=== PATIENT | female | born 1975 | race Two or more races ===

== ENCOUNTER 2016-09-04 17:51 | Inpatient (IN) | payer MEDICAID ==
[~2016-09-04] VITALS: Ht 162.6 cm; Wt 74.4 kg
[~2016-09-04 17:51] MED LIST: AMLO10TA2 PO; FURO40TA5 PO; LEVE250T4 PO; SEVE800T PO
--- NOTE | 2016-09-04 17:51 | NUR ---
NO DIALYSIS x 2 WEEKS. CHEST PAIN, NAUSEA, VOMITING, COUGH. AWAITING MD ORDER. PLACED IN GOWNED. VSS.
--- NOTE | 2016-09-04 18:50 | NUR ---
RAC #20 IV ACCESS BLOOD SAMPLE COLLECTED SENT TO LAB
--- NOTE | 2016-09-04 19:00 | NUR ---
EKG IN PROGRESS
[2016-09-04 19:01] LABS: BASOPHILS # (AUTO) 0.2 /CMM (0.0-0.2); BASOPHILS % (AUTO) 1.3 % (0.0-2.0); EOSINOPHILS % (AUTO) 0.2 % (0.0-6.0); HEMATOCRIT 35 % (33-45); HEMOGLOBIN 11.4 g/dL (11.5-14.8); LYMPHOCYTES # (AUTO) 1.2 /CMM (0.8-4.8); LYMPHOCYTES % (AUTO) 10.6 % (20.0-44.0); MEAN CORPUSCULAR HEMOGLOBIN 31 PG (26.0-33.0); MEAN CORPUSCULAR HGB CONC 33 g/dl (31.0-36.0); MEAN CORPUSCULAR VOLUME 93 fL (82-100); MONOCYTES # (AUTO) 0.5 /CMM (0.1-1.30); MONOCYTES % (AUTO) 4.6 % (2.0-12.0); NEUTROPHILS # (AUTO) 9.8 /CMM (1.8-8.9); NEUTROPHILS % (AUTO) 83.3 % (43.0-81.0); PLATELET COUNT (AUTO) 321 /CMM (150-450); RDW COEFFICIENT OF VARIATION 13.9 (11.5-15.0); RED BLOOD CELL COUNT(AUTO) 3.75 MIL/uL (4.0-5.2); WHITE BLOOD COUNT (AUTO) 11.7 K/uL (4.3-11.0)
--- NOTE | 2016-09-04 19:07 | NUR ---
RADIATOR REPAIRER AT BEDSIDE
--- NOTE | 2016-09-04 19:11 | NUR ---
REPORT GIVEN TO DOREEN FOR LISSETH.
--- NOTE | 2016-09-04 19:11 | NUR ---
URINE SAMPLE COLLECTED SENT TO LAB
--- NOTE | 2016-09-04 19:12 | NUR ---
PT APPEARS TO BE RESTING COMFORTABLY.
[2016-09-04 19:18] LABS: ALBUMIN 3.6 g/dL (3.4-5.0); BILIRUBIN,DIRECT 0.1 mg/dL (0.0-0.2); BILIRUBIN,TOTAL 0.5 mg/dL (0.2-1.0); CALCIUM, SERUM 8.3 mg/dL (8.5-10.1); POTASSIUM 6.1 mmol/L (3.5-5.1)
[2016-09-04 19:20] LABS: CREATININE 26.1 mg/dL (0.6-1.3)
[2016-09-04 19:30] LABS: APPEARANCE,URINE Slightly Cloudy (CLEAR); BILIRUBIN,URINE Negative (NEGATIVE); BLOOD, URINE Large Ery/uL (NEGATIVE); COLOR,URINE Red (YELLOW); KETONES,URINE 15 (NEGATIVE); LEUKOCYTE ESTERASE ,URINE Small (NEGATIVE); NITRITE, URINE Negative (NEGATIVE); PROTEIN,URINE >=300 mg/dl (NEGATIVE); UGLUCOSE 100 MG/DL mg/dL (NEGATIVE); UROBILINOGEN,URINE 0.2 EU/dL (0.2)
[2016-09-04 19:38] LABS: BACTERIA,URINE Few /HPF (None Seen); RBC,URINE TOO NUMEROUS TO COUN /HPF (0-2); SQUAMOUS EPITHELIAL CELL,UR Rare /HPF (None Seen)
[2016-09-04] MEDS ORDERED: SODIUM POLYSTYRENE SULFONATE 15 G/60 ML BOTTLE PO ONE (20:00)
[2016-09-04] MEDS ORDERED: ASPIRIN 325 MG TABLET PO ONE (20:00)
--- NOTE | 2016-09-04 20:02 | NUR ---
DR.SORA CANDIDO QUILES
[2016-09-04] MEDS ORDERED: ASPIRIN 325 MG TABLET ONE (20:09)
[2016-09-04] MEDS ORDERED: SODIUM POLYSTYRENE SULFONATE 15 G/60 ML BOTTLE ONE (20:09)
[2016-09-04] MEDS ORDERED: ONDANSETRON HCL/PF 4 MG/2 ML VIAL ONE (20:12)
--- NOTE | 2016-09-04 20:19 | NUR ---
called report to Tele nurse. Nurse to call back in 5 mins.
--- NOTE | 2016-09-04 20:27 | NUR ---
CALLED TELE BACK TO GIVE REPORT TO TELE NURSE.
[2016-09-04] MEDS ORDERED: ONDANSETRON HCL/PF 4 MG/2 ML VIAL IV ONE (20:30)
[2016-09-04] MEDS ORDERED: hydrALAZINE HCL 25 MG TABLET PO PRN (21:30)
[2016-09-04 22:00] VITALS: BP 129/97
--- NOTE | 2016-09-04 22:30 | NUR ---
RN:TD: PT RECEIVED FROM ED FOR HYPERKALEMIA. PT ABLE TO AMBULATE TO THE BATHROOM BUT EASILY BECOMES SHORT OF BREATH. PATIENT HAD SEVERAL BOWEL MOVEMENTS FROM THE KAYEXALATE GIVEN IN ER. PT ST ON THE MONITOR WITH BBB, NO ECTOPY NOTED. PT HAS IV SITE RIGHT ARM SALINE LOCK AND LEFT ARM AV SHUNT. PT IRANIAN SPEAKING, PROPERTY MANAGEMENT ACCOUNTANT THERE FOR TRANSLATION. ALL NEEDS MADE KNOWN. CALL LIGHT IN REACH. PATIENT TO RECEIVE HD IN AM PER MD ORDER. ALL ORDERED ENTERED IN COMPUTER. VSS. WILL CONTINUE TO MONITOR CLOSELY. ALL BELONGINGS INVENTORIED.
[2016-09-05] VITALS (7 sets, daily range): BP systolic 99–150; BP diastolic 53–90
--- NOTE | 2016-09-05 04:34 | NUR ---
RN:TD; PT RESTING IN BED COMFORTABLY, NO ECTOPY NOTED ON TELE MONITOR. CALL LIGHT IN REACH.
[2016-09-05 08:30] LABS: BASOPHILS # (AUTO) 0.1 /CMM (0.0-0.2); BASOPHILS % (AUTO) 1.5 % (0.0-2.0); EOSINOPHILS # (AUTO) 0.1 /CMM (0.0-0.7); EOSINOPHILS % (AUTO) 0.7 % (0.0-6.0); HEMATOCRIT 27 % (33-45); HEMOGLOBIN 9.3 g/dL (11.5-14.8); LYMPHOCYTES # (AUTO) 1.4 /CMM (0.8-4.8); LYMPHOCYTES % (AUTO) 14.8 % (20.0-44.0); MEAN CORPUSCULAR HEMOGLOBIN 31 PG (26.0-33.0); MEAN CORPUSCULAR HGB CONC 34 g/dl (31.0-36.0); MEAN CORPUSCULAR VOLUME 91 fL (82-100); MONOCYTES # (AUTO) 0.5 /CMM (0.1-1.30); MONOCYTES % (AUTO) 5.9 % (2.0-12.0); NEUTROPHILS # (AUTO) 7.1 /CMM (1.8-8.9); NEUTROPHILS % (AUTO) 77.1 % (43.0-81.0); PLATELET COUNT (AUTO) 241 /CMM (150-450); RDW COEFFICIENT OF VARIATION 14.7 (11.5-15.0); RED BLOOD CELL COUNT(AUTO) 2.97 MIL/uL (4.0-5.2); WHITE BLOOD COUNT (AUTO) 9.2 K/uL (4.3-11.0)
[2016-09-05 09:05] LABS: TROPONIN I 0.236 ng/mL (0.00-0.056)
[2016-09-05 09:14] LABS: CALCIUM, SERUM 7.7 mg/dL (8.5-10.1); POTASSIUM 4.6 mmol/L (3.5-5.1)
[2016-09-05 09:31] LABS: CREATININE 22.3 mg/dL (0.6-1.3)
[2016-09-05] MEDS: FUROSEMIDE 40 MG TABLET PO SCH (12:21)
[2016-09-05] MEDS: SEVELAMER CARBONATE 800 MG TABLET PO SCH ×2 (12:21→17:26)
[2016-09-05] MEDS ORDERED: LEVETIRACETAM (250 MG) 250 MG TABLET PO SCH (17:00)
--- NOTE | 2016-09-05 19:15 | NUR ---
RN INITIAL NOTES RECEIVED PATIENT IN BED, AWAKE AND ALERT, ORIENTED. PATIENT WITH NO ACUTE DISTRESS AND DISCOMFORT. PATIENT ON ROOM AIR, NO SHORTNESS OF BREATH NOTED. SR ON TELE, HR OF 99. WITH LEFT FOREARM AV SHUNT, BRUIT AND THRILL APPRECIATED, DRESSING INTACT, NO DRAINAGE AND NO BLEEDING NOTED. R AC G20, FLUSHED AND PATENT, NO SIGNS OF INFILTRATION. PATIENT'S NEEDS ANTICIPATED AND MET. SAFETY AND COMFORT ENSURED. BED IN LOW AND LOCKED POSITION. CALL LIGHT IN REACH. WILL MONITOR.
--- NOTE | 2016-09-05 20:00 | NUR ---
RN NOTES PATIENT SEEN AND EXAMINED BY DR. MEHTA REFERRED BY DR. DUARTE. PATIENT TO BE STARTED ON ANTI DEPRESSANT ORDERED, PATIENT VERBALIZES UNDERSTANDING.
[2016-09-06] VITALS: BP 101/52
[2016-09-06] MEDS: ACETAMINOPHEN 650 MG/20.3 ML UDC PO PRN ×3 (01:55→21:07)
[2016-09-06] MEDS: ONDANSETRON HCL/PF 4 MG/2 ML VIAL IV PRN ×2 (01:55→08:17)
[2016-09-06 04:00] VITALS: BP 105/65
--- NOTE | 2016-09-06 06:48 | NUR ---
RN CLOSING NOTES PATIENT IN BED, SLEEPING COMFORTABLY. NO ACUTE DISTRESS OBSERVED OVERNIGHT. SAFETY AND COMFORT ENSURED. BED IN LOW AND LOCKED POSITION. CALL LIGHT IN REACH. WILL ENDORSE ACCORDINGLY FOR CONTINUITY OF CARE.
--- NOTE | 2016-09-06 07:35 | NUR ---
RN INITIAL NOTE RECEIVED PT FROM ENRIQUE STILES PM NURSE. PT A/O X4 ROMANSH SPEAKING. PT RECEIVED HD @ BEDSIDE. TELE SR. LFA AV SHUNT, RAC # 20G INTACT AND PATENT. PT NAUSEATED. ZOFRAN WILL BE GIVEN. WILL CONTINUE TO MONITOR CLOSELY.ALL SAFETY MEASURES IN PLACE.
[2016-09-06 08:00] VITALS: BP 129/94
[2016-09-06] MEDS: SEVELAMER CARBONATE 800 MG TABLET PO SCH ×3 (08:13→17:19)
[2016-09-06] MEDS: FUROSEMIDE 40 MG TABLET PO SCH (08:13)
[2016-09-06] MEDS: SERTRALINE HCL 25 MG TABLET PO SCH (08:13)
[2016-09-06] MEDS: AMLODIPINE BESYLATE 10 MG TABLET PO SCH (08:23)
[2016-09-06 12:00] VITALS: BP 107/78
[2016-09-06] MEDS ORDERED: EPOETIN ALFA (10,000 UNIT) 10,000 UNIT/ML VIAL IV ONE (15:00)
--- NOTE | 2016-09-06 15:35 | NUR ---
RN NOTE PT C/O HEADACHE WILL GIVEN TYLENOL PO.
[2016-09-06 16:00] VITALS: BP 117/80
--- NOTE | 2016-09-06 19:08 | NUR ---
RN CLOSING NOTE REPORT GIVEN TO [facility] NURSE FOR LISSETH. PT A/O X4 DANISH SPEAKING. TELE SR. LFA AV SHUNT, RAC # 20G INTACT AND PATENT. PT NO LONGER NAUSEATED . ALL MEDICATIONS GIVEN AND ALL ORDERS CARRIED OUT. ALL SAFETY MEASURES IN PLACE. PT ABLE TO TOLERATE DINNER MUCH BETTER THAN SHE DID HER LUNCH.
[2016-09-06 20:00] VITALS: BP 119/80
[2016-09-07] VITALS: BP 103/67
[2016-09-07 04:00] VITALS: BP 96/63
--- NOTE | 2016-09-07 07:15 | NUR ---
RN INITIAL NOTE PT RECEIVED IN BED, RESTING COMFORTABLY. AWAKE, ALERT AND ORIENTED. PRIMARILY MONGOLIAN SPEAKING. ABLE TO MAKE NEEDS KNOWN. SINUS RHYTHM ON TELE MONITOR. RIGHT ARM AC IV SITE, FLUSHED AND PATENT. SKIN WARM AND DRY TO TOUCH. SAFETY PRECAUTIONS IN PLACE. BED IN LOCKED, LOW POSITION. CALL LIGHT, AND BELONGINGS WITHIN EASY .
[2016-09-07 08:00] VITALS: BP 120/90
[2016-09-07] MEDS: SEVELAMER CARBONATE 800 MG TABLET PO SCH (08:10)
[2016-09-07] MEDS: FUROSEMIDE 40 MG TABLET PO SCH (08:10)
[2016-09-07] MEDS: SERTRALINE HCL 25 MG TABLET PO SCH (08:10)
[2016-09-07 08:11] VITALS: BP 120/90
[2016-09-07] MEDS: AMLODIPINE BESYLATE 10 MG TABLET PO SCH (08:11)
[2016-09-07] MEDS ORDERED: SERT25TA5 PO (09:32)
--- NOTE | 2016-09-07 12:45 | NUR ---
RN CLOSING NOTE PT DISCHARGED TO HOME. IV DISCONTINUED. PICKED UP BY FAMILY MEMBER. WILL F/U WITH PCP RE: DIALYSIS
== END 2016-09-07 13:00 | disposition home or self-care (01) | DRG 460 ==
LOC: ER 17:57 → TELE-TD 20:35 → TELE1 09-05 17:15
PROVIDERS: ADMIT Internal Medicine Nephrology; ATTEND Internal Medicine Nephrology
PROC: 5A1D60Z (ICD-10-PCS; principal; 2016-09-05)
DX: I12.0 Hypertensive chronic kidney disease with stage 5 chronic kidney disease or end stage renal disease (principal); E87.5 Hyperkalemia; N18.6 End stage renal disease; Z99.2 Dependence on renal dialysis; D64.9 Anemia, unspecified; F32.9 Major depressive disorder, single episode, unspecified
CPT/HCPCS: 36415; 71010-TC; 80048-TC; 80076-TC; 81000-TC; 84484-TC; 85025-TC; 87081-TC; 87086-TC; 90935-TC; A4606; J0885; J2405; Z7610

== ENCOUNTER 2017-05-07 17:29 | Inpatient (IN) | payer MEDICAID ==
[~2017-05-07] VITALS: Ht 160 cm; Wt 67.6 kg
[~2017-05-07 17:29] MED LIST changes: +SERT25TA5 PO; -SEVE800T PO; +SEVE800T7 PO
--- NOTE | 2017-05-07 17:40 | NUR ---
PT TO ER BED 10. PER REPORT, PT HAS NO DIALYSIS X 1 MONTH. PT IS C/O SOB, VOMITING AND WAS TOLD TO GO TO ED. GOWNED AND PLACED ON MONITOR. VSS. AUSTIN LEONARD.
--- NOTE | 2017-05-07 17:55 | NUR ---
DR WEST AT BEDSIDE FOR EVAL.
[2017-05-07] MEDS ORDERED: ONDANSETRON HCL/PF 4 MG/2 ML VIAL IVP ONE (18:00)
--- NOTE | 2017-05-07 18:05 | NUR ---
IV LINE STARTED BLOOD DRAWN AND SENT TO LAB.
[2017-05-07] MEDS ORDERED: ONDANSETRON HCL/PF 4 MG/2 ML VIAL ONE (18:06)
[2017-05-07 18:08] LABS: BASOPHILS % (AUTO) 0.3 % (0.0-2.0); EOSINOPHILS # (AUTO) 0.1 /CMM (0.0-0.7); EOSINOPHILS % (AUTO) 0.7 % (0.0-6.0); HEMATOCRIT 24 % (33-45); HEMOGLOBIN 8.4 g/dL (11.5-14.8); LYMPHOCYTES # (AUTO) 0.5 /CMM (0.8-4.8); LYMPHOCYTES % (AUTO) 6.3 % (20.0-44.0); MEAN CORPUSCULAR HEMOGLOBIN 31 PG (26.0-33.0); MEAN CORPUSCULAR HGB CONC 35 g/dl (31.0-36.0); MEAN CORPUSCULAR VOLUME 90 fL (82-100); MONOCYTES # (AUTO) 0.4 /CMM (0.1-1.30); MONOCYTES % (AUTO) 4.6 % (2.0-12.0); NEUTROPHILS # (AUTO) 7.5 /CMM (1.8-8.9); NEUTROPHILS % (AUTO) 88.1 % (43.0-81.0); PLATELET COUNT (AUTO) 294 /CMM (150-450); RED BLOOD CELL COUNT(AUTO) 2.71 MIL/uL (4.0-5.2); WHITE BLOOD COUNT (AUTO) 8.5 K/uL (4.3-11.0)
--- NOTE | 2017-05-07 18:18 | NUR ---
RADIOLOGY AT BEDSIDE FOR CHEST XRAY.
[2017-05-07 18:25] LABS: ALANINE AMINOTRANSFERASE 8 U/L (12-78); ALBUMIN 3.3 g/dL (3.4-5.0); ALKALINE PHOSPHATASE 86 U/L (46-116); ASPARTATE AMINOTRANSFERASE 17 U/L (15-37); BILIRUBIN,DIRECT 0.2 mg/dL (0.0-0.2); BILIRUBIN,TOTAL 0.6 mg/dL (0.2-1.0); CALCIUM, SERUM 8.3 mg/dL (8.5-10.1); CHLORIDE 100 mmol/L (98-107); GLUCOSE 152 mg/dL (74-106); POTASSIUM 5.4 mmol/L (3.5-5.1); SODIUM SERUM 134 mmol/L (136-145); TOTAL PROTEIN, SERUM 8.9 g/dL (6.4-8.2)
[2017-05-07 18:26] LABS: TROPONIN I < 0.017 ng/mL (0.00-0.056)
[2017-05-07 18:33] LABS: INR 2.09 (0.85-1.15)
[2017-05-07 18:44] LABS: CARBON DIOXIDE 7 mmol/L (21-32); UREA NITROGEN, BLOOD 200 mg/dL (7-18)
[2017-05-07] MEDS ORDERED: Sodium Bicarbonate 50 MEQ in IV 1/2NS 1000 ML 1,000 ML IV PRN (19:30)
[2017-05-07] MEDS ORDERED: SODIUM BICARBONATE SYR 50 MEQ/50 ML DISP.SYRIN IV ONE (19:30)
--- NOTE | 2017-05-07 19:32 | NUR ---
DR SENA CALLED ON THE PHONE WITH DR WEST.
--- NOTE | 2017-05-07 19:44 | NUR ---
CALLED DR LING, ON THE PHONE WITH DR WEST.
[2017-05-07] MEDS ORDERED: SODIUM BICARBONATE SYR 50 MEQ/50 ML DISP.SYRIN ONE ×2 (19:46→20:03)
--- NOTE | 2017-05-07 20:01 | NUR ---
REPORT GIVEN TO RAMILA. PT AWAITING TRANSFER TO FLOOR.
[2017-05-07 20:17] VITALS: BP 156/83
[2017-05-07] MEDS ORDERED: SODIUM POLYSTYRENE SULFONATE 15 G/60 ML BOTTLE PO ONE (20:30)
[2017-05-07] MEDS ORDERED: Z GUARD REMEDY 2 OZ OINT TP PRN (20:30)
[2017-05-07] MEDS ORDERED: ZOLPIDEM TARTRATE 5 MG TABLET PO PRN (20:30)
[2017-05-07] MEDS ORDERED: HYDROCODONE/APAP 5/325MG 1 EACH TABLET PO PRN (20:30)
[2017-05-07 21:00] VITALS: BP 146/86
[2017-05-07] MEDS ORDERED: PHYTONADIONE INJ 5 MG in IV D5W 50 ML IV ONE (21:00)
--- NOTE | 2017-05-07 21:19 | NUR ---
SUBSCRIPTION CREW LEADER DF KAYEXALATE 30GM ADMIN PT INSTRUCTED TO CALL FOR ASSISTANCE TO USE THE REST ROOM. PT ADMIN VITAMIN K IVF. POC PT NEEDS A CHELSIE CATH PRIOR TO HEMODIALYSIS. PT REPORTS THAT SHE HAD HEMODIALYSIS OVER A MONTH AGO AND DURING THAT TIME AV FISTULA EXPERIENCED SOME CLOTTING ISSUES. MD SENA ATTEMPTING TO ARRANGE MD TO INSERT CHELSIE CATHETER.PT VSS POTASSIUM OF 5.4 KAYEXALATE GIVEN ORDERED. PT MACEDONIAN SPEAKING INTERPRETATION PROVIDED BY RENA Beebe RN. Addendum: 05/07/17 at 2124 by PATRICIA FLORES RN PT RECEIVED FROM ER AT 2014 PT A/OX4 MACEDONIAN SPEAKING. PER PT SHE HAD DIALYSIS OVER 1 MONTH AGO AND WAS TOLD IN A MD OFFICE SHE REQUIRES HD TMT.PT BUN 200/CR 36 ADMITTING MD AWARE OF RESULTS. VSS. PT ON ROOM AIR SATURATION OF 99%, NSR ON MONITOR RATE OF 80. PT REFUSED SKIN ASSESSMENT AT TIME OF ADMISSION. PER PT SHE HAS NO WOUNDS OR SKIN ISSUES. WILL REASSESS PT SKIN WHEN PT IS MORE COMFORTABLE AND CONSENTING.
[2017-05-07 22:00] VITALS: BP 151/85
[2017-05-07 23:00] VITALS: BP 150/86
--- NOTE | 2017-05-07 23:02 | NUR ---
SHERIFF DETECTIVE DF I SPOKE WITH MD SENA UPDATED ON PATIENT STATUS.POC WILL BE FOR TELECOMMUNICATIONS CONSULTANT IN AM TO ATTEMPT TO CANNULATE AV FISTULA IN AM AND PERFORM HD. IF UNABLE TO ACCESS AV FISTULA A CHELSIE CATH WILL NEED TO BE PLACED. VSS. PT A/OX4 NO ACUTE DISTRESS NOTED. PT ASYMPTOMATIC.
[2017-05-08] VITALS (33 sets, daily range): BP systolic 112–178; BP diastolic 74–117
[2017-05-08 04:58] LABS: BASOPHILS % (AUTO) 0.2 % (0.0-2.0); EOSINOPHILS % (AUTO) 0.3 % (0.0-6.0); LYMPHOCYTES # (AUTO) 0.6 /CMM (0.8-4.8); LYMPHOCYTES % (AUTO) 10.3 % (20.0-44.0); MEAN CORPUSCULAR HEMOGLOBIN 32 PG (26.0-33.0); MEAN CORPUSCULAR HGB CONC 35 g/dl (31.0-36.0); MEAN CORPUSCULAR VOLUME 90 fL (82-100); MONOCYTES # (AUTO) 0.6 /CMM (0.1-1.30); NEUTROPHILS # (AUTO) 4.5 /CMM (1.8-8.9); NEUTROPHILS % (AUTO) 78.2 % (43.0-81.0); PLATELET COUNT (AUTO) 183 /CMM (150-450); RDW COEFFICIENT OF VARIATION 13.5 (11.5-15.0); RED BLOOD CELL COUNT(AUTO) 2.04 MIL/uL (4.0-5.2); WHITE BLOOD COUNT (AUTO) 5.8 K/uL (4.3-11.0)
[2017-05-08 05:20] LABS: CALCIUM, SERUM 7.1 mg/dL (8.5-10.1); MAGNESIUM 3.8 mg/dL (1.8-2.4); POTASSIUM 4.4 mmol/L (3.5-5.1); THYROID STIMULATING HORMONE 2.035 uIU/mL (0.358-3.74)
[2017-05-08 05:26] LABS: INR 1.29 (0.87-1.13)
--- NOTE | 2017-05-08 05:34 | NUR ---
BIOINFORMATICS SOFTWARE ENGINEER DF HGB OF 6.4 PT HGB ON ADMISSION 8.4 NO BLEEDING NOTED. PT DENIES BLOOD IN STOOL. POC REDRAW HGB FROM PERIPHERAL VEIN. HD RN BILL AT BEDSIDE FOR EMERGENT DIALYSIS HE WAS ABLE TO CANNULATE AV FISTULA WITH SUCCESS. VSS PT A/OX4.
[2017-05-08 05:45] LABS: CREATININE 33.6 mg/dL (0.6-1.3); PHOSPHORUS 10.4 mg/dL (2.5-4.9)
--- NOTE | 2017-05-08 05:47 | NUR ---
SUPPORT GROUP MANAGER DF RECEIVED CRITICAL VALUES OF HGB OF 6.4 PHOS OF 10.4,BUN 202,CR 33.6. MD SENA AWARE PT RECEIVING EMERGENT DIALYSIS STARTED ABOUT 20 MIN. POC CHECK LABS POST HD AND REDRAW HGB AND RECHECK VALUES.
[2017-05-08 06:18] LABS: HEMOGLOBIN 6.5 g/dL (11.5-14.8)
[2017-05-08 06:19] LABS: HEMATOCRIT 18 % (33-45); HEMOGLOBIN 6.4 g/dL (11.5-14.8)
--- NOTE | 2017-05-08 07:00 | NUR ---
RN SURGERY DF PT ORDERS RECEIVED FOR T&C SCREEN AND 1UPRBC.PT CONSENTS TO BLOOD TRANSFUSION,CONSENT FORM SIGNED, PT IN AGREEMENT TO TRANSFUSIONS, PT HAS HAD A BLOOD TRANSFUSIONS IN THE PAST.
[2017-05-08] MEDS: ONDANSETRON HCL/PF 4 MG/2 ML VIAL IVP PRN (07:25)
[2017-05-08 09:26] LABS: LYMPHOCYTES % (MANUAL) 5 % (16-48); MONOCYTES % (MANUAL) 7 % (0-11.0); NEUTROPHILS % (MANUAL) 88 (42-76)
[2017-05-08] MEDS: SEVELAMER CARBONATE 800 MG TABLET PO SCH ×3 (09:36→17:45)
[2017-05-08] MEDS: AMLODIPINE BESYLATE 10 MG TABLET PO SCH (09:36)
--- NOTE | 2017-05-08 11:15 | NUR ---
rn notes pt with downgrade level of care order; transferred pt to rm [id number] via wheelchair in stable condition. current ivf infusing well with PRBC also infusing; no transfusion reactions noted; pt denies pain, no sob. pt in stable condition. tel report given to vocational teacher Alexandra prior to transfer. all belongings endorsed
--- NOTE | 2017-05-08 11:30 | NUR ---
RN NOTE PATIENT IS RECEIVED PATIENT RECEIVED ON W/CHAIR. ASSISTED TO BED. PRBC INFUSING WELL. NO TRANSFUSION REACTIONS NOTED. DENIES SOB, DENIES PAIN. RESPIRATION REGULAR AND UNLABORED. PATIENT IS ALERT AND ORIENTED X4. PALESTINIAN SPEAKING. ALL NEEDS ATTENDED AND ANTICIPATED. BED LOW AND LOCKED. SIDE RAIL UP X2. CALL LIGHT WITHIN REACH. WILL CONTINUE TO MONITOR.
[2017-05-08 14:41] LABS: BASOPHILS % (AUTO) 0.2 % (0.0-2.0); EOSINOPHILS % (AUTO) 0.2 % (0.0-6.0); HEMATOCRIT 25 % (33-45); HEMOGLOBIN 8.8 g/dL (11.5-14.8); LYMPHOCYTES # (AUTO) 0.5 /CMM (0.8-4.8); LYMPHOCYTES % (AUTO) 9.4 % (20.0-44.0); MEAN CORPUSCULAR HEMOGLOBIN 31 PG (26.0-33.0); MEAN CORPUSCULAR HGB CONC 35 g/dl (31.0-36.0); MEAN CORPUSCULAR VOLUME 88 fL (82-100); MONOCYTES # (AUTO) 0.6 /CMM (0.1-1.30); MONOCYTES % (AUTO) 10.6 % (2.0-12.0); NEUTROPHILS # (AUTO) 4.1 /CMM (1.8-8.9); NEUTROPHILS % (AUTO) 79.6 % (43.0-81.0); PLATELET COUNT (AUTO) 185 /CMM (150-450); RDW COEFFICIENT OF VARIATION 13.4 (11.5-15.0); RED BLOOD CELL COUNT(AUTO) 2.83 MIL/uL (4.0-5.2); WHITE BLOOD COUNT (AUTO) 5.2 K/uL (4.3-11.0)
[2017-05-08] MEDS: PANTOPRAZOLE 40 MG TABLET.DR PO SCH (17:44)
--- NOTE | 2017-05-08 18:14 | NUR ---
Patient speaks Turkmen only. She lives at home with her and children. She is ambulatory and independent with adl's. She is on HD 3X/WEEK every MWF at [facility] [phone]. Family will provide ride home once d/c Addendum: 05/08/17 at 1815 by YESSICA ELLIS RN Amended: Links added.
--- NOTE | 2017-05-08 18:47 | NUR ---
MS/RN CLOSING NOTE PATIENT IN BED AWAKE. DENIES SOB, PAIN. BREATHING REGULAR AND UNLABORED. IN NO APPARENT DISTRESS. ALL DUE MEDICATIONS GIVEN AND NO ASE NOTED. GOOD AND GENTLE SKIN CARE RENDERED. KEPT CLEAN AND COMFORTABLE. KO MIDLINE AND RFA PERIPHERAL LINE PATENT. BED LOW AND LOCKED. SIDE RAIL UP X3. CALL LIGHT WITHIN REACH. WILL ENDORSE TO NIGH SHIFT.
--- NOTE | 2017-05-08 19:35 | NUR ---
PARTNER MANAGER OPENING NOTES RECEIVED PT IN BED AWAKE,ALERT,VERBALLY RESPONSIVE, ON ROOM AIR, RESPIRATIONS EVEN, UNLABORED, NO SOB NOTED. DENIES ANY PAIN OR DISCOMFORT AT THIS TIME. IV SITE KO MIDLINE INTACT, PATENT.CALL LIGHT WITHIN REACH. BED LOCKED IN LOWEST POSITION.KEPT CLEAN AND COMFORTABLE, ATTENDED ALL NEEDS. WILL CONTINUE TO MONITOR ACCORDINGLY
[2017-05-08] MEDS: LEVETIRACETAM (250 MG) 250 MG TABLET PO SCH (20:51)
[2017-05-09 00:04] VITALS: BP 158/82
[2017-05-09 04:35] VITALS: BP 156/79
--- NOTE | 2017-05-09 06:25 | NUR ---
MS RN CLOSING NOTES PT IN BED ASLEEP,ON ROOM AIR.RESPIRATIONS EVEN, UNLABORED, NO SOB NOTED. ADAN MIDLINE INTACT,PATENT. DENIES ANY PAIN OR DISCOMFORT AT THIS TIME. CALL LIGHT WITHIN REACH.KEPT CLEAN AND COMFORTABLE, ATTENDED ALL NEEDS.WILL CONTINUE TO MONITOR ACCORDINGLY.
[2017-05-09 07:19] LABS: BASOPHILS % (AUTO) 0.1 % (0.0-2.0); EOSINOPHILS % (AUTO) 0.8 % (0.0-6.0); HEMATOCRIT 25 % (33-45); HEMOGLOBIN 8.8 g/dL (11.5-14.8); LYMPHOCYTES # (AUTO) 0.6 /CMM (0.8-4.8); LYMPHOCYTES % (AUTO) 11.4 % (20.0-44.0); MEAN CORPUSCULAR HEMOGLOBIN 31 PG (26.0-33.0); MEAN CORPUSCULAR HGB CONC 35 g/dl (31.0-36.0); MEAN CORPUSCULAR VOLUME 88 fL (82-100); MONOCYTES # (AUTO) 0.6 /CMM (0.1-1.30); MONOCYTES % (AUTO) 10.7 % (2.0-12.0); NEUTROPHILS # (AUTO) 4.1 /CMM (1.8-8.9); PLATELET COUNT (AUTO) 165 /CMM (150-450); RDW COEFFICIENT OF VARIATION 13.8 (11.5-15.0); RED BLOOD CELL COUNT(AUTO) 2.81 MIL/uL (4.0-5.2); WHITE BLOOD COUNT (AUTO) 5.4 K/uL (4.3-11.0)
--- NOTE | 2017-05-09 07:20 | NUR ---
RN OPENING NOTES RECEIVED PT. IN BED A&OX3. PT. HAS A LEFT ARM FISTULA FOR DIALYSIS, SIGN ABOVE BED READS NO BLOOD PRESSURE AND NO BLOOD DRAW ON LEFT ARM. BREATHING UNLABORED, AND EVENLY ON ROOM AIR. NO S/S OF ACUTE DISTRESS. IV ACCESS ON RIGHT UPPER ARM MIDLINE. BED IS IN LOWEST, AND LOCKED POSITION. 2 SIDE RAILS UP, AND INSTRUCTED PT. TO USE CALL LIGHT FOR ASSISTANCE. ALL NEEDS MET. WILL CONTINUE TO ASSESS AND MONITOR.
[2017-05-09 07:45] LABS: CALCIUM, SERUM 6.8 mg/dL (8.5-10.1); MAGNESIUM 3.1 mg/dL (1.8-2.4); POTASSIUM 3.9 mmol/L (3.5-5.1)
[2017-05-09 07:46] LABS: CREATININE 27.2 mg/dL (0.6-1.3); PHOSPHORUS 10.7 mg/dL (2.5-4.9)
[2017-05-09 08:00] VITALS: BP 147/87
[2017-05-09] MEDS: SEVELAMER CARBONATE 800 MG TABLET PO SCH ×3 (08:00→18:00)
[2017-05-09] MEDS: PANTOPRAZOLE 40 MG TABLET.DR PO SCH (09:08)
[2017-05-09] MEDS: AMLODIPINE BESYLATE 10 MG TABLET PO SCH (09:09)
--- NOTE | 2017-05-09 09:09 | NUR ---
RN NOTES PT. HAD NAUSEA WITH VOMITING. HELD 0800 MEDICATION RENVELA. NOTIFIED MITESH CADENA NP ABOUT PT.'S CONDITION.
[2017-05-09] MEDS ORDERED: EPOETIN ALFA (10,000 UNIT) 10,000 UNIT/ML VIAL SQ ONE (10:30)
--- NOTE | 2017-05-09 14:13 | NUR ---
RN NOTES DID NOT ADMINISTER MEDICATION DUE TO PT. DID NOT EAT LUNCH FROM FEELING NAUSEAS.
[2017-05-09 16:00] VITALS: BP 113/76
[2017-05-09] MEDS: PANTOPRAZOLE 40 MG VIAL IV SCH (16:12)
[2017-05-09] MEDS: ONDANSETRON HCL/PF 4 MG/2 ML VIAL IVP PRN (18:18)
--- NOTE | 2017-05-09 18:23 | NUR ---
RN NOTES PT. HAD S/S OF NAUSEA AFTER EATING SOUP. RENVELA WAS HELD.
--- NOTE | 2017-05-09 18:58 | NUR ---
RN CLOSING NOTES PT. IS IN BED A&OX3. PT. HAS A LEFT ARM FISTULA FOR DIALYSIS, SIGN ABOVE BED READS NO BLOOD PRESSURE AND NO BLOOD DRAW ON LEFT ARM. BREATHING UNLABORED, AND EVENLY ON ROOM AIR. NO S/S OF ACUTE DISTRESS. MIDLINE IV ACCESS ON RIGHT UPPER ARM. PT. RECEIVED HEMODIALYSIS TODAY WITH 2100 TOTAL OUTPUT. BED IS IN LOWEST, AND LOCKED POSITION. 2 SIDE RAILS UP, AND INSTRUCTED PT. TO USE CALL LIGHT FOR ASSISTANCE. ALL NEEDS MET. WILL ENDORSE REPORT TO NURSE.
--- NOTE | 2017-05-09 19:30 | NUR ---
MS RN OPENING NOTES RECEIVED PT IN BED AWAKE,ALERT,VERBALLY RESPONSIVE,ON ROOM AIR,RESPIRATIONS EVEN, UNLABORED, NO APPARENT DISTRESS NOTED. DENIES ANY PAIN OR DISCOMFORT AT THIS TIME.NO EPISODE OF NAUSEA NOTED. IV SITE INTACT, PATENT, NO S/SX OF INFILTRATION NOTED.CALL LIGHT WITHIN REACH.ATTENDED ALL NEEDS. WILL CONTINUE TO MONITOR ACCORDINGLY.
[2017-05-09 20:00] VITALS: BP 143/80
[2017-05-10 06:34] LABS: BASOPHILS % (AUTO) 0.2 % (0.0-2.0); EOSINOPHILS % (AUTO) 0.5 % (0.0-6.0); HEMATOCRIT 28 % (33-45); HEMOGLOBIN 9.7 g/dL (11.5-14.8); LYMPHOCYTES # (AUTO) 0.6 /CMM (0.8-4.8); MEAN CORPUSCULAR HEMOGLOBIN 31 PG (26.0-33.0); MEAN CORPUSCULAR HGB CONC 35 g/dl (31.0-36.0); MEAN CORPUSCULAR VOLUME 88 fL (82-100); MONOCYTES # (AUTO) 0.8 /CMM (0.1-1.30); MONOCYTES % (AUTO) 12.5 % (2.0-12.0); NEUTROPHILS % (AUTO) 76.8 % (43.0-81.0); PLATELET COUNT (AUTO) 144 /CMM (150-450); RDW COEFFICIENT OF VARIATION 13.8 (11.5-15.0); RED BLOOD CELL COUNT(AUTO) 3.15 MIL/uL (4.0-5.2); WHITE BLOOD COUNT (AUTO) 6.4 K/uL (4.3-11.0)
--- NOTE | 2017-05-10 06:38 | NUR ---
MS RN CLOSING NOTES PT IN BED, RESTING COMFORTABLY, ON ROOM AIR, RESPIRATIONS EVEN, UNLABORED, NO SOB, NO APPARENT DISTRESS NOTED. IV SITE INTACT, PATENT, CALL LIGHT WITHIN REACH.BED LOCKRD IN LOWEST POSITION.KEPT CLEAN AND COMFORTABLE, ATTENDED ALL NEEDS.WILL CONTINUE TO MONITOR ACCORDINGLY.
[2017-05-10 07:20] LABS: CALCIUM, SERUM 6.5 mg/dL (8.5-10.1); CREATININE 22.1 mg/dL (0.6-1.3); MAGNESIUM 2.8 mg/dL (1.8-2.4); POTASSIUM 3.9 mmol/L (3.5-5.1)
--- NOTE | 2017-05-10 07:49 | NUR ---
MS/RN OPENING NOTE PATIENT IN BED IN STABLE CONDITION. A/O X 3. SAMI SPEAKING. NO SIGNS OF ACUTE DISTRESS. NO COMPLAIN OF PAIN OR DISCOMFORT. ALL NEEDS ATTENDED TO. CALL LIGHT WITHIN REACH. WILL CONTINUE TO MONITOR TO ENSURE SAFETY.
[2017-05-10 08:00] VITALS: BP 158/86
[2017-05-10] MEDS: SERTRALINE HCL 25 MG TABLET PO SCH (08:19)
[2017-05-10] MEDS: AMLODIPINE BESYLATE 10 MG TABLET PO SCH (08:20)
[2017-05-10] MEDS: SEVELAMER CARBONATE 800 MG TABLET PO SCH ×3 (09:19→17:36)
[2017-05-10] MEDS: ONDANSETRON HCL/PF 4 MG/2 ML VIAL IVP PRN (09:27)
--- NOTE | 2017-05-10 15:47 | NUR ---
STRAPPER NOTES RECEIVED PATIENT FROM GASTON CARRINGTON, IN BED RESTING. NO ACUTE DISTRESS, NO SOB NOTED. NO S/S OF PAIN OR DISCOMFORT. IV SITE INTACT AND PATENT. KEPT SAFE AND COMFORTABLE IN BED. BED IN LOW LOCKED POSITION. SIDERAILS UP, CALL LIGHT IN REACH. WILL CONTINUE TO MONITOR ACCORDINGLY.
[2017-05-10 16:03] VITALS: BP 145/84
[2017-05-10] MEDS: PANTOPRAZOLE 40 MG VIAL IV SCH (17:32)
--- NOTE | 2017-05-10 19:30 | NUR ---
RN CLOSING NOTES PATIENT IN BED RESTING. NO ACUTE DISTRESS, NO SOB NOTED. ALL NEEDS ATTENDED AND PROVIDED. KEPT PATIENT SAFE AND COMFORTABLE IN BED. BED IN LOW/LOCKED POSITION, SIDERAILS UPX2, CALL LIGHT IN REACH, ENDORSED TO NIGHT RN FOR LISSETH.
--- NOTE | 2017-05-10 19:45 | NUR ---
RN OPENING NOTES RECEIVED PT LAYING IN BED WITH HOB ELEVATED. AWAKE AND RESPONSIVE. RESPIRATIONS ARE EVEN AND UNLABORED, NOT IN ANY ACUTE DISTRESS NOTED. DENIES ANY PAIN AT THIS TIME. REMAINS AFEBRILE. KO MIDLINE PATENT AND INTACT, DRESSING KEPT CLEAN AND DRY. PT ABLE TO REPOSITION SELF IN BED USING SIDERAILS. INSTRUCTED PT TO USE CALL LIGHT WHEN ASSISTANCE IS NEEDED, CALL LIGHT IS LEFT WITHIN REACH. BED IS IN LOCKED AND LOWEST POSITION. WILL CONTINUE TO MONITOR THROUGHOUT SHIFT.
[2017-05-10 20:00] VITALS: BP 146/87
[2017-05-11 04:00] VITALS: BP 135/83
--- NOTE | 2017-05-11 06:28 | NUR ---
RN CLOSING NOTES ALL NEEDS MET AND ANTICIPATED. A/O X3, REMAINS AFEBRILE. RESPIRATIONS ARE EVEN AND UNLABORED, NOT IN ANY ACUTE DISTRESS NOTED. KO MIDLINE AND RAC INTACT AND IS PATENT BY NS FLUSHING. DRESSING KEPT CLEAN AND DRY. AV FISTULA TO LFA, POSITIVE BRUIT/THRILL. DENIES ANY PAIN, NO FACIAL GRIMACING OR MOANING NOTED. HD SCHEDULED FOR TODAY. INSTRUCTED PT TO USE CALL LIGHT WHEN ASSISTANCE IS NEEDED, CALL LIGHT IS LEFT WITHIN REACH. BED IS IN ITS LOCKED AND LOWEST POSITION. PT WEARING NONSKID SOCKS DURING AMBULATION. WILL ENDORSE TO NEXT SHIFT FOR CONTINUITY OF CARE.
[2017-05-11 07:03] LABS: BASOPHILS % (AUTO) 0.1 % (0.0-2.0); EOSINOPHILS # (AUTO) 0.1 /CMM (0.0-0.7); HEMATOCRIT 28 % (33-45); HEMOGLOBIN 9.9 g/dL (11.5-14.8); LYMPHOCYTES # (AUTO) 0.7 /CMM (0.8-4.8); LYMPHOCYTES % (AUTO) 8.5 % (20.0-44.0); MEAN CORPUSCULAR HEMOGLOBIN 31 PG (26.0-33.0); MEAN CORPUSCULAR HGB CONC 35 g/dl (31.0-36.0); MEAN CORPUSCULAR VOLUME 88 fL (82-100); MONOCYTES # (AUTO) 0.7 /CMM (0.1-1.30); MONOCYTES % (AUTO) 7.8 % (2.0-12.0); NEUTROPHILS % (AUTO) 82.6 % (43.0-81.0); PLATELET COUNT (AUTO) 175 /CMM (150-450); RDW COEFFICIENT OF VARIATION 13.5 (11.5-15.0); RED BLOOD CELL COUNT(AUTO) 3.23 MIL/uL (4.0-5.2); WHITE BLOOD COUNT (AUTO) 8.5 K/uL (4.3-11.0)
[2017-05-11 07:22] LABS: CALCIUM, SERUM 6.8 mg/dL (8.5-10.1); POTASSIUM 4.1 mmol/L (3.5-5.1)
[2017-05-11 07:23] LABS: CREATININE 23.7 mg/dL (0.6-1.3); PHOSPHORUS 10.9 mg/dL (2.5-4.9)
[2017-05-11 08:00] VITALS: BP 150/87
--- NOTE | 2017-05-11 08:00 | NUR ---
rn notes received patient in the room lying in the bed, very depress, quiet, encouraged to express feelings and concerns, v/s taken, scheduled medication administered, patient was c/o pain lower legs pain 3/10, but refused pain medication at this time, patient has no acute respiratory distress, needs attended and anticipated, safety precaution maintained with 1:1 sitter next to the bed. iv line on right upper arm intact, patient turn and reposition self in the bed, fistula on left forearm intact, continued monitoring.
[2017-05-11] MEDS: SEVELAMER CARBONATE 800 MG TABLET PO SCH ×3 (08:50→17:29)
[2017-05-11] MEDS: SERTRALINE HCL 25 MG TABLET PO SCH (08:50)
[2017-05-11] MEDS: AMLODIPINE BESYLATE 10 MG TABLET PO SCH (08:51)
--- NOTE | 2017-05-11 12:45 | NUR ---
RN NOTES PATIENT IN THE BED, NO ACUTE DISTRESS, PATIENT ON HEMODIALYSIS AT THIS TIME, NO ACUTE DISTRESS, V/S TAKEN BP -157.86, P-92, O-2-98 ROOM AIR. CALL LIGHT WITHIN TO REACH, SAFETY PRECAUTION MAINTAINED ALL THE TIME.
--- NOTE | 2017-05-11 13:00 | NUR ---
RN NOTES PATIENT REFUSED EAT LUNCH, AND REFUSED SCHEDULED MEDICATION, PATIENT STILL ON HEMODIALYSIS, NO ACUTE DISTRESS, CALL LIGHT WITHIN TO REACH, SAFETY PRECAUTION MAINTAINED ALL THE TIME.
--- NOTE | 2017-05-11 14:25 | NUR ---
RN NOTES PATIENT RH IS 104 AT THIS TIME. PATIENT WAS C/O SOB, APPLIED 02-2L NC, AND HEART RATE FLUCTUATING UP TO 114 AND GOING DOWN, NOTIFIED MARLEE CADENA AND GET ORDER STAT EKG AT THIS TIME, ORDER TAKEN AND CARRIED OUT.
--- NOTE | 2017-05-11 14:53 | NUR ---
Social service consult requested by Dr. Gomez for Depression and living conditions. Pt. is a 41 year old female who was admitted to [facility] for Renal failure. BRANDON met with pt. bedside along with BRANDON Rosenbaum for Nigerian translation. Pt. is Nigerian speaking. Pt. states she resides with her mother Amy in [place]. [place]. Pt. attends Dialysis at [facility] in [place] on Thursday, Thursday and Thursday. Pt. appears depressed and soft spoken. Pt. states she is depressed due to her medical condition. SW offered pt. to see a psychiatrist if she would like one. Pt. declined. Pt. states she and her mom argues frequently at home. However, pt. wants to return home once medically cleared for discharge. Pt. is supported financially by her mother. Pt. denies suicidal/homicidal ideations and visual/auditory hallucinations at this time. No other social service needs are requested at this time. SW is available if needed. seed corn manager production Ariela is looking into pt's medical insurance.
[2017-05-11 15:00] VITALS: BP 122/86
--- NOTE | 2017-05-11 15:00 | NUR ---
RN NOTES PATIENT'S HEMODIALYSIS FINISH AT THIS TIME, OUTPUT WAS 1000 ML , V/S TAKEN BP- 122/86, P-89, 02-100 ON 2L-NC. ENCOURAGED TO EAT, CALL LIGHT WITHIN TO REACH, SAFETY PRECAUTION MAINTAINED ALL THE TIME.
[2017-05-11] MEDS: CALCIUM ACETATE 667 MG TABLET PO SCH ×3 (15:17→17:42)
[2017-05-11] MEDS: PANTOPRAZOLE 40 MG VIAL IV SCH (15:55)
[2017-05-11 16:00] VITALS: BP 122/86
--- NOTE | 2017-05-11 17:43 | NUR ---
RN NOTES PATIENT HAS A NAUSEA AND VOMITING AT THIS TIME, REFUSED TAKE MEDICATION FOCIL AT THIS TIME, HOB ELEVATED, ASPIRATION PRECAUTION MONITORING, CALL LIGHT WITHIN TO REACH, CONTINUED MONITORING.
--- NOTE | 2017-05-11 18:30 | NUR ---
RN NOTES PATIENT RESTING IN THE BED, NO N/V AT THIS TIME, NO ACUTE RESPIRATORY DISTRESS, V/S TAKEN STABLE B-136/88, P-84, O2-98 ROOM AIR, PATIENT REFUSED PAIN AT THIS TIME, REFUSED EAT DINNER AFTER VOMITED X1. CALL LIGHT WITHIN TO REACH. ENDORSED ONCOMING NURSE FOR CONTINUATION OF CARE.
--- NOTE | 2017-05-11 19:40 | NUR ---
MSRN RECEIVED VOMITTING, CHECKED PRN MEDS, WILL ADMINISTER ZOFRAN. TO CONTINUE
[2017-05-11] MEDS: ONDANSETRON HCL/PF 4 MG/2 ML VIAL IVP PRN (19:48)
--- NOTE | 2017-05-11 19:54 | NUR ---
MSRN ZOFRAN ADMINISTERED ORDERED. BEDREST INSTRUCTED APPEARS TO UNDERSTAND.
[2017-05-11 20:00] VITALS: BP 137/84
--- NOTE | 2017-05-11 20:12 | NUR ---
MSRN FEELS BETTER THIS TIME, RESTING QUIETLY
[2017-05-11 20:14] VITALS: BP 137/84
[2017-05-11] MEDS: LEVETIRACETAM (250 MG) 250 MG TABLET PO SCH (21:16)
--- NOTE | 2017-05-11 21:51 | NUR ---
MSRN DUE MEDS ADMINISTERED, NO FURTHER VOMITTING. WENT BACK TO SLEEP
--- NOTE | 2017-05-12 01:10 | NUR ---
MSRArun GOT OOB, PULLED HIS HEPLOCK OUT. RESTARTED BY GASTON LFA 22 GAUGE WITH GOOD BLOOD RETURN. IVF CONTINIED. Addendum: 05/12/17 at 0316 by KYARA TUBBS RN DISREGARD ABOVE DOCUMENTATION. NOT INTENDED FOR THIS PATIENT.WRONG CHARTING
--- NOTE | 2017-05-12 03:14 | NUR ---
LUIS PEREZ ON A CHAIR, PLEASANTLY CONFUSED. HFR, CLOSELY WATCHED. Addendum: 05/12/17 at 0317 by KYARA TUBBS RN DISREGARD DOCUMENTATION ABOVE, NOT INTENDED FOR THIS PATIENT. WRONG CHARTING
--- NOTE | 2017-05-12 03:17 | NUR ---
MSRN SLEEPS ON/OFF. DENIES ANY DISCOMFORTS.
--- NOTE | 2017-05-12 07:01 | NUR ---
MSRN REMAINS UNCHANGED.
[2017-05-12 08:00] VITALS: BP 125/84
--- NOTE | 2017-05-12 08:05 | NUR ---
MS RN NOTES PATIENT IN BED, AWAKE. A/O X3, BRITISH VIR[place] ISLANDER SPEAKING, UNDERSTAND SOME SERBIAN. LFA FISTULA COVERED WITH GAUZE, NO BLEEDING NOTED. KO MIDLINE PATENT AND INTACT WITH ANOTHER IVC IN RIGHT AC G20. PATIENT DENIES ANY DISCOMFORT, NO SOB. CALL LIGHT WITHIN REACH. WILL CONT TO MONITOR.
[2017-05-12] MEDS: PANTOPRAZOLE 40 MG VIAL IV SCH (08:40)
[2017-05-12] MEDS: SEVELAMER CARBONATE 800 MG TABLET PO SCH ×3 (08:40→17:31)
[2017-05-12] MEDS: CALCIUM ACETATE 667 MG TABLET PO SCH ×3 (08:40→17:31)
[2017-05-12] MEDS: SERTRALINE HCL 25 MG TABLET PO SCH (08:40)
[2017-05-12] MEDS: AMLODIPINE BESYLATE 10 MG TABLET PO SCH (08:41)
[2017-05-12] MEDS ORDERED: BISACODYL SUPP (10 MG) 10 MG/SUPP.RECT SUPP.RECT RC PRN (12:30)
[2017-05-12] MEDS: POLYETHYLENE GLYCOL 3350 17 GM POWD.PACK PO SCH (12:32)
[2017-05-12 16:00] VITALS: BP 100/71
[2017-05-12] MEDS: SENNOSIDES/DOCUSATE SODIUM 1 TAB TABLET PO SCH (17:31)
--- NOTE | 2017-05-12 18:59 | NUR ---
MS RN CLOSING NOTES PATIENT IN BED, A/O X3 COOPERATIVE. AMBULATES TO THE BATHROOM, STEADY GAIT. HAD BOWEL MOVEMENT TODAY, MIRALAX GIVEN FOR CONSTIPATION, EFFECTIVE. DENIES ANY DISCOMFORT. FOR HD IN AM PER DR. REY. CALL LIGHT WITHIN REACH. WILL ENDORSE TO ONCOMING SHIFT RN.
--- NOTE | 2017-05-12 19:45 | NUR ---
MSRN RESTING QUIETLY. NO N/V. STABLE DENIES ANY DISCOMFORTS. REMINDED TO CALL STAFF FOR ANY ASSISTANCE OR DISCOMFORTS. TRANSLATED IN ARMENIAN. APPEARS TO UNDERSTAND
[2017-05-12 20:33] VITALS: BP 109/73
--- NOTE | 2017-05-13 01:05 | NUR ---
LUIS SLEEPING CLOSELY WATCHED. FOR HD TODAY
--- NOTE | 2017-05-13 07:10 | NUR ---
MS/RN OPENING NOTE RECEIVED PATIENT IN BED AWAKE. ALERT AND ORIENTED X3. DENIES SOB, PAIN AT THIS TIME. BREATHING REGULAR AND UNLABORED. IN NO APPARENT DISTRESS. LFA FISTULA WITH NO BLEEDING AND NO S/S INFECTION. BED LOW AND LOCKED. SIDE RAILS UP X2. CALL LIGHT WITHIN REACH. WILL CONTINUE TO MONITOR.
--- NOTE | 2017-05-13 07:10 | NUR ---
MS/RN OPENING NOTE RECEIVED PATIENT IN BED AWAKE. ALERT AND ORIENTED X3. RESPIRATION REGULAR AND UNLABORED. DENIES SOB, PAIN AT THIS TIME. LFA FISTULA WITH NO BLEEDING AND NO S/S INFECTION. KO MIDLINE AND RAC G 20 PATENT. BED LOW AND LOCKED. SIDE RAIL UP X2. CALL LIGHT WITHIN REACH. WILL CONTINUE TO MONITOR.
--- NOTE | 2017-05-13 07:24 | NUR ---
MSRN ENDORSED TO SENTHIL FELDMAN. PATIENT COONDITION REMAINS UNCHANGED
[2017-05-13 08:00] VITALS: BP 140/92
[2017-05-13] MEDS: CALCIUM ACETATE 667 MG TABLET PO SCH ×3 (08:15→17:53)
[2017-05-13] MEDS: SENNOSIDES/DOCUSATE SODIUM 1 TAB TABLET PO SCH ×2 (08:15→16:43)
[2017-05-13] MEDS: POLYETHYLENE GLYCOL 3350 17 GM POWD.PACK PO SCH (08:16)
[2017-05-13] MEDS: SEVELAMER CARBONATE 800 MG TABLET PO SCH ×3 (08:16→17:53)
[2017-05-13] MEDS: SERTRALINE HCL 25 MG TABLET PO SCH (08:16)
--- NOTE | 2017-05-13 08:30 | NUR ---
MS/RN CALL FROM LAB LAB REPORTED PHOSPHORUS LEVEL 11.7. DR SENA MADE AWARE WITH NO NEW ORDERS.
[2017-05-13 08:42] LABS: BASOPHILS # (AUTO) 0.1 /CMM (0.0-0.2); BASOPHILS % (AUTO) 0.4 % (0.0-2.0); EOSINOPHILS # (AUTO) 0.1 /CMM (0.0-0.7); EOSINOPHILS % (AUTO) 0.6 % (0.0-6.0); HEMATOCRIT 33 % (33-45); HEMOGLOBIN 11.2 g/dL (11.5-14.8); LYMPHOCYTES # (AUTO) 0.9 /CMM (0.8-4.8); LYMPHOCYTES % (AUTO) 6.5 % (20.0-44.0); MEAN CORPUSCULAR HEMOGLOBIN 30 PG (26.0-33.0); MEAN CORPUSCULAR HGB CONC 34 g/dl (31.0-36.0); MEAN CORPUSCULAR VOLUME 89 fL (82-100); MONOCYTES # (AUTO) 0.5 /CMM (0.1-1.30); MONOCYTES % (AUTO) 4.1 % (2.0-12.0); NEUTROPHILS # (AUTO) 11.6 /CMM (1.8-8.9); NEUTROPHILS % (AUTO) 88.4 % (43.0-81.0); PLATELET COUNT (AUTO) 224 /CMM (150-450); RDW COEFFICIENT OF VARIATION 13.7 (11.5-15.0); RED BLOOD CELL COUNT(AUTO) 3.69 MIL/uL (4.0-5.2); WHITE BLOOD COUNT (AUTO) 13.1 K/uL (4.3-11.0)
[2017-05-13] MEDS: AMLODIPINE BESYLATE 10 MG TABLET PO SCH (09:00)
[2017-05-13 09:18] LABS: CALCIUM, SERUM 8.1 mg/dL (8.5-10.1); CREATININE 23.8 mg/dL (0.6-1.3); MAGNESIUM 3.3 mg/dL (1.8-2.4)
[2017-05-13 09:25] LABS: PHOSPHORUS 11.7 mg/dL (2.5-4.9)
--- NOTE | 2017-05-13 09:54 | NUR ---
MS/RN MED NOVASC 10 MG HELD DUE TO PATIENT GETTING DIALYSIS. PATIENT IN STABLE CONDITION.
[2017-05-13] MEDS ORDERED: Calcium Acetate PO (11:20)
[2017-05-13] MEDS ORDERED: SERT25TA5 PO (11:20)
[2017-05-13] MEDS: PANTOPRAZOLE 40 MG VIAL IV SCH (16:43)
[2017-05-13] MEDS: ONDANSETRON HCL/PF 4 MG/2 ML VIAL IVP PRN (17:11)
[2017-05-13 17:20] VITALS: BP 133/88
--- NOTE | 2017-05-13 17:20 | NUR ---
RN MS NOTES RECEIVED PT FROM JANELL RN, PT IS AWAKE, ALERT AND ORIENTED, DENIES PAIN, NOT IN DISTRESS, ROOM SET UP ORIENTATION PROVIDED, VERBALIZED UNDERSTANDING, CALL LIGHT PLACED WITHIN REACH, KEPT COMFORTABLE IN BED.
[2017-05-13 18:42] VITALS: BP 133/88
--- NOTE | 2017-05-13 18:49 | NUR ---
RN MS NOTES PT IN BED, RESTING, NO COMPLAINT OF PAIN, NOT IN DISTRESS, CALL LIGHT PLACED WITHIN REACH, KEPT COMFORTABLE AND AIR BRUSH OPERATOR BED.
[2017-05-13 19:46] VITALS: BP 135/79
[2017-05-13 20:00] VITALS: BP 135/79
--- NOTE | 2017-05-13 20:00 | NUR ---
RN NOTES RECEIVED PT. AWAKE ON BED, A/OX4, ENGLISH SPEAKING, MOTHER AT BEDSIDE, DENIES PAIN, NO SOB, CALL LIGHT WITHIN REACH, SIDERAILSUPX2, CONTINUE TO MONITOR
[2017-05-13] MEDS: LEVETIRACETAM (250 MG) 250 MG TABLET PO SCH (20:54)
--- NOTE | 2017-05-14 06:33 | NUR ---
RN NOTE; PT. RESTING IN HER BED , REMAINS IN STABLE CONDITION , NO ACUTE DISTRESS NOTED, DENIES ANY PAIN OR DISCOMFORT AT THIS TIME . ALL NEEDS ATTENDED AND ANTICIPATED,PT. WILL CONT TO MONITOR AND WILL ENDORSE TO AM SHIFT FOR CONTINUTY OF CARE..
[2017-05-14 06:56] VITALS: BP 129/81
[2017-05-14 07:35] LABS: CALCIUM, SERUM 7.8 mg/dL (8.5-10.1); MAGNESIUM 3.2 mg/dL (1.8-2.4); POTASSIUM 4.7 mmol/L (3.5-5.1)
[2017-05-14 07:50] LABS: CREATININE 23.3 mg/dL (0.6-1.3)
[2017-05-14 07:51] LABS: PHOSPHORUS 10.5 mg/dL (2.5-4.9)
[2017-05-14] MEDS: SERTRALINE HCL 25 MG TABLET PO SCH (08:11)
[2017-05-14] MEDS: CALCIUM ACETATE 667 MG TABLET PO SCH ×3 (08:11→17:25)
[2017-05-14] MEDS: SENNOSIDES/DOCUSATE SODIUM 1 TAB TABLET PO SCH ×2 (08:11→16:09)
[2017-05-14] MEDS: SEVELAMER CARBONATE 800 MG TABLET PO SCH ×3 (08:11→17:25)
[2017-05-14] MEDS: POLYETHYLENE GLYCOL 3350 17 GM POWD.PACK PO SCH (08:12)
[2017-05-14] MEDS: AMLODIPINE BESYLATE 10 MG TABLET PO SCH (08:12)
[2017-05-14 16:00] VITALS: BP 125/76
[2017-05-14] MEDS: PANTOPRAZOLE 40 MG VIAL IV SCH (16:09)
--- NOTE | 2017-05-14 19:30 | NUR ---
MS RN NOTES RECEIVED ON BED A/O X 3,NO SOB,LEFT ARM FISTULA WITH GOOD BRUIT NOTED,SALINE LOCK RIGHT ARM INTACT AND PATENT.DENIES DISCOMFORTS AT THE MOMENT.CALL LIGHT IN REAC,NEEDS ANTICIPATED.
--- NOTE | 2017-05-14 19:38 | NUR ---
M/S RN - Notes Patient A/O x 3, denies pain, not in any form of distress, on room air, remain afebrile. HD treatment done 1.6 liters out, tolerated well. All needs attended and met. Awaiting for Dr. Bell for vascular consult. Endorsed to shift boss for continuity of care.
[2017-05-14 20:00] VITALS: BP 125/89
[2017-05-15 06:52] LABS: BASOPHILS % (AUTO) 0.1 % (0.0-2.0); EOSINOPHILS % (AUTO) 0.2 % (0.0-6.0); HEMATOCRIT 32 % (33-45); HEMOGLOBIN 10.9 g/dL (11.5-14.8); LYMPHOCYTES # (AUTO) 1.1 /CMM (0.8-4.8); MEAN CORPUSCULAR HEMOGLOBIN 31 PG (26.0-33.0); MEAN CORPUSCULAR HGB CONC 35 g/dl (31.0-36.0); MEAN CORPUSCULAR VOLUME 89 fL (82-100); MONOCYTES # (AUTO) 0.8 /CMM (0.1-1.30); MONOCYTES % (AUTO) 5.6 % (2.0-12.0); NEUTROPHILS # (AUTO) 11.9 /CMM (1.8-8.9); NEUTROPHILS % (AUTO) 86.1 % (43.0-81.0); PLATELET COUNT (AUTO) 217 /CMM (150-450); RED BLOOD CELL COUNT(AUTO) 3.55 MIL/uL (4.0-5.2); WHITE BLOOD COUNT (AUTO) 13.8 K/uL (4.3-11.0)
[2017-05-15 07:15] LABS: CALCIUM, SERUM 8.2 mg/dL (8.5-10.1); MAGNESIUM 3.1 mg/dL (1.8-2.4); POTASSIUM 5.3 mmol/L (3.5-5.1)
--- NOTE | 2017-05-15 07:24 | NUR ---
MS RN NOTES NO SIGNIFICANT CHANGE IN STATUS.SLEPT WELL,CALL LIGHT IN REACH,NEEDS ATTENDED.ENDORSED TO DAY NURSE FOR LISSETH.
[2017-05-15 08:04] LABS: CREATININE 22.1 mg/dL (0.6-1.3)
[2017-05-15] MEDS: SENNOSIDES/DOCUSATE SODIUM 1 TAB TABLET PO SCH ×2 (08:25→17:45)
[2017-05-15] MEDS: AMLODIPINE BESYLATE 10 MG TABLET PO SCH (08:25)
[2017-05-15] MEDS: SEVELAMER CARBONATE 800 MG TABLET PO SCH ×3 (08:25→17:45)
[2017-05-15] MEDS: POLYETHYLENE GLYCOL 3350 17 GM POWD.PACK PO SCH (08:25)
[2017-05-15] MEDS: CALCIUM ACETATE 667 MG TABLET PO SCH ×3 (08:25→17:45)
[2017-05-15] MEDS: SERTRALINE HCL 25 MG TABLET PO SCH (08:25)
[2017-05-15 08:26] VITALS: BP 136/82
[2017-05-15 16:00] VITALS: BP 136/86
[2017-05-15] MEDS: PANTOPRAZOLE 40 MG VIAL IV SCH (17:44)
--- NOTE | 2017-05-15 19:34 | NUR ---
M/S RN - Notes Patient A/O x 3, denies pain, not in any form of distress, on room air, remain afebrile. All needs anticipated and met. Awaiting for Dr. Bell for vascular consult. Endorsed to caramel coloring operator for continuity of care.
[2017-05-15 20:00] VITALS: BP 128/90
--- NOTE | 2017-05-15 20:00 | NUR ---
MS2/RN RECEIVE PATIENT AWAKE, ALERT, ORIENTED, COMFORTABLE, NO C/O PAIN, NO DISTRESS NOTED, CALL LIGHT IN REACH. WILL MONITOR.
[2017-05-15] MEDS: LEVETIRACETAM (250 MG) 250 MG TABLET PO SCH (22:07)
--- NOTE | 2017-05-16 00:25 | NUR ---
MS2/RN PATIENT IS SLEEPING AT THIS TIME, EASILY AROUSABLE, APPEAR COMFORTABLE NO SIGNS OF DISTRESS NOTED CALL LIGHT IN REACH. WILL CONTINUE TO MONITOR.
[2017-05-16] MEDS: ONDANSETRON HCL/PF 4 MG/2 ML VIAL IVP PRN (00:39)
--- NOTE | 2017-05-16 00:42 | NUR ---
MS2/RN PATIENT IS AWAKE, VERY NAUSEOUS, DRY HEAVING, NO VOMITING NOTED, ZOFRAN 4 MG IVP WAS GIVEN ORDERED. WILL MONITOR.
--- NOTE | 2017-05-16 01:30 | NUR ---
MS2/RN PATIENT IS SLEEPING AT THIS TIME, EASILY AROUSABLE, APPEAR COMFORTABLE, NO DISTRESS NOTED, CALL LIGHT IN REACH. WILL CONTINUE TO MONITOR.
--- NOTE | 2017-05-16 06:22 | NUR ---
MS2/RN PATIENT STILL SLEEPING AT THIS TIME, APPEAR COMFORTABLE, NO DISTRESS NOTED, ALL NEEDS ATTENDED AT THIS TIME. WILL CONTINUE TO MONITOR.
--- NOTE | 2017-05-16 07:49 | NUR ---
RN MS NOTES PT IN BED, AWAKE, ALERT AND ORIENTED, EATING BREAKFAST, RESPIRATIONS NORMAL AND NOT LABORED, CALL LIGHT WITHIN REACH, DENIES PAIN, NEEDS ATTENDED.
[2017-05-16 07:58] LABS: CALCIUM, SERUM 8.5 mg/dL (8.5-10.1); MAGNESIUM 3.3 mg/dL (1.8-2.4); POTASSIUM 5.8 mmol/L (3.5-5.1)
[2017-05-16 08:00] VITALS: BP 130/83
[2017-05-16 08:07] LABS: CREATININE 23.6 mg/dL (0.6-1.3)
[2017-05-16] MEDS: SEVELAMER CARBONATE 800 MG TABLET PO SCH ×3 (08:33→17:20)
[2017-05-16] MEDS: POLYETHYLENE GLYCOL 3350 17 GM POWD.PACK PO SCH (08:33)
[2017-05-16] MEDS: CALCIUM ACETATE 667 MG TABLET PO SCH ×3 (08:33→17:20)
[2017-05-16] MEDS: SENNOSIDES/DOCUSATE SODIUM 1 TAB TABLET PO SCH ×2 (08:33→17:20)
[2017-05-16] MEDS: SERTRALINE HCL 25 MG TABLET PO SCH (08:33)
[2017-05-16] MEDS: AMLODIPINE BESYLATE 10 MG TABLET PO SCH (09:00)
--- NOTE | 2017-05-16 09:00 | NUR ---
RN MS NOTES BP MED HELD, PT SCHEDULED TO HAVE DIALYSIS TODAY.
--- NOTE | 2017-05-16 11:42 | NUR ---
RN MS NOTES PT IN BED, RESTING, DENIES PAIN, NOT IN DISTRESS, PT SEEN BY DR. SANDHU, SCHEDULED FOR DIALYSIS TODAY.
[2017-05-16 16:00] VITALS: BP 145/76
[2017-05-16] MEDS: PANTOPRAZOLE 40 MG VIAL IV SCH (17:20)
--- NOTE | 2017-05-16 18:07 | NUR ---
RN MS NOTES PT IN BED, AWAKE, ALERT AND ORIENTED, NO COMPLAINT OF PAIN, NOT IN DISTRESS, PT HAD DIALYSIS TODAY, TOLERATED WELL, ASSISTED WITH NEEDS, PM MEDS GIVEN ORDERED, TOLERATING CURRENT DIET WELL, NEEDS ATTENDED.
--- NOTE | 2017-05-16 19:28 | NUR ---
MS RN NOTES RECEIVED ON BED A/O X3,NO SOB,WITH RIGHT UPPER ARM MIDLINE,SALINE LOCK,LFA AV SHUNT FOR HD ACCESS,GOOD THRILL AND BRUIT NOTED.DENIES DISCOMFORTS AT THE MOMENT,CALL LIGHT IN REACH NEEDS ANTICIPATED.
[2017-05-16 20:00] VITALS: BP 142/89
[2017-05-17 06:18] LABS: BASOPHILS # (AUTO) 0.1 /CMM (0.0-0.2); BASOPHILS % (AUTO) 0.4 % (0.0-2.0); EOSINOPHILS # (AUTO) 0.1 /CMM (0.0-0.7); EOSINOPHILS % (AUTO) 0.5 % (0.0-6.0); HEMATOCRIT 30 % (33-45); HEMOGLOBIN 10.2 g/dL (11.5-14.8); LYMPHOCYTES # (AUTO) 0.8 /CMM (0.8-4.8); LYMPHOCYTES % (AUTO) 6.5 % (20.0-44.0); MEAN CORPUSCULAR HEMOGLOBIN 30 PG (26.0-33.0); MEAN CORPUSCULAR HGB CONC 34 g/dl (31.0-36.0); MEAN CORPUSCULAR VOLUME 89 fL (82-100); MONOCYTES # (AUTO) 0.6 /CMM (0.1-1.30); MONOCYTES % (AUTO) 5.2 % (2.0-12.0); NEUTROPHILS # (AUTO) 10.7 /CMM (1.8-8.9); NEUTROPHILS % (AUTO) 87.4 % (43.0-81.0); PLATELET COUNT (AUTO) 181 /CMM (150-450); RDW COEFFICIENT OF VARIATION 14.4 (11.5-15.0); RED BLOOD CELL COUNT(AUTO) 3.36 MIL/uL (4.0-5.2); WHITE BLOOD COUNT (AUTO) 12.2 K/uL (4.3-11.0)
--- NOTE | 2017-05-17 06:20 | NUR ---
MS RN NOTES SLEPT WELL AT NIGHT,DENIES DISCOMFORTS,ANURIC.CALL LIGHT IN REACH,NEEDS ATTENDED.WILL ENDORSE TO DAY NURSE FOR [facility].
[2017-05-17 06:49] LABS: CALCIUM, SERUM 8.8 mg/dL (8.5-10.1); MAGNESIUM 3.1 mg/dL (1.8-2.4); POTASSIUM 5.9 mmol/L (3.5-5.1)
[2017-05-17 06:52] LABS: CREATININE 22.5 mg/dL (0.6-1.3)
[2017-05-17 06:54] LABS: PHOSPHORUS 9.3 mg/dL (2.5-4.9)
--- NOTE | 2017-05-17 07:16 | NUR ---
RN MS NOTES PT IN BED, AWAKE, ALERT AND ORIENTED, DENIES PAIN, NOT IN DISTRESS, CALL LIGHT WITHIN REACH, KEPT WARM AND COMFORTABLE IN BED.
[2017-05-17] MEDS: SENNOSIDES/DOCUSATE SODIUM 1 TAB TABLET PO SCH ×2 (08:14→17:35)
[2017-05-17] MEDS: SEVELAMER CARBONATE 800 MG TABLET PO SCH ×3 (08:14→17:35)
[2017-05-17] MEDS: CALCIUM ACETATE 667 MG TABLET PO SCH ×3 (08:15→17:35)
[2017-05-17] MEDS: SERTRALINE HCL 25 MG TABLET PO SCH (08:15)
[2017-05-17] MEDS: AMLODIPINE BESYLATE 10 MG TABLET PO SCH (08:15)
[2017-05-17] MEDS: POLYETHYLENE GLYCOL 3350 17 GM POWD.PACK PO SCH (08:15)
[2017-05-17 08:27] VITALS: BP 141/71
[2017-05-17] MEDS ORDERED: SODIUM POLYSTYRENE SULFONATE 15 G/60 ML BOTTLE PO ONE (09:00)
--- NOTE | 2017-05-17 13:00 | NUR ---
RN MS NOTES PT IN BED, AWAKE, ALERT AND ORIENTED, NO COMPLAINT OF PAIN, NOT IN DISTRESS, CALL LIGHT WITHIN REACH, ASSISTED WITH NEEDS, MEDS GIVEN ORDERED.
[2017-05-17 16:26] VITALS: BP 120/74
[2017-05-17] MEDS: PANTOPRAZOLE 40 MG VIAL IV SCH (17:35)
--- NOTE | 2017-05-17 18:30 | NUR ---
RN MS NOTES PT IN BED, AWAKE, ALERT AND ORIENTED, DENIES PAIN, NOT IN DISTRESS, PM MEDS GIVEN, ASSISTED WITH NEEDS, TOLERATING CURRENT DIET, ALL NEEDS ATTENDED.
--- NOTE | 2017-05-17 19:30 | NUR ---
MS RN NOTES ON BED A/O X3-4.NO SOB.DENIES PAIN DISCOMFORTS.LFA AV FISTULA WITH GOOD THRILL AND BRUIT NOTED.CALL LIGHT IN REACH,NEEDS ANTICIPATED.
--- NOTE | 2017-05-17 19:49 | NUR ---
MS RN NOTES DR GONZALEZ CALLED WITH ORDER TO HAVE PATIENT SIGN CONSENT FOR PERMA CATH PLACEMENT IN THE MORNING,NOTED AND CARRIED OUT
[2017-05-17 20:00] VITALS: BP 142/82
--- NOTE | 2017-05-17 20:45 | NUR ---
MS RN NOTES PATIENT SIGNED CONSENT FOR PERMA CATH PLACEMENT.INSTRUCTED NPO POST MIDNIGHT FOR THE PROCEDURE.PER NURSING TAX PROFESSIONAL EDWIN,PROCEDURE SCHEDULED AT 0730 TOMORROW MORNING.
[2017-05-17 21:24] VITALS: BP 142/82
--- NOTE | 2017-05-18 06:25 | NUR ---
MS RN NOTES KEPT NPO POST MN FOR PERMA CATH PLACEMENT TODAY AT 0730 BY GLENNY GONZALEZ.CONSENT ON CHART,DENIES DISCOMFORTS.WILL ENDORSE TO DAY NURSE FOR LISSETH.
[2017-05-18 06:54] LABS: BASOPHILS % (AUTO) 0.4 % (0.0-2.0); EOSINOPHILS % (AUTO) 0.1 % (0.0-6.0); HEMATOCRIT 29 % (33-45); LYMPHOCYTES # (AUTO) 0.8 /CMM (0.8-4.8); LYMPHOCYTES % (AUTO) 8.4 % (20.0-44.0); MEAN CORPUSCULAR HEMOGLOBIN 31 PG (26.0-33.0); MEAN CORPUSCULAR HGB CONC 34 g/dl (31.0-36.0); MEAN CORPUSCULAR VOLUME 89 fL (82-100); MONOCYTES # (AUTO) 0.5 /CMM (0.1-1.30); MONOCYTES % (AUTO) 5.3 % (2.0-12.0); NEUTROPHILS # (AUTO) 8.6 /CMM (1.8-8.9); NEUTROPHILS % (AUTO) 85.8 % (43.0-81.0); PLATELET COUNT (AUTO) 171 /CMM (150-450); RED BLOOD CELL COUNT(AUTO) 3.26 MIL/uL (4.0-5.2)
--- NOTE | 2017-05-18 07:20 | NUR ---
RN NOTES ENDORSED BY GRAPHIC DESIGN SPECIALIST NURSE, PATIENT'S PERMACATH PLACEMENT CANCELLED BY DR. GONZALEZ D/T AN EMERGENCY AND STATED PATIENT CAN EAT. PATIENT A/OX3 RWANDAN SPEAKING, MADE AWARE OF CANCELLATION, PT DENIES PAIN OR DISCOMFORT, NEEDS ATTENDED AND MET, CALL LIGHT WITHIN REACH, WILL CONTINUE TO MONITOR.
[2017-05-18 07:34] LABS: CALCIUM, SERUM 8.7 mg/dL (8.5-10.1); MAGNESIUM 3.3 mg/dL (1.8-2.4); POTASSIUM 5.7 mmol/L (3.5-5.1)
[2017-05-18 07:44] LABS: CREATININE 23.5 mg/dL (0.6-1.3)
[2017-05-18 08:00] VITALS: BP 119/85
[2017-05-18] MEDS: CALCIUM ACETATE 667 MG TABLET PO SCH ×3 (09:57→17:35)
[2017-05-18] MEDS: SERTRALINE HCL 25 MG TABLET PO SCH (09:57)
[2017-05-18] MEDS: POLYETHYLENE GLYCOL 3350 17 GM POWD.PACK PO SCH (09:58)
[2017-05-18] MEDS: SENNOSIDES/DOCUSATE SODIUM 1 TAB TABLET PO SCH ×2 (09:58→17:35)
[2017-05-18] MEDS: AMLODIPINE BESYLATE 10 MG TABLET PO SCH (09:58)
[2017-05-18] MEDS: SEVELAMER CARBONATE 800 MG TABLET PO SCH ×3 (11:31→17:35)
[2017-05-18 16:00] VITALS: BP 121/78
[2017-05-18] MEDS: PANTOPRAZOLE 40 MG VIAL IV SCH (16:14)
[2017-05-18] MEDS: ONDANSETRON HCL/PF 4 MG/2 ML VIAL IVP PRN (18:40)
--- NOTE | 2017-05-18 18:45 | NUR ---
RN NOTES PATIENT ALERT AND ORIENTED X4, STILL WAITING FOR HEMODIALYSIS TODAY. PATIENT HAD AN EPISODE OF VOMITING X1, ZOFRAN ADMINISTERED. NO S/SX OF DISTRESS NOTED, DENIES PAIN AT THIS TIME. HAVE NOT RECEIVED ANY RESCHEDULED TIME FOR PERMACATH PLACEMENT. DR. SNEA AND DR. REY AWARE OF CANCELLATION. NEEDS ATTENDED AND MET, CALL LIGHT WITHIN REACH, WILL CONTINUE TO MONITOR. Addendum: 05/18/17 at 1850 by TOMAS MEDEL RN ADDENDUM: WILL ENDORSE TO SALES PROJECT COORDINATOR FOR LISSETH.
--- NOTE | 2017-05-18 19:01 | NUR ---
RN NOTES SPOKE WITH FIOR UNABLE TO DIALYZE PATIENT TODAY D/T PATIENT HAS NO ACCESS AT THIS TIME. AV FISTULA NOT WORKING.
--- NOTE | 2017-05-18 19:50 | NUR ---
MS RN NOTE: PATIENT RESTING IN BED, NO ACUTE DISTRESS NOTED. BREATHING EVEN AND UNLABORED, NO SOB NOTED. MIDLINE TO KO IN PLACE. AV FISTULA TO LFA IN PLACE, NO BLEEDING NOTED. BED LOCKED AND IN LOWEST POSITION, CALL LIGHT IN REACH. WILL CONTINUE TO MONITOR.
[2017-05-18 20:00] VITALS: BP 145/86
[2017-05-18] MEDS: LEVETIRACETAM (250 MG) 250 MG TABLET PO SCH (21:45)
--- NOTE | 2017-05-18 22:30 | NUR ---
MS RN NOTE: PATIENT SHIVA HELD, PER MEDICATION INSTRUCTIONS, TO BE GIVEN AFTER HD ON M,W,F. NO HD DONE TODAY DUE TO LFA AV FISTULA NOT WORKING. PATIENT TO HAVE PERMACATH PLACEMENT TOMORROW AT 1500. INFORMED PATIENT TO BE NPO AFTER MIDNIGHT. CONSENT SIGNED AND IN CHART. WILL CONTINUE TO MONITOR.
--- NOTE | 2017-05-19 06:45 | NUR ---
MS RN NOTE: PATIENT RESTING IN BED, NO ACUTE DISTRESS NOTED. BREATHING EVEN AND UNLABORED, NO SOB NOTED. MIDLINE TO KO IN PLACE. PATIENT NPO SINCE MIDNIGHT FOR PERMACATH PLACEMENT. BED LOCKED AND IN LOWEST POSITION, CALL LIGHT IN REACH. WILL ENDORSE TO DAY NURSE TO CONTINUE WITH PLAN OF CARE.
--- NOTE | 2017-05-19 07:25 | NUR ---
MS RN OPENING NOTES PATIENT RECEIVED AWAKE AND RESTING @ MODERATE HIGH BACKREST IN BED. A/0 X 3, VERBALLY RESPONSIVE IN [place], DENIES PAIN OR DISCOMFORTS AT THIS TIME. ON ROOM AIR, BREATHING EVEN AND UNLABORED, NO SOB NOTED. MIDLINE TO KO IN PLACE AND IV ACCESS ON RAC # 20 INTACT AND PATENT. PATIENT IS ON NPO POST MIDNIGHT FOR PERMACATH PLACEMENT. BED LOCKED AND IN LOWEST POSITION, CALL LIGHT IN REACH. WILL CONTINUE TO MONITOR..
[2017-05-19 07:34] LABS: CALCIUM, SERUM 8.3 mg/dL (8.5-10.1); MAGNESIUM 3.3 mg/dL (1.8-2.4); POTASSIUM 5.7 mmol/L (3.5-5.1)
[2017-05-19 07:36] LABS: CREATININE 24.6 mg/dL (0.6-1.3); PHOSPHORUS 9.9 mg/dL (2.5-4.9)
[2017-05-19 08:00] VITALS: BP 153/92
[2017-05-19] MEDS: CALCIUM ACETATE 667 MG TABLET PO SCH ×3 (08:00→17:44)
[2017-05-19] MEDS: SEVELAMER CARBONATE 800 MG TABLET PO SCH ×3 (08:00→17:44)
[2017-05-19] MEDS: SENNOSIDES/DOCUSATE SODIUM 1 TAB TABLET PO SCH ×2 (09:00→16:25)
[2017-05-19] MEDS: SERTRALINE HCL 25 MG TABLET PO SCH (09:00)
[2017-05-19] MEDS: POLYETHYLENE GLYCOL 3350 17 GM POWD.PACK PO SCH (09:00)
[2017-05-19] MEDS: AMLODIPINE BESYLATE 10 MG TABLET PO SCH (09:00)
[2017-05-19] MEDS ORDERED: FENTANYL PF 100MCG/2ML AMPUL ONE (14:18)
[2017-05-19] MEDS ORDERED: LIDOCAINE 1% INJ 50 ML MDV IJ ONE (14:20)
[2017-05-19] MEDS ORDERED: HEPARIN SODIUM, PORCINE 1,000 UNIT/ML VIAL ONE (14:20)
[2017-05-19] MEDS ORDERED: IOHEXOL 0 ML IV ONE (14:20)
[2017-05-19 15:15] VITALS: BP 144/81
--- NOTE | 2017-05-19 15:15 | NUR ---
RN NOTES PATIENT RETURNED FROM SURGERY AWAKE, A/0 X3 AND IN NO ACUTE SIGNS OF DISTRESS. PT IS STATUS POST 2 LUMEN PERMA-CATHETER PLACEMENT ON RIGHT UPPER CHEST WAL BY DR GONZALEZ, DRESSING INTACT WITH NO ACTIVE BLEEDING NOTED. V/S TAKEN: BP 144/81MMG, P 81, R 16, T 98.2F AND SP02 96% ON ROOM AIR. DR. GONZALEZ ORDERED TO RESUME ALL PRE-OP ORDERS AND MEDS. WILL CONTINUE TO MONITOR.
[2017-05-19 16:00] VITALS: BP 127/91
[2017-05-19] MEDS: PANTOPRAZOLE 40 MG VIAL IV SCH (16:25)
[2017-05-19] MEDS: ONDANSETRON HCL/PF 4 MG/2 ML VIAL IVP PRN (16:53)
--- NOTE | 2017-05-19 18:17 | NUR ---
MS RN CLOSING NOTES PATIENT IN BED WATCHING TV. HOB ELEVATED. A/0 X 3, SAME VERBALLY RESPONSIVE IN [place]. ALL NEEDS AND CARE ATTENDED WELL. TOLERATING ROOM AIR, BREATHING EVEN WITH NO ACUTE RESPIRATORY NOTED. MIDLINE TO KO IN PLACE AND IV ACCESS ON RAC # 20 INTACT AND PATENT, BOTH EASILY TO FLUSH. PERMA CATHETER ON UPPER RIGHT CHEST WALL IN PLACE. KEPT BED LOCKED AND IN LOWEST POSITION, CALL LIGHT IN REACH. WILL ENDORSED TO LIVESTOCK SPECULATOR NURSE FOR LISSETH.
[2017-05-19 20:00] VITALS: BP 143/87
--- NOTE | 2017-05-19 20:00 | NUR ---
MS RN NOTE: PATIENT RESTING IN BED, NO ACUTE DISTRESS NOTED. BREATHING EVEN AND UNLABORED, NO SOB NOTED. MIDLINE TO KO IN PLACE. AV FISTULA TO LFA IN PLACE, NO BLEEDING NOTED. PERMACATH TO RIGHT CHEST WALL IN PLACE, NOTED BLEEDING ON CHEST, BUT NOTE FROM SITE. HD NURSE JEISON AT BEDSIDE. UNABLE TO FLUSH OR ASPIRATE FROM PERMACATH, AND UNABLE TO COMPLETE HD AT THIS TIME. DR. DUARTE CALLED AND INFORMED, NO ORDERS AT THIS TIME. BED LOCKED AND IN LOWEST POSITION, CALL LIGHT IN REACH. WILL CONTINUE TO MONITOR.
--- NOTE | 2017-05-20 03:50 | NUR ---
MS RN NOTE: PATIENT PERMACATH SITE BLEEDING, SITE CLEANED AND DRESSING RE-ENFORCED WITH NEW DRESSING. PRESSURE APPLIED WITH 1 LB SANDBAG. CALLED APPLIANCE TECHNICIAN MD AND RECEIVED NEW ORDERS FOR LABS IN MORNING AND TO CONTINUE WITH PRESSURE SANDBAGS . ORDER NOTED AND CARRIED OUT. WILL CONTINUE TO MONITOR.
--- NOTE | 2017-05-20 06:10 | NUR ---
MS RN NOTE: PATIENT RESTING IN BED, NO ACUTE DISTRESS NOTED. BREATHING EVEN AND UNLABORED, NO SOB NOTED. MIDLINE TO KO IN PLACE. AV FISTULA TO LFA IN PLACE, NO BLEEDING NOTED. PERMACATH TO RIGHT CHEST WALL IN PLACE, NO ACTIVE BLEEDING NOTED AT THIS TIME. PRESSURE SANDBAG STILL ON SITE. CALLED DR. GONZALEZ OFFICE AND LEFT VOICEMAIL REGARDING BLEEDING. WAITING CALL BACK. BED LOCKED AND IN LOWEST POSITION, CALL LIGHT IN REACH. WILL ENDORSE TO DAY NURSE TO CONTINUE WITH PLAN OF CARE.
[2017-05-20 07:08] LABS: BASOPHILS % (AUTO) 0.2 % (0.0-2.0); HEMATOCRIT 25 % (33-45); HEMOGLOBIN 8.6 g/dL (11.5-14.8); LYMPHOCYTES # (AUTO) 0.6 /CMM (0.8-4.8); LYMPHOCYTES % (AUTO) 6.1 % (20.0-44.0); MEAN CORPUSCULAR HEMOGLOBIN 30 PG (26.0-33.0); MEAN CORPUSCULAR HGB CONC 34 g/dl (31.0-36.0); MEAN CORPUSCULAR VOLUME 89 fL (82-100); MONOCYTES # (AUTO) 0.3 /CMM (0.1-1.30); MONOCYTES % (AUTO) 2.9 % (2.0-12.0); NEUTROPHILS # (AUTO) 8.5 /CMM (1.8-8.9); NEUTROPHILS % (AUTO) 90.8 % (43.0-81.0); PLATELET COUNT (AUTO) 164 /CMM (150-450); RED BLOOD CELL COUNT(AUTO) 2.85 MIL/uL (4.0-5.2); WHITE BLOOD COUNT (AUTO) 9.3 K/uL (4.3-11.0)
--- NOTE | 2017-05-20 07:33 | NUR ---
MS RN OPENING NOTES PATIENT RECEIVED AWAKE IN BED IN NO ACUTE SIGNS OF DISTRESS. A/0 X 3, VERBALLY RESPONSIVE IN [place], DENIES PAIN OR DISCOMFORTS AT THIS TIME. PT FOR REVISION OF PERMACATH AND POSSIBLE INSERTION OF TEMPORARY DIALYSIS CATHETER. CONSENT SIGNED. PATIENT IS ON NPO EXCEPT MEDS. ON ROOM AIR, BREATHING EVEN AND UNLABORED, NO SOB NOTED. PERMACATH ON RU CHEST WALL IN PLACE, DRESSING INTACT WITH NO ACTIVE BLEEDING AT THIS TIME. MIDLINE TO KO IN PLACE INTACT AND PATENT.AV FISTULA ON LFA IN PLACE BUT NOT WORKING, NO BLEEDING NOTED. BED LOCKED AND IN LOWEST POSITION, CALL LIGHT IN REACH. WILL CONTINUE TO MONITOR.
[2017-05-20 07:39] LABS: CALCIUM, SERUM 8.1 mg/dL (8.5-10.1)
[2017-05-20 07:40] LABS: CREATININE 26.1 mg/dL (0.6-1.3); POTASSIUM 6.2 mmol/L (3.5-5.1)
[2017-05-20 08:00] VITALS: BP 129/86
[2017-05-20] MEDS: AMLODIPINE BESYLATE 10 MG TABLET PO SCH (08:37)
[2017-05-20] MEDS: SENNOSIDES/DOCUSATE SODIUM 1 TAB TABLET PO SCH ×2 (08:37→17:03)
[2017-05-20] MEDS: CALCIUM ACETATE 667 MG TABLET PO SCH ×3 (08:37→17:03)
[2017-05-20] MEDS: SEVELAMER CARBONATE 800 MG TABLET PO SCH ×3 (08:37→17:03)
[2017-05-20] MEDS: SERTRALINE HCL 25 MG TABLET PO SCH (08:37)
[2017-05-20] MEDS: POLYETHYLENE GLYCOL 3350 17 GM POWD.PACK PO SCH (08:38)
[2017-05-20] MEDS: ONDANSETRON HCL/PF 4 MG/2 ML VIAL IVP PRN ×2 (09:14→16:23)
--- NOTE | 2017-05-20 09:19 | NUR ---
RN NOTES PT C/O NAUSEA AND SPITTING OUT MODERATE AMOUNT SALIVA, PRN ZOFRAN 4MG IVP GIVEN. WILL CONTINUE TO MONITOR
--- NOTE | 2017-05-20 10:00 | NUR ---
RN NOTES DR OLSON CAME TO UNIT AND ASSESSED PT, REPORTED PT'S ABNORMAL LAB RESULTS, NO NEW ORDER MADE AT THIS TIME. WILL CONTINUE TO MONITOR.
--- NOTE | 2017-05-20 10:39 | NUR ---
RN NOTES RECEIVED CALL FROM DR GONZALEZ WITH ORDER TO INFORM DR FELICIA White REGARDING PT'S HIGH LEVEL OF K 6.2 BEFORE HE WILL DO THE SURGERY ( REVISION OF PERMACATH PLACEMENT OR POSSIBLE INSERTION OF TEMPORARY HD CATHETER), DR DUARTE THAT THE LEVEL IS FINE AND TO PROCEED WITH THE PROCEDURE. CALLED DR GONZALEZ AND INFORMED WHAT DR DUARTE SAID. WILL CONTINUE TO MONITOR.
[2017-05-20] MEDS ORDERED: HYDROMORPHONE INJ 0.5 MG/0.5 ML SYRINGE IV PRN (13:30)
--- NOTE | 2017-05-20 13:32 | NUR ---
RN NOTES EDUIN WOLF JUST INSERTED TEMPORARY HD CATHETER FR #[id number] 15CM LONG ON PT LEFT FEMORAL ARTERY. DR GONZALEZ VERBALIZED THAT HE LEFT MESSAGE TO DR DUARTE THAT HE INSERTED HD TEMPORARY HD CATHETER AND SHOULD BE DIALYZED TODAY. DR GONZALEZ ORDERED ALSO FOR PT TO BE NPO ON 05/22/2017 POST MIDNIGHT BECAUSE HE WILL DO REVISION OF PERMA CATHETER ON THURSDAY MORNING AT 0700. WILL FOLLOW-UP. Addendum: 05/20/17 at 1351 by ALEXANDRO SALEH RN CORRECTION: TEMPORARY HD CATHETER INSERTED ON RIGHT FEMORAL ARTERY, NOT LEFT, NO ACTIVE BLEEDING NOTED. WILL CONTINUE TO MONITOR
--- NOTE | 2017-05-20 15:29 | NUR ---
RN NOTES PATIENT JUST STARTED ON H.DIALYSIS USING THE TEMPORARY HD CATHETER ON RIGHT FEMORAL ARTERY. PRE DIALYSIS V/S: 109/79MMHG, P 102, R18 AND T 97.5F. WILL CONTINUE TO MONITOR.
[2017-05-20 16:00] VITALS: BP 105/72
--- NOTE | 2017-05-20 16:26 | NUR ---
RN NOTES PT VOMITED SMALL AMOUNT (ABOUT 40-60ML) OF CLEAR LIQUID WHILE H.DIALYSIS ON PROGRESS. PRN ZOFRAN GIVEN ORDERED. WILL CONTINUE TO MONITOR.
[2017-05-20] MEDS: PANTOPRAZOLE 40 MG VIAL IV SCH (17:03)
--- NOTE | 2017-05-20 17:48 | NUR ---
RN NOTES PATIENT S/P H.DIALYSIS WITH ZERO OUTPUT. POST DIALYSIS V/S : BP 99/53, P 105, R 18 AND TEMP 97.8F, SP02 97%. WILL CONTINUE TO MONITOR.
--- NOTE | 2017-05-20 19:30 | NUR ---
RN NOTE; RECEIVED PT IN BED DOZING INTERMITTENTLY. BREATHING EVENLY. NO SOB. NAD. SKIN WARM AND DRY. RCW CHELSIE CATH AND R FEMORAL HD CATH INTACT. NO BLEEDING NOTED AT TIS TIME, NO C/O PAIN OR DISCOMFORT. NO N/V. NEEDS ATTENDED . BED LOW LOCKED. CALL LIGHT WITHIN REACH. WILL CONT TO MONITOR ,
[2017-05-20 20:00] VITALS: BP 139/87
[2017-05-20 20:22] VITALS: BP 139/87
[2017-05-20] MEDS: LEVETIRACETAM (250 MG) 250 MG TABLET PO SCH (21:39)
--- NOTE | 2017-05-21 06:12 | NUR ---
PT IN BED AWAKE AND RESPONSIVE. BREATHING EVENLY. NO SOB. NO ACUTE EVENT DURING THE NIGHT. DRESSING CHANGE ON KO MIDLINE PROVIDED. AREA WAS CLEANED AND DRIED. NOTED W/ A MINIMAL BLEEDING ON R FEMORAL HD CATH . GOOD SKIN CARE PROVIDED USING STERILE TECHNIQUE AND DRESSING WAS CHANGED. RCW CHELSIE CATH REMAINED INTACT W/ NO BLEEDING ON THE INSERTION SITE. NEEDS ATTENDED. ASSISTED W/ ADLS. BED LOW LOCKED. CALL LIGHT WITHIN REACH . WILL CONT TO MONITOR AND WILL ENDORSE TO AM SHIFT FOR LISSETH.
--- NOTE | 2017-05-21 07:30 | NUR ---
PT RECEIVED RESTING COMFORTABLY IN BED. NO S/S OR C/O PAIN OR DISTRESS NOTED. SIDE RAILS UP X2, CALL LIGHT LEFT WITHIN REACH. WILL CONTINUE PLAN OF CARE.
[2017-05-21 08:00] VITALS: BP 137/90
[2017-05-21 08:43] LABS: BASOPHILS % (AUTO) 0.1 % (0.0-2.0); EOSINOPHILS # (AUTO) 0.1 /CMM (0.0-0.7); EOSINOPHILS % (AUTO) 0.6 % (0.0-6.0); HEMATOCRIT 26 % (33-45); HEMOGLOBIN 8.7 g/dL (11.5-14.8); LYMPHOCYTES # (AUTO) 0.6 /CMM (0.8-4.8); LYMPHOCYTES % (AUTO) 6.2 % (20.0-44.0); MEAN CORPUSCULAR HEMOGLOBIN 30 PG (26.0-33.0); MEAN CORPUSCULAR HGB CONC 34 g/dl (31.0-36.0); MEAN CORPUSCULAR VOLUME 89 fL (82-100); MONOCYTES # (AUTO) 0.4 /CMM (0.1-1.30); MONOCYTES % (AUTO) 4.2 % (2.0-12.0); NEUTROPHILS # (AUTO) 8.2 /CMM (1.8-8.9); NEUTROPHILS % (AUTO) 88.9 % (43.0-81.0); PLATELET COUNT (AUTO) 140 /CMM (150-450); RDW COEFFICIENT OF VARIATION 13.2 (11.5-15.0); RED BLOOD CELL COUNT(AUTO) 2.89 MIL/uL (4.0-5.2); WHITE BLOOD COUNT (AUTO) 9.3 K/uL (4.3-11.0)
[2017-05-21] MEDS: VIT B CMPLX 3/FA/VIT C/BIOTIN 1 TAB TABLET PO SCH (09:07)
[2017-05-21] MEDS: SEVELAMER CARBONATE 800 MG TABLET PO SCH ×3 (09:07→17:15)
[2017-05-21] MEDS: SENNOSIDES/DOCUSATE SODIUM 1 TAB TABLET PO SCH ×2 (09:07→17:15)
[2017-05-21 09:08] LABS: CALCIUM, SERUM 9.5 mg/dL (8.5-10.1); MAGNESIUM 3.2 mg/dL (1.8-2.4); POTASSIUM 5.8 mmol/L (3.5-5.1)
[2017-05-21] MEDS: CALCIUM ACETATE 667 MG TABLET PO SCH ×3 (09:08→17:15)
[2017-05-21] MEDS: SERTRALINE HCL 25 MG TABLET PO SCH (09:08)
[2017-05-21] MEDS: AMLODIPINE BESYLATE 10 MG TABLET PO SCH (09:08)
[2017-05-21] MEDS: POLYETHYLENE GLYCOL 3350 17 GM POWD.PACK PO SCH (09:08)
[2017-05-21 09:34] LABS: CREATININE 21.7 mg/dL (0.6-1.3); PHOSPHORUS 10.4 mg/dL (2.5-4.9)
[2017-05-21] MEDS: CALCIUM CARBONATE 500 MG TAB.CHEW PO SCH ×3 (10:30→17:15)
[2017-05-21] MEDS: LANTHANUM CARBONATE 1,000 MG TAB.CHEW PO SCH ×2 (13:10→17:15)
[2017-05-21 16:00] VITALS: BP 133/82
[2017-05-21] MEDS: PANTOPRAZOLE 40 MG VIAL IV SCH (17:14)
--- NOTE | 2017-05-21 19:05 | NUR ---
CHANGE OF SHIFT REPORT PT RESTING COMFORTABLY IN BED. NO S/S OR C/O PAIN OR DISTRESS NOTED. SIDE RAILS UP X2, CALL LIGHT LEFT WITHIN REACH. PT KEPT CLEAN, DRY, AND COMFORTABLE. NO SIGNIFICANT CHANGES SINCE PREVIOUS SHIFT. WILL GIVE REPORT TO NYDIA FELDMAN.
--- NOTE | 2017-05-21 19:30 | NUR ---
RN NOTE; PT IN BED AWAKE AND ALERT. RECEIVING HD W/ NO COMPLICATIONS AT TIS TIME. HD NURSE AT THE BED SIDE. STATED SHE WILL REMOVE 500ML JIM HD. FEMORAL HD CATH INTACT AND FUNCTIONAL. [facility] CHELSIE CATH INTACT W/ NO BLEEDING . DENIED ANY PAIN OR DISCOMFORT. CALL LIGHT WITHIN REACH. WILL CONT TO MONITOR ,
[2017-05-21 20:23] VITALS: BP 147/67
--- NOTE | 2017-05-21 22:00 | NUR ---
PT COMPLETED HD W/ NO COMPLICATIONS. 500ML OUTPUT. FEMORAL HD CATH INTACT W/ NO BLEEDING. PER HD NURSE PT HAS LOST 300ML OF BLOOD DURING DIALYSIS AND DR. DUARTE HAD MADE AWARE, WILL CONT TO MONITOR ,
[2017-05-22] MEDS ORDERED: ANESTHESIA TRAY IN PYXIS 1 EA TRAY MC ONE (06:11)
[2017-05-22] MEDS ORDERED: HEPARIN SODIUM, PORCINE 1,000 UNIT/ML VIAL ONE (06:11)
[2017-05-22] MEDS ORDERED: LIDOCAINE 1% INJ 50 ML MDV IJ ONE (06:12)
--- NOTE | 2017-05-22 06:25 | NUR ---
PT WAS PICKED UP BY OR STAFF IN STABLE CONDITION. W/ NO C/O PAIN OR DISCOMFORT . NO COMPLICATIONS POST HD. WILL ENDORSE TO AM SHIFT FOR LISSETH.
[2017-05-22] MEDS ORDERED: IOHEXOL 50 ML IV ONE (06:51)
--- NOTE | 2017-05-22 07:15 | NUR ---
MS RN OPENING NOTES PT CURRENTLY IN OR FOR PERMACATH REVISION WITH DR. GONZALEZ. WILL ASSESS ONCE SHE ARRIVES FROM THE OR
[2017-05-22 08:00] VITALS: BP 125/70
--- NOTE | 2017-05-22 08:41 | NUR ---
MS RN NOTES PT BACK FROM THE OR IN STABLE CONDITION. RIGHT UPPER CHEST WALL PERMCATH NOTED ALONG WITH RIGHT FEMORAL HD CATH AND AN OLD LEFT ARM AV SHUNT. MIDLINE ALSO NOTED TO RIGHT UPPER ARM. MIDLINE PATENT AND INTACT. NO REDNESS OR SIGNS OF INFILTRATION NOTED. VITAL SIGNS STABLE AT THIS TIME. ORDERS NOTED BY . BED IN LOW LOCKED POSITION, SIDE RAILS UP X2, CALL LIGHT WITHIN REACH. WILL CONTINUE TO MONITOR
[2017-05-22] MEDS: ONDANSETRON HCL/PF 4 MG/2 ML VIAL IVP PRN (08:44)
[2017-05-22] MEDS: AMLODIPINE BESYLATE 10 MG TABLET PO SCH (09:00)
[2017-05-22] MEDS: POLYETHYLENE GLYCOL 3350 17 GM POWD.PACK PO SCH (09:17)
[2017-05-22] MEDS: SEVELAMER CARBONATE 800 MG TABLET PO SCH ×3 (09:17→17:31)
[2017-05-22] MEDS: CALCIUM CARBONATE 500 MG TAB.CHEW PO SCH ×3 (09:17→17:31)
[2017-05-22] MEDS: VIT B CMPLX 3/FA/VIT C/BIOTIN 1 TAB TABLET PO SCH (09:18)
[2017-05-22] MEDS: SENNOSIDES/DOCUSATE SODIUM 1 TAB TABLET PO SCH ×2 (09:18→17:31)
[2017-05-22] MEDS: LANTHANUM CARBONATE 1,000 MG TAB.CHEW PO SCH ×3 (09:18→17:31)
[2017-05-22] MEDS: CALCIUM ACETATE 667 MG TABLET PO SCH ×3 (09:18→17:30)
[2017-05-22] MEDS: SERTRALINE HCL 25 MG TABLET PO SCH (09:19)
[2017-05-22 10:17] LABS: BASOPHILS % (AUTO) 0.5 % (0.0-2.0); HEMATOCRIT 23 % (33-45); HEMOGLOBIN 7.6 g/dL (11.5-14.8); LYMPHOCYTES # (AUTO) 0.5 /CMM (0.8-4.8); LYMPHOCYTES % (AUTO) 7.2 % (20.0-44.0); MEAN CORPUSCULAR HEMOGLOBIN 30 PG (26.0-33.0); MEAN CORPUSCULAR HGB CONC 34 g/dl (31.0-36.0); MEAN CORPUSCULAR VOLUME 88 fL (82-100); MONOCYTES # (AUTO) 0.2 /CMM (0.1-1.30); MONOCYTES % (AUTO) 3.1 % (2.0-12.0); NEUTROPHILS # (AUTO) 6.3 /CMM (1.8-8.9); NEUTROPHILS % (AUTO) 89.2 % (43.0-81.0); PLATELET COUNT (AUTO) 124 /CMM (150-450); RDW COEFFICIENT OF VARIATION 13.7 (11.5-15.0); RED BLOOD CELL COUNT(AUTO) 2.55 MIL/uL (4.0-5.2)
[2017-05-22 10:33] LABS: CALCIUM, SERUM 7.9 mg/dL (8.5-10.1); MAGNESIUM 2.7 mg/dL (1.8-2.4); PHOSPHORUS 7.7 mg/dL (2.5-4.9); POTASSIUM 4.6 mmol/L (3.5-5.1)
[2017-05-22 10:37] LABS: CREATININE 20.2 mg/dL (0.6-1.3)
[2017-05-22 16:00] VITALS: BP 99/52
[2017-05-22] MEDS: PANTOPRAZOLE 40 MG VIAL IV SCH (17:30)
[2017-05-22] MEDS: ACETAMINOPHEN 325 MG TABLET PO PRN (17:32)
--- NOTE | 2017-05-22 18:31 | NUR ---
MS RN CLOSING NOTES PT REMAINS IN STABLE CONDITION. 1000 L WAS REMOVED FROM HD. VITAL SIGNS STABLE. ALL NEEDS WERE MET DURING SHIFT AND ORDERS CARRIED OUT ACCORDINGLY. ALL DUE MEDS GIVEN. WILL ENDORSE TO NIGHTSHIFT NURSE FOR LISSETH
--- NOTE | 2017-05-22 19:45 | NUR ---
RN INITIAL NOTES: RECEIVED REPORT FROM AFTNuria RN, PT IN BED AWAKE, A/O X3 ON ROOM AIR RESPIRATION EVEN AND UNLABORED, DENIES ANY PAIN AT THIS TIME, STATED SHE JUST RECEIVED TYLENOL FOR HEAD ACHE. PT S/P HD TODAY WITH 1L OUTPUT, RIGHT FEMORAL HD CATH IN PLACED WITH DRESSING, NOTED WITH DRY BLOOD., PT HAS OLD AV SHUNT ON LEFT ARM. S/P RIGHT CW PERMACATH REMOVAL TODAY 05/22/[address] GONZALEZ, DRESSING C/D/I, NO ACTIVE BLEEDING NOTED. PT NOTED WITH RIGHT UPPER ARM MIDLINE, FOUND TO BE LEAKING UPON FLUSHING WITH SALINE. SAFETY PRECAUTIONS FOR FALL INITIATED CALL LIGHT IN REACH WILL CONTINUE TO MONITOR
[2017-05-22 20:00] VITALS: BP 130/76
[2017-05-22] MEDS: LEVETIRACETAM (250 MG) 250 MG TABLET PO SCH (20:10)
--- NOTE | 2017-05-22 20:30 | NUR ---
RN NOTES: TRIED TO FLUSH AGAIN WITH SALINE, STILL LEAKING, DECIDED TO REMOVE THE DRESSING TO SEE WHERE THE LEAK IS COMING FROM, NOTICE THAT THE HOLE IS BIGGER THAN THE CANNULA USED THAT'S WHY ITS LEAKING, INFORMED COAL CRUSHER OPERATOR MD, PER MD TO HAVE PICC LINE RN TAKE A LOOK AT IT IN AM, TRIED TO START ANOTHER IV BUT PT IS HARD STICK, MD AWARE, PT NOT RECEIVING ANY IVF OR ATB, PER MD TO RELAY IN AM REGARDING FIXING OF IV ACCESS/MIDLINE
--- NOTE | 2017-05-23 06:57 | NUR ---
rn closing notes: pt in bed, awake, remains passive, no active bleeding on rcw, pressured dressing remains in placed, with dry old blood. Right femoral hd cath remains in placed, dressing c/d/i, with dry blood noted on distal portion of dressing. right upper arm midline still leaks when you flush with saline, will have picc rn take a look to fix it. vs remains stable, needs attended. weighed today, 146. 0 lbs standing scale. safety precautions for fall remains engaged, call light in reach. Will endorse to day rn for sushil.
--- NOTE | 2017-05-23 07:29 | NUR ---
MS FELDMAN OPENING NOTES PATIENT RECEIVED AWAKE IN BED IN NO ACUTE SIGNS OF DISTRESS. ALERT, ORIENTED X3 AND VERBALLY RESPONSIVE IN [place], DENIES PAIN OR DISCOMFORTS AT THIS TIME. ON ROOM AIR, BREATHING EVEN AND UNLABORED. PERMCATH ON RCW IN PLACE WITH DRESSING INTACT, NO ACTIVE BLEEDING NOTED. TEMPORARY HD CATH ON FEMORAL ARTERY INTACT, WITH NO ACTIVE BLEEDING NOTED. KO MIDLINE IN PLACE. BED IN LOW/LOCKED POSITION, SIDE RAILS UP X2 AND CALL LIGHT WITHIN REACH. WILL CONTINUE TO MONITOR. Addendum: 05/23/17 at 1535 by ALEXANDRO SALEH RN CORRECTIONS: PT HAS NO PERMACATH ON RCW, ONLY DRESSING ON RCW IN PLACE, DRY, CLEAN WITH NO ACTIVE BLEEDING NOTED. WILL CONTINUE TO MONITOR.
[2017-05-23 08:00] VITALS: BP 137/68
[2017-05-23] MEDS: SERTRALINE HCL 25 MG TABLET PO SCH (08:59)
[2017-05-23] MEDS: SEVELAMER CARBONATE 800 MG TABLET PO SCH ×3 (08:59→17:40)
[2017-05-23] MEDS: CALCIUM CARBONATE 500 MG TAB.CHEW PO SCH ×3 (08:59→16:24)
[2017-05-23] MEDS: CALCIUM ACETATE 667 MG TABLET PO SCH ×3 (08:59→17:40)
[2017-05-23] MEDS: SENNOSIDES/DOCUSATE SODIUM 1 TAB TABLET PO SCH ×2 (08:59→16:24)
[2017-05-23] MEDS: AMLODIPINE BESYLATE 10 MG TABLET PO SCH (09:00)
[2017-05-23] MEDS: VIT B CMPLX 3/FA/VIT C/BIOTIN 1 TAB TABLET PO SCH (09:00)
[2017-05-23] MEDS: POLYETHYLENE GLYCOL 3350 17 GM POWD.PACK PO SCH (09:00)
[2017-05-23] MEDS: LANTHANUM CARBONATE 1,000 MG TAB.CHEW PO SCH ×3 (09:01→17:40)
[2017-05-23] MEDS ORDERED: ALTEPLASE CATHFLO 2 MG/VIAL IV ONE (15:42)
[2017-05-23 16:00] VITALS: BP 127/68
[2017-05-23] MEDS: PANTOPRAZOLE 40 MG VIAL IV SCH (16:23)
--- NOTE | 2017-05-23 17:57 | NUR ---
RN NOTES DIALYSIS NURSE CAME AND STARTED H.DIALYZING PT BUT WITH POOR CATH FLOWS. PT DIDN'T HAVE A COMPLETE HD DUE TO POOR CATH FLOWS. OUTPUT 100ML.WILL CONTINUE TO MONITOR.
--- NOTE | 2017-05-23 18:27 | NUR ---
MS RN CLOSING NOTES PATIENT AWAKE IN BED WATCHING TV. A/O X 3, SAME VERBALLY RESPONSIVE IN CHINESE. ALL NEEDS AND CARE ATTENDED WELL. TOLERATING ROOM AIR, BREATHING EVEN WITH NO ACUTE RESPIRATORY NOTED. KO MIDLINE INTACT AND PATENT. RIGHT FEMORAL HD CATH IN PLACE, NO ACTIVE BLEEDING NOTED. HOB ELEVATED. MAINTAINED BED AT LOWEST POSSIBLE POSITION, LOCKED WITH CALL LIGHT WITHIN REACH. WILL ENDORSED TO BATCH DUMPER NURSE FOR LISSETH.
--- NOTE | 2017-05-23 19:30 | NUR ---
RN NOTES RECEIVED PATIENT IN BED AWAKE, OA X 3, ABLE TO MAKE NEEDS KNOWN. NO ACUTE DISTRESS NOTED. DENIES ANY PAIN AT THIS TIME. IV SITE PATENT, INTACT; FLUSHED. HD FEMORAL CATH INTACT. SAFETY REMINDERS GIVEN. ON LOW BED WITH BILATERAL UPPER SIDE RAILS UP. CALL NICOLE WITHIN EASY REACH. WILL CONTINUE TO MONITOR.
[2017-05-23 20:00] VITALS: BP 137/69
[2017-05-23 22:00] VITALS: BP 137/69
--- NOTE | 2017-05-24 06:30 | NUR ---
RN NOTES PATIENT ASLEEP, EASILY AROUSABLE. RESPIRATIONS EVEN. NO SIGNS OF PAIN AT THIS TIME. DUE MEDS GIVEN WITH NO ASE NOTED. NEEDS ATTENDED. SAFETY PRECAUTIONS AND COMFORT MEASURES IN PLACE. WILL GIVE REPORT TO DAY SHIFT FOR CONTINUITY OF CARE.
--- NOTE | 2017-05-24 07:24 | NUR ---
MS RN OPENING NOTES RECEIVED PATIENT AWAKE AND LYING COMFORTABLY IN BED. A/O X3, SAME ABLE TO COMMUNICATE IN [place]ET[place]ESE, DENIES PAIN OR DISCOMFORTS AT THIS TIME. ON ROOM AIR, BREATHING EVEN AND UNLABORED. TEMPORARY HD CATH ON FEMORAL ARTERY INTACT, WITH NO ACTIVE BLEEDING NOTED. KO MIDLINE IN PLACE AND PATENT. BED IN LOW/LOCKED POSITION, SIDE RAILS UP X2 AND CALL LIGHT AND BEDSIDE TABLE WITHIN EASY REACH OF PT. WILL CONTINUE TO MONITOR.
[2017-05-24 08:00] VITALS: BP 117/82
[2017-05-24] MEDS: LANTHANUM CARBONATE 1,000 MG TAB.CHEW PO SCH ×3 (08:19→17:35)
[2017-05-24] MEDS: CALCIUM CARBONATE 500 MG TAB.CHEW PO SCH ×3 (08:19→16:34)
[2017-05-24] MEDS: AMLODIPINE BESYLATE 10 MG TABLET PO SCH (08:19)
[2017-05-24] MEDS: POLYETHYLENE GLYCOL 3350 17 GM POWD.PACK PO SCH (08:19)
[2017-05-24] MEDS: SERTRALINE HCL 25 MG TABLET PO SCH (08:19)
[2017-05-24] MEDS: VIT B CMPLX 3/FA/VIT C/BIOTIN 1 TAB TABLET PO SCH (08:19)
[2017-05-24] MEDS: SENNOSIDES/DOCUSATE SODIUM 1 TAB TABLET PO SCH ×2 (08:19→16:34)
[2017-05-24] MEDS: CALCIUM ACETATE 667 MG TABLET PO SCH ×3 (08:20→17:35)
[2017-05-24] MEDS: SEVELAMER CARBONATE 800 MG TABLET PO SCH ×3 (08:59→17:35)
--- NOTE | 2017-05-24 09:53 | NUR ---
RN NOTES PATIENT JUST STARTED ON HEMODIALYSIS VIA RIGHT FEMORAL ARTERY. PRE HD V/S: 138/78MMHG, P 103, R 18, T 98.9F, SP02 96%. WILL CONTINUE TO MONITOR
--- NOTE | 2017-05-24 12:09 | NUR ---
RN NOTES PATIENT JUST FINISHED H. DIALYSIS WITH 1,500ML OUTPUT. REMAINS A/O X 4 WITH NO ACUTE SIGNS OF DISTRESS. POST HD V/S: BP 117/65, P 114, R 16, T 97.8F AND SP02 96%. DH FEMORAL CATH INPLACED WITH NO ACTIVE BLEEDING NOTED. WILL CONTINUE TO MONITOR
[2017-05-24] MEDS: PANTOPRAZOLE 40 MG VIAL IV SCH (15:20)
[2017-05-24 16:00] VITALS: BP 111/74
[2017-05-24] MEDS: ACETAMINOPHEN 325 MG TABLET PO PRN (16:34)
--- NOTE | 2017-05-24 16:39 | NUR ---
RN NOTES PATIENT NOTED WITH ELEVATED TEMP OF 100.8F, PRN 650MG TABS GIVEN ORALLY AND COOLING MEASURES RENDERED. WILL CONTINUE TO MONITOR.
--- NOTE | 2017-05-24 17:37 | NUR ---
RN NOTES RE-CHECKED PT'S TEMPERATURE AND WENT DOWN TO 98.3F. WILL CONTINUE TO MONITOR.
--- NOTE | 2017-05-24 18:35 | NUR ---
MS RN CLOSING NOTES PATIENT RESTING IN BED WATCHING TV. A/O X 4, SAME VERBALLY RESPONSIVE IN FR[place]IAN. S/P HD TODAY, NO DELAYED REACTIONS NOTED. PT AFEBRILE AT THIS TIME. OLD MIDLINE TO KO LEAKING, NEW MIDLINE INSERTED TO KO, PATENT WITH DRESSING INTACT. ON ROOM AIR, BREATHING EVEN WITH NO SOB NOTED. RIGHT FEMORAL HD CATH IN PLACE, NO ACTIVE BLEEDING NOTED. HOB ELEVATED. KEPT BED AT LOWEST POSSIBLE POSITION AND LOCKED WITH CALL LIGHT WITHIN REACH. ALL NEEDS AND CARE ATTENDED WELL. WILL ENDORSED TO HEALTH AIDE NURSE FOR LISSETH.
--- NOTE | 2017-05-24 19:30 | NUR ---
RN NOTES RECEIVED PATIENT IN BED AWAKE, AO X 3, ABLE TO MAKE NEEDS KNOWN. NO ACUTE DISTRESS NOTED. DENIES ANY PAIN AT THIS TIME. IV SITE PATENT, INTACT; FLUSHED. HD FEMORAL CATH INTACT. SAFETY REMINDERS GIVEN. ON LOW BED WITH BILATERAL UPPER SIDE RAILS UP. CALL NICOLE WITHIN EASY REACH. WILL CONTINUE TO MONITOR.
[2017-05-24 20:00] VITALS: BP 116/69
--- NOTE | 2017-05-25 06:30 | NUR ---
RN NOTES PATIENT AWAKE. RESPIRATIONS EVEN. DENIES ANY PAIN AT THIS TIME. NEEDS ATTENDED. SAFETY PRECAUTIONS AND COMFORT MEASURES IN PLACE. WILL GIVE REPORT TO DAY SHIFT FOR CONTINUITY OF CARE.
[2017-05-25 07:20] LABS: CALCIUM, SERUM 8.6 mg/dL (8.5-10.1); MAGNESIUM 2.4 mg/dL (1.8-2.4); PHOSPHORUS 5.3 mg/dL (2.5-4.9); POTASSIUM 4.7 mmol/L (3.5-5.1)
[2017-05-25 07:28] LABS: CREATININE 14.6 mg/dL (0.6-1.3)
--- NOTE | 2017-05-25 07:42 | NUR ---
MS RN CLOSING NOTE PATIENT IS ALERT AND ORIENTED X4. NO PAIN AT THIS TIME NOTED. NO SOB OR DISTRESS NOTED. CALL LIGHT WITHIN REACH. SAFETY MEASURES IMPLEMENTED. ABLE TO COMMUNICATE NEEDS. RIGHT UPPER ARM MIDLINE INTACT AND PATENT NO REDNESS OR SWELLING NOTED. HAS RIGHT FEMORAL HD CATH IN PLACE, PER CLIENT APPLICATION SUPPORT SPECIALIST RN PATIENT WILL NEED ANOTHER HD ACCESS PORT AT OUTPATIENT. WILL CONTINUE TO MONITOR THROUGHOUT SHIFT. Addendum: 05/25/17 at 1019 by LAMAR PERALTA RN OPENING NOTE
[2017-05-25 08:00] VITALS: BP 131/80
[2017-05-25 08:20] LABS: LYMPHOCYTES # (AUTO) 0.7 /CMM (0.8-4.8); MEAN CORPUSCULAR HGB CONC 34 g/dl (31.0-36.0); RED BLOOD CELL COUNT(AUTO) 2.26 MIL/uL (4.0-5.2); WHITE BLOOD COUNT (AUTO) 7.6 K/uL (4.3-11.0)
[2017-05-25] MEDS: CALCIUM CARBONATE 500 MG TAB.CHEW PO SCH ×2 (08:37→12:12)
[2017-05-25] MEDS: SEVELAMER CARBONATE 800 MG TABLET PO SCH ×2 (08:37→12:12)
[2017-05-25 08:38] LABS: BASOPHILS % (AUTO) 0.5 % (0.0-2.0); LYMPHOCYTES % (AUTO) 9.6 % (20.0-44.0); MEAN CORPUSCULAR HEMOGLOBIN 30 PG (26.0-33.0); MEAN CORPUSCULAR VOLUME 90 fL (82-100); MONOCYTES # (AUTO) 0.3 /CMM (0.1-1.30); MONOCYTES % (AUTO) 3.6 % (2.0-12.0); NEUTROPHILS # (AUTO) 6.6 /CMM (1.8-8.9); NEUTROPHILS % (AUTO) 86.3 % (43.0-81.0); PLATELET COUNT (AUTO) 189 /CMM (150-450); RDW COEFFICIENT OF VARIATION 13.9 (11.5-15.0)
[2017-05-25] MEDS: SERTRALINE HCL 25 MG TABLET PO SCH (08:38)
[2017-05-25] MEDS: SENNOSIDES/DOCUSATE SODIUM 1 TAB TABLET PO SCH (08:38)
[2017-05-25 08:39] VITALS: BP 131/80
[2017-05-25] MEDS: POLYETHYLENE GLYCOL 3350 17 GM POWD.PACK PO SCH (08:39)
[2017-05-25] MEDS: VIT B CMPLX 3/FA/VIT C/BIOTIN 1 TAB TABLET PO SCH (08:39)
[2017-05-25] MEDS: CALCIUM ACETATE 667 MG TABLET PO SCH ×2 (08:39→12:12)
[2017-05-25] MEDS: AMLODIPINE BESYLATE 10 MG TABLET PO SCH (08:39)
[2017-05-25] MEDS: LANTHANUM CARBONATE 1,000 MG TAB.CHEW PO SCH ×2 (08:42→12:11)
[2017-05-25 09:14] LABS: HEMATOCRIT 20 % (33-45); HEMOGLOBIN 6.8 g/dL (11.5-14.8)
--- NOTE | 2017-05-25 10:19 | NUR ---
MS RN NOTE PER MD, NO TRANSFUSION AT THIS TIME. AWAITING FOR CASE MANAGEMENT TO FOLLOW UP WITH DIALYSIS CENTER TO FIND OUT SCHEDULE. WILL CONTINUE TO MONITOR THROUGHOUT SHIFT
--- NOTE | 2017-05-25 16:07 | NUR ---
MS RN CLOSING NOTE PATIENT IS ALERT AND ORIENTED X4. NO PAIN AT THIS TIME. NO SOB OR DISTRESS NOTED. CALL LIGHT WITHIN REACH AT ALL TIMES. SAFETY MEASURES IMPLEMENTED. ABLE TO COMMUNICATE NEEDS. ALL NURSING CARE NEEDS ATTENDED TO. ALL DUE MEDICATIONS GIVEN ORDERED BY MD. MIDLINE REMOVED, SKIN INTACT. ALL BELONGINGS ACCOUNTED FOR UPON DISCHARGE AND WITH PATIENT. ALL DISCHARGE INSTRUCTIONS GIVEN TO PATIENT, PATIENT ABLE TO VERBALIZE UNDERSTANDING AND TEACH BACK RECEIVED FROM PATIENT AT BEDSIDE. LEFT VIA TAXI TO HOME.
== END 2017-05-25 16:19 | disposition home or self-care (01) | DRG 466 ==
LOC: ER 17:30 → ICU 19:48 → TELE 05-08 11:16 → MED 05-09 11:04 → MEDSG2 05-13 17:23
PROVIDERS: ADMIT Internal Medicine; ATTEND Internal Medicine
PROC: 05H533Z Insertion of Infusion Device into Right Subclavian Vein, Percutaneous Approach (ICD-10-PCS; 2017-05-07)
PROC: B546ZZA Ultrasonography of Right Subclavian Vein, Guidance (ICD-10-PCS; 2017-05-07)
PROC: 30233N1 Transfusion of Nonautologous Red Blood Cells into Peripheral Vein, Percutaneous Approach (ICD-10-PCS; 2017-05-08)
PROC: B51BYZA Fluoroscopy of Right Lower Extremity Veins using Other Contrast, Guidance (ICD-10-PCS; 2017-05-08)
PROC: B54BZZA Ultrasonography of Right Lower Extremity Veins, Guidance (ICD-10-PCS; principal; 2017-05-22 07:03)
PROC: 06HM33Z Insertion of Infusion Device into Right Femoral Vein, Percutaneous Approach (ICD-10-PCS; principal; 2017-05-22 07:03)
PROC: 05H533Z Insertion of Infusion Device into Right Subclavian Vein, Percutaneous Approach (ICD-10-PCS; 2017-05-24)
PROC: B546ZZA Ultrasonography of Right Subclavian Vein, Guidance (ICD-10-PCS; 2017-05-24)
DX: T82.510A Breakdown (mechanical) of surgically created arteriovenous fistula, initial encounter (principal); N18.6 End stage renal disease; E87.2 Acidosis; I12.0 Hypertensive chronic kidney disease with stage 5 chronic kidney disease or end stage renal disease; D68.9 Coagulation defect, unspecified; E87.5 Hyperkalemia; D63.8 Anemia in other chronic diseases classified elsewhere; Y83.9 Surgical procedure, unspecified as the cause of abnormal reaction of the patient, or of later complication, without mention of misadventure at the time of the procedure; Y92.89 Other specified places as the place of occurrence of the external cause; Y71.2 Prosthetic and other implants, materials and accessory cardiovascular devices associated with adverse incidents; Z98.890 Other specified postprocedural states; F33.1 Major depressive disorder, recurrent, moderate; E83.39 Other disorders of phosphorus metabolism; K21.9 Gastro-esophageal reflux disease without esophagitis; Z91.15 Patient's noncompliance with renal dialysis; Z99.2 Dependence on renal dialysis; Z91.19 Patient's noncompliance with other medical treatment and regimen; E78.5 Hyperlipidemia, unspecified; Z79.899 Other long term (current) drug therapy; F29 Unspecified psychosis not due to a substance or known physiological condition; F43.23 Adjustment disorder with mixed anxiety and depressed mood; M85.9 Disorder of bone density and structure, unspecified; D72.829 Elevated white blood cell count, unspecified; I87.1 Compression of vein; F31.9 Bipolar disorder, unspecified
CPT/HCPCS: 36415; 36569; 71045-TC; 80048-TC; 80076-TC; 82746; 82962-TC; 83540-TC; 83735-TC; 84100-TC; 84443-TC; 84484-TC; 84703-TC; 85025-TC; 85027-TC; 85610-TC; 85730-TC; 86706; 86803; 86850-TC; 86921-TC; 87040-TC; 87081-TC; 87340; 90935-TC; 94799-TC; A4606; A6402; A6403; C1750; C9113; J0690; J0885; J1644; J2405; J2704; J2997; J3010; J3430; J3490; J7050; J7060; P9016-BL; Q9967; Z7610

== ENCOUNTER 2017-06-15 14:13 | Inpatient (IN) | payer MEDICAID ==
[~2017-06-15] VITALS: Ht 165.1 cm; Wt 69.6 kg
[~2017-06-15 14:13] MED LIST changes: +Calcium Acetate PO
--- NOTE | 2017-06-15 14:20 | NUR ---
41 yo female c/o abd pain, nausea/ vomit. patient ambulated to er bed with steady gait, skin warm and dry, resp even and unlabored. awaiting orders from provider
--- NOTE | 2017-06-15 14:29 | NUR ---
md jay at bed side for eval
--- NOTE | 2017-06-15 14:46 | NUR ---
urine sample obtained and sent to lab
[2017-06-15 14:57] LABS: BASOPHILS # (AUTO) 0.4 /CMM (0.0-0.2); BASOPHILS % (AUTO) 2.6 % (0.0-2.0); EOSINOPHILS % (AUTO) 0.3 % (0.0-6.0); HEMATOCRIT 34 % (33-45); HEMOGLOBIN 10.9 g/dL (11.5-14.8); LYMPHOCYTES # (AUTO) 1.6 /CMM (0.8-4.8); MEAN CORPUSCULAR HEMOGLOBIN 29 PG (26.0-33.0); MEAN CORPUSCULAR HGB CONC 33 g/dl (31.0-36.0); MEAN CORPUSCULAR VOLUME 88 fL (82-100); MONOCYTES # (AUTO) 0.9 /CMM (0.1-1.30); MONOCYTES % (AUTO) 6.1 % (2.0-12.0); NEUTROPHILS # (AUTO) 11.3 /CMM (1.8-8.9); PLATELET COUNT (AUTO) 599 /CMM (150-450); RDW COEFFICIENT OF VARIATION 15.2 (11.5-15.0); RED BLOOD CELL COUNT(AUTO) 3.83 MIL/uL (4.0-5.2); WHITE BLOOD COUNT (AUTO) 14.2 K/uL (4.3-11.0)
[2017-06-15 15:11] LABS: INR 1.1 (0.85-1.15)
[2017-06-15 15:15] LABS: TROPONIN I < 0.017 ng/mL (0.00-0.056)
[2017-06-15 15:19] LABS: ALANINE AMINOTRANSFERASE 6 U/L (12-78); ALBUMIN 2.8 g/dL (3.4-5.0); ALKALINE PHOSPHATASE 108 U/L (46-116); ASPARTATE AMINOTRANSFERASE 11 U/L (15-37); BILIRUBIN,DIRECT 0.2 mg/dL (0.0-0.2); BILIRUBIN,TOTAL 0.5 mg/dL (0.2-1.0); CALCIUM, SERUM 9.8 mg/dL (8.5-10.1); CARBON DIOXIDE 18 mmol/L (21-32); CHLORIDE 94 mmol/L (98-107); GLUCOSE 121 mg/dL (74-106); LIPASE 398 U/L (73-393); SODIUM SERUM 134 mmol/L (136-145); TOTAL PROTEIN, SERUM 9.6 g/dL (6.4-8.2)
[2017-06-15 15:22] LABS: CREATININE 22.5 mg/dL (0.6-1.3); POTASSIUM 6.3 mmol/L (3.5-5.1); UREA NITROGEN, BLOOD 113 mg/dL (7-18)
--- NOTE | 2017-06-15 15:22 | NUR ---
CRITICAL LAB: POTASSIUM-6.3, BUN-113, CREATININE-22.5 DR WEST NOTIFIED
--- NOTE | 2017-06-15 15:25 | NUR ---
PAGED QUITLINE COUNSELOR HOSPITALIST DR SIM
--- NOTE | 2017-06-15 15:34 | NUR ---
PAGED DR SILVA
--- NOTE | 2017-06-15 15:35 | NUR ---
DR WEST ON THE PHONE WITH DR SIM
--- NOTE | 2017-06-15 15:43 | NUR ---
PATIET RESTING IN ER BED, NOP DIASTRESS NOTED, SKIN WARM AND DRY. VITAL SIGNS UPDATED.
[2017-06-15] MEDS ORDERED: SODIUM POLYSTYRENE SULFONATE 15 G/60 ML BOTTLE ONE (15:45)
[2017-06-15] MEDS ORDERED: MORPHINE SULFATE INJ 4 MG/ML DISP.SYRIN ONE (15:46)
[2017-06-15] MEDS ORDERED: SODIUM POLYSTYRENE SULFONATE 15 G/60 ML BOTTLE PO ONE ×2 (16:00→18:00)
[2017-06-15] MEDS ORDERED: MORPHINE SULFATE INJ 2 MG/ML DISP.SYRIN IV ONE (16:00)
--- NOTE | 2017-06-15 16:19 | NUR ---
PATIENT ASSIGNED TELE 114-1 DX HYPERKALEMIA
--- NOTE | 2017-06-15 16:22 | NUR ---
MEDICATED PT ORDERED
--- NOTE | 2017-06-15 16:27 | NUR ---
EVELINE FELDMAN TOOK REPORT FOR LISSETH
[2017-06-15 16:30] VITALS: BP_SYST 116; BP_DIAS 78; BP_DIAS 99
[2017-06-15] MEDS ORDERED: ALTEPLASE CATHFLO 2 MG/VIAL IV ONE ×2 (16:30)
--- NOTE | 2017-06-15 16:33 | NUR ---
FILM SPLICER NOTES RECEIVED PATIENT VIA GURNEY FROM ER, PATIENT ABLE TO AMBULATE TO BED, AOX3, ROOM AIR, NO DISTRESS NOTED, [place]IAN SPEAKING, PATIENT HAS MALFUNCTION R INGUINAL HD CATHETER, CAME TO ER FROM HD CENTER, DR DUARTE AWARE, PATIENT HAS TWO OTHER OLD HD SITE IN THE LEFT AV FISTULA AND RIGHT CHEST WALL, ON TELE MONITOR SR-ST 90-102, IV RAC 20G, PATIENT WAS GIVEN KAYEXALATE IN THE ER, AWAITING BOWL MOVEMENT. SAYS SHE HAS PAIN IN STOMACH FROM IT MEDICATION GIVEN IN ER. BED IN LOW AND LOCKED POSITION, WILL CONTINUE TO MONITOR.
[2017-06-15] MEDS ORDERED: ACETAMINOPHEN 325 MG TABLET PO PRN (17:30)
[2017-06-15] MEDS ORDERED: Z GUARD REMEDY 2 OZ OINT TP PRN (17:30)
[2017-06-15] MEDS ORDERED: MAGNESIUM HYDROXIDE 30 ML UDC PO PRN (17:30)
[2017-06-15] MEDS ORDERED: MAG HYDROX/AL HYDROX/SIMETH 30 ML UDC PO PRN (17:30)
[2017-06-15] MEDS ORDERED: ZOLPIDEM TARTRATE 5 MG TABLET PO PRN (17:30)
[2017-06-15] MEDS ORDERED: ONDANSETRON HCL/PF 4 MG/2 ML VIAL IVP PRN (17:30)
--- NOTE | 2017-06-15 19:00 | NUR ---
DEMURRAGE AGENT END NOTES PATIENT RESTING IN BED, NO SIGNS OF DISTRESS, ALL NEEDS MET, WILL ENDORSE TO MANAGING CONSULTANT FOR CONTINUITY OF CARE.
[2017-06-15 20:00] VITALS: BP 124/81
--- NOTE | 2017-06-15 20:30 | NUR ---
FREIGHT COORDINATOR NOTES SCANNED 2 VIALS OFCATHFLO ACTIVASE TO BE GIVEN BY TIME STUDY TECHNICIAN. FOR HD ACCESS.
[2017-06-16] VITALS: BP 126/81
[2017-06-16] MEDS: HYDROCODONE/APAP 5/325MG 1 EACH TABLET PO PRN (03:44)
[2017-06-16 04:00] VITALS: BP_SYST 108; BP_SYST 126; BP_DIAS 42; BP_DIAS 81
[2017-06-16 08:00] VITALS: BP 132/84
--- NOTE | 2017-06-16 08:03 | NUR ---
VARITYPE OPERATOR NOTE PATIENT IN BED , ALL NEEDS ATTENDED ALERT, ORIENTED X3 , ONTELE MONITOR SR 95 , RT AC HL YEISON 20 INTACT , NO S\S INFECTION NOTED , RT INGUINAL HD CATH IN PLACE, BUT NOT WORKING PER REPORT, LT AU FISTULA NOT WORKING , AWARE , BED IN LOWEST AND LOCKED POSITION , CALL LIGH WITHIN REACH , PLAN OF CARE DISUSED WITH PATIENT , WILL CONT TO MONITOR CLOSELY
[2017-06-16 08:05] LABS: BASOPHILS % (AUTO) 0.5 % (0.0-2.0); EOSINOPHILS # (AUTO) 0.1 /CMM (0.0-0.7); EOSINOPHILS % (AUTO) 1.2 % (0.0-6.0); HEMATOCRIT 30 % (33-45); HEMOGLOBIN 9.9 g/dL (11.5-14.8); LYMPHOCYTES % (AUTO) 10.2 % (20.0-44.0); MEAN CORPUSCULAR HEMOGLOBIN 29 PG (26.0-33.0); MEAN CORPUSCULAR HGB CONC 33 g/dl (31.0-36.0); MEAN CORPUSCULAR VOLUME 89 fL (82-100); MONOCYTES # (AUTO) 0.9 /CMM (0.1-1.30); NEUTROPHILS # (AUTO) 7.8 /CMM (1.8-8.9); NEUTROPHILS % (AUTO) 79.1 % (43.0-81.0); PLATELET COUNT (AUTO) 494 /CMM (150-450); RED BLOOD CELL COUNT(AUTO) 3.39 MIL/uL (4.0-5.2); WHITE BLOOD COUNT (AUTO) 9.8 K/uL (4.3-11.0)
[2017-06-16 08:09] LABS: ALBUMIN 2.4 g/dL (3.4-5.0); BILIRUBIN,TOTAL 0.6 mg/dL (0.2-1.0); CALCIUM, SERUM 8.5 mg/dL (8.5-10.1); MAGNESIUM 3.3 mg/dL (1.8-2.4); POTASSIUM 4.9 mmol/L (3.5-5.1); TOTAL PROTEIN, SERUM 8.3 g/dL (6.4-8.2)
[2017-06-16 08:11] LABS: CREATININE 24.8 mg/dL (0.6-1.3)
[2017-06-16 10:09] LABS: ABG BASE EXCESS -7.3 mmol/L; ABG OXYGEN SATURATION 89.5 % (92.0-98.5); ABG PCO2 33.3 mmHg (35.0-45.0); ABG PH 7.341 (7.350-7.450); ABG PO2 68.4 mmHg (75.0-100.0); AaDO2 41.5 mmHg; COHb 0.1 % (0.5-1.5); MetHb 0.2 % (0.0-1.5); O2Hb 89.2 % (94.0-97.0); SITE, ABG Right Brachial; VENT MODE, BG ROOM AIR
--- NOTE | 2017-06-16 10:27 | NUR ---
WELLNESS CONSULTANT NOTE DR NORIEGA CALLED WITH ORDER TO GET CONSENT FOE HD CATH AND BMP IN AM AND NPO AFTER MIDNIGHT
[2017-06-16 12:00] VITALS: BP_SYST 130; BP_SYST 132; BP_DIAS 84; BP_DIAS 85
--- NOTE | 2017-06-16 12:22 | NUR ---
TAILMAN NOTE ABG DONE NO NEW ORDER GIVEN, DR VICK AWARE THAT BUN 130 CREATINE 24.8 PHOS 12. HD CATH WILL BE DONE TOMORROW Addendum: 06/16/17 at 1224 by NATHALIE DELA CRUZ RN CONSENT FOR HD CATH PLACEMENT SIGNED ORDERED
--- NOTE | 2017-06-16 14:06 | NUR ---
tele rnnnote all needs attendee dr nicole seen patient
[2017-06-16 16:00] VITALS: BP 126/84
--- NOTE | 2017-06-16 18:15 | NUR ---
ms rn note having dinner , able to eat self, not in acute distress
[2017-06-16 22:19] VITALS: BP 128/73
[2017-06-17] VITALS (8 sets, daily range): BP systolic 125–149; BP diastolic 72–89
[2017-06-17] MEDS: HYDROCODONE/APAP 5/325MG 1 EACH TABLET PO PRN ×3 (00:18→21:57)
--- NOTE | 2017-06-17 07:10 | NUR ---
REPORT RECEIVED AT THE BEDSIDE. PATIENT IS RESTING COMFORTABLY IN BED. NO SOB OR DISTRESS NOTED AT THIS TIME. PATIENT DENIES PAIN. PT NPO FOR SURGERY TODAY. BED IN A LOW POSITION, CALL LIGHT WITHIN PATIENT REACH. WILL CONTINUE TO MONITOR.
[2017-06-17 08:00] LABS: CALCIUM, SERUM 8.9 mg/dL (8.5-10.1); CREATININE 24.8 mg/dL (0.6-1.3); POTASSIUM 4.3 mmol/L (3.5-5.1)
[2017-06-17] MEDS: CALCIUM ACETATE 667 MG TABLET PO SCH ×2 (13:00→17:53)
[2017-06-17] MEDS: LANTHANUM CARBONATE 1,000 MG TAB.CHEW PO SCH ×2 (13:00→17:54)
[2017-06-17] MEDS: SEVELAMER CARBONATE 0.8 GM POWD.PACK PO SCH ×2 (13:00→17:53)
[2017-06-17] MEDS ORDERED: LIDOCAINE 1% INJ 50 ML MDV IJ ONE (14:16)
--- NOTE | 2017-06-17 14:33 | NUR ---
DR SIM ON THE FLOOR. ASKED MD ABOUT LABS IN THE MORNING. MD STATES TO CHECK CBC AND CMP. ORDERS PLACED.
[2017-06-17] MEDS ORDERED: HEPARIN SODIUM,PORCINE 1000 UNIT/1ML MDV VIAL IV ONE (15:44)
[2017-06-17] MEDS ORDERED: HEPARIN SODIUM, PORCINE 1,000 UNIT/ML VIAL IV ONE (16:25)
--- NOTE | 2017-06-17 17:45 | NUR ---
PT RETURNED FROM HD CATH PLACEMENT. NO SOB OR DISTRESS NOTED. VITALS CHECKED AND RECORDED. PT HAD PROCEDURE UNDER TWILIGHT ANAESTHESIA. PT REPORTS 8/10 PAIN IN GROIN AND CHEST CATH SITE. WILL FOLLOW UP WITH PAIN MEDICATIONS. MD ORDERS NOTED, WILL CARRY OUT. BED IN A LOW POSITION, CALL LIGHT WITHIN PATIENT REACH. WILL MONITOR.
--- NOTE | 2017-06-17 18:45 | NUR ---
NO SIGNIFICANT CHANGES IN PATIENT CONDITION THROUGHOUT THE SHIFT. NO SOB OR DISTRESS NOTED. PATIENT DENIES SIGNIFICANT PAIN AT THIS TIME. BED IN A LOW POSITION, CALL LIGHT WITHIN PATIENT REACH. WILL ENDORSE FOR LISSETH.
--- NOTE | 2017-06-17 20:00 | NUR ---
rn notes in bed resting comfortably with no respiratory distress or shortness of breath. breathing even and unlabored. no complaint of pain or discomfort. alert and oriented. able to communicate needs verbally. vital signs wnl. kept clean and dry.
--- NOTE | 2017-06-17 23:24 | NUR ---
rn notes patient having dialysis complaint of pressure in the head and chest pain. elevate head of bed. vital signs taken. heart rate at 112bpm with bp of 138/77. alert and oriented. called md and obtained order for ekg. patient refused to continue with dialysis with output 1.2liters. patient said she cannot tolerate it anymore. ekg performed at 2249, result normal sinus rythm with left axis deviation and prolonged qt. will call md.
[2017-06-18] VITALS: BP 126/69
[2017-06-18 04:00] VITALS: BP 154/98
[2017-06-18 05:29] VITALS: BP 148/84
[2017-06-18 07:35] LABS: BASOPHILS # (AUTO) 0.1 /CMM (0.0-0.2); BASOPHILS % (AUTO) 0.9 % (0.0-2.0); EOSINOPHILS % (AUTO) 0.1 % (0.0-6.0); HEMATOCRIT 30 % (33-45); HEMOGLOBIN 9.7 g/dL (11.5-14.8); LYMPHOCYTES # (AUTO) 0.6 /CMM (0.8-4.8); LYMPHOCYTES % (AUTO) 5.6 % (20.0-44.0); MEAN CORPUSCULAR HEMOGLOBIN 29 PG (26.0-33.0); MEAN CORPUSCULAR HGB CONC 33 g/dl (31.0-36.0); MEAN CORPUSCULAR VOLUME 88 fL (82-100); MONOCYTES # (AUTO) 0.3 /CMM (0.1-1.30); MONOCYTES % (AUTO) 3.4 % (2.0-12.0); NEUTROPHILS # (AUTO) 8.9 /CMM (1.8-8.9); PLATELET COUNT (AUTO) 513 /CMM (150-450); RDW COEFFICIENT OF VARIATION 16.3 (11.5-15.0); WHITE BLOOD COUNT (AUTO) 9.9 K/uL (4.3-11.0)
[2017-06-18 07:47] LABS: ALBUMIN 2.5 g/dL (3.4-5.0); BILIRUBIN,TOTAL 0.5 mg/dL (0.2-1.0); CALCIUM, SERUM 9.3 mg/dL (8.5-10.1); POTASSIUM 4.5 mmol/L (3.5-5.1); TOTAL PROTEIN, SERUM 8.9 g/dL (6.4-8.2)
[2017-06-18 07:56] LABS: CREATININE 13.1 mg/dL (0.6-1.3)
[2017-06-18 08:00] VITALS: BP 122/75
--- NOTE | 2017-06-18 08:00 | NUR ---
MS RN RECEIVED ON BED, AWAKE,ALERT,ORIENTED X2-3,NOT IN ANY FORM OF DISTRESS, RESPIRATIONS EVEN AND UNLABORED,NO SOB NOTED, LUNGS ARE DIMINISHED ABDOMEN SOFT,POSITIVE BOWEL SOUNDS, DENIES PAIN AT THIS TIME, WILL MONITOR PATIENT, RECEIVED W/ HD GOING ON AT THIS TIME, TOLERATED WELL.
--- NOTE | 2017-06-18 09:00 | NUR ---
MS RN HD DONE W/ 1000ML OUT PER HD RN.V/S STABLE.
[2017-06-18] MEDS: SEVELAMER CARBONATE 0.8 GM POWD.PACK PO SCH ×3 (09:15→17:11)
[2017-06-18] MEDS: CALCIUM ACETATE 667 MG TABLET PO SCH ×3 (09:15→17:11)
[2017-06-18] MEDS: LANTHANUM CARBONATE 1,000 MG TAB.CHEW PO SCH ×3 (09:15→17:11)
--- NOTE | 2017-06-18 09:20 | NUR ---
MS RN DUE MEDS GIVEN,TOLERATED WELL.
--- NOTE | 2017-06-18 15:00 | NUR ---
MS RN PATIENT TO BE DISCHARGE TODAY PER CHARGE NURSE.
[2017-06-18 16:00] VITALS: BP 133/75
[2017-06-18] MEDS: HYDROCODONE/APAP 5/325MG 1 EACH TABLET PO PRN (17:01)
--- NOTE | 2017-06-18 18:25 | NUR ---
ms rn mom came to pick her up, discharge instruction given and understood.
== END 2017-06-18 18:20 | disposition home or self-care (01) | DRG 956 ==
LOC: ER 14:16 → TELE1 16:45 → MEDSG1 06-16 13:47
PROVIDERS: ADMIT Internal Medicine; ATTEND Internal Medicine
PROC: B504YZZ Plain Radiography of Left Jugular Veins using Other Contrast (ICD-10-PCS; principal; 2017-06-17 14:00)
PROC: 05HN33Z Insertion of Infusion Device into Left Internal Jugular Vein, Percutaneous Approach (ICD-10-PCS; principal; 2017-06-17 14:00)
PROC: 0JHF3XZ Insertion of Tunneled Vascular Access Device into Left Upper Arm Subcutaneous Tissue and Fascia, Percutaneous Approach (ICD-10-PCS; principal; 2017-06-17 14:00)
PROC: B544ZZA Ultrasonography of Left Jugular Veins, Guidance (ICD-10-PCS; principal; 2017-06-17 14:00)
DX: Y92.69 Other specified industrial and construction area as the place of occurrence of the external cause (principal); T82.41XA Breakdown (mechanical) of vascular dialysis catheter, initial encounter; N18.6 End stage renal disease; I12.0 Hypertensive chronic kidney disease with stage 5 chronic kidney disease or end stage renal disease; D68.9 Coagulation defect, unspecified; E83.39 Other disorders of phosphorus metabolism; E87.5 Hyperkalemia; Z99.2 Dependence on renal dialysis; Z91.19 Patient's noncompliance with other medical treatment and regimen; D63.8 Anemia in other chronic diseases classified elsewhere; I25.10 Atherosclerotic heart disease of native coronary artery without angina pectoris; Z98.890 Other specified postprocedural states; Z86.73 Personal history of transient ischemic attack (TIA), and cerebral infarction without residual deficits; Z79.899 Other long term (current) drug therapy; E78.5 Hyperlipidemia, unspecified; K21.9 Gastro-esophageal reflux disease without esophagitis; F32.9 Major depressive disorder, single episode, unspecified; Z90.49 Acquired absence of other specified parts of digestive tract; Y84.1 Kidney dialysis as the cause of abnormal reaction of the patient, or of later complication, without mention of misadventure at the time of the procedure
CPT/HCPCS: 36415; 36600; 71045-TC; 80048-TC; 80053-TC; 80061-TC; 80076-TC; 82803-TC; 83605-TC; 83690-TC; 83735-TC; 84100-TC; 84484-TC; 85025-TC; 85730-TC; 86850-TC; 87040-TC; 87081-TC; 90935-TC; A4606; J1644; J2270; J2405; J2997; J3490; J7040; Z7610

== ENCOUNTER 2018-01-11 11:39 | Inpatient (IN) | payer MEDICAID ==
[~2018-01-11] VITALS: Ht 152.4 cm; Wt 60.8 kg
[~2018-01-11 11:39] MED LIST changes: -AMLO10TA2 PO; +AMLO10TA6 PO; -Calcium Acetate PO; -SERT25TA5 PO
[2018-01-11 12:16] LABS: BASOPHILS # (AUTO) 0.1 /CMM (0.0-0.2); BASOPHILS % (AUTO) 1.4 % (0.0-2.0); EOSINOPHILS % (AUTO) 0.9 % (0.0-6.0); HEMATOCRIT 48 % (33-45); LYMPHOCYTES # (AUTO) 1.6 /CMM (0.8-4.8); LYMPHOCYTES % (AUTO) 18.6 % (20.0-44.0); MEAN CORPUSCULAR HGB CONC 33 g/dl (31.0-36.0); MEAN CORPUSCULAR VOLUME 96 fL (82-100); MONOCYTES # (AUTO) 0.3 /CMM (0.1-1.30); NEUTROPHILS # (AUTO) 6.6 /CMM (1.8-8.9); NEUTROPHILS % (AUTO) 75.1 % (43.0-81.0); PLATELET COUNT (AUTO) 191 /CMM (150-450); RED BLOOD CELL COUNT(AUTO) 5.06 MIL/uL (4.0-5.2); WHITE BLOOD COUNT (AUTO) 8.7 K/uL (4.3-11.0)
[2018-01-11 12:25] LABS: CALCIUM, SERUM 9.1 mg/dL (8.5-10.1); CARBON DIOXIDE 30 mmol/L (21-32); CHLORIDE 98 mmol/L (98-107); GLUCOSE 132 mg/dL (74-106); POTASSIUM 4.1 mmol/L (3.5-5.1); SODIUM SERUM 139 mmol/L (136-145); UREA NITROGEN, BLOOD 43 mg/dL (7-18)
[2018-01-11 12:29] LABS: INR 0.89 (0.85-1.15)
[2018-01-11 12:37] LABS: ALANINE AMINOTRANSFERASE 15 U/L (12-78); ALBUMIN 4.2 g/dL (3.4-5.0); ASPARTATE AMINOTRANSFERASE 11 U/L (15-37); BILIRUBIN,DIRECT 0.1 mg/dL (0.0-0.2); BILIRUBIN,TOTAL 0.4 mg/dL (0.2-1.0); CREATININE 8.1 mg/dL (0.6-1.3); TOTAL PROTEIN, SERUM 9.3 g/dL (6.4-8.2)
[2018-01-11 12:38] LABS: ALKALINE PHOSPHATASE < 10 U/L (46-116)
[2018-01-11 16:00] VITALS: BP 107/82
[2018-01-11] MEDS: SEVELAMER CARBONATE 800 MG TABLET PO SCH (17:46)
[2018-01-11] MEDS: LEVETIRACETAM (250 MG) 250 MG TABLET PO SCH (17:47)
[2018-01-11] MEDS ORDERED: SERTRALINE HCL 25 MG TABLET PO SCH (22:00)
[2018-01-11] MEDS ORDERED: SERTRALINE HCL 25 MG TABLET PO ONE (22:00)
[2018-01-12 04:00] VITALS: BP 114/70
[2018-01-12 05:48] LABS: BASOPHILS % (AUTO) 0.4 % (0.0-2.0); EOSINOPHILS % (AUTO) 1.3 % (0.0-6.0); HEMATOCRIT 43 % (33-45); HEMOGLOBIN 14.1 g/dL (11.5-14.8); LYMPHOCYTES # (AUTO) 2.1 /CMM (0.8-4.8); LYMPHOCYTES % (AUTO) 26.6 % (20.0-44.0); MEAN CORPUSCULAR HGB CONC 33 g/dl (31.0-36.0); MEAN CORPUSCULAR VOLUME 98 fL (82-100); MONOCYTES # (AUTO) 0.5 /CMM (0.1-1.30); MONOCYTES % (AUTO) 6.4 % (2.0-12.0); NEUTROPHILS # (AUTO) 5.2 /CMM (1.8-8.9); NEUTROPHILS % (AUTO) 65.3 % (43.0-81.0); PLATELET COUNT (AUTO) 164 /CMM (150-450); RDW COEFFICIENT OF VARIATION 15.5 (11.5-15.0); RED BLOOD CELL COUNT(AUTO) 4.38 MIL/uL (4.0-5.2)
[2018-01-12 05:59] LABS: CALCIUM, SERUM 9.4 mg/dL (8.5-10.1); POTASSIUM 5.1 mmol/L (3.5-5.1)
[2018-01-12 06:01] LABS: CREATININE 9.8 mg/dL (0.6-1.3)
[2018-01-12] MEDS ORDERED: LIDOCAINE 1% INJ 50 ML MDV IJ ONE (07:07)
[2018-01-12] MEDS ORDERED: ANESTHESIA TRAY IN PYXIS 1 EA TRAY MC ONE (07:07)
[2018-01-12] MEDS ORDERED: HEPARIN SODIUM, PORCINE 1,000 UNIT/ML VIAL ONE ×2 (07:07→07:08)
[2018-01-12] MEDS ORDERED: FENTANYL PF 100MCG/2ML AMPUL ONE ×2 (07:25→08:33)
[2018-01-12] MEDS ORDERED: METOCLOPRAMIDE HCL 10 MG/2 ML VIAL ONE (07:26)
[2018-01-12] MEDS ORDERED: SUCCINYLCHOLINE CHLORIDE 20 MG/ML VIAL ONE (07:33)
[2018-01-12] MEDS: SEVELAMER CARBONATE 800 MG TABLET PO SCH ×3 (08:00→18:11)
[2018-01-12] MEDS ORDERED: ONDANSETRON HCL/PF 4 MG/2 ML VIAL ONE (08:31)
[2018-01-12] MEDS: FUROSEMIDE 40 MG TABLET PO SCH (09:00)
[2018-01-12] MEDS: AMLODIPINE BESYLATE 10 MG TABLET PO SCH (09:00)
[2018-01-12 09:20] VITALS: BP 120/71
[2018-01-12 12:00] VITALS: BP 121/72
[2018-01-12] MEDS: ACETAMINOPHEN 325 MG TABLET PO PRN ×2 (13:35→20:44)
[2018-01-12 16:00] VITALS: BP 104/35
[2018-01-12] MEDS: SERTRALINE HCL 25 MG TABLET PO SCH (16:20)
[2018-01-12 20:00] VITALS: BP 125/76
[2018-01-13] MEDS: ACETAMINOPHEN 325 MG TABLET PO PRN ×3 (02:56→21:31)
[2018-01-13 04:00] VITALS: BP 117/76
[2018-01-13 08:00] VITALS: BP 109/50
[2018-01-13] MEDS: SEVELAMER CARBONATE 800 MG TABLET PO SCH ×3 (08:45→18:00)
[2018-01-13] MEDS: FUROSEMIDE 40 MG TABLET PO SCH (08:45)
[2018-01-13] MEDS: AMLODIPINE BESYLATE 10 MG TABLET PO SCH (08:46)
[2018-01-13 16:00] VITALS: BP 133/57
[2018-01-13] MEDS: LEVETIRACETAM (250 MG) 250 MG TABLET PO SCH (16:09)
[2018-01-13] MEDS: SERTRALINE HCL 25 MG TABLET PO SCH (17:00)
[2018-01-13 20:00] VITALS: BP 123/64
[2018-01-14] VITALS (22 sets, daily range): BP systolic 89–153; BP diastolic 61–104
[2018-01-14] MEDS: SEVELAMER CARBONATE 800 MG TABLET PO SCH ×3 (08:00→18:00)
[2018-01-14] MEDS: FUROSEMIDE 40 MG TABLET PO SCH (09:09)
[2018-01-14] MEDS: AMLODIPINE BESYLATE 10 MG TABLET PO SCH (09:10)
[2018-01-14 10:42] LABS: ALBUMIN 3.6 g/dL (3.4-5.0); BILIRUBIN,TOTAL 0.4 mg/dL (0.2-1.0); MAGNESIUM 3.1 mg/dL (1.8-2.4); TOTAL PROTEIN, SERUM 7.8 g/dL (6.4-8.2)
[2018-01-14 10:47] LABS: BASOPHILS % (AUTO) 0.1 % (0.0-2.0); EOSINOPHILS % (AUTO) 0.5 % (0.0-6.0); HEMATOCRIT 31 % (33-45); HEMOGLOBIN 10.3 g/dL (11.5-14.8); LYMPHOCYTES # (AUTO) 1.1 /CMM (0.8-4.8); MEAN CORPUSCULAR HGB CONC 33 g/dl (31.0-36.0); MEAN CORPUSCULAR VOLUME 98 fL (82-100); MONOCYTES # (AUTO) 0.9 /CMM (0.1-1.30); MONOCYTES % (AUTO) 6.8 % (2.0-12.0); NEUTROPHILS # (AUTO) 11.6 /CMM (1.8-8.9); NEUTROPHILS % (AUTO) 84.6 % (43.0-81.0); PLATELET COUNT (AUTO) 216 /CMM (150-450); RDW COEFFICIENT OF VARIATION 15.7 (11.5-15.0); WHITE BLOOD COUNT (AUTO) 13.7 K/uL (4.3-11.0)
[2018-01-14 10:57] LABS: CREATININE 15.5 mg/dL (0.6-1.3); PHOSPHORUS 12.8 mg/dL (2.5-4.9)
[2018-01-14] MEDS ORDERED: FUROSEMIDE 100 MG/10 ML VIAL IV ONE (12:30)
[2018-01-14] MEDS ORDERED: SODIUM POLYSTYRENE SULFONATE 15 G/60 ML BOTTLE PO ONE (12:30)
[2018-01-14] MEDS ORDERED: SODIUM BICARBONATE SYR 50 MEQ/50 ML DISP.SYRIN IV ONE (12:30)
[2018-01-14 16:34] LABS: CALCIUM, SERUM 9.2 mg/dL (8.5-10.1); POTASSIUM 5.4 mmol/L (3.5-5.1)
[2018-01-14 16:38] LABS: CREATININE 16.7 mg/dL (0.6-1.3)
[2018-01-14] MEDS: SERTRALINE HCL 25 MG TABLET PO SCH (17:00)
[2018-01-14] MEDS ORDERED: HEPARIN SODIUM, PORCINE 1,000 UNIT/ML VIAL ONE (17:17)
[2018-01-14] MEDS ORDERED: IOHEXOL 240MG/ML 50 ML IV ONE (17:43)
[2018-01-14] MEDS ORDERED: SEVOFLURANE 250 ML BOTTLE IH ONE (18:10)
[2018-01-14] MEDS ORDERED: FENTANYL PF 100MCG/2ML AMPUL IJ ONE (18:52)
[2018-01-14] MEDS ORDERED: MORPHINE SULFATE INJ 2 MG/ML DISP.SYRIN IM PRN (19:00)
[2018-01-14 19:13] LABS: HEMOGLOBIN 9.6 g/dL (11.5-14.8)
[2018-01-14] MEDS: MORPHINE SULFATE INJ 4 MG/ML DISP.SYRIN IV PRN ×2 (20:00→21:30)
[2018-01-15] VITALS (49 sets, daily range): BP systolic 83–158; BP diastolic 55–111
[2018-01-15 00:59] LABS: HEMOGLOBIN 9.6 g/dL (11.5-14.8)
[2018-01-15] MEDS: MORPHINE SULFATE INJ 4 MG/ML DISP.SYRIN IV PRN ×6 (01:35→16:01)
[2018-01-15] MEDS: ANCEF 1 GM/50 ML D5W IV SCH ×4 (06:05→17:00)
[2018-01-15 07:14] LABS: HEMOGLOBIN 9.5 g/dL (11.5-14.8)
[2018-01-15] MEDS: FUROSEMIDE 40 MG TABLET PO SCH (08:21)
[2018-01-15] MEDS: SEVELAMER CARBONATE 800 MG TABLET PO SCH ×3 (08:21→17:01)
[2018-01-15] MEDS: AMLODIPINE BESYLATE 10 MG TABLET PO SCH (08:22)
[2018-01-15 12:37] LABS: HEMOGLOBIN 8.9 g/dL (11.5-14.8)
[2018-01-15] MEDS ORDERED: ALBUMIN 25% 25 GM in PREMIX 1 EA IV PRN (15:30)
[2018-01-15] MEDS: SERTRALINE HCL 25 MG TABLET PO SCH (16:02)
[2018-01-15] MEDS: LEVETIRACETAM (250 MG) 250 MG TABLET PO SCH (16:02)
[2018-01-16] VITALS (30 sets, daily range): BP systolic 84–138; BP diastolic 40–74
[2018-01-16] MEDS: MORPHINE SULFATE INJ 4 MG/ML DISP.SYRIN IV PRN ×3 (04:23→11:35)
[2018-01-16 05:19] LABS: BASOPHILS % (AUTO) 0.4 % (0.0-2.0); EOSINOPHILS % (AUTO) 0.9 % (0.0-6.0); HEMATOCRIT 27 % (33-45); HEMOGLOBIN 8.9 g/dL (11.5-14.8); LYMPHOCYTES # (AUTO) 0.9 /CMM (0.8-4.8); LYMPHOCYTES % (AUTO) 7.8 % (20.0-44.0); MEAN CORPUSCULAR HGB CONC 33 g/dl (31.0-36.0); MEAN CORPUSCULAR VOLUME 99 fL (82-100); MONOCYTES # (AUTO) 0.9 /CMM (0.1-1.30); NEUTROPHILS # (AUTO) 9.1 /CMM (1.8-8.9); NEUTROPHILS % (AUTO) 82.9 % (43.0-81.0); PLATELET COUNT (AUTO) 123 /CMM (150-450); RED BLOOD CELL COUNT(AUTO) 2.73 MIL/uL (4.0-5.2)
[2018-01-16 05:38] LABS: CALCIUM, SERUM 9.2 mg/dL (8.5-10.1); CREATININE 7.3 mg/dL (0.6-1.3); MAGNESIUM 2.3 mg/dL (1.8-2.4)
[2018-01-16 05:45] LABS: PHOSPHORUS 9.3 mg/dL (2.5-4.9)
[2018-01-16] MEDS: AMLODIPINE BESYLATE 10 MG TABLET PO SCH (08:18)
[2018-01-16] MEDS: SEVELAMER CARBONATE 800 MG TABLET PO SCH ×3 (08:18→17:05)
[2018-01-16] MEDS: FUROSEMIDE 40 MG TABLET PO SCH (08:18)
[2018-01-16 09:41] LABS: ABG BASE EXCESS 0.3 mmol/L; ABG OXYGEN SATURATION 91.7 % (92.0-98.5); ABG PCO2 46.9 mmHg (35.0-45.0); ABG PH 7.362 (7.350-7.450); ABG PO2 72.8 mmHg (75.0-100.0); AaDO2 100.5 mmHg; COHb 0.3 % (0.5-1.5); MetHb 0.4 % (0.0-1.5); O2Hb 91.1 % (94.0-97.0); SITE, ABG Right Radial
[2018-01-16] MEDS: ACETYLCYSTEINE 10% SOLN 400 MG/4 ML VIAL NEB SCH ×3 (12:10→23:57)
[2018-01-16] MEDS: SERTRALINE HCL 25 MG TABLET PO SCH (16:55)
[2018-01-16] MEDS: ACETAMINOPHEN 325 MG TABLET PO PRN (16:56)
[2018-01-16 20:36] LABS: ABG BASE EXCESS 4.1 mmol/L; ABG OXYGEN SATURATION 88.3 % (92.0-98.5); ABG PCO2 46.2 mmHg (35.0-45.0); ABG PH 7.417 (7.350-7.450); ABG PO2 58.7 mmHg (75.0-100.0); AaDO2 173.4 mmHg; COHb 0.3 % (0.5-1.5); MetHb 0.6 % (0.0-1.5); O2Hb 87.5 % (94.0-97.0); SITE, ABG Right Radial; VENT MODE, BG 5L N/C
[2018-01-17] VITALS (33 sets, daily range): BP systolic 89–141; BP diastolic 49–82
[2018-01-17] MEDS: ACETAMINOPHEN 325 MG TABLET PO PRN (00:02)
[2018-01-17 04:35] LABS: BASOPHILS % (AUTO) 0.2 % (0.0-2.0); EOSINOPHILS % (AUTO) 1.4 % (0.0-6.0); HEMATOCRIT 24 % (33-45); HEMOGLOBIN 7.7 g/dL (11.5-14.8); LYMPHOCYTES # (AUTO) 0.9 /CMM (0.8-4.8); LYMPHOCYTES % (AUTO) 8.9 % (20.0-44.0); MEAN CORPUSCULAR HGB CONC 32 g/dl (31.0-36.0); MEAN CORPUSCULAR VOLUME 98 fL (82-100); MONOCYTES # (AUTO) 0.7 /CMM (0.1-1.30); MONOCYTES % (AUTO) 6.5 % (2.0-12.0); NEUTROPHILS # (AUTO) 8.7 /CMM (1.8-8.9); PLATELET COUNT (AUTO) 156 /CMM (150-450); RDW COEFFICIENT OF VARIATION 16.2 (11.5-15.0); RED BLOOD CELL COUNT(AUTO) 2.49 MIL/uL (4.0-5.2); WHITE BLOOD COUNT (AUTO) 10.5 K/uL (4.3-11.0)
[2018-01-17 04:50] LABS: CALCIUM, SERUM 8.3 mg/dL (8.5-10.1); MAGNESIUM 2.5 mg/dL (1.8-2.4); POTASSIUM 3.6 mmol/L (3.5-5.1)
[2018-01-17 05:10] LABS: PHOSPHORUS 9.3 mg/dL (2.5-4.9)
[2018-01-17] MEDS ORDERED: EPOETIN ALFA (10,000 UNIT) 10,000 UNIT/ML VIAL SQ ONE (08:00)
[2018-01-17] MEDS: SEVELAMER CARBONATE 800 MG TABLET PO SCH ×3 (08:30→18:52)
[2018-01-17] MEDS: ACETYLCYSTEINE 10% SOLN 400 MG/4 ML VIAL NEB SCH ×3 (08:49→23:20)
[2018-01-17] MEDS: FUROSEMIDE 40 MG TABLET PO SCH (09:00)
[2018-01-17] MEDS: AMLODIPINE BESYLATE 10 MG TABLET PO SCH (09:00)
[2018-01-17 12:17] LABS: ABG BASE EXCESS 2.5 mmol/L; ABG OXYGEN SATURATION 90.1 % (92.0-98.5); ABG PCO2 43.1 mmHg (35.0-45.0); ABG PH 7.419 (7.350-7.450); ABG PO2 64.3 mmHg (75.0-100.0); AaDO2 185.8 mmHg; COHb 1.4 % (0.5-1.5); MetHb 4.5 % (0.0-1.5); O2Hb 84.8 % (94.0-97.0); SITE, ABG Right Radial
[2018-01-17] MEDS: SERTRALINE HCL 25 MG TABLET PO SCH (16:34)
[2018-01-17] MEDS: MORPHINE SULFATE INJ 4 MG/ML DISP.SYRIN IV PRN (18:31)
[2018-01-18] VITALS (7 sets, daily range): BP systolic 101–112; BP diastolic 59–77
[2018-01-18 06:19] LABS: BASOPHILS % (AUTO) 0.4 % (0.0-2.0); EOSINOPHILS % (AUTO) 2.2 % (0.0-6.0); HEMATOCRIT 23 % (33-45); HEMOGLOBIN 7.4 g/dL (11.5-14.8); LYMPHOCYTES % (AUTO) 11.7 % (20.0-44.0); MEAN CORPUSCULAR HGB CONC 32 g/dl (31.0-36.0); MEAN CORPUSCULAR VOLUME 99 fL (82-100); MONOCYTES # (AUTO) 0.6 /CMM (0.1-1.30); MONOCYTES % (AUTO) 6.8 % (2.0-12.0); NEUTROPHILS # (AUTO) 6.9 /CMM (1.8-8.9); NEUTROPHILS % (AUTO) 78.9 % (43.0-81.0); PLATELET COUNT (AUTO) 158 /CMM (150-450); RDW COEFFICIENT OF VARIATION 16.5 (11.5-15.0); RED BLOOD CELL COUNT(AUTO) 2.34 MIL/uL (4.0-5.2); WHITE BLOOD COUNT (AUTO) 8.7 K/uL (4.3-11.0)
[2018-01-18 06:54] LABS: CALCIUM, SERUM 8.9 mg/dL (8.5-10.1); CREATININE 8.8 mg/dL (0.6-1.3); MAGNESIUM 2.5 mg/dL (1.8-2.4); PHOSPHORUS 7.2 mg/dL (2.5-4.9); POTASSIUM 3.9 mmol/L (3.5-5.1)
[2018-01-18] MEDS: ACETYLCYSTEINE 10% SOLN 400 MG/4 ML VIAL NEB SCH ×3 (07:55→23:27)
[2018-01-18] MEDS: FUROSEMIDE 40 MG TABLET PO SCH (08:56)
[2018-01-18] MEDS: SEVELAMER CARBONATE 800 MG TABLET PO SCH ×3 (08:56→17:04)
[2018-01-18] MEDS: AMLODIPINE BESYLATE 10 MG TABLET PO SCH (10:42)
[2018-01-18] MEDS ORDERED: NEPRO VAN 237 ML CAN PO PRN (13:30)
[2018-01-18] MEDS: VIT B CMPLX 3/FA/VIT C/BIOTIN 1 TAB TABLET PO SCH (14:30)
[2018-01-18] MEDS: SERTRALINE HCL 25 MG TABLET PO SCH (17:04)
[2018-01-18] MEDS: LEVETIRACETAM (250 MG) 250 MG TABLET PO SCH (17:04)
[2018-01-18 20:07] LABS: ABG OXYGEN SATURATION 93.3 % (92.0-98.5); ABG PCO2 32.7 mmHg (35.0-45.0); ABG PH 7.469 (7.350-7.450); AaDO2 606.3 mmHg; COHb 1.2 % (0.5-1.5); MetHb 0.6 % (0.0-1.5); O2Hb 91.6 % (94.0-97.0); SITE, ABG Left Brachial; VENT MODE, BG NON REBREATHER
[2018-01-18] MEDS: ACETAMINOPHEN 325 MG TABLET PO PRN (20:44)
[2018-01-19] VITALS: BP 114/77
[2018-01-19] MEDS ORDERED: ENOXAPARIN SODIUM 60 MG/0.6 ML DISP.SYRIN SQ ONE (01:30)
[2018-01-19] MEDS: ACETAMINOPHEN 325 MG TABLET PO PRN ×3 (02:40→22:39)
[2018-01-19 04:00] VITALS: BP 127/77
[2018-01-19 06:57] LABS: BASOPHILS % (AUTO) 0.4 % (0.0-2.0); EOSINOPHILS % (AUTO) 2.8 % (0.0-6.0); HEMATOCRIT 22 % (33-45); LYMPHOCYTES # (AUTO) 0.9 /CMM (0.8-4.8); LYMPHOCYTES % (AUTO) 12.4 % (20.0-44.0); MEAN CORPUSCULAR HGB CONC 33 g/dl (31.0-36.0); MEAN CORPUSCULAR VOLUME 98 fL (82-100); MONOCYTES # (AUTO) 0.7 /CMM (0.1-1.30); NEUTROPHILS # (AUTO) 5.5 /CMM (1.8-8.9); NEUTROPHILS % (AUTO) 75.4 % (43.0-81.0); PLATELET COUNT (AUTO) 195 /CMM (150-450); RDW COEFFICIENT OF VARIATION 15.9 (11.5-15.0); RED BLOOD CELL COUNT(AUTO) 2.21 MIL/uL (4.0-5.2); WHITE BLOOD COUNT (AUTO) 7.3 K/uL (4.3-11.0)
[2018-01-19 07:28] LABS: CREATININE 5.3 mg/dL (0.6-1.3); MAGNESIUM 2.2 mg/dL (1.8-2.4); PHOSPHORUS 4.9 mg/dL (2.5-4.9); POTASSIUM 3.5 mmol/L (3.5-5.1)
[2018-01-19 08:00] VITALS: BP 136/79
[2018-01-19] MEDS: ACETYLCYSTEINE 10% SOLN 400 MG/4 ML VIAL NEB SCH ×2 (08:11→15:39)
[2018-01-19] MEDS: AMLODIPINE BESYLATE 10 MG TABLET PO SCH (08:30)
[2018-01-19] MEDS: VIT B CMPLX 3/FA/VIT C/BIOTIN 1 TAB TABLET PO SCH (08:31)
[2018-01-19] MEDS: FUROSEMIDE 40 MG TABLET PO SCH (08:31)
[2018-01-19] MEDS: SEVELAMER CARBONATE 800 MG TABLET PO SCH ×3 (08:35→17:38)
[2018-01-19 09:28] LABS: ABG BASE EXCESS 5.3 mmol/L; ABG OXYGEN SATURATION 88.1 % (92.0-98.5); ABG PCO2 36.4 mmHg (35.0-45.0); ABG PH 7.513 (7.350-7.450); ABG PO2 56.1 mmHg (75.0-100.0); COHb 1.5 % (0.5-1.5); MetHb 0.5 % (0.0-1.5); O2Hb 86.3 % (94.0-97.0); SITE, ABG Right Brachial; VENT MODE, BG NASAL CANNULA
[2018-01-19 11:23] LABS: BASOPHILS % (AUTO) 0.2 % (0.0-2.0); HEMATOCRIT 23 % (33-45); HEMOGLOBIN 7.3 g/dL (11.5-14.8); LYMPHOCYTES % (AUTO) 12.9 % (20.0-44.0); MEAN CORPUSCULAR HGB CONC 31 g/dl (31.0-36.0); MEAN CORPUSCULAR VOLUME 98 fL (82-100); MONOCYTES # (AUTO) 0.9 /CMM (0.1-1.30); MONOCYTES % (AUTO) 12.2 % (2.0-12.0); NEUTROPHILS # (AUTO) 5.4 /CMM (1.8-8.9); NEUTROPHILS % (AUTO) 71.7 % (43.0-81.0); PLATELET COUNT (AUTO) 207 /CMM (150-450); RDW COEFFICIENT OF VARIATION 16.2 (11.5-15.0); RED BLOOD CELL COUNT(AUTO) 2.38 MIL/uL (4.0-5.2); WHITE BLOOD COUNT (AUTO) 7.6 K/uL (4.3-11.0)
[2018-01-19 12:00] VITALS: BP 106/74
[2018-01-19] MEDS ORDERED: IOHEXOL-300 100 ML VIAL IV ONE (15:19)
[2018-01-19 16:00] VITALS: BP 105/67
[2018-01-19] MEDS: SERTRALINE HCL 25 MG TABLET PO SCH (16:38)
[2018-01-19 20:00] VITALS: BP 115/68
[2018-01-20] VITALS (7 sets, daily range): BP systolic 99–136; BP diastolic 66–79
[2018-01-20] MEDS: ACETYLCYSTEINE 10% SOLN 400 MG/4 ML VIAL NEB SCH ×4 (00:19→23:48)
[2018-01-20 06:58] LABS: BASOPHILS % (AUTO) 0.3 % (0.0-2.0); EOSINOPHILS % (AUTO) 2.4 % (0.0-6.0); HEMATOCRIT 23 % (33-45); HEMOGLOBIN 7.4 g/dL (11.5-14.8); LYMPHOCYTES # (AUTO) 1.2 /CMM (0.8-4.8); LYMPHOCYTES % (AUTO) 15.8 % (20.0-44.0); MEAN CORPUSCULAR HGB CONC 32 g/dl (31.0-36.0); MEAN CORPUSCULAR VOLUME 98 fL (82-100); MONOCYTES # (AUTO) 0.7 /CMM (0.1-1.30); MONOCYTES % (AUTO) 9.1 % (2.0-12.0); NEUTROPHILS # (AUTO) 5.4 /CMM (1.8-8.9); NEUTROPHILS % (AUTO) 72.4 % (43.0-81.0); PLATELET COUNT (AUTO) 229 /CMM (150-450); RDW COEFFICIENT OF VARIATION 15.9 (11.5-15.0); RED BLOOD CELL COUNT(AUTO) 2.33 MIL/uL (4.0-5.2); WHITE BLOOD COUNT (AUTO) 7.4 K/uL (4.3-11.0)
[2018-01-20 07:10] LABS: ALBUMIN 2.9 g/dL (3.4-5.0); ALKALINE PHOSPHATASE 71 U/L (46-116); ASPARTATE AMINOTRANSFERASE 21 U/L (15-37); BILIRUBIN,TOTAL 0.7 mg/dL (0.2-1.0); CALCIUM, SERUM 9.1 mg/dL (8.5-10.1); CARBON DIOXIDE 28 mmol/L (21-32); CHLORIDE 98 mmol/L (98-107); CREATININE 5.8 mg/dL (0.6-1.3); GLUCOSE 80 mg/dL (74-106); MAGNESIUM 2.3 mg/dL (1.8-2.4); POTASSIUM 3.6 mmol/L (3.5-5.1); SODIUM SERUM 135 mmol/L (136-145); TOTAL PROTEIN, SERUM 7.3 g/dL (6.4-8.2); UREA NITROGEN, BLOOD 27 mg/dL (7-18)
[2018-01-20 07:12] LABS: ALANINE AMINOTRANSFERASE < 6 U/L (12-78)
[2018-01-20] MEDS: AMLODIPINE BESYLATE 10 MG TABLET PO SCH (08:34)
[2018-01-20] MEDS: VIT B CMPLX 3/FA/VIT C/BIOTIN 1 TAB TABLET PO SCH (08:34)
[2018-01-20] MEDS: SEVELAMER CARBONATE 800 MG TABLET PO SCH ×3 (08:34→17:39)
[2018-01-20] MEDS: FUROSEMIDE 40 MG TABLET PO SCH (08:35)
[2018-01-20] MEDS: LEVETIRACETAM (250 MG) 250 MG TABLET PO SCH (16:11)
[2018-01-20] MEDS: SERTRALINE HCL 25 MG TABLET PO SCH (16:11)
[2018-01-20] MEDS: ACETAMINOPHEN 325 MG TABLET PO PRN (19:53)
[2018-01-21] VITALS: BP 105/77
[2018-01-21 04:00] VITALS: BP 98/68
[2018-01-21 08:00] VITALS: BP 106/69
[2018-01-21] MEDS: ACETYLCYSTEINE 10% SOLN 400 MG/4 ML VIAL NEB SCH ×2 (08:21→15:46)
[2018-01-21] MEDS: SEVELAMER CARBONATE 800 MG TABLET PO SCH ×3 (08:24→17:04)
[2018-01-21] MEDS: FUROSEMIDE 40 MG TABLET PO SCH (08:24)
[2018-01-21] MEDS: VIT B CMPLX 3/FA/VIT C/BIOTIN 1 TAB TABLET PO SCH (08:24)
[2018-01-21] MEDS: AMLODIPINE BESYLATE 10 MG TABLET PO SCH (08:24)
[2018-01-21] MEDS ORDERED: SERT25TA5 PO (10:29)
[2018-01-21 12:00] VITALS: BP 96/58
[2018-01-21 12:02] VITALS: BP 96/58
[2018-01-21] MEDS ORDERED: ACETYLCYSTEINE 10% SOLN 400 MG/4 ML VIAL ONE (15:45)
[2018-01-21 16:09] VITALS: BP 108/70
[2018-01-21] MEDS: SERTRALINE HCL 25 MG TABLET PO SCH (17:04)
== END 2018-01-21 19:03 | disposition home or self-care (01) | DRG 466 ==
LOC: ER 11:40 → MEDSG1 13:30 → ICU 01-14 18:59 → TELE-TD 01-17 18:39 → TELE1 01-18 13:23
PROVIDERS: ADMIT Internal Medicine Nephrology; ATTEND Internal Medicine Nephrology
PROC: 05HM33Z Insertion of Infusion Device into Right Internal Jugular Vein, Percutaneous Approach (ICD-10-PCS; principal; 2018-01-12 07:30)
PROC: 0JHD3XZ Insertion of Tunneled Vascular Access Device into Right Upper Arm Subcutaneous Tissue and Fascia, Percutaneous Approach (ICD-10-PCS; principal; 2018-01-12 07:30)
PROC: 5A1D70Z Performance of Urinary Filtration, Intermittent, Less than 6 Hours Per Day (ICD-10-PCS; principal; 2018-01-12 07:30)
PROC: B513YZA Fluoroscopy of Right Jugular Veins using Other Contrast, Guidance (ICD-10-PCS; principal; 2018-01-12 07:30)
PROC: 5A1D70Z Performance of Urinary Filtration, Intermittent, Less than 6 Hours Per Day (ICD-10-PCS; 2018-01-14 17:30)
PROC: 0W9930Z Drainage of Right Pleural Cavity with Drainage Device, Percutaneous Approach (ICD-10-PCS; 2018-01-14 17:30)
PROC: 05PY33Z Removal of Infusion Device from Upper Vein, Percutaneous Approach (ICD-10-PCS; 2018-01-14 17:30)
PROC: 0JPV3XZ Removal of Tunneled Vascular Access Device from Upper Extremity Subcutaneous Tissue and Fascia, Percutaneous Approach (ICD-10-PCS; 2018-01-14 17:30)
PROC: 05H533Z Insertion of Infusion Device into Right Subclavian Vein, Percutaneous Approach (ICD-10-PCS; 2018-01-14 17:30)
PROC: 0JHD3XZ Insertion of Tunneled Vascular Access Device into Right Upper Arm Subcutaneous Tissue and Fascia, Percutaneous Approach (ICD-10-PCS; 2018-01-14 17:30)
PROC: B516YZA Fluoroscopy of Right Subclavian Vein using Other Contrast, Guidance (ICD-10-PCS; 2018-01-14 17:30)
PROC: 5A1D70Z Performance of Urinary Filtration, Intermittent, Less than 6 Hours Per Day (ICD-10-PCS; 2018-01-15)
PROC: 5A1D70Z Performance of Urinary Filtration, Intermittent, Less than 6 Hours Per Day (ICD-10-PCS; 2018-01-17)
PROC: 5A1D70Z Performance of Urinary Filtration, Intermittent, Less than 6 Hours Per Day (ICD-10-PCS; 2018-01-18)
PROC: 5A1D70Z Performance of Urinary Filtration, Intermittent, Less than 6 Hours Per Day (ICD-10-PCS; 2018-01-19)
DX: T82.41XA Breakdown (mechanical) of vascular dialysis catheter, initial encounter (principal); I12.0 Hypertensive chronic kidney disease with stage 5 chronic kidney disease or end stage renal disease; J96.01 Acute respiratory failure with hypoxia; J90 Pleural effusion, not elsewhere classified; J96.02 Acute respiratory failure with hypercapnia; N18.6 End stage renal disease; D68.9 Coagulation defect, unspecified; F33.2 Major depressive disorder, recurrent severe without psychotic features; Y84.8 Other medical procedures as the cause of abnormal reaction of the patient, or of later complication, without mention of misadventure at the time of the procedure; Y92.89 Other specified places as the place of occurrence of the external cause; Z99.2 Dependence on renal dialysis; Z86.73 Personal history of transient ischemic attack (TIA), and cerebral infarction without residual deficits; K21.9 Gastro-esophageal reflux disease without esophagitis; E78.5 Hyperlipidemia, unspecified; J94.2 Hemothorax; F41.9 Anxiety disorder, unspecified; J95.831 Postprocedural hemorrhage of a respiratory system organ or structure following other procedure; Y82.8 Other medical devices associated with adverse incidents; Y92.230 Patient room in hospital as the place of occurrence of the external cause; Z91.19 Patient's noncompliance with other medical treatment and regimen; Z91.14 Patient's other noncompliance with medication regimen; Z98.890 Other specified postprocedural states; Z79.899 Other long term (current) drug therapy; F29 Unspecified psychosis not due to a substance or known physiological condition; M85.9 Disorder of bone density and structure, unspecified; J98.11 Atelectasis; D63.8 Anemia in other chronic diseases classified elsewhere
CPT/HCPCS: 36415; 36600; 71045-TC; 71260-TC; 80048-TC; 80053-TC; 80076-TC; 82803-TC; 83735-TC; 84100-TC; 84702-TC; 85025-TC; 85027-TC; 85730-TC; 87081-TC; 90935-TC; 94668-TC; 94760-TC; 94799-TC; A4216; A4217; A4606; A6253; A6402; A6403; C1750; C1769; G0378; J0290; J0330; J0690; J0885; J1644; J1650; J1940; J2270; J2370; J2405; J2704; J2765; J3010; J3490; J7030; J7060; P9047; Q9966; Q9967; Z7610

== ENCOUNTER 2018-06-07 15:15 | Inpatient (IN) | payer MEDICAID ==
[~2018-06-07] VITALS: Ht 157.5 cm; Wt 72.1 kg
[~2018-06-07 15:15] MED LIST changes: -AMLO10TA6 PO; +AMLO10TA7 PO; +SERT25TA5 PO
[2018-06-07] MEDS ORDERED: GELATIN SPONGE,ABSORBABLE 1 EA SPONGE TP ONE (15:19)
--- NOTE | 2018-06-07 15:41 | NUR ---
PT BIBRA FROM DIALYSIS FOR CATH MALFUNCTION; PT AAOX4, PT ON MONITOR, VSS, NAD MD TIMO AT BEDSIDE FOR EVAL
[2018-06-07 16:11] LABS: BASOPHILS % (AUTO) 0.7 % (0.0-2.0); EOSINOPHILS % (AUTO) 1.2 % (0.0-6.0); HEMATOCRIT 40 % (33-45); HEMOGLOBIN 12.7 g/dL (11.5-14.8); LYMPHOCYTES # (AUTO) 0.8 /CMM (0.8-4.8); LYMPHOCYTES % (AUTO) 12.3 % (20.0-44.0); MEAN CORPUSCULAR HGB CONC 32 g/dl (31.0-36.0); MEAN CORPUSCULAR VOLUME 94 fL (82-100); MONOCYTES # (AUTO) 0.5 /CMM (0.1-1.30); MONOCYTES % (AUTO) 7.2 % (2.0-12.0); NEUTROPHILS % (AUTO) 78.6 % (43.0-81.0); PLATELET COUNT (AUTO) 143 /CMM (150-450); RED BLOOD CELL COUNT(AUTO) 4.23 MIL/uL (4.0-5.2); WHITE BLOOD COUNT (AUTO) 6.3 K/uL (4.3-11.0)
[2018-06-07 16:26] LABS: ALBUMIN 3.3 g/dL (3.4-5.0); BILIRUBIN,DIRECT 0.1 mg/dL (0.0-0.2); BILIRUBIN,TOTAL 0.3 mg/dL (0.2-1.0); POTASSIUM 5.3 mmol/L (3.5-5.1); TOTAL PROTEIN, SERUM 7.4 g/dL (6.4-8.2)
[2018-06-07 16:27] LABS: CREATININE 12.9 mg/dL (0.6-1.3)
--- NOTE | 2018-06-07 17:44 | NUR ---
CALLED DR. GONZALEZ [phone] LEFT MSG.
--- NOTE | 2018-06-07 18:50 | NUR ---
CALLED FOR MS BED
[2018-06-07 20:00] VITALS: BP 125/96
[2018-06-07] MEDS ORDERED: MAG HYDROX/AL HYDROX/SIMETH 30 ML UDC PO PRN (21:00)
[2018-06-07] MEDS ORDERED: hydrALAZINE HCL IV 20 MG VIAL IV PRN (21:00)
[2018-06-07] MEDS ORDERED: TEMAZEPAM 15 MG CAPSULE PO PRN (21:00)
[2018-06-07] MEDS ORDERED: MAGNESIUM HYDROXIDE 30 ML UDC PO PRN (21:00)
[2018-06-07] MEDS ORDERED: HYDROCODONE/APAP 5/325MG 1 EACH TABLET PO PRN (21:00)
[2018-06-07] MEDS ORDERED: ACETAMINOPHEN 325 MG TABLET PO PRN (21:00)
[2018-06-07] MEDS ORDERED: ONDANSETRON HCL/PF 4 MG/2 ML VIAL IVP PRN (21:00)
--- NOTE | 2018-06-07 21:21 | NUR ---
REPORT GIVEN TO GASTON HERNÁNDEZ FOR LISSETH
[2018-06-07] MEDS ORDERED: TEMAZEPAM 7.5 MG CAPSULE PO PRN (21:41)
--- NOTE | 2018-06-07 21:41 | NUR ---
TRANSFERRED PT TO MS3/[facility] VIA W/C
[2018-06-07 21:53] VITALS: BP 125/96
[2018-06-07] MEDS: FUROSEMIDE 40 MG TABLET PO SCH (22:10)
--- NOTE | 2018-06-07 22:56 | NUR ---
RN NOTES ADMITTED PATIENT FROM ER DUE TO HD CATH MALFUNCTION. PATIENT IS ALERT AND ORIENTED X4, STABLE ON ROOM AIR, DENIES PAIN AT THIS TIME, ESRD ON HD, MWF, USES RIGHT CHEST WALL HD CATH, LEFT UPPER ARM AV SHUNT NOT BEING USED, PER PATIENT, STOPPED USING AV SHUNT DUE TO PAIN. NOTED BRUIT AND THRILL. LAST HD 06/04/18, SUPPOSED HD TODAY, HD MALFUNCTION DURING DIALYSIS, PATIENT WAS SENT TO ED. PER PATIENT, STILL VOIDING ABOUT TWICE DAILY. POTASSIUM LEVEL 5.3, GIVEN LASIX 40 MG ON ARRIVAL TO MS. SKIN INTACT, NOTED SCATTERED SKIN DISCOLORATIONS NOT RELATED TO SKIN TRAUMA, AMBULATORY, INDEPENDENT WITH ADLS. FOR PERMA CATH PLACEMENT IN AM, WILL NEED CONSENT AND CHECKLIST
[2018-06-08] VITALS (10 sets, daily range): BP systolic 105–140; BP diastolic 68–92
[2018-06-08 06:13] LABS: BASOPHILS % (AUTO) 0.6 % (0.0-2.0); EOSINOPHILS % (AUTO) 2.8 % (0.0-6.0); HEMATOCRIT 35 % (33-45); HEMOGLOBIN 11.2 g/dL (11.5-14.8); LYMPHOCYTES # (AUTO) 1.8 /CMM (0.8-4.8); LYMPHOCYTES % (AUTO) 30.1 % (20.0-44.0); MEAN CORPUSCULAR HGB CONC 33 g/dl (31.0-36.0); MEAN CORPUSCULAR VOLUME 93 fL (82-100); MONOCYTES # (AUTO) 0.5 /CMM (0.1-1.30); MONOCYTES % (AUTO) 7.6 % (2.0-12.0); NEUTROPHILS # (AUTO) 3.5 /CMM (1.8-8.9); NEUTROPHILS % (AUTO) 58.9 % (43.0-81.0); PLATELET COUNT (AUTO) 136 /CMM (150-450); RED BLOOD CELL COUNT(AUTO) 3.71 MIL/uL (4.0-5.2)
--- NOTE | 2018-06-08 06:18 | NUR ---
RN NOTES PM SHIFT PATIENT IS ALERT AND ORIENTED X4, CALM, NO SOB, NO PAIN, NPO SINCE MIDNIGHT FOR PERMA CATH PLACEMENT, CONSENTS AND CHECKLIST DONE AND IN CHART,
[2018-06-08 07:05] LABS: CALCIUM, SERUM 8.2 mg/dL (8.5-10.1); MAGNESIUM 2.7 mg/dL (1.8-2.4); POTASSIUM 6.1 mmol/L (3.5-5.1)
[2018-06-08] MEDS ORDERED: PANTOPRAZOLE 40 MG TABLET.DR PO SCH (07:30)
--- NOTE | 2018-06-08 07:53 | NUR ---
MS RN NOTES PATIENT RECEIVED RESTING INSDIE ROOM, AWAKE, ALERT AND ORIENTED, VERBALLY RESPONSIVE AND RESPONDS TO VERBAL AND TACTILE STIMULI. BREATHING EVEN AND UNLABORED. DENIES ANY PAIN OR DISCOMFORT AT THIS TIME. NO CHANGES IN LOC NOTED. PATIENT CALM AND RELAXED. NPO STATUS AT THIS TIME. FOR POSSIBLE CATH REPLACEMENT TODAY. PATIENT AWARE AND VERBALIZED UNDERSTANDING. AWAITING NEPHROLOGY CONSULT. WILL CONTINUE TO MONITOR. BED LOCKED AND IN LOW POSITION. BILATERAL UPPER SIDE RAILS UP AND LOCKED. CALL LIGHT WITHIN EASY REACH
[2018-06-08] MEDS ORDERED: SEVELAMER CARBONATE 800 MG TABLET PO SCH (08:00)
--- NOTE | 2018-06-08 08:20 | NUR ---
MS RN NOTES RECEIVED CALL FROM SURGERY REPORTING THAT DR. GONZALEZ WILL BE DOING THE CATH PLACEMENT AROUND 10-[address] DUARTE PRESENT IN UNIT AND MADE AWARE. PATIENT MADE AWARE AND VERBALIZED UNDERSTANDING. CONTINUE NPO STATUS, OK TO HAVE ORAL MEDICATIONS WITH SIPS OF WATER PER SURGERY. WILL CONTINUE TO MONITOR
[2018-06-08] MEDS: FUROSEMIDE 40 MG TABLET PO SCH (08:41)
[2018-06-08 08:44] LABS: PHOSPHORUS 14.4 mg/dL (2.5-4.9)
[2018-06-08] MEDS ORDERED: SERTRALINE HCL 25 MG TABLET PO SCH (09:00)
[2018-06-08] MEDS ORDERED: AMLODIPINE BESYLATE 5 MG TABLET PO SCH (09:00)
[2018-06-08] MEDS ORDERED: HEPARIN SODIUM, PORCINE 1,000 UNIT/ML VIAL ONE (11:03)
[2018-06-08] MEDS ORDERED: LIDOCAINE HCL/PF 1% 30 ML SDV ONE (11:03)
[2018-06-08] MEDS: SEVELAMER CARBONATE 800 MG TABLET PO SCH ×2 (12:46→17:20)
--- NOTE | 2018-06-08 13:10 | NUR ---
MS RN NOTES STARTED HD. PATIENT TOLERATING WELL. WILL CONTINUE TO MONITOR
--- NOTE | 2018-06-08 16:45 | NUR ---
MS RN NOTES PATIENT S/P HD. 800CC OUT. PATIENT TOLERATED PROCEDURE WELL. NO BLEEDING OR DRAINAGE NOTED ON DIALYSIS SITE. WILL CONTINUE TO MONITOR
--- NOTE | 2018-06-08 18:50 | NUR ---
MS RN NOTES PATIENT FOR DISCHARGE HOME TODAY. DISCHARGE INSTRUCTIONS AND EDUCATION PROVIDED AND VERBALIZED UNDERSTANDING. ALL BELONGINGS COMPLETE ON DISCHARGE, NO REPORT OF MISSING INVENTORY. IV REMOVED WITH MINIMAL BLEEDING NOTED, PRESSURE DRESSING PLACED ON SITE. PATIENT LEFT UNIT AT 1850 VIA WHEELCHAIR IN STABLE CONDITION. BREATHING EVEN AND UNLABORED. NO ACUTE DISTRESS. DENIES ANY PAIN OR DISCOMFORT. NO NEW SKIN BREAKDOWN NOTED. PATIENT ACCOMPANIED BY NURSING STAFF TO PARKING LOT. LEFT HOSPITAL VIA PRIVATE CAR. MADE AWARE OF DISCHARGE.
== END 2018-06-08 18:49 | disposition home or self-care (01) | DRG 466 ==
LOC: ER 15:18 → MED 21:04
PROVIDERS: ADMIT Nurse Practitioner Acute Care
PROC: 5A1D70Z Performance of Urinary Filtration, Intermittent, Less than 6 Hours Per Day (ICD-10-PCS; principal; 2018-06-08)
PROC: 0J2SXYZ Change Other Device in Head and Neck Subcutaneous Tissue and Fascia, External Approach (ICD-10-PCS; principal; 2018-06-08)
DX: T82.41XA Breakdown (mechanical) of vascular dialysis catheter, initial encounter (principal); I12.0 Hypertensive chronic kidney disease with stage 5 chronic kidney disease or end stage renal disease; E87.5 Hyperkalemia; Y92.009 Unspecified place in unspecified non-institutional (private) residence as the place of occurrence of the external cause; Y71.2 Prosthetic and other implants, materials and accessory cardiovascular devices associated with adverse incidents; N18.6 End stage renal disease; Z99.2 Dependence on renal dialysis; Z91.14 Patient's other noncompliance with medication regimen; Z86.73 Personal history of transient ischemic attack (TIA), and cerebral infarction without residual deficits; K21.9 Gastro-esophageal reflux disease without esophagitis; F32.9 Major depressive disorder, single episode, unspecified; E78.5 Hyperlipidemia, unspecified; Z98.890 Other specified postprocedural states; Z79.899 Other long term (current) drug therapy; F29 Unspecified psychosis not due to a substance or known physiological condition; D64.9 Anemia, unspecified
CPT/HCPCS: 36415; 71045-TC; 80048-TC; 80061-TC; 80076-TC; 83735-TC; 84100-TC; 84702-TC; 85025-TC; 85730-TC; 87081-TC; 90935-TC; A6402; C1750; G0378; J0690; J1100; J1644; J3490

== ENCOUNTER 2018-06-23 11:35 | Inpatient (IN) | payer MEDICAID ==
[~2018-06-23] VITALS: Ht 154.9 cm; Wt 67.1 kg
--- NOTE | 2018-06-23 11:35 | NUR ---
PT BIBS FROM HOME FOR DIALYSIS CATH MALFUNCTION, AND NO DIALYSIS FOR 3 WEEKS; PT AAOX4, PT ON MONITOR, VSS, NAD NOTED, PENDING ER PROVIDER AISHA
[2018-06-23 12:14] LABS: BASOPHILS # (AUTO) 0.1 /CMM (0.0-0.2); BASOPHILS % (AUTO) 0.8 % (0.0-2.0); EOSINOPHILS % (AUTO) 1.7 % (0.0-6.0); HEMATOCRIT 33 % (33-45); LYMPHOCYTES # (AUTO) 0.9 /CMM (0.8-4.8); LYMPHOCYTES % (AUTO) 13.3 % (20.0-44.0); MEAN CORPUSCULAR HGB CONC 31 g/dl (31.0-36.0); MEAN CORPUSCULAR VOLUME 96 fL (82-100); MONOCYTES # (AUTO) 0.5 /CMM (0.1-1.30); MONOCYTES % (AUTO) 6.8 % (2.0-12.0); NEUTROPHILS # (AUTO) 5.3 /CMM (1.8-8.9); NEUTROPHILS % (AUTO) 77.4 % (43.0-81.0); PLATELET COUNT (AUTO) 137 /CMM (150-450); RED BLOOD CELL COUNT(AUTO) 3.39 MIL/uL (4.0-5.2); WHITE BLOOD COUNT (AUTO) 6.9 K/uL (4.3-11.0)
[2018-06-23 12:39] LABS: MAGNESIUM 3.2 mg/dL (1.8-2.4)
[2018-06-23 12:43] LABS: ALANINE AMINOTRANSFERASE < 6 U/L (12-78); ALBUMIN 3.4 g/dL (3.4-5.0); ALKALINE PHOSPHATASE 70 U/L (46-116); ASPARTATE AMINOTRANSFERASE 9 U/L (15-37); BILIRUBIN,DIRECT 0.1 mg/dL (0.0-0.2); BILIRUBIN,TOTAL 0.4 mg/dL (0.2-1.0); CALCIUM, SERUM 7.4 mg/dL (8.5-10.1); CARBON DIOXIDE 11 mmol/L (21-32); CHLORIDE 105 mmol/L (98-107); GLUCOSE 103 mg/dL (74-106); POTASSIUM 5.6 mmol/L (3.5-5.1); SODIUM SERUM 140 mmol/L (136-145); TOTAL PROTEIN, SERUM 7.5 g/dL (6.4-8.2)
[2018-06-23 12:55] LABS: PHOSPHORUS 17.1 mg/dL (2.5-4.9)
[2018-06-23 12:56] LABS: CREATININE 24.1 mg/dL (0.6-1.3); UREA NITROGEN, BLOOD 153 mg/dL (7-18)
[2018-06-23] MEDS ORDERED: Calcium Gluconate 0.465 MEQ/ML VIAL IV ONE ×2 (13:30→13:47)
--- NOTE | 2018-06-23 13:40 | NUR ---
TELE 113-1
--- NOTE | 2018-06-23 13:44 | NUR ---
CALLED GROUP, BILL RECAPITULATION CLERK, TRANSFERRED CALL TO [facility]
[2018-06-23 14:03] LABS: APPEARANCE,URINE Cloudy (CLEAR); BILIRUBIN,URINE Negative (NEGATIVE); BLOOD, URINE Large Ery/uL (NEGATIVE); COLOR,URINE Yellow (YELLOW); KETONES,URINE Negative (NEGATIVE); LEUKOCYTE ESTERASE ,URINE Small (NEGATIVE); NITRITE, URINE Negative (NEGATIVE); PH,URINE 6.5 (5.0-8.0); PROTEIN,URINE 100 mg/dl (NEGATIVE); UGLUCOSE 100 MG/DL mg/dL (NEGATIVE); UROBILINOGEN,URINE 0.2 EU/dL (0.2)
[2018-06-23 14:12] LABS: BACTERIA,URINE Few /HPF (None Seen); RBC,URINE 51-80 /HPF (0-2); WBC,URINE 21-50 /HPF (0-3)
[2018-06-23 14:13] LABS: SQUAMOUS EPITHELIAL CELL,UR Few /HPF (None Seen)
[2018-06-23] MEDS ORDERED: ACETAMINOPHEN 325 MG TABLET PO PRN (14:30)
[2018-06-23] MEDS ORDERED: HYDROCODONE/APAP 5/325MG 1 EACH TABLET PO PRN (14:30)
[2018-06-23] MEDS ORDERED: Z GUARD REMEDY 2 OZ OINT TP PRN (14:30)
[2018-06-23] MEDS ORDERED: MAGNESIUM HYDROXIDE 30 ML UDC PO PRN (14:30)
[2018-06-23] MEDS ORDERED: ZOLPIDEM TARTRATE 5 MG TABLET PO PRN (14:30)
[2018-06-23] MEDS ORDERED: MAG HYDROX/AL HYDROX/SIMETH 30 ML UDC PO PRN (14:30)
--- NOTE | 2018-06-23 14:43 | NUR ---
REPORT GIVEN TO GASTON CHU FOR LISSETH; PT JENNIE LBE TRANSPORTED TO 1ST FLOOR/[facility] VIA ACLS PROTOCOL
--- NOTE | 2018-06-23 15:00 | NUR ---
FARM MACHINERY MECHANIC NOTES RECEIVED PT FROM E.R. STAFF, PT IS AWAKE, ALERT AND ORIENTED, NO COMPLAINT OF PAIN, RESPIRATIONS NORMAL, ASSISTED TO BED, MADE COMFORTABLE, ROOM SET UP ORIENTATION PROVIDED TO PT, VERBALIZED UNDERSTANDING, CALL LIGHT PLACED WITHIN EASY REACH, VITAL SIGNS TAKEN AND RECORDED, NEEDS ATTENDED.
[2018-06-23 16:00] VITALS: BP 149/92
[2018-06-23] MEDS: SERTRALINE HCL 25 MG TABLET PO SCH (16:45)
[2018-06-23] MEDS: CALCIUM ACETATE 667 MG TABLET PO SCH ×3 (16:45→18:00)
[2018-06-23] MEDS: LEVETIRACETAM (250 MG) 250 MG TABLET PO SCH (16:45)
[2018-06-23] MEDS: ONDANSETRON HCL/PF 4 MG/2 ML VIAL IVP PRN (16:55)
[2018-06-23] MEDS ORDERED: ALTEPLASE CATHFLO 2 MG/VIAL IV ONE (17:30)
[2018-06-23] MEDS ORDERED: LANT1000 PO (17:38)
[2018-06-23] MEDS ORDERED: SEVELAMER CARBONATE 0.8 GM POWD.PACK GT SCH (18:00)
[2018-06-23] MEDS ORDERED: SEVELAMER CARBONATE 800 MG TABLET PO SCH (18:00)
--- NOTE | 2018-06-23 18:00 | NUR ---
MACHINIST OUTSIDE NOTES RENVELA NOT GIVEN, DOSE TO BE CLARIFIED WITH MD.
[2018-06-23] MEDS: SEVELAMER CARBONATE 800 MG TABLET PO SCH (18:35)
--- NOTE | 2018-06-23 18:54 | NUR ---
STENOTYPE MACHINE OPERATOR NOTES PT IN BED, AWAKE, ALERT AND ORIENTED, WATCHING TV, NO COMPLAINT OF PAIN, NOT IN DISTRESS, DIALYSIS CATH ASSESSSED DIALYSIS NURSE, TOLERATES CURRENT DIET, SEEN AND EXAMINED BY DR. SENA, PLAN OF CARE DISCUSSED BY MD, PT VERBALIZED UNDERSTANDING, CALL LIGHT WITHIN REACH, ALL NEEDS ATTENDED.
--- NOTE | 2018-06-23 19:00 | NUR ---
RN INITIAL NOTES RECEIVED THE PATIENT AWAKE ON BED, A/OX 4, YAKUT SPEAKING, ON ROOM AIR, NO S/S OF RESP DISTRESS, SATURATING WELL. CURRENTLY SR ON THE MONITOR. PT IS CONTINENT. RIGHT CHEST WALL HD CATH INTACT, FOR HD TONIGHT. RIGHT AC 20G FLUSHED AND PATENT, NO S/S OF INFILTRATION/INFECTION, DRESSING CDI. BED LOW AND LOCKED, SIDERAILS UP, CALL LIGHT WITHIN REACH, WILL MONITOR.
[2018-06-23 20:00] VITALS: BP 136/95
[2018-06-24] VITALS: BP 123/84
[2018-06-24 04:00] VITALS: BP 138/96
--- NOTE | 2018-06-24 06:20 | NUR ---
RN CLOSING NOTES PT REMAINS STABLE OF THE MOMENT. ALL DUE MEDS GIVEN, AM CARE PROVIDED. WILL ENDORSE LISSETH TO AM RN
[2018-06-24 07:25] LABS: BASOPHILS % (AUTO) 0.9 % (0.0-2.0); EOSINOPHILS % (AUTO) 2.5 % (0.0-6.0); HEMATOCRIT 28 % (33-45); HEMOGLOBIN 9.5 g/dL (11.5-14.8); LYMPHOCYTES # (AUTO) 1.2 /CMM (0.8-4.8); LYMPHOCYTES % (AUTO) 21.5 % (20.0-44.0); MEAN CORPUSCULAR HGB CONC 33 g/dl (31.0-36.0); MEAN CORPUSCULAR VOLUME 91 fL (82-100); MONOCYTES # (AUTO) 0.4 /CMM (0.1-1.30); MONOCYTES % (AUTO) 8.3 % (2.0-12.0); NEUTROPHILS # (AUTO) 3.6 /CMM (1.8-8.9); NEUTROPHILS % (AUTO) 66.8 % (43.0-81.0); PLATELET COUNT (AUTO) 90 /CMM (150-450); RED BLOOD CELL COUNT(AUTO) 3.11 MIL/uL (4.0-5.2); WHITE BLOOD COUNT (AUTO) 5.4 K/uL (4.3-11.0)
[2018-06-24 07:36] LABS: CALCIUM, SERUM 7.9 mg/dL (8.5-10.1); MAGNESIUM 2.5 mg/dL (1.8-2.4)
[2018-06-24 07:47] LABS: CREATININE 19.7 mg/dL (0.6-1.3); PHOSPHORUS 11.2 mg/dL (2.5-4.9)
[2018-06-24 08:00] VITALS: BP 136/97
[2018-06-24] MEDS: CALCIUM ACETATE 667 MG TABLET PO SCH ×3 (08:10→17:20)
[2018-06-24] MEDS: FUROSEMIDE 40 MG TABLET PO SCH (08:10)
[2018-06-24] MEDS: AMLODIPINE BESYLATE 10 MG TABLET PO SCH (08:10)
[2018-06-24] MEDS: SEVELAMER CARBONATE 800 MG TABLET PO SCH ×3 (08:10→17:20)
[2018-06-24 08:53] LABS: EOSINOPHILS % (MANUAL) 1 % (0-4); LYMPHOCYTES % (MANUAL) 19 % (16-48); MONOCYTES % (MANUAL) 5 % (0-11.0); NEUTROPHILS % (MANUAL) 75 (42-76)
[2018-06-24] MEDS ORDERED: ALTEPLASE CATHFLO 2 MG/VIAL IV STA (10:18)
[2018-06-24 12:00] VITALS: BP 136/87
[2018-06-24 16:00] VITALS: BP 112/89
--- NOTE | 2018-06-24 16:18 | NUR ---
BRANDON met with Dr. Gomez who requested for BRANDON to inquire about pt's insurances. Currently pt. is shown to have presumptive Medi-abdoul, however pt. is receiving Dialysis MWF. BRANDON contacted dionte Stephenson Insurance liaison and left her a message to investigate as to what insurance pt. is currently having.
[2018-06-24] MEDS: SERTRALINE HCL 25 MG TABLET PO SCH (17:20)
--- NOTE | 2018-06-24 19:13 | NUR ---
RN OPENING NOTES REPORT GIVEN BEDSIDE. RECEIVED THE PATIENT AWAKE IN BED, A/OX 4, SLEEPING, BUT EASILY AWOKEN. MAURITANIAN SPEAKING WITH IRISH UNDERSTANDING, ON ROOM AIR, NO S/S OF RESP DISTRESS. NO COMPLAINTS AT THIS TIME NO SOB/ PT IS CONTINENT. RIGHT CHEST WALL HD CATH INTACT. RIGHT AC 20G FLUSHED AND PATENT, NO S/S OF INFILTRATION/INFECTION. BED LOW AND LOCKED, SIDERAILS UP, X 2 CALL LIGHT WITHIN REACH, RN WILL CONTINUE TO MONITOR.
[2018-06-24 20:00] VITALS: BP 127/88
[2018-06-24] MEDS: ONDANSETRON HCL/PF 4 MG/2 ML VIAL IVP PRN (22:05)
[2018-06-25 04:00] VITALS: BP 129/88
[2018-06-25 06:03] LABS: BASOPHILS % (AUTO) 0.9 % (0.0-2.0); EOSINOPHILS % (AUTO) 2.2 % (0.0-6.0); HEMATOCRIT 29 % (33-45); HEMOGLOBIN 9.7 g/dL (11.5-14.8); LYMPHOCYTES # (AUTO) 1.2 /CMM (0.8-4.8); LYMPHOCYTES % (AUTO) 27.1 % (20.0-44.0); MEAN CORPUSCULAR HGB CONC 33 g/dl (31.0-36.0); MEAN CORPUSCULAR VOLUME 92 fL (82-100); MONOCYTES # (AUTO) 0.4 /CMM (0.1-1.30); MONOCYTES % (AUTO) 8.3 % (2.0-12.0); NEUTROPHILS # (AUTO) 2.8 /CMM (1.8-8.9); NEUTROPHILS % (AUTO) 61.5 % (43.0-81.0); PLATELET COUNT (AUTO) 98 /CMM (150-450); RED BLOOD CELL COUNT(AUTO) 3.16 MIL/uL (4.0-5.2); WHITE BLOOD COUNT (AUTO) 4.5 K/uL (4.3-11.0)
[2018-06-25 06:12] LABS: CALCIUM, SERUM 8.3 mg/dL (8.5-10.1); POTASSIUM 3.3 mmol/L (3.5-5.1)
[2018-06-25 06:28] LABS: CREATININE 9.1 mg/dL (0.6-1.3)
--- NOTE | 2018-06-25 07:20 | NUR ---
MS RN OPENING NOTES RECEIVED BEDSIDE REPORT FROM PM NURSE. RECEIVED THE PATIENT AWAKE IN BED, A/OX 4, SLEEPING, BUT EASILY AROUSABLE. WELSH SPEAKING WITH SPANISH UNDERSTANDING, ON ROOM AIR, NO S/S OF RESP DISTRESS. NO COMPLAINTS AT THIS TIME NO SOB/ PT IS CONTINENT. RIGHT CHEST WALL HD CATH INTACT.ON GOING DIALYSIS. RIGHT AC 20G FLUSHED AND PATENT, NO S/S OF INFILTRATION/INFECTION. BED LOW AND LOCKED, SIDE RAILS UP, X 2 CALL LIGHT WITHIN REACH, WILL CONTINUE TO MONITOR.
--- NOTE | 2018-06-25 07:38 | NUR ---
MS RN NOTE NO ACUTE CHANGES THROUGHOUT SHIFT, ENDORSED POC TO AM FOR LISSETH.
[2018-06-25 08:00] VITALS: BP 134/95
[2018-06-25] MEDS: SEVELAMER CARBONATE 800 MG TABLET PO SCH ×2 (09:10→12:16)
[2018-06-25] MEDS: CALCIUM ACETATE 667 MG TABLET PO SCH ×2 (09:10→12:16)
[2018-06-25 09:11] VITALS: BP 134/95
[2018-06-25] MEDS: FUROSEMIDE 40 MG TABLET PO SCH (09:11)
[2018-06-25] MEDS: AMLODIPINE BESYLATE 10 MG TABLET PO SCH (09:11)
--- NOTE | 2018-06-25 12:00 | NUR ---
MS RN NOTE SEEN BY UPDATED ABOUT PATIENT CONDITION AND LABS.OK TO D/C HOME.PATIENT MADE AWARE.SHE SAID SHE GOING BY BUS.REFUSED TAXI SERVICE OFFERED FROM HOSPITAL. MADE AWARE.PATIENT IS STABLE.WILL CONTINUE TO MONITOR.
[2018-06-25] MEDS: LEVETIRACETAM (250 MG) 250 MG TABLET PO SCH (13:41)
--- NOTE | 2018-06-25 13:45 | NUR ---
MS FISH FARM MANAGER NOTE PATIENT D/C HOME IN STABLE CONDITION.NO SOB NO DISTRESS NOTED.NO PAIN.IV REMOVED .MINIMAL BLEEDING NOTED.PRESSURE DRESSING APPLIED.EXIT CARE GIVEN IN GERMAN WITH HELP OF SAW OFFBEARER.PATIENT VERBALIZED UNDERSTANDING.PATIENT SAID SHE DONT HAVE MEDICATIONS AT HOME.HER INSURANCE IS NOT ACTIVE.CALL MADE TO CASE MANAGEMENT PER CHARGE NURSE,SPOKE TO SYEDA TOLD THAT PATIENT HAS EMERGENCY MEDICAL ,NUMBER IN FACE SHEET.COPY OF FACE SHEET GIVEN WITH EXPLANATION ABOUT NUMBER.ADDRESS GIVEN TO GET MEDICATIONS FROM [facility] PER ORAL HYGIENIST.TOOK ALL BELONGINGS.TOP DISTRIBUTION EXECUTIVE ACCOMPANIED PATIENT OUTSIDE LOBBY.
== END 2018-06-25 13:45 | disposition home or self-care (01) | DRG 470 ==
LOC: ER 11:37 → TELE1 13:55 → MEDSG1 06-24 12:06
PROVIDERS: ADMIT Family Medicine; ATTEND Family Medicine
DX: I12.0 Hypertensive chronic kidney disease with stage 5 chronic kidney disease or end stage renal disease (principal); N18.6 End stage renal disease; E83.39 Other disorders of phosphorus metabolism; E83.51 Hypocalcemia; E87.5 Hyperkalemia; N39.0 Urinary tract infection, site not specified; Z99.2 Dependence on renal dialysis; Z86.73 Personal history of transient ischemic attack (TIA), and cerebral infarction without residual deficits; E78.5 Hyperlipidemia, unspecified; K21.9 Gastro-esophageal reflux disease without esophagitis; D63.8 Anemia in other chronic diseases classified elsewhere; Z98.890 Other specified postprocedural states; Z79.899 Other long term (current) drug therapy; Z82.49 Family history of ischemic heart disease and other diseases of the circulatory system; Z83.3 Family history of diabetes mellitus; F32.9 Major depressive disorder, single episode, unspecified; Z91.15 Patient's noncompliance with renal dialysis
CPT/HCPCS: 36415; 71045-TC; 80048-TC; 80061-TC; 80076-TC; 81000-TC; 83735-TC; 84100-TC; 85025-TC; 87081-TC; 87086-TC; 90935-TC; G0378; J0610; J2405; J2997

== ENCOUNTER 2018-08-30 11:03 | Inpatient (IN) | payer MEDICAID ==
[~2018-08-30] VITALS: Ht 152.4 cm; Wt 66.2 kg
[~2018-08-30 11:03] MED LIST changes: +LANT1000 PO
--- NOTE | 2018-08-30 11:15 | NUR ---
SENT BY HD CENTER DUE TO HD CATH MALFUNCTION, LAST DIALYSIS WAS THURSDAY. TO ER BED 10,AOX 4, NOT IN DISTRESS, RESPIRATIONS EVEN AND UNLABORED, HOOKED TO MONITOR, CHANGED TO GOWN, PROVIDED WITH WARM BLANKET, AWAITING MD LEONARD.
--- NOTE | 2018-08-30 11:16 | NUR ---
DR HALL AT BEDSIDE
[2018-08-30 11:30] LABS: BASOPHILS % (AUTO) 0.7 % (0.0-2.0); EOSINOPHILS % (AUTO) 1.1 % (0.0-6.0); HEMATOCRIT 37 % (33-45); HEMOGLOBIN 12.2 g/dL (11.5-14.8); LYMPHOCYTES % (AUTO) 13.4 % (20.0-44.0); MEAN CORPUSCULAR HGB CONC 33 g/dl (31.0-36.0); MEAN CORPUSCULAR VOLUME 99 fL (82-100); MONOCYTES # (AUTO) 0.2 /CMM (0.1-1.30); NEUTROPHILS # (AUTO) 5.9 /CMM (1.8-8.9); NEUTROPHILS % (AUTO) 81.8 % (43.0-81.0); PLATELET COUNT (AUTO) 150 /CMM (150-450); RED BLOOD CELL COUNT(AUTO) 3.77 MIL/uL (4.0-5.2); WHITE BLOOD COUNT (AUTO) 7.3 K/uL (4.3-11.0)
--- NOTE | 2018-08-30 11:37 | NUR ---
NURSING SUP PAGED FOR MS BED
[2018-08-30 11:40] LABS: CALCIUM, SERUM 7.9 mg/dL (8.5-10.1); CARBON DIOXIDE 22 mmol/L (21-32); CHLORIDE 107 mmol/L (98-107); GLUCOSE 86 mg/dL (74-106); POTASSIUM 5.8 mmol/L (3.5-5.1); SODIUM SERUM 144 mmol/L (136-145)
[2018-08-30 11:41] LABS: CREATININE 16.1 mg/dL (0.6-1.3); UREA NITROGEN, BLOOD 105 mg/dL (7-18)
--- NOTE | 2018-08-30 11:47 | NUR ---
PAGED DR SIM
--- NOTE | 2018-08-30 12:49 | NUR ---
RECEIVED REPORT FROM GLORIA TAMAYO RN
--- NOTE | 2018-08-30 12:49 | NUR ---
REPORT GIVEN TO LM OF MED-SURG UNIT
[2018-08-30 13:00] VITALS: BP 174/62
--- NOTE | 2018-08-30 13:03 | NUR ---
RN MS NOTES RECEIVED PATIENT FROM ED VIA GURNEY ABLE TO AMBULATE TO BED. A/O X4 NO SIGNS OR SYMPTOMS OF RESPIRATORY DISTRESS OR ACUTE PAIN. ORIENTED TO ROOM AND CALL SYSTEM. BED IN LOW POSITION SIDE RAILS X2.
--- NOTE | 2018-08-30 13:59 | NUR ---
LEFT MESSAGE WITH [facility] NEPH[facility]OLOG[facility] TO INFORM DR DUARTE THAT PATIENT IS ADMITTED TO FLOOR AND AWAITING ORDERS
--- NOTE | 2018-08-30 15:21 | NUR ---
RN MS NOTES ASSESSMENT COMPLETE. PATIENT A/O X4 SERBIAN SPEAKING NO SIGNS OR SYMPTOMS OF RESPIRATORY DISTRESS OR ACUTE PAIN. VS ON ADMISSION T 98.0 HR 75 RR 18 B/P 174/62. SKIN INTACT PHOTOS TAKEN OF L SUBCLAVIAN CATH LAV SHUNT NO THRILL NO BRUIT PRESENT. PATIENT ADMITTED FOR MALFUNCTION OF HD CATH. AWAITING ORDERS FROM DR DUARTE RENAL DIET . WILL CONT TO MONITOR ACCORDINGLY
[2018-08-30 16:00] VITALS: BP_SYST 175; BP_DIAS 109; BP_DIAS 69
[2018-08-30] MEDS ORDERED: SODIUM POLYSTYRENE SULFONATE 15 G/60 ML BOTTLE PO ONE (16:30)
--- NOTE | 2018-08-30 16:30 | NUR ---
RN MS NOTES INFORMED DR DUARTE THAT PATIENT HAD NO INSURANCE FOR MEDS. PER DR DUARTE RESUME PREVIOUS MEDS ORDERED. KEPPRA TO BE GIVEN DAILY ONLY
[2018-08-30] MEDS: LANTHANUM CARBONATE 1,000 MG TAB.CHEW PO SCH (17:07)
[2018-08-30] MEDS: SEVELAMER CARBONATE 800 MG TABLET PO SCH (17:07)
--- NOTE | 2018-08-30 18:37 | NUR ---
RN MS NOTES NO SIGNIFICANT CHANGES NOTED. A/O X4 PLEASANT MALAY SPEAKING FEMALE. NO SIGNS OR SYMPTOM OF RESPIRATORY DISTRESS OR ACUTE PAIN. SKIN INTACT. ADMITTED FOR MALFUNCTIONING HD CATH. ORDERS OBTAINED FROM DR FELICIA SHAFFER GIVEN ORDERED. APPETITE GOOD. AWAITING FOR REPLACEMENT FOR HD CATH.LAST HD 08/27 AMBULATORY IN ROOM AND BRP. SAFETY PRECAUTIONS IN PLACE BED IN LOW POSITION CALL LIGHT WITHIN REACH.
--- NOTE | 2018-08-30 19:10 | NUR ---
MS/RN INITIAL NOTES RECEIVED PT IN BED, A/O X4, PALAUAN SPEAKING. ON ROOM AIR, NO SOB NOTED. DENIES PAIN AT THIS TIME. WITH INTACT LCW HD CATH, C/D/I. LFA AV SHUNT INTACT, (-) BRUIT AND THRILL. RAC G20 HEPLOCK INTACT AND PATENT. SAFETY MEASURES IN PLACED. CALL LIGHT WITHIN EASY REACH. WILL CONT TO MONITOR
--- NOTE | 2018-08-30 19:12 | NUR ---
REPORT ENDORSED TO NOC
[2018-08-30 20:00] VITALS: BP 123/100
[2018-08-31 04:00] VITALS: BP 120/88
--- NOTE | 2018-08-31 06:51 | NUR ---
RN NOTES PT IN STABLE CONDITION. NO ACUTE CHANGES NOTED THROUGHOUT SHIFT. SAFETY MEASURES IN PLACED. ALL NEEDS ANTICIPATED. SAFETY MEASURES OBSERVED AT ALL TIMES. ENDORSED TO AM RN FOR LISSETH
[2018-08-31 06:58] LABS: BASOPHILS % (AUTO) 0.7 % (0.0-2.0); EOSINOPHILS % (AUTO) 2.8 % (0.0-6.0); HEMATOCRIT 32 % (33-45); HEMOGLOBIN 10.6 g/dL (11.5-14.8); LYMPHOCYTES # (AUTO) 1.6 /CMM (0.8-4.8); LYMPHOCYTES % (AUTO) 28.3 % (20.0-44.0); MEAN CORPUSCULAR HGB CONC 33 g/dl (31.0-36.0); MEAN CORPUSCULAR VOLUME 98 fL (82-100); MONOCYTES # (AUTO) 0.4 /CMM (0.1-1.30); MONOCYTES % (AUTO) 7.2 % (2.0-12.0); NEUTROPHILS # (AUTO) 3.6 /CMM (1.8-8.9); PLATELET COUNT (AUTO) 126 /CMM (150-450); RED BLOOD CELL COUNT(AUTO) 3.29 MIL/uL (4.0-5.2); WHITE BLOOD COUNT (AUTO) 5.8 K/uL (4.3-11.0)
[2018-08-31 07:14] LABS: CALCIUM, SERUM 7.4 mg/dL (8.5-10.1); MAGNESIUM 2.5 mg/dL (1.8-2.4); POTASSIUM 4.2 mmol/L (3.5-5.1)
[2018-08-31 07:15] LABS: PHOSPHORUS 12.7 mg/dL (2.5-4.9)
--- NOTE | 2018-08-31 07:30 | NUR ---
RN OPENING NOTES PATIENT IN BED SLEEPING COMFORTABLY. EASILY AROUSABLE. PATIENT IS ALERT AND ORIENTED X4. UZBEK SPEAKING. NO PAIN OR ACUTE DISTRESS AT THIS TIME. RESPIRATION EVEN AND UNLABORED. SKIN IS DRY WARM TO TOUCH. PATIENT IS NOTED WITH RIGHT AC G20. PATENT AND FLUSHING WELL. ALL NEEDS ANTICIPATED. BED IS LOCKED AND IN LOWEST POSITION. SAFETY MEASURES IN PLACED. CALL LIGHT WITHIN EASY REACH. PLAN OF CARE DISCUSSED WITH PATIENT. WILL CONTINUE TO MONITOR.
[2018-08-31 08:00] VITALS: BP 128/88
[2018-08-31] MEDS: SEVELAMER CARBONATE 800 MG TABLET PO SCH ×3 (08:26→18:00)
[2018-08-31] MEDS: AMLODIPINE BESYLATE 10 MG TABLET PO SCH (08:26)
[2018-08-31] MEDS: FUROSEMIDE 40 MG TABLET PO SCH (08:26)
[2018-08-31] MEDS: LANTHANUM CARBONATE 1,000 MG TAB.CHEW PO SCH ×3 (10:21→18:00)
--- NOTE | 2018-08-31 13:20 | NUR ---
RN NOTES MEDICATION FOSRENOL AND RENVELA WAS NOT GIVEN AT THIS TIME DUE TO PATIENT GOING TO SURGERY AND BEING NPO. PATIENT REMAINS IN STABLE CONDITION. WILL CONTINUE TO MONITOR.
[2018-08-31] MEDS ORDERED: HEPARIN SODIUM, PORCINE 1,000 UNIT/ML VIAL ONE (14:10)
[2018-08-31] MEDS ORDERED: LIDOCAINE HCL/PF 1% 30 ML SDV ONE (14:10)
--- NOTE | 2018-08-31 14:25 | NUR ---
RN NOTES PATIENT WAS TAKEN TO SURGERY FOR HER HEMODIALYSIS ACCESS PLACEMENT. CHECKLIST WAS DONE AND ALL REQUIRED CONSENTS WAS DONE WELL. PATIENT WAS IN STABLE CONDITION UPON LEAVING THE UNIT.
[2018-08-31] MEDS ORDERED: ANESTHESIA TRAY IN PYXIS 1 EA TRAY MC ONE (15:05)
[2018-08-31 16:00] VITALS: BP 129/77
[2018-08-31] MEDS ORDERED: BACITRACIN ZINC OINT (15 GM) 15 GM TUBE TP ONE (16:13)
--- NOTE | 2018-08-31 17:00 | NUR ---
RN NOTES PATIENT CAME BACK FROM SURGERY. PATIENT REMAINS IN STABLE CONDITION. NO ACUTE DISTRESS AT THIS TIME. RESPIRATION EVEN AND UNLABORED. PATIENT TO CONTINUE ALL PRE-OP ORDERS AND DIET. LINE ON THE L UPPER CHEST IS OK TO USE FOR DIALYSIS. ALL NEEDS ANTICIPATED. KEPT CLEAN AND DRY. CALL LIGHT WITHIN REACHED. WILL CONTINUE TO MONITOR.
[2018-08-31] MEDS: SERTRALINE HCL 25 MG TABLET PO SCH (18:00)
--- NOTE | 2018-08-31 19:44 | NUR ---
RN CLOSING NOTES PATIENT IN BED SLEEPING COMFORTABLY. EASILY AROUSABLE. PATIENT ALERT AND ORIENTED X4. KOREAN SPEAKING. NO PAIN OR ACUTE DISTRESS AT THIS TIME. RESPIRATION EVEN AND UNLABORED. SKIN IS DRY WARM TO TOUCH. IV ACCESS ON RIGHT AC INTACT AND PATENT. FLUSHING WELL. PATIENT ABLE TO TOLERATE MEALS AND MEDS WELL. ALL NEEDS ANTICIPATED. KEPT CLEAN AND DRY. CALL LIGHT WITHIN REACHED. BED LOCKED AND IN LOWEST POSITION. SAFETY MEASURES OBSERVED. WILL CONTINUE TO MONITOR. ENDORSED TO PM NURSE FOR LISSETH.
[2018-08-31 20:00] VITALS: BP 129/89
--- NOTE | 2018-08-31 20:05 | NUR ---
RN OPENING NOTES RECEIVED REPORT FROM SHAQUILLE FELDMAN. PATIENT A/A/O X4. BREATHING EVEN & UNLABORED, TOLERATING ROOM AIR. DENIES ANY SOB OR DIFFICULTY BREATHING. BILATERAL RADIAL PULSES PRESENT. RIGHT AC IV #20 INTACT & PATENT W/ DRESSING CDI, SALINE LOCKED. LEFT AV SHUNT PRESENT & NEW LEFT SUBCLAVIAN HD CATH W/ DRESSING CDI & NO SIGNS OF BLEEDING OR SWELLING NOTED. ABLE TO AMBULATE INDEPENDENTLY BUT INSTRUCTED TO USE CALL LIGHT FOR ASSISTANCE. RESTING COMFORTABLY IN BED. WILL CONTINUE TO MONITOR.
[2018-09-01 04:00] VITALS: BP 125/78
[2018-09-01] MEDS ORDERED: ACETAMINOPHEN 325 MG TABLET PO PRN (06:00)
[2018-09-01 07:13] LABS: BASOPHILS % (AUTO) 0.3 % (0.0-2.0); HEMATOCRIT 34 % (33-45); HEMOGLOBIN 11.1 g/dL (11.5-14.8); LYMPHOCYTES # (AUTO) 0.4 /CMM (0.8-4.8); LYMPHOCYTES % (AUTO) 8.2 % (20.0-44.0); MEAN CORPUSCULAR HGB CONC 33 g/dl (31.0-36.0); MEAN CORPUSCULAR VOLUME 97 fL (82-100); MONOCYTES # (AUTO) 0.3 /CMM (0.1-1.30); MONOCYTES % (AUTO) 5.2 % (2.0-12.0); NEUTROPHILS # (AUTO) 4.5 /CMM (1.8-8.9); NEUTROPHILS % (AUTO) 86.3 % (43.0-81.0); PLATELET COUNT (AUTO) 132 /CMM (150-450); RED BLOOD CELL COUNT(AUTO) 3.49 MIL/uL (4.0-5.2); WHITE BLOOD COUNT (AUTO) 5.2 K/uL (4.3-11.0)
[2018-09-01 07:46] LABS: CALCIUM, SERUM 7.7 mg/dL (8.5-10.1); MAGNESIUM 2.2 mg/dL (1.8-2.4); POTASSIUM 4.2 mmol/L (3.5-5.1)
--- NOTE | 2018-09-01 07:52 | NUR ---
MS RN OPENING NOTES RECEIVED PATIENT A/O X4. NO SOB OR ACUTE DISTRESS NOTED. ON ROOM AIR. RIGHT AC IV #20 INTACT & PATENT W/ DRESSING CDI, SALINE LOCKED. L AV SHUNT PRESENT & NEW LEFT SUBCLAVIAN HD CATH W/ DRESSING CDI & NO SIGNS OF BLEEDING OR SWELLING NOTED. AMBULATES INDEPENDENTLY BUT INSTRUCTED TO USE CALL LIGHT FOR ASSISTANCE. RESTING COMFORTABLY IN BED. WILL CONTINUE TO MONITOR.
[2018-09-01 08:00] VITALS: BP 117/89
[2018-09-01] MEDS: SEVELAMER CARBONATE 800 MG TABLET PO SCH ×3 (08:23→18:00)
[2018-09-01] MEDS: FUROSEMIDE 40 MG TABLET PO SCH (08:24)
[2018-09-01] MEDS: AMLODIPINE BESYLATE 10 MG TABLET PO SCH (08:24)
[2018-09-01] MEDS: SERTRALINE HCL 25 MG TABLET PO SCH (08:24)
[2018-09-01] MEDS: LANTHANUM CARBONATE 1,000 MG TAB.CHEW PO SCH ×3 (08:25→18:00)
[2018-09-01 08:51] LABS: CREATININE 14.1 mg/dL (0.6-1.3); PHOSPHORUS 11.2 mg/dL (2.5-4.9)
[2018-09-01 16:00] VITALS: BP 140/89
[2018-09-01] MEDS ORDERED: ANCEF 1 GM/50 ML D5W IV SCH ×2 (16:00)
--- NOTE | 2018-09-01 19:28 | NUR ---
MS HEARING AID DISPENSER NOTE PATIENT DISCHARGED HOME. PATIENT AMBULATORY AND ESCORTED OUT OF HOSPITAL BY RN. PATIENT A/O X4, V/S WNL. NO SOB OR ACUTE DISTRESS NOTED. IV REMOVED, BELONGINGS LIST COMPLETED. L AV SHUNT PRESENT & NEW LEFT SUBCLAVIAN HD CATH W/ DRESSING CDI & NO SIGNS OF BLEEDING OR SWELLING NOTED. PATIENT STATED SHE HAD TRANSPORTATION AND WAS GOING HOME. HD COMPLETED W/ 1500CC REMOVED. PATIENT RECEIVED 1600 ANTIBIOTIC ORDERED. REFUSED BINDERS. NO MONITORS ON PATIENT. PATIENT D/C W/O INCIDENT.
== END 2018-09-01 20:04 | disposition home or self-care (01) | DRG 466 ==
LOC: ER 11:03 → MEDSG1 12:24
PROVIDERS: ADMIT Internal Medicine Nephrology; ATTEND Internal Medicine Nephrology
PROC: 5A1D70Z Performance of Urinary Filtration, Intermittent, Less than 6 Hours Per Day (ICD-10-PCS; 2018-08-30)
PROC: B518YZA Fluoroscopy of Superior Vena Cava using Other Contrast, Guidance (ICD-10-PCS; principal; 2018-08-31)
PROC: 02HV33Z Insertion of Infusion Device into Superior Vena Cava, Percutaneous Approach (ICD-10-PCS; principal; 2018-08-31)
PROC: 5A1D70Z Performance of Urinary Filtration, Intermittent, Less than 6 Hours Per Day (ICD-10-PCS; principal; 2018-08-31)
PROC: 0JH63XZ Insertion of Tunneled Vascular Access Device into Chest Subcutaneous Tissue and Fascia, Percutaneous Approach (ICD-10-PCS; principal; 2018-08-31)
PROC: 5A1D70Z Performance of Urinary Filtration, Intermittent, Less than 6 Hours Per Day (ICD-10-PCS; 2018-09-01)
DX: T82.41XA Breakdown (mechanical) of vascular dialysis catheter, initial encounter (principal); I12.0 Hypertensive chronic kidney disease with stage 5 chronic kidney disease or end stage renal disease; E87.5 Hyperkalemia; Y71.2 Prosthetic and other implants, materials and accessory cardiovascular devices associated with adverse incidents; N18.6 End stage renal disease; Z99.2 Dependence on renal dialysis; E78.5 Hyperlipidemia, unspecified; Z98.890 Other specified postprocedural states; Z79.899 Other long term (current) drug therapy; Z90.49 Acquired absence of other specified parts of digestive tract; Z86.73 Personal history of transient ischemic attack (TIA), and cerebral infarction without residual deficits; Z83.3 Family history of diabetes mellitus; Z82.49 Family history of ischemic heart disease and other diseases of the circulatory system; K21.9 Gastro-esophageal reflux disease without esophagitis; F32.9 Major depressive disorder, single episode, unspecified
CPT/HCPCS: 36415; 71045-TC; 80048-TC; 83735-TC; 84100-TC; 84484-TC; 84702-TC; 85025-TC; 85730-TC; 86706; 87081-TC; 87340; 90935-TC; A6402; C1750; C1769; G0378; J0690; J1100; J1644; J3490; J7060

== ENCOUNTER 2018-10-18 09:31 | Inpatient (IN) | payer MEDICAID ==
[~2018-10-18] VITALS: Ht 134.6 cm; Wt 71.8 kg
--- NOTE | 2018-10-18 09:50 | NUR ---
PATIENT CAME IN FROM DIALYSIS CENTER, FOR MALFUNCTIONING CATHETER. PATIENT A/OX4, BREATHING EVEN AND UNLABORED, NO SOB NOTED. DENIES PAIN OR DISCOMFORT AT THIS TIME. DR. HALL AT BEDSIDE FOR EVAL. ATTACHED TO THE MONITOR, CHANGED INTO GOWN.
--- NOTE | 2018-10-18 09:56 | NUR ---
PAGED ON-CALL MD FOR [facility] NEPHR[facility]Y.
--- NOTE | 2018-10-18 10:19 | NUR ---
ESTABLISHED RIGHT AC G20 IV.
[2018-10-18 10:21] LABS: BASOPHILS # (AUTO) 0.1 /CMM (0.0-0.2); BASOPHILS % (AUTO) 0.7 % (0.0-2.0); HEMATOCRIT 40 % (33-45); LYMPHOCYTES # (AUTO) 1.1 /CMM (0.8-4.8); LYMPHOCYTES % (AUTO) 14.1 % (20.0-44.0); MEAN CORPUSCULAR HGB CONC 33 g/dl (31.0-36.0); MEAN CORPUSCULAR VOLUME 98 fL (82-100); MONOCYTES # (AUTO) 0.3 /CMM (0.1-1.30); MONOCYTES % (AUTO) 4.1 % (2.0-12.0); NEUTROPHILS % (AUTO) 75.1 % (43.0-81.0); PLATELET COUNT (AUTO) 160 /CMM (150-450); RED BLOOD CELL COUNT(AUTO) 4.06 MIL/uL (4.0-5.2)
[2018-10-18 10:26] LABS: CALCIUM, SERUM 7.9 mg/dL (8.5-10.1); POTASSIUM 4.5 mmol/L (3.5-5.1)
[2018-10-18 10:28] LABS: CREATININE 11.6 mg/dL (0.6-1.3)
--- NOTE | 2018-10-18 11:51 | NUR ---
REPORT GIVEN TO JANELL FELDMAN.
--- NOTE | 2018-10-18 12:08 | NUR ---
PATIENT TRANSFERRED TO ROOM 311-1. PATIENT IN STABLE CONDITION. NO DISTRESS NOTED.
--- NOTE | 2018-10-18 12:23 | NUR ---
MS/RN NOTE THE PATIENT IS RECEIVED FROM ER ON A GURNEY. PATIENT IS ASSISTED TO BED. PATIENT IS ALERT AND ORIENTED X4. IN ROOM AIR AND DENIES SOB. RESPIRATION REGULAR AND UNLABORED. DENIES PAIN. LEFT HD CATH PRESENT AND COVERED WITH DRESSING. RAC G 20 PATENT AND SALINE LOCKED. BED LOW AND LOCKED. SIDE RAILS UP X3. CALL LIGHT WITHIN REACH. WILL CONTINUE TO MONITOR.
[2018-10-18 13:00] VITALS: BP 130/80
[2018-10-18] MEDS ORDERED: ACETAMINOPHEN 325 MG TABLET PO PRN (13:30)
[2018-10-18] MEDS ORDERED: ONDANSETRON HCL/PF 4 MG/2 ML VIAL IVP PRN (13:30)
[2018-10-18] MEDS ORDERED: Z GUARD REMEDY 2 OZ OINT TP PRN (13:30)
[2018-10-18] MEDS ORDERED: ZOLPIDEM TARTRATE 5 MG TABLET PO PRN (13:30)
[2018-10-18 16:07] VITALS: BP 122/85
--- NOTE | 2018-10-18 16:49 | NUR ---
MS/RN NOTE RECEIVED ORDER OF RENAL STANDARD DIET FROM DR WEBSTER. READ BACK, VERIFIED. NOTED AND CARRIED OUT.
[2018-10-18] MEDS: SEVELAMER CARBONATE 800 MG TABLET PO SCH (17:55)
--- NOTE | 2018-10-18 18:14 | NUR ---
MS/RN NOTE THE PATIENT IS ALERT AND ORIENTED X4. ABLE TO MAKE NEEDS KNOWN VERBALLY. IN ROOM AIR AND SATURATION IS AT 98%. DENIES SOB. RESPIRATION REGULAR AND UNLABORED. DENIES PAIN. THE PATIENT IN NO APPARENT DISTRESS. RAC G 20 PATENT AND SALINE LOCKED. LEFT CHEST WALL HD CATH PRESENT AND COVERED WITH DRESSING. BED LOW AND LOCKED. SIDE RAILS UP X2. CALL LIGHT WITHIN REACH. WILL ENDORSE TO SERVICE REPRESENTATIVE.
--- NOTE | 2018-10-18 19:15 | NUR ---
MS/RN NOTES RECEIVED PT. SITTING UP IN BED. PT. IS AWAKE, ALERT AND ORIENTED X4. BREATHING EVEN AND UNLABORED ON ROOM AIR. NO SOB, RESPIRATORY DISTRESS OR COMPLAINTS OF PAIN NOTED AT THIS TIME. PT. WITH RIGHT AC 20 GAUGE IV SALINE LOCK PRESENT, PATENT AND INTACT. PT. WITH LEFT CHEST WALL HD CATH PRESENT AND INTACT. BED LOCKED AND IN LOWEST POSITION, SIDE RAILS UP X2, CALL LIGHT WITHIN REACH, WILL CONTINUE TO MONITOR.
[2018-10-18 20:14] VITALS: BP 114/98
--- NOTE | 2018-10-19 06:41 | NUR ---
MS/RN NOTES PT. IS LYING IN BED RESTING. BREATHING EVEN AND UNLABORED ON ROOM AIR. NO SOB, RESPIRATORY DISTRESS OR COMPLAINTS OF PAIN NOTED AT THIS TIME. PT. WITH RIGHT AC 20 GAUGE IV SALINE LOCK PRESENT, PATENT AND INTACT. PT. WITH LEFT CHEST WALL HD CATH PRESENT AND INTACT. ALL PT. NEEDS MET. BED LOCKED AND IN LOWEST POSITION, SIDE RAILS UP X2, CALL LIGHT WITHIN REACH, WILL ENDORSE TO DAYSHIFT NURSE FOR CONTINUITY OF CARE.
[2018-10-19 07:10] LABS: BASOPHILS % (AUTO) 0.6 % (0.0-2.0); EOSINOPHILS % (AUTO) 7.7 % (0.0-6.0); HEMATOCRIT 40 % (33-45); HEMOGLOBIN 13.1 g/dL (11.5-14.8); LYMPHOCYTES # (AUTO) 1.5 /CMM (0.8-4.8); LYMPHOCYTES % (AUTO) 18.9 % (20.0-44.0); MEAN CORPUSCULAR HGB CONC 33 g/dl (31.0-36.0); MEAN CORPUSCULAR VOLUME 97 fL (82-100); MONOCYTES # (AUTO) 0.4 /CMM (0.1-1.30); MONOCYTES % (AUTO) 5.5 % (2.0-12.0); NEUTROPHILS # (AUTO) 5.3 /CMM (1.8-8.9); NEUTROPHILS % (AUTO) 67.3 % (43.0-81.0); PLATELET COUNT (AUTO) 162 /CMM (150-450); RED BLOOD CELL COUNT(AUTO) 4.17 MIL/uL (4.0-5.2); WHITE BLOOD COUNT (AUTO) 7.9 K/uL (4.3-11.0)
[2018-10-19 07:38] LABS: CALCIUM, SERUM 8.3 mg/dL (8.5-10.1); POTASSIUM 5.3 mmol/L (3.5-5.1)
[2018-10-19 07:40] LABS: CREATININE 13.8 mg/dL (0.6-1.3)
[2018-10-19 08:00] VITALS: BP 127/91
--- NOTE | 2018-10-19 08:00 | NUR ---
m/s reverse engineer: vascular surgeon dr. mccrary was here earlier this morning and explained to pt re: RIGHT ARM ARTERIOVENOUS ACCESS on 10/21/18. noted written orders in chart and carried out and noted. pt verbalized understanding of procedure after md explained at bedside as stated and aware of needing consents. pt having breakfast at this time and will sign all consents after breakfast. instructed to call for assistance.
[2018-10-19] MEDS: AMLODIPINE BESYLATE 5 MG TABLET PO SCH (09:05)
[2018-10-19] MEDS: SEVELAMER CARBONATE 800 MG TABLET PO SCH ×3 (09:06→18:12)
--- NOTE | 2018-10-19 09:15 | NUR ---
m/s skidway worker: notes consent obtained for RIGHT ARM ARTERIOVENOUS ACCESS on 10/21/18 with hong konger staff translating including anesthesia and blood consent, pt verbalized understanding.
--- NOTE | 2018-10-19 10:00 | NUR ---
m/s receiving worker: notes resting comfortable in bed. no c/o pain or any discomfort. will continue to monitor.
--- NOTE | 2018-10-19 12:30 | NUR ---
m/s flue cleaner: md visit seen and examined by dr. sandoval at this time. pt resting comfortable. no distress noted. will continue to monitor.
--- NOTE | 2018-10-19 14:00 | NUR ---
m/s biomedical instrument technician: notes in bed resting comfortable in bed. no distress noted. will continue to monitor.
[2018-10-19 16:00] VITALS: BP 133/92
--- NOTE | 2018-10-19 16:00 | NUR ---
m/s home health nurse: notes urine test collected via clean catch. lab called to pepper picker specimen in ref.
--- NOTE | 2018-10-19 18:39 | NUR ---
m/s spool carrier: notes pt resting comfortable in bed with no distress noted. needs attended. instructed to call for assistance. will continue to monitor.
--- NOTE | 2018-10-19 19:10 | NUR ---
m/s automotive internet sales consultant: notes bedside report given to cynthia (rn) for continuity of care.
--- NOTE | 2018-10-19 19:10 | NUR ---
MS RN OPENING NOTES Received patient sitting up in bed, alert, oriented x 3, Romansh speaking. Breathing even and unlabored. Not in any distress, on room air. No complaints at this time. Safety measures in place; call light within reach, bed in low, locked position. Encouraged to call for assistance. Will continue to monitor accordingly
[2018-10-19 20:00] VITALS: BP 153/97
[2018-10-20] VITALS: BP 145/92
--- NOTE | 2018-10-20 00:10 | NUR ---
RN NOTES Patient sleeping in bed, comfortable. No distress noted. Will continue to monitor.
--- NOTE | 2018-10-20 07:22 | NUR ---
MS RN CLOSING NOTES Patient resting in bed. Breathing even and unlabored. Not in any distress, on room air. No complaints at this time. No acute changes overnight. Safety measures in place; call light within reach, bed in low, locked position. Encouraged to call for assistance. Endorsed LISSETH to AM RN
--- NOTE | 2018-10-20 07:37 | NUR ---
RN OPENING NOTE PT WAS RECEIVED IN BED AT LOWEST AND LOCKED POSITION WITH SIDE RAILS UPX2, A/O X4 BREATHING EVEN AND UNLABORED ON RA, NO S/S OF ANY DISTRESS OR PAIN NOTED AT THIS TIME. IV IS PATENT AND INTACT, NOTED TO W HD CATH. PLAN FOR AV SHUNT PLACEMENT TOMORROW WITH WITH CONSENTS SIGNED. SAFETY PRECAUTIONS IN PLACE, CALL LIGHT WITHIN REACH, WILL MONITOR PT ACCORDINGLY.
[2018-10-20 08:00] VITALS: BP 160/104
[2018-10-20] MEDS: AMLODIPINE BESYLATE 5 MG TABLET PO SCH (08:07)
[2018-10-20] MEDS: SEVELAMER CARBONATE 800 MG TABLET PO SCH ×3 (08:07→17:41)
[2018-10-20 16:00] VITALS: BP 147/100
--- NOTE | 2018-10-20 17:30 | NUR ---
RN NOTE HEMODIALYSIS FINISHED AT THIS TIME
[2018-10-20] MEDS: HYDROCODONE/APAP 5/325MG 1 EACH TABLET PO PRN (17:42)
--- NOTE | 2018-10-20 18:03 | NUR ---
RN CLOSING NOTE PT RESTING IN BED COMFORTABLY AT LOWEST AND LOCKED POSITION WITH SIDE RAILS UPX2, BREATHING EVEN AND UNLABORED WITH NO COMPLAINTS OF ANY DISTRESS OR PAIN AT THIS TIME. IV IS PATENT AND INTACT, PLAN FOR AV SHUNT PLACEMENT TOMORROW WITH WITH CONSENTS SIGNED. PLAN TO BE NPO PAST MIDGNIGHT, SAFETY PRECAUTIONS IN PLACE, CALL LIGHT WITHIN REACH, ALL NEEDS ATTENDED TO, WILL ENDORSE TO WASTE WATER OPERATOR RN FOR LISSETH.
--- NOTE | 2018-10-20 19:15 | NUR ---
MS RN NOTES RECEIVED A/O X4,SITTING ON BED,DENIES PAIN DISCOMFORTS,LEFT CHEST WALL HD CATH IN PLACE,DRESSING INTACT AND DRY,SALINE LOCK RIGHT AC INTACT AND PATENT.INSTRUCTED NPO POST MIDNIGHT FOR SURGERY IN THE MORNING.CALL LIGHT IN REACH,NEEDS ANTICIPATED.
[2018-10-20 20:00] VITALS: BP_SYST 138; BP_SYST 152; BP_DIAS 89; BP_DIAS 97
--- NOTE | 2018-10-21 | NUR ---
MS RN NOTES NPO THIS TIME FOR NOONTIME PROCEDURE.
--- NOTE | 2018-10-21 05:48 | NUR ---
MS RN NOTES KEPT NPO POST MIDNIGHT FOR RIGHT ARM AV ACCESS PLACEMENT AT NOONTIME BY DR NUÑEZ.NO ACTIVE BLEEDING ON LEFT UPPER CHEST HD SITE.DRESSING INTACT AND DRY.SALINE LOCK REMAINS PATENT ON RIGHT AC.CALL LIGHT IN REACH,NEEDS ATTENDED.WILL ENDORSE TO JOE FELDMAN FOR LISSETH.
[2018-10-21 06:31] LABS: BASOPHILS # (AUTO) 0.1 /CMM (0.0-0.2); BASOPHILS % (AUTO) 0.8 % (0.0-2.0); HEMATOCRIT 40 % (33-45); LYMPHOCYTES # (AUTO) 1.5 /CMM (0.8-4.8); LYMPHOCYTES % (AUTO) 18.1 % (20.0-44.0); MEAN CORPUSCULAR HGB CONC 32 g/dl (31.0-36.0); MEAN CORPUSCULAR VOLUME 97 fL (82-100); MONOCYTES # (AUTO) 0.5 /CMM (0.1-1.30); MONOCYTES % (AUTO) 6.2 % (2.0-12.0); NEUTROPHILS # (AUTO) 5.6 /CMM (1.8-8.9); NEUTROPHILS % (AUTO) 68.9 % (43.0-81.0); PLATELET COUNT (AUTO) 144 /CMM (150-450); RED BLOOD CELL COUNT(AUTO) 4.18 MIL/uL (4.0-5.2); WHITE BLOOD COUNT (AUTO) 8.2 K/uL (4.3-11.0)
[2018-10-21 06:59] LABS: POTASSIUM 5.2 mmol/L (3.5-5.1)
[2018-10-21 07:02] LABS: CREATININE 15.9 mg/dL (0.6-1.3)
--- NOTE | 2018-10-21 07:09 | NUR ---
RN OPENING NOTE PT WAS RECEIVED IN BED AT LOWEST AND LOCKED POSITION WITH SIDE RAILS UPX2, A/O X4 BREATHING EVEN AND UNLABORED ON RA, NO S/S OF ANY DISTRESS OR PAIN NOTED AT THIS TIME. IV IS PATENT AND INTACT, NOTED TO W HD CATH. PLAN FOR SURGERY TODAY WITH FOR AV SHUNT PLACEMENT WITH , CONSENTS SIGNED. SAFETY PRECAUTIONS IN PLACE, CALL LIGHT WITHIN REACH, WILL MONITOR PT ACCORDINGLY.
[2018-10-21] MEDS: SEVELAMER CARBONATE 800 MG TABLET PO SCH ×3 (08:00→17:20)
[2018-10-21] MEDS: AMLODIPINE BESYLATE 5 MG TABLET PO SCH (08:38)
--- NOTE | 2018-10-21 08:43 | NUR ---
RN NOTE AM MEDS HELD DUE TO NPO DIAGNOSIS FOR SURGERY
[2018-10-21] MEDS ORDERED: HYDROMORPHONE INJ 2 MG/ML DISP.SYRIN ONE (12:24)
[2018-10-21] MEDS ORDERED: LIDOCAINE HCL/PF 1% 30 ML SDV ONE (12:27)
[2018-10-21] MEDS ORDERED: IOHEXOL 240MG/ML 0 ML IV ONE (12:27)
[2018-10-21] MEDS ORDERED: HEPARIN SODIUM, PORCINE 1,000 UNIT/ML VIAL ONE (12:27)
[2018-10-21] MEDS ORDERED: BACITRACIN 50000 UNITS/VIAL ONE (12:33)
[2018-10-21] MEDS ORDERED: FAMOTIDINE/PF INJ 20 MG/2 ML VIAL IV ONE (12:59)
[2018-10-21] MEDS ORDERED: SEVOFLURANE 250 ML BOTTLE IH ONE (14:01)
--- NOTE | 2018-10-21 15:10 | NUR ---
RN NOTE PT BROUGHT BACK FROM OR AT THIS TIME, SURGERY UNABLE TO BE DONE DUE TO BP DROPPING DURING SURGERY FROM 160S TO 80S WITH PT BEING TACHYCARDIC, PT BROUGHT UP AT THIS TIME WITH VS OF BP 122/79 P 103 02 97% ON 2L VIA NC, RR NOTED TO BE 17, TEMP 98.9. STAT EKG AND ECHO ORDERED, PATIENT PLACE ON TELE MONITOR. WILL INFORM MD.
--- NOTE | 2018-10-21 15:26 | NUR ---
RN NOTE DR. LAM INFORMED OF ABNORMAL EKG
[2018-10-21 16:00] VITALS: BP 111/43
--- NOTE | 2018-10-21 18:39 | NUR ---
RN CLOSING NOTE PTIN BED AT LOWEST AND LOCKED POSITION WITH SIDE RAILS UPX2, A/O X4 BREATHING EVEN AND UNLABORED ON 2L VIA NC, NO S/S OF ANY DISTRESS OR PAIN NOTED AT THIS TIME. IV IS PATENT AND INTACT, PT CURRENTLY RECEIVING HEMODIALYSIS. SURGERY WAS ABORTED TODAY DUE TO SUDDEN DROP IN BP WHEN IN OR, ON TELE MONITOR NOTED TO BE SINUS TACH 108, SAFETY PRECAUTIONS IN PLACE, CALL LIGHT WITHIN REACH, ALL NEEDS ATTENDED TO, WILL ENDORSE TO FIRST MATE RN FOR LISSETH.
--- NOTE | 2018-10-21 19:15 | NUR ---
MS RN NOTES RECEIVED LAYING COMFORTABLY ON BED.HEMODIALYSIS TREATMENT IN PROGRESS,HD NURSE AT BEDSIDE.O2 IN USED AT 2L/NC TO KEEP O2 SAT ABOVE 90%.SALINE LOCK RIGHT AC INTACT AND PATENT.WILL CONTINUE TO MONITOR STATUS.
[2018-10-21 20:00] VITALS: BP 127/77
[2018-10-21 20:03] VITALS: BP 127/77
--- NOTE | 2018-10-21 22:00 | NUR ---
SPA THERAPIST NOTES AWAKE,C/O THROAT DISCOMFORTS FROM INTUBATION,SUPPOSED TO HAVE RIGHT ARM AV ACCESS PLACEMENT BUT WAS ABORTED DUE TO LOW BLOOD PRESSURE.OFFERED JELLO AND SHE ATE IT WELL.NEGATIVE FOR ASPIRATION
[2018-10-22] VITALS (7 sets, daily range): BP systolic 133–153; BP diastolic 74–91
[2018-10-22 05:05] LABS: ALBUMIN 3.2 g/dL (3.4-5.0); BILIRUBIN,TOTAL 0.4 mg/dL (0.2-1.0); CALCIUM, SERUM 8.8 mg/dL (8.5-10.1); MAGNESIUM 2.7 mg/dL (1.8-2.4); TOTAL PROTEIN, SERUM 7.5 g/dL (6.4-8.2)
[2018-10-22 05:16] LABS: CREATININE 16.1 mg/dL (0.6-1.3); PHOSPHORUS 10.6 mg/dL (2.5-4.9); POTASSIUM 6.9 mmol/L (3.5-5.1)
[2018-10-22 05:22] LABS: BASOPHILS % (AUTO) 0.2 % (0.0-2.0); HEMATOCRIT 44 % (33-45); HEMOGLOBIN 14.3 g/dL (11.5-14.8); LYMPHOCYTES # (AUTO) 0.5 /CMM (0.8-4.8); LYMPHOCYTES % (AUTO) 4.3 % (20.0-44.0); MEAN CORPUSCULAR HGB CONC 32 g/dl (31.0-36.0); MEAN CORPUSCULAR VOLUME 96 fL (82-100); MONOCYTES # (AUTO) 0.4 /CMM (0.1-1.30); MONOCYTES % (AUTO) 3.3 % (2.0-12.0); NEUTROPHILS # (AUTO) 11.5 /CMM (1.8-8.9); NEUTROPHILS % (AUTO) 92.2 % (43.0-81.0); PLATELET COUNT (AUTO) 135 /CMM (150-450); RED BLOOD CELL COUNT(AUTO) 4.57 MIL/uL (4.0-5.2); WHITE BLOOD COUNT (AUTO) 12.4 K/uL (4.3-11.0)
--- NOTE | 2018-10-22 05:30 | NUR ---
SHIATSU THERAPIST NOTES REPORTED BY MICHELLE SLEEVE FIXER,CHEMISTRY CRITICAL RESULTS,CHARGE NURSE MADE AWARE.
--- NOTE | 2018-10-22 05:34 | NUR ---
MACHINIST SUPERVISOR OUTSIDE NOTES MD MARINE EQUIPMENT SALES ENGINEER FOR DR HARDIN PAGE THIS TIME,AWAITING TO CALL BACK.
--- NOTE | 2018-10-22 06:47 | NUR ---
BIOMEDICAL ENGINEERING AIDE NOTES DR KATHIE REY,KNEE BOLTER FOR DR HARDIN DIDNT CALL BACK YET.HD NURSE MARGUERITE AT BEDSIDE FOR HD TREATMENT,UNFORTUNATELY,HD CATH ON LEFT UPPER CHEST WALL TWO PORT IS NOT WORKING.HD NURSE MARGUERITE CALLED DR HARDIN WITH ORDER FOR CATH FLOW TO DE CLOGGED HD CATH,ORDERS FAXED TO PHARMACY BY MARGUERITE.WILL HD TREATMENT AROUND 9AM TODAY WHEN MEDICINE ALREADY AVAILABLE ON THE FLOOR.
[2018-10-22] MEDS ORDERED: ALTEPLASE CATHFLO 2 MG/VIAL XX ONE (07:00)
--- NOTE | 2018-10-22 07:35 | NUR ---
MECHANICAL ENGINEERING DIRECTOR OPENING NOTES RECEIVED PT SITTING UPRIGHT IN BED. PT IS A/O X4, AFEBRILE. RESPIRATIONS ARE EVEN AND UNLABORED, NOT IN ANY ACUTE DISTRESS NOTED. DENIES ANY PAIN AT THIS TIME, NO C/O SOB,N/V. IV SITE TO RAC INTACT, NO INFILTRATION NOTED. DRESSING KEPT CLEAN AND DRY. HD CATH NOTED TO LCW WITH DRESSING INTACT, KEPT CLEAN AND DRY. ALTEPLASE WAS GIVEN DIALYSIS NURSE FIOR. SAFETY MEASURES ARE IN PLACE. INSTRUCTED PT TO USE CALL LIGHT WHEN ASSISTANCE IS NEEDED, CALL LIGHT IS LEFT WITHIN REACH. WILL MONITOR THROUGHOUT SHIFT FOR CONTINUITY OF CARE.
[2018-10-22] MEDS ORDERED: SCOPOLAMINE HBR 1 EA PATCH.TD72 TD ONE (07:43)
[2018-10-22] MEDS ORDERED: FENTANYL PF 100MCG/2ML AMPUL ONE (07:43)
[2018-10-22] MEDS ORDERED: KETOROLAC TROMETHAMINE INJ 60 MG/2 ML VIAL IM ONE (07:43)
[2018-10-22] MEDS: AMLODIPINE BESYLATE 5 MG TABLET PO SCH (08:31)
[2018-10-22] MEDS: SEVELAMER CARBONATE 800 MG TABLET PO SCH ×3 (08:31→17:12)
--- NOTE | 2018-10-22 13:32 | NUR ---
LITERACY TUTOR NOTES-- PT ABLE TO MAKE NEEDS KNOWN. NEEDS MET AND RENDERED. PT DOES NOT APPEAR TO BE IN ANY DISTRESS. WILL CONTINUE TO MONITOR.
[2018-10-22] MEDS ORDERED: SODIUM POLYSTYRENE SULFONATE 15 G/60 ML BOTTLE PO ONE (16:30)
[2018-10-22 17:20] LABS: CALCIUM, SERUM 8.3 mg/dL (8.5-10.1)
[2018-10-22 17:23] LABS: CREATININE 16.7 mg/dL (0.6-1.3); POTASSIUM 6.3 mmol/L (3.5-5.1)
--- NOTE | 2018-10-22 18:05 | NUR ---
GROUNDS WORKER NOTES-- CALLED DR. WEBSTER TO RELAY HD SITE NOT WORKING PER DIALYSIS NURSE EDMUND MCHUGH WAS GIVEN, MOST CURRENT LEVEL K 6.3. WAITING A CALL BACK.
--- NOTE | 2018-10-22 18:36 | NUR ---
VETERINARY ASSISTANT NOTES-- CALLED DR. WEBSTRE RE: K LEVEL 7.3 W/ ORDERS FOR 1 AMP BICARB AND STAT EKG.
--- NOTE | 2018-10-22 18:44 | NUR ---
BRICK OFF BEARER NOTES-- NOTIFIED DR. WEBSTER THAT DR. NUÑEZ CAME TO EXAMINE THE PT AND WILL INSERT TEMP HD CATH NOW. PER DR. NUÑEZ, NO NEED FOR 1 AMP OF BICARB.
--- NOTE | 2018-10-22 18:45 | NUR ---
CIVIL ENGINEERING PROFESSIONAL NOTES-- DR. NUÑEZ AT BEDSIDE TO PERFORM TEMP CHELSIE HD CATH TO RIGHT GROIN. CONSENTS SIGNED.
[2018-10-22] MEDS ORDERED: HEPARIN SODIUM, PORCINE 1000 UNIT/1 ML VIAL IV SCH (19:00)
--- NOTE | 2018-10-22 19:30 | NUR ---
BAG FILLER NOTES RECEIVED LAYING COMFORTABLY ON BED,A/O X4,SPEAK CZECH,OLD HD ACCES IN PLACE,NON WORKING,DRESSING INTACT AND DRY.S/P PLACEMENT OF TEMPORARY CHELSIE CATH ON RIGHT GROIN FOR HD ACCESS.POTASSIUM LEVEL 7.2,AWAITING HD TREATMENT TONIGHT.SALINE LEFT WRIST#20 INTACT AND PATENT.CALL LIGHT IN REACH,NEEDS ANTICIPATED.
--- NOTE | 2018-10-22 19:40 | NUR ---
GOLF CART MECHANIC NOTES-- DR. NUÑEZ FINISHED BEDSIDE PROCEDURE OF TEMP HD CATH DOUBLE LUMEN TO RIGHT FEMORAL. PT TOLERATED WELL.
--- NOTE | 2018-10-22 19:40 | NUR ---
CARTON INSPECTOR NOTES-- CALLED DR. WEBSTER RE: DR. NUÑEZ'S INSERTION OF HD CATH AND FOR DIALYSIS NURSE TO DIALYZE PT.
[2018-10-22] MEDS: HYDROCODONE/APAP 5/325MG 1 EACH TABLET PO PRN (19:45)
--- NOTE | 2018-10-22 19:45 | NUR ---
AUTO PARTS SALESPERSON NOTES C/O PAIN ON THE RIGHT GROIN 5/10 ON PAIN SCALE.MEDICATED WITH NORCO 5/325MG BY NURSE SEN,1 TAB PO GIVEN FOR MODERATE PAIN.
--- NOTE | 2018-10-22 20:00 | NUR ---
PSYCHOTHERAPIST CLOSING NOTES ALL DUE MEDS GIVEN. NEEDS MET AND RENDERED. PT IS A/O X4, AFEBRILE. RESPIRATIONS ARE EVEN AND UNLABORED, NOT IN ANY ACUTE DISTRESS NOTED. PT C/O PAIN TO RIGHT FEMORAL, ENDORSED TO STRAP BUCKLER MACHINE NURSE TO ADMINISTER PAIN MEDICATION. DENIES ANY SOB, N/V. DRESSING TO RIGHT FEMORAL KEPT CLEAN AND DRY. IV SITE TO L WRIST INTACT, NO INFILTRATION NOTED. SAFETY MEASURES ARE IN PLACE. REMINDED PT TO USE CALL LIGHT WHEN ASSISTANCE IS NEEDED, CALL LIGHT IS LEFT WITHIN REACH. ENDORSED TO NEXT SHIFT FOR CONTINUITY OF CARE.
--- NOTE | 2018-10-22 20:18 | NUR ---
RT NOTE STAT EKG COMPLETED LATE DUE TO BEDSIDE PROCEDURE. CHARGE NURSE AMANDA AND JANICE RN NOTIFIED AND AWARE. GASTON CAMACHO PRESENT BEDSIDE DURING EKG PROCEDURE.
[2018-10-23] VITALS: BP 159/88
--- NOTE | 2018-10-23 | NUR ---
PASTE MAKER NOTES BP 159/88,DENIES PAIN DISCOMFORTS.OFFERED SLEEPING PILL BUT REFUSED
[2018-10-23] MEDS: HYDROCODONE/APAP 5/325MG 1 EACH TABLET PO PRN ×2 (02:59→21:54)
--- NOTE | 2018-10-23 02:59 | NUR ---
MS RN NOTES C/O THROAT PAIN 5/10 ON PAIN SCALE,NORCO 5/325MG,1 TAB PO GIVEN.WILL MONITOR FOR RELIEF.
--- NOTE | 2018-10-23 06:24 | NUR ---
MS RN NOTES ON BED A/O X4,FAIRLY RESTED,NO BLEEDING RIGHT GROIN CHELSIE SITE.PAIN MANAGEMENT EFFECTIVE.IN NO ACUTE DISTRESS.CALL LIGHT IN REACH,NEEDS ATTENDED.WILL ENDORSE TO CRISTIN FELDMAN FOR LISSETH.
[2018-10-23 07:51] LABS: BASOPHILS % (AUTO) 0.7 % (0.0-2.0); EOSINOPHILS % (AUTO) 6.4 % (0.0-6.0); HEMATOCRIT 36 % (33-45); HEMOGLOBIN 11.7 g/dL (11.5-14.8); LYMPHOCYTES # (AUTO) 1.6 /CMM (0.8-4.8); LYMPHOCYTES % (AUTO) 22.3 % (20.0-44.0); MEAN CORPUSCULAR HGB CONC 32 g/dl (31.0-36.0); MEAN CORPUSCULAR VOLUME 96 fL (82-100); MONOCYTES # (AUTO) 0.6 /CMM (0.1-1.30); MONOCYTES % (AUTO) 7.7 % (2.0-12.0); NEUTROPHILS # (AUTO) 4.5 /CMM (1.8-8.9); NEUTROPHILS % (AUTO) 62.9 % (43.0-81.0); PLATELET COUNT (AUTO) 104 /CMM (150-450); RED BLOOD CELL COUNT(AUTO) 3.76 MIL/uL (4.0-5.2); WHITE BLOOD COUNT (AUTO) 7.1 K/uL (4.3-11.0)
[2018-10-23] MEDS: SEVELAMER CARBONATE 800 MG TABLET PO SCH ×3 (07:51→17:15)
[2018-10-23 08:00] VITALS: BP 146/95
[2018-10-23 08:51] LABS: CALCIUM, SERUM 8.1 mg/dL (8.5-10.1); POTASSIUM 4.1 mmol/L (3.5-5.1)
[2018-10-23] MEDS: AMLODIPINE BESYLATE 5 MG TABLET PO SCH (09:00)
--- NOTE | 2018-10-23 09:08 | NUR ---
RN NOTES KAREENVASC HELD. PATIENT WILL HAVE DIALYSIS TODAY. PT HAS HISTORY OF BECOMING HYPOTENSIVE.
[2018-10-23 16:00] VITALS: BP 148/110
--- NOTE | 2018-10-23 16:59 | NUR ---
RN NOTES PT DIALYZED TODAY. 1000ML OUT. CBC BMP TOMORROW.
--- NOTE | 2018-10-23 18:25 | NUR ---
RN CLOSING NOTES PT AWAKE AND RESTING IN BED. NO COMPLAINTS OF PAIN, SOB OR DISTRESS AT THIS TIME. PT HAD HEMODIALYSIS TODAY 100ML OUT. PT HAS LEFT WRIST IV #20 INTACT AND PATENT. PT ALSO HAS HD CATH SITE LEFT UPPER CHEST WALL. TEMPORARY CHELSIE CATH RIGHT GROIN INSERTED 10/22. SAFETY PRECAUTIONS IN PLACE, BED IN LOWEST LOCKED POSITION, X2 SIDE RAILS UP AND CALL LIGHT WITHIN REACH. WILL ENDORSE TO NURSE AUDITOR NURSE FOR CONTINUITY OF CARE.
[2018-10-23 20:00] VITALS: BP 139/86
[2018-10-24 06:45] LABS: BASOPHILS # (AUTO) 0.1 /CMM (0.0-0.2); BASOPHILS % (AUTO) 1.6 % (0.0-2.0); CALCIUM, SERUM 8.7 mg/dL (8.5-10.1); EOSINOPHILS % (AUTO) 8.6 % (0.0-6.0); HEMATOCRIT 38 % (33-45); HEMOGLOBIN 12.5 g/dL (11.5-14.8); LYMPHOCYTES # (AUTO) 1.5 /CMM (0.8-4.8); LYMPHOCYTES % (AUTO) 24.4 % (20.0-44.0); MEAN CORPUSCULAR HGB CONC 33 g/dl (31.0-36.0); MEAN CORPUSCULAR VOLUME 95 fL (82-100); MONOCYTES # (AUTO) 0.5 /CMM (0.1-1.30); MONOCYTES % (AUTO) 7.4 % (2.0-12.0); NEUTROPHILS # (AUTO) 3.5 /CMM (1.8-8.9); PLATELET COUNT (AUTO) 97 /CMM (150-450); POTASSIUM 3.8 mmol/L (3.5-5.1); RED BLOOD CELL COUNT(AUTO) 3.98 MIL/uL (4.0-5.2); WHITE BLOOD COUNT (AUTO) 6.1 K/uL (4.3-11.0)
[2018-10-24 06:48] LABS: CREATININE 10.5 mg/dL (0.6-1.3)
--- NOTE | 2018-10-24 06:51 | NUR ---
RN PM CLOSING NOTES PATIENT SEEN DENIES PAIN IN BED RESTING. BREATHING EVEN AND UNLABORED. BED DOWN LOCKED SRX2 CALL LIGHT IN REACH. DENIES USING RESTROOM LAT NIGHT.
--- NOTE | 2018-10-24 07:25 | NUR ---
MS/RN OPENING NOTE THE PATIENT IS RECEIVED IN BED. PATIENT IS AWAKE, ALERT AND ORIENTED X4. IN ROOM AIR AND DENIES SOB. RESPIRATION REGULAR AND UNLABORED. DENIES PAIN. LEFT WRIST G 20 PATENT AND SALINE LOCKED. CHELSIE CATH ON RIGHT GROIN PRESENT WITH NO S/S INFECTION. BED LOW AND LOCKED. SIDE RAILS UP X2. CALL LIGHT WITHIN REACH. WILL CONTINUE TO MONITOR.
[2018-10-24 07:27] LABS: BAND % (MANUAL) 11 % (0.0-5.0); EOSINOPHILS % (MANUAL) 6 % (0-4); LYMPHOCYTES % (MANUAL) 24 % (16-48); MONOCYTES % (MANUAL) 10 % (0-11.0); NEUTROPHILS % (MANUAL) 49 (42-76)
[2018-10-24 08:00] VITALS: BP 149/99
[2018-10-24] MEDS: AMLODIPINE BESYLATE 5 MG TABLET PO SCH (08:24)
[2018-10-24] MEDS: SEVELAMER CARBONATE 800 MG TABLET PO SCH ×3 (08:25→17:47)
--- NOTE | 2018-10-24 11:54 | NUR ---
MS/RN NOTE CHARGE NURSE GABRIELA MADE AWARE DR RAGSDALE THAT PER DR DUARTE THE PATIENT NEEDS PERMANENT HD CATH PRIOR DISCHARGE. DR RAGSDALE SAID THAT HE WILL WORK TO SCHEDULE IT AND WILL INFORM US.
[2018-10-24 16:00] VITALS: BP 138/95
--- NOTE | 2018-10-24 18:47 | NUR ---
MS/RN NOTE THE PATIENT ALERT AND ORIENTED X4. DENIES PAIN. RESPIRATION REGULAR AND UNLABORED. PATIENT IS IN ROOM AIR AND SATURATION IS AT 98%. DENIES SOB. THE PATIENT IN NO APPARENT DISTRESS. LEFT WRIST G 20 PATENT AND SALINE LOCKED. CHELSIE CATH RIGHT GROIN PRESENT AND NO S/S INFECTION NOTED. BED LOW AND LOCKED. SIDE RAILS UP X2. CALL LIGHT WITHIN REACH. WILL ENDORSE TO MULTIMEDIA DEVELOPER.
--- NOTE | 2018-10-24 19:23 | NUR ---
RN MS OPENING NOTES RECEIVED PT IN BED, AWAKE ALERT ORIENTED X4, BREATHING EVEN AND UNLABORED ON ROOM AIR, NO SOB NOTED. NO COMPLAINT OF PAIN OR DISCOMFORT AT THIS TIME. IV ACCESS ON THE L WRIST 20G, CHELSIE CATH R GROIN. BED IN LOCKED POSITION, CALL LIGHT WITHIN REACH AT ALL TIMES WILL CONTINUE TO MONITOR FREQUENTLY
[2018-10-24 20:00] VITALS: BP 156/103
--- NOTE | 2018-10-25 06:09 | NUR ---
RN MS CLOSING NOTES PT REMAINS IN BED, AWAKE ALERT ORIENTED X4, BREATHING EVEN AND UNLABORED ON ROOM AIR, NO SOB NOTED. NO COMPLAINT OF PAIN OR DISCOMFORT AT THIS TIME. IV ACCESS ON THE L WRIST 20G, CHELSIE CATH R GROIN AND R SUBCLAVIAN CATH. BED IN LOCKED POSITION, CALL LIGHT WITHIN REACH AT ALL TIMES WILL ENDORSE TO DAY NURSE FOR LISSETH
--- NOTE | 2018-10-25 07:30 | NUR ---
MS/RN NOTE THE PATIENT IS ALERT AND ORIENTED X4. IN ROOM AIR AND DENIES SOB. RESPIRATION REGULAR AND UNLABORED. DENIES PAIN. THE PATIENT IN NO APPARENT DISTRESS. LEFT WRIST G 20 PATENT AND SALINE LOCKED. CHELSIE CATH IS ON RIGHT GROIN. BED LOW AND LOCKED. SIDE RAILS UP X2. CALL LIGHT WITHIN REACH. WILL CONTINUE TO MONITOR.
[2018-10-25 08:00] VITALS: BP 144/76
[2018-10-25] MEDS: AMLODIPINE BESYLATE 5 MG TABLET PO SCH (08:55)
[2018-10-25] MEDS: SEVELAMER CARBONATE 800 MG TABLET PO SCH ×3 (08:55→18:00)
[2018-10-25 16:00] VITALS: BP 166/100
--- NOTE | 2018-10-25 17:52 | NUR ---
MS/RN NOTE THE PATIENT ALERT AND ORIENTED X4. DENIES PAIN. RESPIRATION REGULAR AND UNLABORED. IN ROOM AIR AND SATURATION IS AT 99%. DENIES SOB. LEFT WRIST G 20 PATENT AND SALINE LOCKED. RIGHT GROIN CHELSIE CATH PRESENT. THE PATIENT HAD DIALYSIS TODAY AND 1.5 LITER WAS REMOVED. THE PATIENT TOLERATED DIALYSIS WELL. BED LOW AND LOCKED. SIDE RAILS UP X2. CALL LIGHT WITHIN REACH. WILL ENDORSE TO WAREHOUSE SHIPPER.
--- NOTE | 2018-10-25 19:05 | NUR ---
RN MS NOTES RECEIVED PATIENT IN BED SLEEPING BUT EASILY AROUSABLE, AWAKE ALERT AND ORIENTED X4, COOK ISLANDER SPEAKING, RESPIRATIONS EVEN AND UNLABORED WITH EQUAL RISE AND FALL OF CHEST, RIGHT GROIN CHELSIE CATHETER INTACT, DRESSING IS C/D/I. RIGHT MID FA PER PATIENT INCISION TO PREP FOR DIALYSIS CATHETER INSERTION, DRESSING C/D/I. NO REDNESS PRESENT TO SITE. LEFT CHEST WALL SUBCLAVIAN PER PATIENT "OLD DIALYSIS SITE" SECURED WITH TAPE. , IV SITE TO LEFT WRIST #20 G INTACT AND PATENT, NO REDNESS, NO INFILTRATION PRESENT SL.ORIENTED TO STAFF AND CALL LIGHT AND KEPT WITHIN REACH, LOW BED AND LOCKED, ALL NEEDS ATTENDED WILL CONTINUE TO MONITOR AND ADDRESS NEEDS. REMAINS COMFORTABLE AT THIS TIME.
[2018-10-25 20:00] VITALS: BP 139/92
[2018-10-25] MEDS: HYDROCODONE/APAP 5/325MG 1 EACH TABLET PO PRN (21:43)
--- NOTE | 2018-10-25 21:43 | NUR ---
RN MS NOTES PATIENT C/O PAIN TO LEFT AND RIGHT ARM ACHING 6/10 REQUESTING FOR PAIN MEDICATION VS WNL NORCO PRN OFFERED PATIENT AGREED. NORCO PRN GIVEN WILL CONTINUE TO MONITOR FOR EFFECTIVENESS.
--- NOTE | 2018-10-25 22:23 | NUR ---
RN MS NOTES RECEIVED CALL FROM WITH NEW ORDERS NOTED AND READ BACK OBTAIN CONSENT FOR TUNNELED DIALYSIS CATHETER INSERTION. NPO EXCEPT MEDS AT MIDNIGHT. PER MD PATIENT IS SCHEDULED AT 0700 10/26/18. PATIENT MADE AWARE.
--- NOTE | 2018-10-25 23:00 | NUR ---
GASTON MS NOTES CONSENTS OBTAINED FOR PROCEDURE.
[2018-10-26] MEDS ORDERED: HEPARIN SODIUM, PORCINE 1,000 UNIT/ML VIAL ONE (06:16)
[2018-10-26] MEDS ORDERED: LIDOCAINE HCL/PF 1% 30 ML SDV ONE (06:16)
[2018-10-26] MEDS ORDERED: ANESTHESIA TRAY IN PYXIS 1 EA TRAY MC ONE (06:17)
--- NOTE | 2018-10-26 06:25 | NUR ---
RN MS CLOSING NOTES PATIENT AWAKE ALERT AND ORIENTED X 4 SOUTH [place]UD[place]ESE SPEAKER, RESPIRATIONS EVEN AND UNLABORED WITH EQUAL RISE AND FALL OF CHEST,DENIES ANY PAIN OR DISCOMFORT AT THIS TIME, PATIENT NPO SINCE 10/26/18 0000 FOR SCHEDULED PROCEDURE. CONSENTS IN CHART CHECKLIST COMPLETE, VS WITHIN STABLE CONDITION 158/95,98.0,78,18,99% RA,0/10 NO DISTRESS PRESENT. PICKED UP BY OR STAFF OUT OF UNIT LEFT AT THIS TIME LEFT IN STABLE CONDITION, WILL ENDORSE TO NEXT SHIFT. ALL NEED WERE ATTENDED THROUGHOUT SHIFT.
[2018-10-26] MEDS ORDERED: MIDAZOLAM HCL 2 MG/2ML VIAL ONE (06:48)
[2018-10-26 07:02] LABS: BASOPHILS % (AUTO) 0.6 % (0.0-2.0); EOSINOPHILS % (AUTO) 8.4 % (0.0-6.0); HEMATOCRIT 34 % (33-45); HEMOGLOBIN 11.2 g/dL (11.5-14.8); LYMPHOCYTES # (AUTO) 1.4 /CMM (0.8-4.8); LYMPHOCYTES % (AUTO) 20.6 % (20.0-44.0); MEAN CORPUSCULAR HGB CONC 33 g/dl (31.0-36.0); MEAN CORPUSCULAR VOLUME 95 fL (82-100); MONOCYTES # (AUTO) 0.5 /CMM (0.1-1.30); MONOCYTES % (AUTO) 7.4 % (2.0-12.0); NEUTROPHILS # (AUTO) 4.2 /CMM (1.8-8.9); PLATELET COUNT (AUTO) 119 /CMM (150-450); WHITE BLOOD COUNT (AUTO) 6.7 K/uL (4.3-11.0)
[2018-10-26 07:03] LABS: CALCIUM, SERUM 8.6 mg/dL (8.5-10.1); MAGNESIUM 2.6 mg/dL (1.8-2.4); PHOSPHORUS 7.5 mg/dL (2.5-4.9); POTASSIUM 3.9 mmol/L (3.5-5.1)
[2018-10-26 07:04] LABS: CREATININE 11.9 mg/dL (0.6-1.3)
[2018-10-26] MEDS ORDERED: IOHEXOL 50 ML IV ONE (07:04)
[2018-10-26] MEDS ORDERED: FENTANYL PF 100MCG/2ML AMPUL ONE (07:35)
[2018-10-26 08:00] VITALS: BP 127/99
--- NOTE | 2018-10-26 08:00 | NUR ---
m/s policy checker: notes received pt from recovery room with dx: s/p Right internal jugular vein tunneled dialysis catheter placement and Left internal jugular vein tunneled dialysis catheter removal with Sterile dressings were applied by surgeon and the tip was sent for culture. pt dozing on and off. on o2 at 2l/min via n/c. pt has no peripheral line, per recovery nurse, it was removed due to infiltration. fall precaution initiated due to moderate sedation. reality orientation provided prn. vss. instructed to call for assistance. will continue to monitor. b/p med held, pt for possible hd tx. will continue to monitor.
[2018-10-26] MEDS: AMLODIPINE BESYLATE 5 MG TABLET PO SCH (09:00)
[2018-10-26] MEDS: SEVELAMER CARBONATE 800 MG TABLET PO SCH ×3 (09:18→17:38)
--- NOTE | 2018-10-26 10:00 | NUR ---
m/s biometric technician: notes resting comfortable in bed with no distress noted. called kris and ask if pt is going to be dialyzed today and informed me that there is no order at this time and will ask dr. vasquez's group as stated.
--- NOTE | 2018-10-26 14:00 | NUR ---
m/s clothespin drier operator: notes pt resting comfortable. no distress noted. will monitor.
[2018-10-26 16:00] VITALS: BP 166/100
--- NOTE | 2018-10-26 16:45 | NUR ---
m/s facility coordinator: md visit seen and examined by dr. vasquez with order to d'c home. dr. vasquez removed right femoral permacath with pressure dressing applied for 20 minutes. order acknowledged.
--- NOTE | 2018-10-26 17:30 | NUR ---
m/s infantry unit leader: notes re check right femoral site, no active bleeding noted. dressing remains intact. pt called her mother to pick her up.
--- NOTE | 2018-10-26 18:00 | NUR ---
m/s economic research analyst: notes discharged instructions given to pt and mother with latvian staff translating. d'c copies provided to pt and verbalized understanding. pt will go tomorrow to her hd tx as stated.
--- NOTE | 2018-10-26 18:14 | NUR ---
m/s mobile development manager: discharged discharged home in stable condition accompanied by mother via private car with all valuables.
== END 2018-10-26 18:13 | disposition home or self-care (01) | DRG 466 ==
LOC: ER 09:31 → MED 11:42 → TELE 10-21 14:59 → MED 10-23 09:50
PROVIDERS: ADMIT Internal Medicine; ATTEND Internal Medicine Nephrology
PROC: 5A1D70Z Performance of Urinary Filtration, Intermittent, Less than 6 Hours Per Day (ICD-10-PCS; 2018-10-20)
PROC: 06HM33Z Insertion of Infusion Device into Right Femoral Vein, Percutaneous Approach (ICD-10-PCS; principal; 2018-10-22)
PROC: B54BZZA Ultrasonography of Right Lower Extremity Veins, Guidance (ICD-10-PCS; principal; 2018-10-22)
PROC: 05PY33Z Removal of Infusion Device from Upper Vein, Percutaneous Approach (ICD-10-PCS; 2018-10-26)
PROC: B543ZZA Ultrasonography of Right Jugular Veins, Guidance (ICD-10-PCS; 2018-10-26)
PROC: 0JPV3XZ Removal of Tunneled Vascular Access Device from Upper Extremity Subcutaneous Tissue and Fascia, Percutaneous Approach (ICD-10-PCS; 2018-10-26)
PROC: 0JHD3XZ Insertion of Tunneled Vascular Access Device into Right Upper Arm Subcutaneous Tissue and Fascia, Percutaneous Approach (ICD-10-PCS; 2018-10-26)
PROC: 05HM33Z Insertion of Infusion Device into Right Internal Jugular Vein, Percutaneous Approach (ICD-10-PCS; 2018-10-26)
DX: T82.41XA Breakdown (mechanical) of vascular dialysis catheter, initial encounter (principal); I12.0 Hypertensive chronic kidney disease with stage 5 chronic kidney disease or end stage renal disease; E11.22 Type 2 diabetes mellitus with diabetic chronic kidney disease; Y92.009 Unspecified place in unspecified non-institutional (private) residence as the place of occurrence of the external cause; Y71.2 Prosthetic and other implants, materials and accessory cardiovascular devices associated with adverse incidents; N18.6 End stage renal disease; Z99.2 Dependence on renal dialysis; N25.0 Renal osteodystrophy; Z98.890 Other specified postprocedural states; F32.9 Major depressive disorder, single episode, unspecified; E78.5 Hyperlipidemia, unspecified; E87.5 Hyperkalemia; Z86.73 Personal history of transient ischemic attack (TIA), and cerebral infarction without residual deficits; K21.9 Gastro-esophageal reflux disease without esophagitis; D64.9 Anemia, unspecified; I95.2 Hypotension due to drugs; T41.45XA Adverse effect of unspecified anesthetic, initial encounter; Y92.89 Other specified places as the place of occurrence of the external cause
CPT/HCPCS: 36415; 71045-TC; 80048-TC; 80053-TC; 80061-TC; 83735-TC; 84100-TC; 84132-TC; 84484-TC; 84703-TC; 85025-TC; 85730-TC; 86706; 87070-TC; 87081-TC; 87340; 90935-TC; 93307-TC; A6402; C1750; C1769; G0378; J0690; J1100; J1170; J1644; J1885; J2250; J2370; J2405; J2704; J2997; J3010; J3490; Q9966; Q9967

== ENCOUNTER 2020-12-20 14:09 | Inpatient (IN) | payer MEDICAID ==
[~2020-12-20] VITALS: Ht 152.4 cm; Wt 62.2 kg
--- NOTE | 2020-12-20 14:38 | NUR ---
The patient presented to ER with c/o SOB. Oxygen saturation in room air is at 98%. Respiration regular and unlabored. Denies pain. Attached to the monitor. Will continue to monitor the patient.
[2020-12-20 15:05] LABS: BASOPHILS # (AUTO) 0.1 K/uL (0.0-0.2); BASOPHILS % (AUTO) 0.9 % (0.0-2.0); EOSINOPHILS % (AUTO) 3.8 % (0.0-6.0); HEMATOCRIT 34 % (33-45); LYMPHOCYTES # (AUTO) 1.2 K/uL (0.8-4.8); LYMPHOCYTES % (AUTO) 14.5 % (20.0-44.0); MEAN CORPUSCULAR HGB CONC 33 g/dl (31.0-36.0); MEAN CORPUSCULAR VOLUME 95 fL (82-100); MONOCYTES # (AUTO) 0.6 K/uL (0.1-1.30); MONOCYTES % (AUTO) 6.7 % (2.0-12.0); NEUTROPHILS # (AUTO) 6.1 K/uL (1.8-8.9); NEUTROPHILS % (AUTO) 74.1 % (43.0-81.0); PLATELET COUNT (AUTO) 144 K/uL (150-450); RED BLOOD CELL COUNT(AUTO) 3.53 MIL/uL (4.0-5.2); WHITE BLOOD COUNT (AUTO) 8.2 K/uL (4.3-11.0)
[2020-12-20 15:20] LABS: CALCIUM, SERUM 9.1 mg/dL (8.5-10.1); CARBON DIOXIDE 22 mmol/L (21-32); CHLORIDE 108 mmol/L (98-107); GLUCOSE 88 mg/dL (74-106); POTASSIUM 6.1 mmol/L (3.5-5.1); SODIUM SERUM 146 mmol/L (136-145); UREA NITROGEN, BLOOD 47 mg/dL (7-18)
[2020-12-20 15:26] LABS: CREATININE 13.5 mg/dL (0.6-1.3)
[2020-12-20 15:33] LABS: ALANINE AMINOTRANSFERASE 11 U/L (12-78); ALBUMIN 3.6 g/dL (3.4-5.0); ALKALINE PHOSPHATASE 102 U/L (46-116); ASPARTATE AMINOTRANSFERASE 13 U/L (15-37); BILIRUBIN,DIRECT 0.1 mg/dL (0.0-0.2); BILIRUBIN,TOTAL 0.5 mg/dL (0.2-1.0); TOTAL PROTEIN, SERUM 7.4 g/dL (6.4-8.2)
[2020-12-20] MEDS ORDERED: INSULIN REGULAR, HUMAN 100 UNIT/ML 10 ML VIAL IV ONE (16:00)
[2020-12-20] MEDS ORDERED: DEXTROSE 50%-WATER 50 ML DISP.SYRIN IV ONE (16:00)
[2020-12-20] MEDS ORDERED: ALBUTEROL FS 2.5 MG/3 ML VIAL.NEB NEB ONE (16:00)
--- NOTE | 2020-12-20 16:04 | NUR ---
covid swab done and sent to the lab
--- NOTE | 2020-12-20 16:10 | NUR ---
CALLED NURSING SUP FOR BED
[2020-12-20] MEDS ORDERED: INSULIN REGULAR, HUMAN 100 UNIT/ML 10 ML VIAL ONE (16:33)
[2020-12-20] MEDS ORDERED: DEXTROSE 50%-WATER 50 ML DISP.SYRIN ONE (16:33)
[2020-12-20] MEDS ORDERED: ALBUTEROL FS 2.5 MG/3 ML VIAL.NEB ONE (16:35)
--- NOTE | 2020-12-20 17:00 | NUR ---
TELE ADMISSION NOTE RECEIVED PATIENT ADMISSION. PATIENT WAS BROUGHT BY JANELL, ED RN. PATIENT IS ALERT AND ORIENTED X4, ANDORRAN SPEAKING. NO S/S OF DISTRESS, WITH INCREASED RESPIRATIONS. C/O PAIN 7/10 AND HEADACHE. IV ACCESS RAC#18 PATENT AND INTACT. PT ALSO NOTED TO HAVE RWC DIALYSIS CATH. ORIENTED PATIENT TO UNIT AND STAFF. CALL LIGHT IS WITHIN REACH. SAFETY MEASURES IN PLACE WITH BED LOCKED AT LOW POSITION AND SIDE RAILS UP X2. AWAITING NEW ORDERS FROM DR. VU SMITH. WILL CONTINUE TO MONITOR THROUGHOUT SHIFT.
[2020-12-20 17:23] LABS: D-DIMER 0.68 mg/L(FEU (0.17-0.50)
[2020-12-20] MEDS ORDERED: Z GUARD REMEDY 2 OZ OINT TP PRN (18:30)
[2020-12-20] MEDS ORDERED: ONDANSETRON HCL/PF 4 MG/2 ML VIAL IVP PRN (18:30)
[2020-12-20] MEDS: ACETAMINOPHEN 325 MG TABLET PO PRN (18:44)
--- NOTE | 2020-12-20 19:20 | NUR ---
J2EE SOFTWARE ENGINEER OPENING NOTE RECEIVED PT AWAKE IN BED, A/OX4, DENIES ANY PAIN OR DISCOMFORT AT THIS TIME. RESPIRATIONS EVEN AND UNLABORED. IV ACCESS ON R-AC INTACT, PATENT, FLUSHES WELL. HD ACCESS ON R-CHEST WAL INTACT, WITH DRESSING C/D/I. PT STARTING ON HEMODIALYSIS AT THIS TIME WITH HD NURSE. PT IN NO ACUTE DISTRESS. SAFETY MEASURES IN PLACE, BED IN LOWEST LOCKED POSITION, S/R UP X2, CALL LIGHT WITHIN EASY REACH. WILL CONTINUE TO MONITOR.
[2020-12-20 19:59] VITALS: BP 151/106
[2020-12-20 20:00] VITALS: BP 151/106
[2020-12-20 21:56] VITALS: BP 161/120
--- NOTE | 2020-12-20 21:56 | NUR ---
RN NOTE HD NURSE REPORTS PT WITH HIGH BP'S, 161/120, RE-CHECKED 155/118. CALLED TO DR. VILLANUEVA WITH ORDER TO GIVE LISINOPRIL 40MG PO X1 NOW, THEN LISINOPRIL 40MG PO DAILY. ORDER NOTED AND CARRIED OUT.
[2020-12-20] MEDS ORDERED: LISINOPRIL (20MG) 20 MG TABLET PO SCH (22:00)
[2020-12-20 22:25] VITALS: BP 161/107
--- NOTE | 2020-12-20 22:25 | NUR ---
RN NOTE HD DONE. HD NURSE REPORTS OUTPUT 3L. PT'S CURRENT BP 161/107. PT DENIES ANY PAIN/DISCOMFORT. NO SOB.
--- NOTE | 2020-12-20 23:30 | NUR ---
RN NOTE BP NOW 156/101. PT RESTING IN BED, LYING ON HER R-SIDE. NO ACUTE DISTRESS NOTED.
[2020-12-20 23:36] VITALS: BP 151/101
[2020-12-21] VITALS: BP 156/101
[2020-12-21 03:45] VITALS: BP 139/84
[2020-12-21 04:00] VITALS: BP 139/84
--- NOTE | 2020-12-21 06:56 | NUR ---
ANALYTICAL LAB ANALYST CLOSING NOTE PT RESTING IN BED, EASILY AROUSABLE TO STIMULI. A/OX4, DENIES ANY PAIN OR DISCOMFORT. NO SOB. BP THIS MORNING IS DOWN TO 139/84. ON TELE MONITOR CURRENTLY READING SR, HR 86. PT IN NO ACUTE DISTRESS. ALL NEEDS ATTENDED TO. SAFETY MEASURES MAINTAINED, BED IN LOWEST LOCKED POSITION, S/R UP X2, CALL LIGHT WITHIN EASY REACH.
[2020-12-21 06:57] LABS: BASOPHILS % (AUTO) 0.9 % (0.0-2.0); EOSINOPHILS % (AUTO) 5.7 % (0.0-6.0); HEMATOCRIT 33 % (33-45); HEMOGLOBIN 10.8 g/dL (11.5-14.8); LYMPHOCYTES % (AUTO) 19.6 % (20.0-44.0); MEAN CORPUSCULAR HGB CONC 33 g/dl (31.0-36.0); MEAN CORPUSCULAR VOLUME 96 fL (82-100); MONOCYTES # (AUTO) 0.4 K/uL (0.1-1.30); MONOCYTES % (AUTO) 7.5 % (2.0-12.0); NEUTROPHILS # (AUTO) 3.5 K/uL (1.8-8.9); NEUTROPHILS % (AUTO) 66.3 % (43.0-81.0); PLATELET COUNT (AUTO) 99 K/uL (150-450); RED BLOOD CELL COUNT(AUTO) 3.44 MIL/uL (4.0-5.2); WHITE BLOOD COUNT (AUTO) 5.3 K/uL (4.3-11.0)
--- NOTE | 2020-12-21 07:30 | NUR ---
SALES ORDER COORDINATOR OPENING NOTES RECEIVED PATIENT RESTING IN BED, A/O X4. ON ROOM AIR, BREATHING EVENLY AND UNLABORED. NOT IN DISTRESS. ON TELE MONITOR CURRENTLY READING SR WITH SR-91BPM. WITH IV ACCESS AT RIGHT AC G18, SALINE LOCKED, PATENT AND INTACT. SAFETY MEASURES MAINTAINED, BED IN LOWEST AND LOCKED POSITION, S/R UP X2, CALL LIGHT WITHIN EASY REACH. WILL CONTINUE TO MONITOR.
[2020-12-21 07:53] LABS: ALBUMIN 3.3 g/dL (3.4-5.0); BILIRUBIN,TOTAL 0.6 mg/dL (0.2-1.0); CALCIUM, SERUM 8.8 mg/dL (8.5-10.1); MAGNESIUM 2.8 mg/dL (1.8-2.4); PHOSPHORUS 7.3 mg/dL (2.5-4.9); POTASSIUM 5.2 mmol/L (3.5-5.1); TOTAL PROTEIN, SERUM 6.9 g/dL (6.4-8.2)
[2020-12-21 07:58] LABS: CREATININE 10.4 mg/dL (0.6-1.3)
[2020-12-21 08:34] VITALS: BP 164/102
[2020-12-21] MEDS: LISINOPRIL (20MG) 20 MG TABLET PO SCH (08:52)
--- NOTE | 2020-12-21 12:30 | NUR ---
MS RN NOTES HEMODIALYSIS OF PATIENT DONE BY HEMODIALYSIS PERSONNEL NAMED REECE WITH AN OUTPUT OF 500ML. VITAL SIGNS POST HD; BP-152/114, WI-84, TEMP-98.2 AND 02 SAT-98%
[2020-12-21 16:08] VITALS: BP 164/116
--- NOTE | 2020-12-21 19:00 | NUR ---
MS RN CLOSING NOTES PATIENT RESTING IN BED, A/O X4. ON ROOM AIR, BREATHING EVENLY AND UNLABORED. NOT IN DISTRESS. WITH IV ACCESS AT RIGHT AC G18, SALINE LOCKED, PATENT AND INTACT. SAFETY MEASURES MAINTAINED, BED IN LOWEST AND LOCKED POSITION, S/R UP X2, CALL LIGHT WITHIN EASY REACH. WILL ENDORSE TO NEXT SHIFT FOR LISSETH.
--- NOTE | 2020-12-21 19:30 | NUR ---
MS/TELE/RN RECEIVE PATIENT LYING IN BED AWAKE, ALERT, ORIENTED, COMFORTABLE, NO C/O PAIN, NO DISTRESS NOTED, CALL LIGHT IN REACH. WILL MONITOR.
[2020-12-21 20:00] VITALS: BP 145/99
--- NOTE | 2020-12-22 06:06 | NUR ---
MS/TELE/RN PATIENT IS IN BED AWAKE, COMFORTABLE, NO SIGNS OF DISTRESS NOTED, CALL LIGHT IN REACH, ALL NEEDS ATTENDED AT THIS TIME, WILL CONTINUE TO MONITOR.
[2020-12-22 07:34] LABS: BASOPHILS # (AUTO) 0.1 K/uL (0.0-0.2); BASOPHILS % (AUTO) 0.8 % (0.0-2.0); EOSINOPHILS % (AUTO) 6.4 % (0.0-6.0); HEMATOCRIT 34 % (33-45); HEMOGLOBIN 11.2 g/dL (11.5-14.8); LYMPHOCYTES # (AUTO) 1.4 K/uL (0.8-4.8); LYMPHOCYTES % (AUTO) 21.5 % (20.0-44.0); MEAN CORPUSCULAR HGB CONC 33 g/dl (31.0-36.0); MEAN CORPUSCULAR VOLUME 97 fL (82-100); MONOCYTES # (AUTO) 0.6 K/uL (0.1-1.30); MONOCYTES % (AUTO) 10.2 % (2.0-12.0); NEUTROPHILS # (AUTO) 3.8 K/uL (1.8-8.9); NEUTROPHILS % (AUTO) 61.1 % (43.0-81.0); PLATELET COUNT (AUTO) 98 K/uL (150-450); RED BLOOD CELL COUNT(AUTO) 3.55 MIL/uL (4.0-5.2); WHITE BLOOD COUNT (AUTO) 6.3 K/uL (4.3-11.0)
--- NOTE | 2020-12-22 07:35 | NUR ---
MS/RN OPENING NOTES RECEIVED PATIENT SETTING ON BED AWAKE ALERT AND ORIENTED X4. PATIENT IS ON ROOM AIR. PATIENT IN NO APPARENT RESPIRATORY DISTRESS NOTED. NO COMPLAINED OF PAIN NOTED AT THIS TIME. WILL CONTINUE TO MONITOR.
[2020-12-22 07:54] LABS: POTASSIUM 5.2 mmol/L (3.5-5.1)
[2020-12-22 07:57] LABS: CREATININE 11.9 mg/dL (0.6-1.3)
[2020-12-22 08:00] VITALS: BP 152/100
[2020-12-22] MEDS: ASPIRIN 81 MG TAB.CHEW PO SCH (08:43)
[2020-12-22] MEDS: METOPROLOL TARTRATE 50 MG TABLET PO SCH ×2 (08:43→21:30)
[2020-12-22] MEDS: LISINOPRIL (20MG) 20 MG TABLET PO SCH (08:43)
[2020-12-22] MEDS ORDERED: METO50TA16 PO (12:47)
[2020-12-22] MEDS ORDERED: LISI20TA30 PO (12:47)
[2020-12-22 16:00] VITALS: BP 168/115
[2020-12-22] MEDS ORDERED: ALTEPLASE CATHFLO 2 MG/VIAL XX ONE ×2 (16:00→16:30)
--- NOTE | 2020-12-22 16:03 | NUR ---
MS/RN NOTES DR. MIC DUARTE ORDER TPA ONCE NOTED AND CARRIED OUT.
--- NOTE | 2020-12-22 16:52 | NUR ---
MS/RN NOTES DR. MIC DUARTE ORDER DIALYZE THE PATIENT TODAY AFTER TPA. NOTED AND CARRIED OUT. Addendum: 12/22/20 at 1653 by LUZ BARAHONA RN ERROR
--- NOTE | 2020-12-22 16:53 | NUR ---
MS/RN NOTES DR. MIC DUARTE ORDER HEMODIALYSIS THE PATIENT TODAY AFTER TPA. NOTED AND CARRIED OUT.
--- NOTE | 2020-12-22 18:27 | NUR ---
MS/RN NOTES BP 182/114 PULSE 73, VU LUIS DNP ORDER HYDRALAZINE 10MG IV ONCE AND HYDRALAZINE 25MG P.O. ONCE NOTED AND CARRIED OUT.
[2020-12-22] MEDS ORDERED: hydrALAZINE HCL 25 MG TABLET PO ONE (18:30)
[2020-12-22] MEDS ORDERED: hydrALAZINE HCL IV 20 MG VIAL IV ONE (18:30)
--- NOTE | 2020-12-22 18:40 | NUR ---
MS/RN NOTES TPA WAS DONE BY JAREN AUTOMATIC PACKER OPERATOR, AFTER 1 HOUR JAREN AUTOMATIC PACKER OPERATOR REPRTED TO DR. MIC DUARTE THAT THE PORT IS SLUGGISH, DR. MIC DUARTE ORDER TO DIALYZE THE PATIENT. DIALYSIS WAS STARTED BY JAREN AUTOMATIC PACKER OPERATOR, WHILE ON GOING DIALYSIS PATIENT BLOOD PRESSURE IS 182/114 AND JAREN AUTOMATIC PACKER OPERATOR REPORTED TO DR. MIC DUARTE AND ORDER TO DISCONTINUE THE DIALYSIS. WILL CONTINUE TO MONITOR.
--- NOTE | 2020-12-22 19:25 | NUR ---
MS/RN CLOSING NOTES PATIENT IS ALERT AND ORIENTED X4. PATIENT IS ON ROOM AIR. PATIENT IN NO APPARENT RESPIRATORY DISTRESS NOTED. NO COMPLAINED OF PAIN NOTED AT THIS TIME. SEEN AND EXAMINED BY MD WITH ORDERS MADE AND CARRIED OUT. ALL DUE MEDICATIONS WAS GIVEN. SAFETY PRECAUTIONS WAS IN PLACED. BED IN LOWEST POSITION AND LOCKED. SIDERAILS UP X2. CALL LIGHT WITHIN REACH. WILL ENDORSED TO CROTCH PIECE BASTER FOR LISSETH.
--- NOTE | 2020-12-22 20:06 | NUR ---
MS/TELE/RN DURING INITIAL SHIFT ASSESSMENT, PATIENT WAS IN BED AWAKE, ALERT, ORIENTED, COMFORTABLE, NO C/O PAIN, NO DISTRESS NOTED, CALL LIGHT IN REACH. WILL MONITOR.
[2020-12-22 20:29] VITALS: BP 141/106
--- NOTE | 2020-12-23 06:39 | NUR ---
MS/TELE/RN PATIENT STILL SLEEPING AT THIS TIME, APPEAR COMFORTABLE, NO SIGNS OF DISTRESS NOTED, GOOD SLEEP NOTED DURING THE SHIFT, ALL NEEDS ATTENDED AT THIS TIME, WILL CONTINUE TO MONITOR.
[2020-12-23 08:00] VITALS: BP 159/103
[2020-12-23] MEDS: ASPIRIN 81 MG TAB.CHEW PO SCH (09:03)
[2020-12-23] MEDS: LISINOPRIL (20MG) 20 MG TABLET PO SCH (09:05)
[2020-12-23] MEDS: METOPROLOL TARTRATE 50 MG TABLET PO SCH ×2 (09:05→20:12)
[2020-12-23 16:00] VITALS: BP 152/97
--- NOTE | 2020-12-23 18:54 | NUR ---
MS/RN CLOSING NOTES PATIENT IS ALERT AND ORIENTED X4. PATIENT IS ON ROOM AIR. PATIENT IN NO APPARENT RESPIRATORY DISTRESS NOTED. NO COMPLAINED OF PAIN NOTED AT THIS TIME. SEEN AND EXAMINED BY MD WITH ORDERS MADE AND CARRIED OUT. ALL DUE MEDICATIONS WAS GIVEN. SAFETY PRECAUTIONS WAS IN PLACED. BED IN LOWEST POSITION AND LOCKED. SIDERAILS UP X2. CALL LIGHT WITHIN REACH. WILL ENDORSED TO METAL FRAMER FOR LISSETH.
--- NOTE | 2020-12-23 19:56 | NUR ---
MS RN OPENING NOTE RECEIVED PT AWAKE IN BED. A/O X4. PT IS VIETNAMESE-SPEAKING. PT IS STABLE ON ROOM AIR. NO SOB OR S/S OF RESPIRATORY DISTRESS NOTED. PT HAS NO C/O PAIN OR DISCOMFORT AT THIS TIME. IV ACCESS IN RAC #18, INTACT AND PATENT. PT NOTED WITH RCW HD CATH INTACT. SAFETY PRECAUTIONS MAINTAINED. BED IN LOWEST LOCKED POSITION, HOB ELEVATED, SIDE RAILS UP X2. CALL LIGHT AND TABLE WITHIN REACH. WILL CONTINUE WITH PLAN OF CARE.
[2020-12-23 20:00] VITALS: BP 154/117
--- NOTE | 2020-12-24 06:25 | NUR ---
MS RN CLOSING NOTE PT IS AWAKE IN BED. A/O X4. PT IS GREENLANDIC-SPEAKING. PT IS STABLE ON ROOM AIR. NO SOB OR S/S OF RESPIRATORY DISTRESS NOTED. PT HAS NO C/O PAIN OR DISCOMFORT AT THIS TIME. IV ACCESS IS INTACT, PATENT, AND FLUSHING WELL. PT NOTED WITH RCW HD CATH INTACT. ALL NEEDS HAVE BEEN MET. SAFETY PRECAUTIONS MAINTAINED AT ALL TIMES. BED IN LOWEST LOCKED POSITION, HOB ELEVATED, SIDE RAILS UP X2. CALL LIGHT AND TABLE WITHIN REACH. WILL ENDORSE TO ONCOMING NURSE FOR LISSETH.
[2020-12-24 07:15] LABS: BASOPHILS % (AUTO) 0.7 % (0.0-2.0); EOSINOPHILS % (AUTO) 5.9 % (0.0-6.0); HEMATOCRIT 33 % (33-45); HEMOGLOBIN 10.9 g/dL (11.5-14.8); LYMPHOCYTES # (AUTO) 1.5 K/uL (0.8-4.8); LYMPHOCYTES % (AUTO) 20.3 % (20.0-44.0); MEAN CORPUSCULAR HGB CONC 33 g/dl (31.0-36.0); MEAN CORPUSCULAR VOLUME 95 fL (82-100); MONOCYTES # (AUTO) 0.5 K/uL (0.1-1.30); MONOCYTES % (AUTO) 7.3 % (2.0-12.0); NEUTROPHILS # (AUTO) 4.7 K/uL (1.8-8.9); NEUTROPHILS % (AUTO) 65.8 % (43.0-81.0); PLATELET COUNT (AUTO) 105 K/uL (150-450); RED BLOOD CELL COUNT(AUTO) 3.45 MIL/uL (4.0-5.2); WHITE BLOOD COUNT (AUTO) 7.2 K/uL (4.3-11.0)
[2020-12-24 07:47] LABS: MAGNESIUM 2.8 mg/dL (1.8-2.4); POTASSIUM 5.7 mmol/L (3.5-5.1)
--- NOTE | 2020-12-24 07:58 | NUR ---
MS/RN OPENING NOTE RECEIVED PT IN BED. A/O X4. PT IS RWANDAN-SPEAKING. PT IS STABLE ON ROOM AIR. NO SOB OR S/S OF RESPIRATORY DISTRESS NOTED. PT HAS NO C/O PAIN OR DISCOMFORT AT THIS TIME. IV ACCESS ON RIGHT AC #18G IS INTACT ON SALINE LOCK. PT NOTED WITH RCW HD CATH INTACT. SAFETY PRECAUTIONS OBSERVED. BED IN LOWEST LOCKED POSITION, HOB ELEVATED, SIDE RAILS UP X2. CALL LIGHT AND TABLE WITHIN REACH. WILL CONTINUE TO MONITOR PATIENT.
[2020-12-24 08:00] VITALS: BP 167/110
[2020-12-24 08:59] LABS: PHOSPHORUS 12.6 mg/dL (2.5-4.9)
[2020-12-24] MEDS: METOPROLOL TARTRATE 50 MG TABLET PO SCH ×2 (09:36→22:06)
[2020-12-24] MEDS: ASPIRIN 81 MG TAB.CHEW PO SCH (09:37)
[2020-12-24] MEDS: LISINOPRIL (20MG) 20 MG TABLET PO SCH (09:37)
[2020-12-24 16:00] VITALS: BP 172/106
--- NOTE | 2020-12-24 16:39 | NUR ---
MS/RN NOTES- HIGH BLOOD PRESSURE PATIENT'S BP IS 170/110, RECHECKED STILL THE SAME RESULT. PATIENT IS ASYMPTOMATIC AND COMFORTABLE AT THIS TIME. NOTIFIED DR. SMITH AND AWAITING RESPONSE. WILL CONTINUE TO MONITOR PATIENT. HEMODIALYSIS CANNOT BE DONE TODAY DUE TO PERMCATH NOT WORKING. DR. DUARTE IS AWARE.
[2020-12-24] MEDS ORDERED: hydrALAZINE HCL IV 20 MG VIAL IV ONE (17:00)
[2020-12-24] MEDS ORDERED: hydrALAZINE HCL 50 MG TABLET PO PRN (17:00)
--- NOTE | 2020-12-24 17:30 | NUR ---
MS/RN NOTES DR SMITH ORDERED HYDRALAZINE 10MG IV PUSH ONCE, THEN HYDRALAZINE 50MG PO Q4HRS PRN IF SBP >165. VERIFIED AND CARRIED OUT ORDERS.
[2020-12-24] MEDS: ACETAMINOPHEN 325 MG TABLET PO PRN (17:47)
--- NOTE | 2020-12-24 18:30 | NUR ---
MS/RN NOTES- BP RE-CHECKED BP IT WENT DOWN TO 144/96 AN HOUR AFTER HYDRALAZINE 10MG IV PUSH. PATIENT IS COMFORTABLE AT THIS TIME. WILL CONTINUE TO MONITOR.
--- NOTE | 2020-12-24 19:00 | NUR ---
MS/RN CLOSING NOTE PT IN BED. A/O X4. PT IS COMORAN-SPEAKING. CURRENTLY ON 2 LPM OF O2 VIA NASAL CANNULA FOR COMFORT. NO SOB OR S/S OF RESPIRATORY DISTRESS NOTED. PT HAS NO C/O PAIN OR DISCOMFORT AT THIS TIME. IV ACCESS ON RIGHT AC #18G IS INTACT ON SALINE LOCK. PT NOTED WITH RCW HD CATH INTACT. SAFETY PRECAUTIONS OBSERVED. BED IN LOWEST LOCKED POSITION, HOB ELEVATED, SIDE RAILS UP X2. CALL LIGHT AND TABLE WITHIN REACH. WILL ENDORSE TO THE NEXT SHIFT FOR LISSETH.
--- NOTE | 2020-12-24 19:55 | NUR ---
MSRN FULLY AWAKE, ELEVATED BP MONITORED. REMINDED TO CALL STAFF FOR FURTHER DISCOMFORTS. NO NEEDS OF THIS TIME. VERY PLEASANT.
[2020-12-24 20:00] VITALS: BP 159/104
[2020-12-25 02:00] VITALS: BP 150/102
--- NOTE | 2020-12-25 05:29 | NUR ---
MSRN ASLEEP FOR NOW. EASILY AWAKENED WHEN CALLED. NEED TO FOLLOW UP PERM CATH REPLACEMENT BY DR. NUÑEZ. ELEVATED BP MONITORED. ALL NEEDS MADE
[2020-12-25 07:35] LABS: BASOPHILS % (AUTO) 0.7 % (0.0-2.0); HEMATOCRIT 36 % (33-45); HEMOGLOBIN 11.8 g/dL (11.5-14.8); LYMPHOCYTES # (AUTO) 1.2 K/uL (0.8-4.8); LYMPHOCYTES % (AUTO) 18.5 % (20.0-44.0); MEAN CORPUSCULAR HGB CONC 33 g/dl (31.0-36.0); MEAN CORPUSCULAR VOLUME 96 fL (82-100); MONOCYTES # (AUTO) 0.5 K/uL (0.1-1.30); MONOCYTES % (AUTO) 6.9 % (2.0-12.0); NEUTROPHILS # (AUTO) 4.5 K/uL (1.8-8.9); NEUTROPHILS % (AUTO) 67.9 % (43.0-81.0); PLATELET COUNT (AUTO) 113 K/uL (150-450); RED BLOOD CELL COUNT(AUTO) 3.74 MIL/uL (4.0-5.2); WHITE BLOOD COUNT (AUTO) 6.7 K/uL (4.3-11.0)
[2020-12-25 08:00] VITALS: BP 156/97
--- NOTE | 2020-12-25 08:01 | NUR ---
MS/RN OPENING NOTE RECEIVED PT IN BED. A/O X4. PT IS GUY[place]-SPEAKING. PT ON O2 AT 2 LPM VIA NASAL CANNULA FOR COMFORT. NO SOB OR S/S OF RESPIRATORY DISTRESS NOTED. PT HAS NO C/O PAIN OR DISCOMFORT AT THIS TIME. IV ACCESS ON RIGHT AC #18G IS INTACT ON SALINE LOCK. PT NOTED WITH RCW HD CATH INTACT. SAFETY PRECAUTIONS OBSERVED. BED IN LOWEST LOCKED POSITION, HOB ELEVATED, SIDE RAILS UP X2. CALL LIGHT AND TABLE WITHIN REACH. WILL CONTINUE TO MONITOR PATIENT.
[2020-12-25 08:13] LABS: CALCIUM, SERUM 9.1 mg/dL (8.5-10.1); MAGNESIUM 3.2 mg/dL (1.8-2.4); POTASSIUM 6.1 mmol/L (3.5-5.1)
[2020-12-25 08:50] LABS: CREATININE 16.3 mg/dL (0.6-1.3)
--- NOTE | 2020-12-25 09:30 | NUR ---
MS/RN NOTES- HEMODIALYSIS DR. MIC DUARTE ORDERED STAT HEMODIALYSIS TODAY. HEMODIALYSIS STARTED RIGHT NOW.
[2020-12-25] MEDS: ASPIRIN 81 MG TAB.CHEW PO SCH (09:38)
[2020-12-25] MEDS: METOPROLOL TARTRATE 50 MG TABLET PO SCH ×2 (09:38→21:07)
[2020-12-25] MEDS: LISINOPRIL (20MG) 20 MG TABLET PO SCH (09:38)
[2020-12-25] MEDS: CALCIUM ACETATE 667 MG CAP/TAB PO SCH ×3 (09:40→18:32)
[2020-12-25] MEDS: SEVELAMER CARBONATE 800 MG TABLET PO SCH ×3 (09:40→18:32)
[2020-12-25 16:00] VITALS: BP 143/98
--- NOTE | 2020-12-25 19:10 | NUR ---
MS/RN CLOSING NOTE PT IN BED. A/O X4. PT IS [place]-SPEAKING. PT ON O2 AT 2 LPM VIA NASAL CANNULA FOR COMFORT. NO SOB OR S/S OF RESPIRATORY DISTRESS NOTED. PT HAS NO C/O PAIN OR DISCOMFORT AT THIS TIME. IV ACCESS ON RIGHT AC #18G IS INTACT ON SALINE LOCK. PT NOTED WITH RCW HD CATH INTACT. HEMODIALYSIS COMPLETED TODAY AND WAS ABLE TO TAKE OUT 2 LITERS OF FLUID. SAFETY PRECAUTIONS OBSERVED. ALL NEEDS MET. BED IN LOWEST LOCKED POSITION, HOB ELEVATED, SIDE RAILS UP X2. CALL LIGHT AND TABLE WITHIN REACH. WILL ENDORSE TO THE NEXT SHIFT FOR LISSETH.
[2020-12-25] MEDS ORDERED: SODIUM POLYSTYRENE SULF. PWD 15 GM UDC PO ONE (19:30)
--- NOTE | 2020-12-25 19:30 | NUR ---
OPENING NOTES PT IN BED. A/O X4. PT IS MALAG[place]-SPEAKING. PT ON O2 AT 2 LPM VIA NASAL CANNULA FOR COMFORT. NO SOB OR S/S OF RESPIRATORY DISTRESS NOTED. PT HAS NO C/O PAIN OR DISCOMFORT AT THIS TIME. IV ACCESS ON RIGHT AC #18G IS INTACT ON SALINE LOCK. PT NOTED WITH RCW HD CATH INTACT. HEMODIALYSIS COMPLETED TODAY AND WAS ABLE TO TAKE OUT 2 LITERS OF FLUID. SAFETY PRECAUTIONS OBSERVED. ALL NEEDS MET. BED IN LOWEST LOCKED POSITION, HOB ELEVATED, SIDE RAILS UP X2. CALL LIGHT AND TABLE WITHIN REACH. WILL CONTINUE TO MONITOR.
[2020-12-25 20:00] VITALS: BP 142/73
[2020-12-26] VITALS (40 sets, daily range): BP systolic 63–196; BP diastolic 37–131
--- NOTE | 2020-12-26 06:44 | NUR ---
RN CLOSING NOTES PT IN BED. A/O X4. PT IS DANISH-SPEAKING. PT ON O2 AT 2 LPM VIA NASAL CANNULA FOR COMFORT. NO SOB OR S/S OF RESPIRATORY DISTRESS NOTED. PT HAS NO C/O PAIN OR DISCOMFORT AT THIS TIME. IV ACCESS ON RIGHT AC #18G ON SALINE LOCK. PT NOTED WITH RCW HD CATH INTACT. HEMODIALYSIS COMPLETED YESTERDY AND WAS ABLE TO TAKE OUT 2 LITERS OF FLUID. SAFETY PRECAUTIONS OBSERVED. ALL NEEDS MET. BED IN LOWEST LOCKED POSITION, HOB ELEVATED, SIDE RAILS UP X2. CALL LIGHT AND TABLE WITHIN REACH. PT FOR PERMA CATH PLACEMENT TODAY @ 11 AM PT MAINTAINED NPO SINCE MIDNIGHT.WILL ENDORSE CARE TO DAY SHIFT NURSE.
--- NOTE | 2020-12-26 07:49 | NUR ---
MS RN OPENING NOTE RECEIVED PATIENT ON BED AWAKE ALERT AND ORIENTED X4. PATIENT IS ON 2L OXYGEN VIA NASAL CANNULA TOLERATING WELL. PATIENT IN NO APPARENT RESPIRATORY DISTRESS NOTED. NO COMPLAINED PAIN OR DISCOMFORT AT THIS TIME. WILL CONTINUE TO MONITOR.
[2020-12-26] MEDS: SEVELAMER CARBONATE 800 MG TABLET PO SCH ×3 (08:00→18:00)
[2020-12-26] MEDS: CALCIUM ACETATE 667 MG CAP/TAB PO SCH ×3 (08:00→18:00)
[2020-12-26] MEDS: METOPROLOL TARTRATE 50 MG TABLET PO SCH ×3 (09:00→20:13)
[2020-12-26] MEDS: ASPIRIN 81 MG TAB.CHEW PO SCH (09:00)
[2020-12-26] MEDS: LISINOPRIL (20MG) 20 MG TABLET PO SCH (09:00)
[2020-12-26 09:15] LABS: CALCIUM, SERUM 9.1 mg/dL (8.5-10.1); MAGNESIUM 2.6 mg/dL (1.8-2.4); POTASSIUM 4.9 mmol/L (3.5-5.1)
[2020-12-26 09:36] LABS: CREATININE 11.8 mg/dL (0.6-1.3)
[2020-12-26 09:39] LABS: PHOSPHORUS 11.6 mg/dL (2.5-4.9)
[2020-12-26] MEDS ORDERED: HEPARIN SODIUM, PORCINE 1,000 UNIT/ML VIAL ONE (09:58)
[2020-12-26] MEDS ORDERED: LIDOCAINE 1% INJ 50 ML MDV IJ ONE (09:58)
[2020-12-26] MEDS ORDERED: IOHEXOL 240MG/ML 0 ML IV ONE (09:59)
[2020-12-26] MEDS ORDERED: FENTANYL PF 100MCG/2ML AMPUL ONE (10:55)
--- NOTE | 2020-12-26 11:00 | NUR ---
MS/RN NOTES PATIENT IS ALERT AND ORIENTED X4. PATIENT IS ON 2L OXYGEN VIA NASAL CANNULA. PATIENT IN NO APPARENT RESPIRATORY DISTRESS NOTED. NO COMPLAINED OF PAIN. PATIENT PORT CAPTAIN BY OR NURSE FOR PERMCATH PROCEDURE.
[2020-12-26 11:26] LABS: BILIRUBIN,URINE NEGATIVE (NEGATIVE); LEUKOCYTE ESTERASE ,URINE SMALL (NEGATIVE); NITRITE, URINE NEGATIVE (NEGATIVE); PH,URINE 8.5 (5.0-8.0); PROTEIN,URINE 100 mg/dl (NEGATIVE); UGLUCOSE 100 MG/DL mg/dL (NEGATIVE); UROBILINOGEN,URINE 0.2 EU/dL (0.2)
[2020-12-26 11:28] LABS: COLOR,URINE STRAW (YELLOW)
[2020-12-26] MEDS ORDERED: MIDAZOLAM HCL 2 MG/2ML VIAL ONE (12:19)
[2020-12-26] MEDS ORDERED: ALBUTEROL 17GM INHALER ONE (12:27)
[2020-12-26] MEDS ORDERED: ROCURONIUM BROMIDE 50 MG/5 ML ONE (12:40)
[2020-12-26 13:03] LABS: CREATININE, URINE 17.8 MG/DL (30.0-125.0); URINE TOTAL PROTEIN 139.6 mg/dL (0-11.9)
[2020-12-26 13:16] LABS: RBC,URINE 0-2 /HPF (0-2)
[2020-12-26 13:17] LABS: BACTERIA,URINE Moderate /HPF (None Seen); SQUAMOUS EPITHELIAL CELL,UR Moderate /HPF (None Seen)
[2020-12-26 13:21] LABS: EOSINOPHIL,URINE None Seen
--- NOTE | 2020-12-26 13:30 | NUR ---
ICU NOTES RECEIVED PT FROM OR. ORALLY INTUBATED. ET 8.0 @23CM LIP LINE. SETTINGS FOLLOWS AC: 12, TV: 500, FIO2: 100% AND PEEP OF 5. TOLERATING SETTINGS WELL. NO SOB OR ANY DISTRESS NOTED. IV ACCESS ON RAC #18, R FEMORAL TRIPLE LUMEN. LEVOPHED @1MCGS/KG/MIN. SEDATED. R SUBCLAVIAN PERMACATH NOTED. SKIN IS INTACT. CONNECTED TO THE MONITOR. SAFETY MEASURES IN PLACE. BED LOCKED AND IN LOWEST POSITION. WILL CONTINUE TO MONITOR.
--- NOTE | 2020-12-26 13:45 | NUR ---
PT ADMITTED FROM "OR" ORALLY INTUBATED. 8.0 ET TUBE SECURED @ 23 CM LIPLINE. BREATHSUONDS CLEAR BILATERAL. VENT PARAMETERS BELOW SET PER DR. LAVERN JARVIS: AC 12 VT 500ML FIO2 100% PEEP +5 VENT PLUGGED INTO RED OUTLET WITH BVM AT BEDSIDE. Addendum: 12/26/20 at 1350 by BALWINDER RODRIGUEZ RT Amended: Links added.
[2020-12-26] MEDS: NOREPINEPHRINE 8 MG in IV NS 0.9% 242 ML IV PRN ×2 (13:54→18:16)
--- NOTE | 2020-12-26 15:13 | NUR ---
fio2 decreased from 100% to 70% due to 100% saturation and 129 pao2. Addendum: 12/26/20 at 1513 by BALWINDER RODRIGUEZ RT Amended: Links added.
--- NOTE | 2020-12-26 15:21 | NUR ---
et tube adjusted from 23 cm lipline to 20 cm lipline (pulled out 3 cm). Addendum: 12/26/20 at 1522 by BALWINDER RODRIGUEZ RT Amended: Links added.
--- NOTE | 2020-12-26 15:26 | NUR ---
RN NOTES PATIENT BELONGING WAS SENT TO THE PATIENT WITH ICU NURSE ON THE SIDE PER QAMAR JONES.
[2020-12-26] MEDS: PROPOFOL 100 ML IV PRN ×3 (15:57→23:01)
[2020-12-26] MEDS ORDERED: diphenhydrAMINE HCL 50 MG/ML VIAL IV PRN (16:00)
[2020-12-26] MEDS: FAMOTIDINE/PF INJ 20 MG/2 ML VIAL IV SCH ×2 (16:07→20:08)
[2020-12-26] MEDS: methylPREDNISolone SOD SUCC 125 MG/2ML VIAL IV SCH ×2 (16:07→20:08)
[2020-12-26] MEDS: IPRATROPIUM NEB FS 0.5 MG/2.5 ML AMPUL.NEB NEB SCH ×4 (17:00→23:30)
[2020-12-26] MEDS: ALBUTEROL HALF STRENGTH 1.25 MG/3 ML VIAL.NEB NEB SCH ×4 (17:00→23:30)
[2020-12-26] MEDS: HEPARIN SODIUM, PORCINE 5000 UNITS/1 ML VIAL SQ SCH (17:03)
[2020-12-26 17:07] LABS: BASOPHILS % (AUTO) 0.2 % (0.0-2.0); EOSINOPHILS % (AUTO) 0.1 % (0.0-6.0); HEMATOCRIT 37 % (33-45); LYMPHOCYTES # (AUTO) 0.5 K/uL (0.8-4.8); LYMPHOCYTES % (AUTO) 3.4 % (20.0-44.0); MEAN CORPUSCULAR HGB CONC 33 g/dl (31.0-36.0); MEAN CORPUSCULAR VOLUME 95 fL (82-100); MONOCYTES # (AUTO) 0.3 K/uL (0.1-1.30); MONOCYTES % (AUTO) 2.2 % (2.0-12.0); NEUTROPHILS # (AUTO) 12.9 K/uL (1.8-8.9); NEUTROPHILS % (AUTO) 94.1 % (43.0-81.0); PLATELET COUNT (AUTO) 127 K/uL (150-450); RED BLOOD CELL COUNT(AUTO) 3.86 MIL/uL (4.0-5.2); WHITE BLOOD COUNT (AUTO) 13.7 K/uL (4.3-11.0)
--- NOTE | 2020-12-26 17:07 | NUR ---
fio2 titrate down from 70% to 60% due to 100% saturation. Addendum: 12/26/20 at 1708 by BALWINDER RODRIGUEZ RT Amended: Links added.
--- NOTE | 2020-12-26 18:53 | NUR ---
ICU CLOSING NOTES NO SIGNIFICANT CHANGES THROUGHOUT THE SHIFT. SEDATED ON DIPRIVAN @45MCGS/KG/MIN. LEVO @0.06MCG/KG/MIN. TOLERATING VENT SETTINGS WELL. ALL DUE MEDS GIVEN. KEPT CLEAN AND COMFORTABLE. SAFETY MEASURES IN PLACE. WILL ENDORSE TO NIGHT RN FOR LISSETH.
--- NOTE | 2020-12-26 19:15 | NUR ---
RECEIVED PT ON BED SEDATED ON ETT/VENT SETTING PER MD FIO2 60% SPO2 95% BEDSIDE MONITOR READS SINUS RHYTHM 60-70, HAVE RFEM 3L CATH WITH ONGOING PROPOFOL @ 45 MCG/KG/MIN AND LEVOPHED @ 0.06 MCG/KG/MIN INFUSING WELL, HAVE RSUBCLAVIAN HD CATH, DRESSING DRY AND INTACT, HAVE BILATERAL WRIST SOFT RESTRAINTS FOR SELF EXTUBATION PRECAUTION, BED ON LOWEST POSITION AND LOCKED SIDE RAILS UP X 2 CALL LIGHT WITHIN REACH WILL CONT TO MONITOR
--- NOTE | 2020-12-26 19:33 | NUR ---
RCVD PT ORALLY INTUBATED WITH ET TUBE 8.0 SECURED @ 20 CM LIP LINE ON VENT WITH THE SETTINGS OF AC 12, VT 500, FIO2 60%, PEEP 5. PT IS SEDATED. BREATHING TX GIVEN PER MD'S ORDER. NO ADVERSE REACTION NOTED. SUCTIONED MODERATE AMOUNT OF WHITE/CLEAR THIN SECRETIONS. CUFF CHECKED HUMAN RESOURCES OPERATIONS SPECIALIST. VENT PLUGGED INTO RED OUTLET , VENT ALARMS SET AND AUDIBLE. AMBU BAG AT BEDSIDE. WILL CONTINUE TO MONITOR PT T/O SHIFT.
[2020-12-26] MEDS ORDERED: ANCEF 1 GM/50 ML D5W IV SCH (20:00)
--- NOTE | 2020-12-26 20:08 | NUR ---
metoprolol non given pt is on Pressor
[2020-12-27] VITALS (100 sets, daily range): BP systolic 74–198; BP diastolic 48–145
[2020-12-27] MEDS: PROPOFOL 100 ML IV PRN ×7 (03:15→23:50)
[2020-12-27] MEDS: IPRATROPIUM NEB FS 0.5 MG/2.5 ML AMPUL.NEB NEB SCH ×6 (03:21→23:25)
[2020-12-27] MEDS: ALBUTEROL HALF STRENGTH 1.25 MG/3 ML VIAL.NEB NEB SCH ×6 (03:21→23:22)
[2020-12-27] MEDS: methylPREDNISolone SOD SUCC 125 MG/2ML VIAL IV SCH ×3 (04:05→20:22)
[2020-12-27 04:30] LABS: BASOPHILS % (AUTO) 0.1 % (0.0-2.0); HEMATOCRIT 33 % (33-45); HEMOGLOBIN 10.9 g/dL (11.5-14.8); LYMPHOCYTES # (AUTO) 0.4 K/uL (0.8-4.8); LYMPHOCYTES % (AUTO) 4.2 % (20.0-44.0); MEAN CORPUSCULAR HGB CONC 33 g/dl (31.0-36.0); MEAN CORPUSCULAR VOLUME 95 fL (82-100); MONOCYTES # (AUTO) 0.1 K/uL (0.1-1.30); MONOCYTES % (AUTO) 0.9 % (2.0-12.0); NEUTROPHILS # (AUTO) 8.8 K/uL (1.8-8.9); NEUTROPHILS % (AUTO) 94.8 % (43.0-81.0); PLATELET COUNT (AUTO) 148 K/uL (150-450); RED BLOOD CELL COUNT(AUTO) 3.43 MIL/uL (4.0-5.2); WHITE BLOOD COUNT (AUTO) 9.3 K/uL (4.3-11.0)
[2020-12-27 04:50] LABS: CALCIUM, SERUM 8.7 mg/dL (8.5-10.1); MAGNESIUM 2.5 mg/dL (1.8-2.4); POTASSIUM 4.7 mmol/L (3.5-5.1)
[2020-12-27 05:11] LABS: PHOSPHORUS 12.3 mg/dL (2.5-4.9)
--- NOTE | 2020-12-27 06:57 | NUR ---
PT ON BED STILL ON ETT/VENT SETTING PER MD FIO2 50% SPO2 97% NO SIGNIFICANT CHANGES THROUGHOUT THE SHIFT. SEDATED ON DIPRIVAN @45MCGS/KG/MIN. LEVO @0.06MCG/KG/MIN. TOLERATING VENT SETTINGS WELL. ALL DUE MEDS GIVEN. KEPT CLEAN AND COMFORTABLE. SAFETY MEASURES IN PLACE. WILL ENDORSE TO AM RN FOR LISSETH.
--- NOTE | 2020-12-27 07:15 | NUR ---
ICU OPENING NOTES RECEIVED PT IN BED SEDATED. ON ETT/VENT SETTINGS TOLERATING WELL. ON PROPOFOL @50MCG/KG/MIN, LEVOPHED@ 0.06MCG/KG/MIN INFUSING WELL. TELE MONITOR READS SR. BILATERAL SOFT WRIST RESTRAINTS NOTED. CIRCULATION CHECKED. NPO. SAFETY MEASURES IN PLACE. CALL LIGHT WITHIN REACH. BED LOCKED AND IN LOWEST POSITION WITH SIDE RAILS UP X2. WILL CONTINUE TO MONITOR.
[2020-12-27] MEDS: FAMOTIDINE/PF INJ 20 MG/2 ML VIAL IV SCH ×2 (08:48→20:22)
[2020-12-27] MEDS: HEPARIN SODIUM, PORCINE 5000 UNITS/1 ML VIAL SQ SCH ×2 (08:50→17:27)
[2020-12-27] MEDS: LISINOPRIL (20MG) 20 MG TABLET PO SCH (09:00)
[2020-12-27] MEDS: METOPROLOL TARTRATE 50 MG TABLET PO SCH (09:00)
[2020-12-27] MEDS: CALCIUM ACETATE 667 MG CAP/TAB PO SCH ×2 (09:10→12:44)
[2020-12-27] MEDS: ASPIRIN 81 MG TAB.CHEW PO SCH (09:10)
--- NOTE | 2020-12-27 09:15 | NUR ---
RN NOTES PT STARTED HD. VS STABLE. BP 115/76.
[2020-12-27] MEDS: NOREPINEPHRINE 8 MG in IV NS 0.9% 242 ML IV PRN ×2 (10:09→16:31)
--- NOTE | 2020-12-27 12:15 | NUR ---
RN NOTES HD DONE. VS FOLLOWS T: 98.5, HR: 92, R: 15, BP: 139/91, O2 SAT: 99%. OUTPUT 2000ML.
[2020-12-27] MEDS ORDERED: SEVELAMER CARBONATE 800 MG TABLET PO SCH (13:00)
[2020-12-27] MEDS ORDERED: hydrALAZINE HCL 50 MG TABLET GT PRN (13:11)
[2020-12-27] MEDS: SEVELAMER CARBONATE 800 MG POWD.PACK GT SCH ×2 (13:25→17:24)
[2020-12-27 13:30] LABS: ABG BASE EXCESS -8.4 mmol/L; ABG OXYGEN SATURATION 98.2 % (92.0-98.5); ABG PCO2 26.8 mmHg (35.0-45.0); ABG PH 7.373 (7.350-7.450); ABG PO2 129.5 mmHg (75.0-100.0); AaDO2 556.7 mmHg; COHb 0.1 % (0.5-1.5); MetHb 0.1 % (0.0-1.5); PEEP,BG 5 cm H2O; SITE, ABG Right Radial; VT, ABG 500 mL
[2020-12-27] MEDS ORDERED: PHARMACY TO CHANGE PO MEDS TO GT/NG XX PRN (13:30)
[2020-12-27 13:58] LABS: ABG BASE EXCESS -7.3 mmol/L; ABG PCO2 24.6 mmHg (35.0-45.0); ABG PH 7.417 (7.350-7.450); AaDO2 246.8 mmHg; COHb 0.3 % (0.5-1.5); MetHb 0.3 % (0.0-1.5); O2Hb 94.4 % (94.0-97.0); PEEP,BG 5 cm H2O; SITE, ABG Right Radial; VT, ABG 500 mL
[2020-12-27] MEDS ORDERED: PROPOFOL 100 ML IV PRN (14:00)
[2020-12-27] MEDS: CALCIUM ACETATE 667 MG CAP/TAB GT SCH (17:24)
[2020-12-27] MEDS ORDERED: SEVELAMER CARBONATE 800 MG POWD.PACK GT SCH (18:00)
--- NOTE | 2020-12-27 18:46 | NUR ---
ICU CLOSING NOTES NO SIGNIFICANT CHANGES THROUGHOUT THE SHIFT. SEDATED ON DIPRIVAN @60MCGS/KG/MIN. LEVO @0.1MCG/KG/MIN. TOLERATING VENT SETTINGS WELL. ALL DUE MEDS GIVEN. KEPT CLEAN AND COMFORTABLE. SAFETY MEASURES IN PLACE. WILL ENDORSE TO NIGHT RN FOR LISSETH.
--- NOTE | 2020-12-27 19:13 | NUR ---
RN/ICU-RECEIVED PT. ON BED POST SEDATED W/ DIPRIVAN DRIP AT 50MCG/KG/MIN. NO ABRAMS,W/ BILATERAL SOFT WRIST RESTRAINTS ON, WILL MONITOR CLOSELY PER PROTOCOL THE NEED.ON THE VENT PER ETT, ON AC MODE, SATS.-96%. EKG SR W/ HR-83/MIN. BP-110/73.ON LEVOPHED DRIP AT 0.09 MCG/KG/MIN. WILL TITRATE TO KEEP SBP>90.PT. IS A FULL CODE. NO S/S OF PAIN OR DISTRESS.
[2020-12-27] MEDS: METOPROLOL TARTRATE 50 MG TABLET GT SCH (21:00)
--- NOTE | 2020-12-27 21:15 | NUR ---
RN OPENING NOTES: RECEIVED VENT PT BED RESTING COMFORTABLY. PATIENT IN NO S/SX OF ACUTE DISTRESS AT THIS TIME. NO SOB NOTED. PATIENT'S BREATHING IS EVEN AND UNLABORED. PATIENT ON MECHANICAL VENT; SETTINGS PRESCRIBED; PT TOLERATED WELL. AMBU BAG AT BED SIDE ALARMS SET PER PROTOCOL AND AUDIBLE. VENT PLUGGED IN TO RED OUTLET. PATIENT ON TELE MONITORING READING SINUS RHYTHM HR IS @90s AT THE TIME OF RECEIVED. PATIENT CURRENT ON NPO DIET. PT HAS NGT ON R NARE; PLACEMENT VERIFIED THROUGH AUSCULTATION AND CONFIRMED VIA CXR THIS AM; CLAMPED AT THIS TIME. NOTED IV SITE ON R AC #18 AND R TRIPLE LUMEN CATH ; BOTH PATENT, INTACT AND FLUSHING WELL; NO S/S OF INFECTION OR INFILTRATION. PT ALSO HAS A R SUBCLAVIAN PERMA CATH; SECURED AND INTACT NO SIGNS OF INFECTION. PT HAS A RUNNING LEVOPHED RECEIVED AT 0.2 MCG/KG/MIN, AND PROPOFOL RECEIVED 60MCG/KG/MIN MONITORED AND TITRATED PER PROTOCOL. WITH BILATERAL SOFT RESTRAINTS IN PLACED, MONITORED AND ASSESSED PER PROTOCOL. SAFETY MEASURES HAVE BEEN PROVIDED AND IMPLEMENTED. PATIENT BED ALARM IS ON. HEAD OF BED ELEVATED. BED IS LOCKED, IN LOWEST POSITION AND SIDE RAILS UP. CALL LIGHT WITHIN REACH OF THE PATIENT. APPLICABLE ISOLATION PRECAUTIONS IN PLACE. WILL CONTINUE TO MONITOR AND REASSESS FOR ANY CHANGES AND WILL CARRY OUT ANY ONGOING AND ACTIVE MD ORDER.
[2020-12-28] VITALS (91 sets, daily range): BP systolic 80–140; BP diastolic 56–89
--- NOTE | 2020-12-28 | NUR ---
RN NOTES PATIENT REMAINED TO BE IN NO SIGNS OF ACUTE RESPIRATORY DISTRESS , VITAL SIGNS WNL AT THIS TIME. WILL CONTINUE TO MONITOR AND REASSESS FOR ANY CHANGES THROUGHOUT THE SHIFT.
[2020-12-28] MEDS: PROPOFOL 100 ML IV PRN ×6 (02:41→22:10)
[2020-12-28] MEDS: ALBUTEROL HALF STRENGTH 1.25 MG/3 ML VIAL.NEB NEB SCH ×6 (03:16→23:32)
[2020-12-28] MEDS: IPRATROPIUM NEB FS 0.5 MG/2.5 ML AMPUL.NEB NEB SCH ×6 (03:16→23:32)
--- NOTE | 2020-12-28 04:00 | NUR ---
RN NOTES NO NOTED CHANGES IN PATIENT CONDITION AT THIS TIME; PATIENT VITALS STABLE, NO SIGNS OF ACUTE RESPIRATORY DISTRESS. AM PATIENT CARE RENDERED. WILL CONTINUE TO MONITOR AND REASSESS FOR ANY CHANGES THROUGHOUT THE SHIFT.
[2020-12-28] MEDS: methylPREDNISolone SOD SUCC 125 MG/2ML VIAL IV SCH ×3 (04:07→20:52)
[2020-12-28 04:33] LABS: HEMATOCRIT 31 % (33-45); HEMOGLOBIN 10.4 g/dL (11.5-14.8); LYMPHOCYTES # (AUTO) 0.3 K/uL (0.8-4.8); LYMPHOCYTES % (AUTO) 3.3 % (20.0-44.0); MEAN CORPUSCULAR HGB CONC 33 g/dl (31.0-36.0); MEAN CORPUSCULAR VOLUME 96 fL (82-100); MONOCYTES # (AUTO) 0.6 K/uL (0.1-1.30); MONOCYTES % (AUTO) 6.5 % (2.0-12.0); NEUTROPHILS # (AUTO) 8.3 K/uL (1.8-8.9); NEUTROPHILS % (AUTO) 90.2 % (43.0-81.0); PLATELET COUNT (AUTO) 196 K/uL (150-450); RED BLOOD CELL COUNT(AUTO) 3.26 MIL/uL (4.0-5.2); WHITE BLOOD COUNT (AUTO) 9.2 K/uL (4.3-11.0)
[2020-12-28 05:10] LABS: CALCIUM, SERUM 9.1 mg/dL (8.5-10.1); MAGNESIUM 2.4 mg/dL (1.8-2.4)
[2020-12-28 05:35] LABS: CREATININE 9.2 mg/dL (0.6-1.3); PHOSPHORUS 10.7 mg/dL (2.5-4.9)
--- NOTE | 2020-12-28 05:36 | NUR ---
RN NOTES RECEIVED CALL FROM LAB; SPOKE WITH MARK;LAB RESULT GIVEN: CREATININE : 9.2 & PHOS 10.7. NOTIFIED CONNIE GUILLEN (DR. AN); BOTH LAB TRENDING DOWN BASED ON PREVIOUS RESULTS. VICE PRESIDENT MEDICAL AFFAIRS MADE AWARE. Addendum: 12/28/20 at 0556 by CESAR HUDSON RN NO NEW ORDER/S PER CONNIE GUILLEN
--- NOTE | 2020-12-28 06:58 | NUR ---
MOBILITY MANAGER CLOSING NOTE: PATIENT REMAINS IN ROOM IN NO SIGNS OF RESPIRATORY DISTRESS, PATIENT STILL ON MECH VENT; SETTINGS PRESCRIBED;TOLERATING WELL SATURATING @ >95% SP02. SAFETY MEASURES IMPLEMENTED, BED IN LOWEST POSITION, LOCKED, SIDE RAILS UP, CALL LIGHT WITHIN REACH. ALL NEEDS AND ORDERS ADDRESSED DURING THE SHIFT. IV ACCESS MAINTAINED INTACT, SECURED AND FLUSHING WELL. ALL DUE MEDS GIVEN ORDERED & SCHEDULED ; PATIENT TOLERATED WELL. STILL WITH ONGOING DRIP FOLLOWS: PROPOFOL DRIP @60MCG/KG/MIN , LEVOPHED @0.09MCG/KG/MIN ; ALL RUNNING, MONITORED AND TITRATED PER PROTOCOL. PATIENT KEPT CLEAN AND COMFORTABLE WITHIN THE SHIFT. PATIENT ENDORSED TO INCOMING SHIFT RN WITH STABLE VITAL SIGN AND FOR CONTINUITY OF CARE.
--- NOTE | 2020-12-28 07:40 | NUR ---
ICU/RN PT IS INTUBATED ON THE VENT AC MODE,FIO2-40%,PEEP-5.SAT O2-99%-100%.SEDATED WITH DIPRIVAN .ON LEVOPHED DRIP.RIGHT FEMORAL TLC.NG TUBE CLAMPED.ANURIC ON HD .BILATERAL SOFT WRIST RESTRAINS ON.LOPS AND LOPEZ STILL SWOLLEN.SUCTION PROVIDED.REPOSITION FOR COMFORT.LABS REVIEW. NOTIFIED.
[2020-12-28 08:04] LABS: ABG BASE EXCESS -3.6 mmol/L; ABG OXYGEN SATURATION 94.2 % (92.0-98.5); ABG PCO2 31.6 mmHg (35.0-45.0); ABG PH 7.417 (7.350-7.450); AaDO2 171.9 mmHg; COHb 0.2 % (0.5-1.5); MetHb 0.5 % (0.0-1.5); O2Hb 93.5 % (94.0-97.0); SITE, ABG Right Radial
[2020-12-28] MEDS: CALCIUM ACETATE 667 MG CAP/TAB GT SCH ×3 (08:14→17:08)
[2020-12-28] MEDS: FAMOTIDINE/PF INJ 20 MG/2 ML VIAL IV SCH ×2 (08:14→20:50)
[2020-12-28] MEDS: ASPIRIN 81 MG TAB.CHEW GT SCH (08:15)
[2020-12-28] MEDS: HEPARIN SODIUM, PORCINE 5000 UNITS/1 ML VIAL SQ SCH ×2 (08:15→17:09)
[2020-12-28] MEDS: LISINOPRIL (20MG) 20 MG TABLET GT SCH (08:16)
[2020-12-28] MEDS: METOPROLOL TARTRATE 50 MG TABLET GT SCH ×2 (08:16→20:50)
[2020-12-28] MEDS: SEVELAMER CARBONATE 800 MG POWD.PACK GT SCH ×3 (08:53→17:08)
--- NOTE | 2020-12-28 08:55 | NUR ---
RT NOTE ETT PUSHED IN 3CM, PER MD SCHMITT. ETT AT 22CM AT LIPLINE. GASTON BORJA AND CHARGE NURSE GERALDINE GOVEA.
[2020-12-28] MEDS: NOREPINEPHRINE 8 MG in IV NS 0.9% 242 ML IV PRN (08:56)
--- NOTE | 2020-12-28 09:00 | NUR ---
ICU/RN DUE MEDS ARE GIVEN ORDERED.SEDATION VACATION PROVIDED.PT IS FOLLOWS COMMAND.NEED TO BE INTUBATED.CONTINUE MONITORING.
--- NOTE | 2020-12-28 17:28 | NUR ---
ICU/RN PM CARE PROVIDED.DUE MEDS ARE GIVEN ORDERED.PT IS ON LEVOPHED DRIP AND ON DIPRIVAN.AFEBRILE.NO PAIN REPORTED AT THIS TIME.CONTINUE MONITORING.
[2020-12-28] MEDS: NEPRO 1,000 ML BOTTLE GT PRN (17:59)
--- NOTE | 2020-12-28 19:30 | NUR ---
RN OPENING NOTES: RECEIVED VENT PT BED RESTING COMFORTABLY. PATIENT IN NO S/SX OF ACUTE DISTRESS AT THIS TIME. NO SOB NOTED. PATIENT'S BREATHING IS EVEN AND UNLABORED. PATIENT ON MECHANICAL VENT; SETTINGS PRESCRIBED; PT TOLERATED WELL. AMBU BAG AT BED SIDE ALARMS SET PER PROTOCOL AND AUDIBLE. VENT PLUGGED IN TO RED OUTLET. PATIENT ON TELE MONITORING READING SINUS RHYTHM HR IS @70s AT THE TIME OF RECEIVED. PT HAS NGT ON R NARE; PLACEMENT VERIFIED THROUGH AUSCULTATION AT THIS TIME; FLUSHING AND PATENT CONNECTED TO GTUBE FEEDING OF NEPRO @30CC/HR; PT TOLERATING WELL AT THIS TIME. NOTED IV SITE ON R TRIPLE LUMEN CATH ; PATENT, INTACT AND FLUSHING WELL; NO S/S OF INFECTION OR INFILTRATION. PT ALSO HAS A R SUBCLAVIAN PERMA CATH; SECURED AND INTACT NO SIGNS OF INFECTION. PT HAS A RUNNING LEVOPHED RECEIVED AT 0.04 MCG/KG/MIN, AND PROPOFOL RECEIVED 70MCG/KG/MIN MONITORED AND TITRATED PER PROTOCOL. WITH BILATERAL SOFT RESTRAINTS IN PLACED, MONITORED AND ASSESSED PER PROTOCOL. SAFETY MEASURES HAVE BEEN PROVIDED AND IMPLEMENTED. PATIENT BED ALARM IS ON. HEAD OF BED ELEVATED. BED IS LOCKED, IN LOWEST POSITION AND SIDE RAILS UP. CALL LIGHT WITHIN REACH OF THE PATIENT. APPLICABLE ISOLATION PRECAUTIONS IN PLACE. WILL CONTINUE TO MONITOR AND REASSESS FOR ANY CHANGES AND WILL CARRY OUT ANY ONGOING AND ACTIVE MD ORDER.
--- NOTE | 2020-12-28 23:44 | NUR ---
RT pt received on current settings. intubated. ett size 8.0, 22 at lip.vent plugged in to red outlet. alarms on and audible. small secretions suctioned via ett. ambu bag at bedside. no distress at this time. will continue to monitor.
[2020-12-29] VITALS (97 sets, daily range): BP systolic 74–129; BP diastolic 44–93
--- NOTE | 2020-12-29 | NUR ---
RN NOTES PATIENT REMAINED TO BE IN NO SIGNS OF ACUTE RESPIRATORY DISTRESS , VITAL SIGNS WNL AT THIS TIME. SPORTS EQUIPMENT SUPERVISOR MADE AWARE. WILL CONTINUE TO MONITOR AND REASSESS FOR ANY CHANGES THROUGHOUT THE SHIFT.
[2020-12-29] MEDS: PROPOFOL 100 ML IV PRN ×7 (01:26→22:01)
[2020-12-29] MEDS: IPRATROPIUM NEB FS 0.5 MG/2.5 ML AMPUL.NEB NEB SCH ×6 (03:50→23:18)
[2020-12-29] MEDS: ALBUTEROL HALF STRENGTH 1.25 MG/3 ML VIAL.NEB NEB SCH ×6 (03:50→23:18)
--- NOTE | 2020-12-29 04:00 | NUR ---
RN NOTES NO NOTED CHANGES IN PATIENT CONDITION AT THIS TIME; PATIENT VITALS STABLE, NO SIGNS OF ACUTE RESPIRATORY DISTRESS. AM PATIENT CARE RENDERED. PHP WEBSITE DEVELOPER MADE AWARE. WILL CONTINUE TO MONITOR AND REASSESS FOR ANY CHANGES THROUGHOUT THE SHIFT.
[2020-12-29] MEDS: methylPREDNISolone SOD SUCC 125 MG/2ML VIAL IV SCH ×3 (04:05→21:10)
[2020-12-29 05:12] LABS: CALCIUM, SERUM 7.5 mg/dL (8.5-10.1); MAGNESIUM 2.3 mg/dL (1.8-2.4); POTASSIUM 4.6 mmol/L (3.5-5.1)
[2020-12-29 05:16] LABS: BASOPHILS % (AUTO) 0.1 % (0.0-2.0); HEMATOCRIT 28 % (33-45); HEMOGLOBIN 9.3 g/dL (11.5-14.8); LYMPHOCYTES # (AUTO) 0.4 K/uL (0.8-4.8); LYMPHOCYTES % (AUTO) 3.6 % (20.0-44.0); MEAN CORPUSCULAR HGB CONC 34 g/dl (31.0-36.0); MEAN CORPUSCULAR VOLUME 96 fL (82-100); MONOCYTES # (AUTO) 0.4 K/uL (0.1-1.30); MONOCYTES % (AUTO) 3.9 % (2.0-12.0); NEUTROPHILS % (AUTO) 92.4 % (43.0-81.0); PLATELET COUNT (AUTO) 169 K/uL (150-450); RED BLOOD CELL COUNT(AUTO) 2.88 MIL/uL (4.0-5.2); WHITE BLOOD COUNT (AUTO) 9.7 K/uL (4.3-11.0)
[2020-12-29 05:27] LABS: CREATININE 10.9 mg/dL (0.6-1.3); PHOSPHORUS 10.6 mg/dL (2.5-4.9)
--- NOTE | 2020-12-29 05:35 | NUR ---
RN NOTES RECEIVED CALL FROM LAB; SPOKE WITH MARK;LAB RESULT GIVEN: CREATININE : 10.9 & PHOS 10.6. NOTIFIED ONCALL (DR. AN). MICROWAVE REMOTE SENSING SCIENTIST MADE AWARE. NO NEW ORDERS
--- NOTE | 2020-12-29 06:45 | NUR ---
POACHER WRINGER OPERATOR CLOSING NOTE: PATIENT REMAINS IN ROOM IN NO SIGNS OF RESPIRATORY DISTRESS, PATIENT STILL ON MECH VENT; SETTINGS PRESCRIBED;TOLERATING WELL SATURATING @ >93% SP02. SAFETY MEASURES IMPLEMENTED, BED IN LOWEST POSITION, LOCKED, SIDE RAILS UP, CALL LIGHT WITHIN REACH. ALL NEEDS AND ORDERS ADDRESSED DURING THE SHIFT. IV ACCESS MAINTAINED INTACT, SECURED AND FLUSHING WELL. ALL DUE MEDS GIVEN ORDERED & SCHEDULED ; PATIENT TOLERATED WELL. STILL WITH ONGOING DRIP FOLLOWS: LEVOPHED @0.02MCG/KG/MIN AND VERSED 4MG/HR; ALL RUNNING, MONITORED AND TITRATED PER PROTOCOL. NGT REMAINED INTACT AND PATENT; PLACEMENT VERIFIED THRU AUSCULTATION. PATIENT KEPT CLEAN AND COMFORTABLE WITHIN THE SHIFT. PATIENT ENDORSED TO INCOMING SHIFT RN WITH STABLE VITAL SIGN AND FOR CONTINUITY OF CARE. Addendum: 12/29/20 at 0646 by CESAR HUDSON RN PLS DISREGARD ; WRONG PT NOTES
--- NOTE | 2020-12-29 06:46 | NUR ---
STILL WORKER HELPER CLOSING NOTE: PATIENT REMAINS IN ROOM IN NO SIGNS OF RESPIRATORY DISTRESS, PATIENT STILL ON MECH VENT; SETTINGS PRESCRIBED;TOLERATING WELL SATURATING @ >95% SP02. SAFETY MEASURES IMPLEMENTED, BED IN LOWEST POSITION, LOCKED, SIDE RAILS UP, CALL LIGHT WITHIN REACH. ALL NEEDS AND ORDERS ADDRESSED DURING THE SHIFT. IV ACCESS MAINTAINED INTACT, SECURED AND FLUSHING WELL. ALL DUE MEDS GIVEN ORDERED & SCHEDULED ; PATIENT TOLERATED WELL. STILL WITH ONGOING DRIP FOLLOWS: PROPOFOL DRIP @70MCG/KG/MIN , LEVOPHED @0.04MCG/KG/MIN; ALL RUNNING, MONITORED AND TITRATED PER PROTOCOL. NGT REMAINED INTACTAND PATENT; PLACEMENT VERIFIED THRU AUSCULTATION. PATIENT KEPT CLEAN AND COMFORTABLE WITHIN THE SHIFT. PATIENT ENDORSED TO INCOMING SHIFT RN WITH STABLE VITAL SIGN AND FOR CONTINUITY OF CARE.
--- NOTE | 2020-12-29 07:30 | NUR ---
ICU/RN PT IS INTUBATED ON THE VENT AC MODE,FIO2-40%,PEEP-5.SAT O2-97%.SEDATED WITH DIPRIVAN.ON LEVOPHED DRIP.AFEBRILE.NO PAIN REPORTED AT THIS TIME.RIGHT FEMORAL TLC.NG TUBE INFUSING WITH NEPRO.RESIDUAL 80 ML NOTED.ANURIC ON HD.RIGHT SUBCLAVIAN HD CATH.SUCTION PROVIDED.REPOSITION FOR COMFORT.
[2020-12-29] MEDS: ASPIRIN 81 MG TAB.CHEW GT SCH (08:49)
[2020-12-29] MEDS: CALCIUM ACETATE 667 MG CAP/TAB GT SCH ×3 (08:49→17:55)
[2020-12-29] MEDS: FAMOTIDINE/PF INJ 20 MG/2 ML VIAL IV SCH ×2 (08:49→21:10)
[2020-12-29] MEDS: SEVELAMER CARBONATE 800 MG POWD.PACK GT SCH ×3 (08:50→17:56)
[2020-12-29] MEDS: HEPARIN SODIUM, PORCINE 5000 UNITS/1 ML VIAL SQ SCH ×2 (08:51→17:38)
[2020-12-29] MEDS: LISINOPRIL (20MG) 20 MG TABLET GT SCH (08:52)
[2020-12-29] MEDS: METOPROLOL TARTRATE 50 MG TABLET GT SCH ×2 (08:52→21:00)
--- NOTE | 2020-12-29 08:52 | NUR ---
RN NOTE HD TO START SOON. NO BP RX GIVEN.
--- NOTE | 2020-12-29 09:30 | NUR ---
ICU/RN DUE MEDS ARE GIVEN ORDERED.SEDATION VACATION PROVIDED.DIPRIVAN OFF.PT IS AWAKE ,ALERT.FOLLOWS COMMAND.VERY WEAK.HAS HD AT THIS TIME.HD NURSE AT BEDSIDE.
--- NOTE | 2020-12-29 11:38 | NUR ---
RT Pt received orally intubated on mechanical ventilation with noted settings. Vent is plugged into red outlet with BVM by bedside. Alarms are set and audible. No SOB or respiratory distress noted. Weaning held for today and will start tomorrow per Dr. Hassan. Addendum: 12/29/20 at 1147 by ESTIVEN MALAGON RT Amended: Links added.
--- NOTE | 2020-12-29 12:30 | NUR ---
ICU/RN HD IS OVER 2.5L OUTPUT.DURING HD LEVOPHED DOSE INCREASED.PT PLACED BACK ON DIPRIVAN.CONTINUE MONITORING.
[2020-12-29] MEDS: NOREPINEPHRINE 8 MG in IV NS 0.9% 242 ML IV PRN (13:56)
[2020-12-29] MEDS: NEPRO 1,000 ML BOTTLE GT PRN (18:30)
--- NOTE | 2020-12-29 19:30 | NUR ---
RN OPENING NOTES: RECEIVED VENT PT BED RESTING COMFORTABLY. PATIENT IN NO S/SX OF ACUTE DISTRESS AT THIS TIME. NO SOB NOTED. PATIENT'S BREATHING IS EVEN AND UNLABORED. PATIENT ON MECHANICAL VENT; SETTINGS PRESCRIBED; PT TOLERATED WELL. AMBU BAG AT BED SIDE ALARMS SET PER PROTOCOL AND AUDIBLE. VENT PLUGGED IN TO RED OUTLET. PATIENT ON TELE MONITORING READING SINUS RHYTHM HR IS @80s AT THE TIME OF RECEIVED. PT NGT NOTED TO BE CLOGGED; SINGLE CORNER CUTTER WELL AWARE. WILL REINSERT WITHIN THE SHIFT. FEEDING CURRENTLY ON HOLD ( GTUBE FEEDING OF NEPRO @30CC/HR)WILL RESUME ONCE NGT PLACEMENT CONFIRMED. NOTED IV SITE ON R TRIPLE LUMEN CATH ; PATENT, INTACT AND FLUSHING WELL; NO S/S OF INFECTION OR INFILTRATION. PT ALSO HAS A R SUBCLAVIAN PERMA CATH; SECURED AND INTACT NO SIGNS OF INFECTION. PT HAS A RUNNING LEVOPHED RECEIVED AT 0.04 MCG/KG/MIN, AND PROPOFOL RECEIVED 60MCG/KG/MIN MONITORED AND TITRATED PER PROTOCOL. WITH BILATERAL SOFT RESTRAINTS IN PLACED, MONITORED AND ASSESSED PER PROTOCOL. SAFETY MEASURES HAVE BEEN PROVIDED AND IMPLEMENTED. PATIENT BED ALARM IS ON. HEAD OF BED ELEVATED. BED IS LOCKED, IN LOWEST POSITION AND SIDE RAILS UP. CALL LIGHT WITHIN REACH OF THE PATIENT. APPLICABLE ISOLATION PRECAUTIONS IN PLACE. WILL CONTINUE TO MONITOR AND REASSESS FOR ANY CHANGES AND WILL CARRY OUT ANY ONGOING AND ACTIVE MD ORDER.
--- NOTE | 2020-12-29 19:45 | NUR ---
GASTON NOTES NGT PLACEMENT DONE @ [facility]; PLACEMENT VERIFIED THRU AUSCULTATION WITH ANOTHER RN (GASTON PARADA). REQUESTED FOR STAT CXR FOR PLACEMENT CONFIRMATION. BROOKLYN FELDMAN MADE AWARE. Addendum: 12/29/20 at 2009 by CESAR HUDSON RN WILL RESUME FEEDING ONCE CXR RESULT COMES OUT AND CONFIRMED PLACEMENT Addendum: 12/29/20 at 2149 by CESAR HUDSON RN CXR RESULT: IMPRESSION: NG tube in place in the stomach. No other significant change. *WILL RESUME FEEDING , DATA SUPPORT SPECIALIST MADE AWARE.
--- NOTE | 2020-12-29 20:04 | NUR ---
RT pt received on current settings. intubated. ett size 8.0, 20 at upper lip.vent plugged in to red outlet. alarms on and audible. small secretions suctioned via ett. ambu bag at bedside. no distress at this time. will continue to monitor.
[2020-12-30] VITALS (90 sets, daily range): BP systolic 88–127; BP diastolic 52–84
--- NOTE | 2020-12-30 | NUR ---
RN NOTES PATIENT REMAINED TO BE IN NO SIGNS OF ACUTE RESPIRATORY DISTRESS , VITAL SIGNS WNL AT THIS TIME. FORMSTONE FITTER MADE AWARE. WILL CONTINUE TO MONITOR AND REASSESS FOR ANY CHANGES THROUGHOUT THE SHIFT.
[2020-12-30] MEDS: PROPOFOL 100 ML IV PRN ×4 (01:23→18:05)
[2020-12-30] MEDS: IPRATROPIUM NEB FS 0.5 MG/2.5 ML AMPUL.NEB NEB SCH ×6 (03:04→23:29)
[2020-12-30] MEDS: ALBUTEROL HALF STRENGTH 1.25 MG/3 ML VIAL.NEB NEB SCH ×6 (03:04→23:29)
--- NOTE | 2020-12-30 04:00 | NUR ---
RN NOTES NO NOTED CHANGES IN PATIENT CONDITION AT THIS TIME; PATIENT VITALS STABLE, NO SIGNS OF ACUTE RESPIRATORY DISTRESS. AM PATIENT CARE RENDERED. WELDER ASSEMBLER MADE AWARE. WILL CONTINUE TO MONITOR AND REASSESS FOR ANY CHANGES THROUGHOUT THE SHIFT.
[2020-12-30] MEDS: methylPREDNISolone SOD SUCC 125 MG/2ML VIAL IV SCH ×3 (04:17→20:31)
--- NOTE | 2020-12-30 06:50 | NUR ---
AGILE COACH CLOSING NOTE: PATIENT REMAINS IN ROOM IN NO SIGNS OF RESPIRATORY DISTRESS, PATIENT STILL ON MECH VENT; SETTINGS PRESCRIBED;TOLERATING WELL SATURATING @ >95% SP02. SAFETY MEASURES IMPLEMENTED, BED IN LOWEST POSITION, LOCKED, SIDE RAILS UP, CALL LIGHT WITHIN REACH. ALL NEEDS AND ORDERS ADDRESSED DURING THE SHIFT. IV ACCESS MAINTAINED INTACT, SECURED AND FLUSHING WELL. ALL DUE MEDS GIVEN ORDERED & SCHEDULED ; PATIENT TOLERATED WELL. STILL WITH ONGOING DRIP FOLLOWS: PROPOFOL DRIP @60MCG/KG/MIN , LEVOPHED @0.04MCG/KG/MIN; ALL RUNNING, MONITORED AND TITRATED PER PROTOCOL. NGT REMAINED INTACT AND PATENT; PLACEMENT VERIFIED THRU AUSCULTATION. PATIENT KEPT CLEAN AND COMFORTABLE WITHIN THE SHIFT. PATIENT ENDORSED TO INCOMING SHIFT RN WITH STABLE VITAL SIGN AND FOR CONTINUITY OF CARE.
[2020-12-30] MEDS ORDERED: EPOETIN ALFA (10,000 UNIT) 10,000 UNIT/ML VIAL IV ONE (08:00)
--- NOTE | 2020-12-30 08:15 | NUR ---
rn notes Get TO order from Dr Hassan to titrated sedation for weaning from vent, order taken and carried out, RT aware of. stop also feeding at this time, residual checked, patient anuric, picc line on right groin area intact. keep hob elevated. will follow up.
[2020-12-30 08:28] LABS: HEMATOCRIT 29 % (33-45); HEMOGLOBIN 9.6 g/dL (11.5-14.8); LYMPHOCYTES # (AUTO) 0.5 K/uL (0.8-4.8); LYMPHOCYTES % (AUTO) 3.6 % (20.0-44.0); MEAN CORPUSCULAR HGB CONC 33 g/dl (31.0-36.0); MEAN CORPUSCULAR VOLUME 95 fL (82-100); MONOCYTES # (AUTO) 0.9 K/uL (0.1-1.30); MONOCYTES % (AUTO) 6.5 % (2.0-12.0); NEUTROPHILS # (AUTO) 12.1 K/uL (1.8-8.9); NEUTROPHILS % (AUTO) 89.9 % (43.0-81.0); PLATELET COUNT (AUTO) 213 K/uL (150-450); RED BLOOD CELL COUNT(AUTO) 3.05 MIL/uL (4.0-5.2); WHITE BLOOD COUNT (AUTO) 13.5 K/uL (4.3-11.0)
[2020-12-30 08:39] LABS: CALCIUM, SERUM 7.8 mg/dL (8.5-10.1); POTASSIUM 5.3 mmol/L (3.5-5.1)
[2020-12-30 08:42] LABS: CREATININE 8.6 mg/dL (0.6-1.3)
[2020-12-30] MEDS: ASPIRIN 81 MG TAB.CHEW GT SCH (09:49)
[2020-12-30] MEDS: LISINOPRIL (20MG) 20 MG TABLET GT SCH (09:50)
[2020-12-30] MEDS: FAMOTIDINE/PF INJ 20 MG/2 ML VIAL IV SCH ×2 (09:50→20:30)
[2020-12-30] MEDS: HEPARIN SODIUM, PORCINE 5000 UNITS/1 ML VIAL SQ SCH ×2 (09:53→17:51)
[2020-12-30] MEDS: METOPROLOL TARTRATE 50 MG TABLET GT SCH ×2 (09:54→20:28)
[2020-12-30] MEDS: SEVELAMER CARBONATE 800 MG POWD.PACK GT SCH ×3 (09:56→17:50)
[2020-12-30] MEDS: CALCIUM ACETATE 667 MG CAP/TAB GT SCH ×3 (09:56→17:50)
--- NOTE | 2020-12-30 10:31 | NUR ---
rn notes Restart Diprivan 5 mcg/kg/hr sedation at this time and will titrated up per Dr Churchill order, also get another order per Dr Hassan STOP sedation tomorrow 0500 am for weaning again. order taken and carried out.
--- NOTE | 2020-12-30 11:43 | NUR ---
rn notes Held Levophed at this time bp -120/75, p-83. will follow up.
[2020-12-30] MEDS: NEPRO 1,000 ML BOTTLE GT PRN (15:54)
--- NOTE | 2020-12-30 18:00 | NUR ---
RT PATIENT REMAINS ORALLY INTUBATED ON [facility] VENT. UNABLE TO WEAN OFF VENT TODAY. WILL TRY AGAIN TOMORROW. SEDATION IS TO BE TURNED OFF AT 5AM TOMORROW MORNING PER DR SCHMITT Addendum: 12/30/20 at 1801 by ANGEL RIVER RT Amended: Links added.
--- NOTE | 2020-12-30 18:20 | NUR ---
RN NOTES PATIENT TOLERATING SEDATION WELL, DUE MEDICATION ADMINISTERED, SUCTION, PM CARE DONE, INFUSING DIPRIVAN 25MCG/KG/HR, ON RIGHT GROIN AREA INTACT. PATIENT ANURIC, ASIST TURN ND REPOSTION Q 2 HR. ENDORSED ONCOMING NURSE FOLLOW PLAN OF CARE.
--- NOTE | 2020-12-30 18:34 | NUR ---
RN NOTES PATIENT PM CARE DONE, SECTION, NO ACUTE RESPIRATORY DISTRESS, DUE MEDICATION ADMINISTERED. ASSIST TURN AND REPOSTION Q 2 HR. URINE OUTPUT IS 350 ML. RUNNING OSMOLITE 1.2 @45 ML/HR. KEEP HOB ELEVATED. .ON RIGHT PICC LINE INFUSING VERSED 5MG/ML. FENTANYL 75ML/HR. INTACT. ENDORSED ONCOMING NURSE FOLLOW PLAN OF CARE. Addendum: 12/30/20 at 1913 by RIGO SOUSA RN 015 ABOVE NOTES WRONG EATERY.
[2020-12-31] VITALS (87 sets, daily range): BP systolic 87–120; BP diastolic 51–81
[2020-12-31] MEDS: NOREPINEPHRINE 8 MG in IV NS 0.9% 242 ML IV PRN (00:15)
[2020-12-31] MEDS: PROPOFOL 100 ML IV PRN (01:10)
--- NOTE | 2020-12-31 01:44 | NUR ---
RT pt received on mechanical vent, orally intubated. vent plugged in to red outlet. ambu bag at bedside. alarms on and audible. no sob, no distress. continue to monitor
--- NOTE | 2020-12-31 03:25 | NUR ---
ITEM PROCESSING CLERK PT REMAINS ON VENTILATOR: AC-12, TV -500, FIO2-40%, PEEP- 5. TOLERATES WELL. NO S/S OF PAIN OR ANY OTHER DISTRESS. REMAINS ON PROPOFOL & LEVOPHED DRIPS. WILL TITRATE PROPOFOL TO 0 BY 5 A.M. ACCORDING APPLICATION PERFORMANCE ENGINEER ORDER TO WEAN PT FROM VENTILATOR IN A.M. VSS, AFEBRILE, SCOPE-SR. NGT FEEDING NEPRO @ 30 ML/HR, NO RESIDUALS, PT REMAINS ANURIC, LAST HD DONE ON 12.29- 2.5 L FLUIDS WAS REMOVED, SKIN IS INTACT. PT IS ON SOFT WRIST RESTRAINTS. BATH GIVEN, LINEN CHANGED. WILL CONTINUE CLOSE MONITORING.
[2020-12-31] MEDS: IPRATROPIUM NEB FS 0.5 MG/2.5 ML AMPUL.NEB NEB SCH ×6 (03:40→23:38)
[2020-12-31] MEDS: ALBUTEROL HALF STRENGTH 1.25 MG/3 ML VIAL.NEB NEB SCH ×6 (03:40→23:38)
[2020-12-31 04:20] LABS: BASOPHILS % (AUTO) 0.2 % (0.0-2.0); EOSINOPHILS % (AUTO) 0.1 % (0.0-6.0); HEMATOCRIT 32 % (33-45); HEMOGLOBIN 10.4 g/dL (11.5-14.8); LYMPHOCYTES # (AUTO) 1.3 K/uL (0.8-4.8); LYMPHOCYTES % (AUTO) 7.6 % (20.0-44.0); MEAN CORPUSCULAR HGB CONC 33 g/dl (31.0-36.0); MEAN CORPUSCULAR VOLUME 95 fL (82-100); MONOCYTES # (AUTO) 1.3 K/uL (0.1-1.30); MONOCYTES % (AUTO) 7.7 % (2.0-12.0); NEUTROPHILS # (AUTO) 13.9 K/uL (1.8-8.9); NEUTROPHILS % (AUTO) 84.4 % (43.0-81.0); PLATELET COUNT (AUTO) 228 K/uL (150-450); RED BLOOD CELL COUNT(AUTO) 3.33 MIL/uL (4.0-5.2); WHITE BLOOD COUNT (AUTO) 16.5 K/uL (4.3-11.0)
[2020-12-31 04:33] LABS: CALCIUM, SERUM 8.2 mg/dL (8.5-10.1); MAGNESIUM 2.5 mg/dL (1.8-2.4); POTASSIUM 5.7 mmol/L (3.5-5.1)
[2020-12-31] MEDS: methylPREDNISolone SOD SUCC 125 MG/2ML VIAL IV SCH ×3 (04:58→20:47)
[2020-12-31 05:14] LABS: CREATININE 10.1 mg/dL (0.6-1.3); PHOSPHORUS 10.1 mg/dL (2.5-4.9)
--- NOTE | 2020-12-31 05:31 | NUR ---
MANAGER SCHEDULING PROPOFOL DRIP WELL LEVOPHED DRIP ARE OFF SINCE 5 A.M. PT IS SUPPOSED TO HAVE WEANING TRIAL TODAY. VSS. PT GOT 2 LARGE SEMILIQUID BROWNISH STOOLS. ANOTHER COMPLETE BATH GIVEN & ALL LINEN CHANGED. PT REMAINS SEDATED, SOFT WRIST RESTRAINTS ON. PT IS ANURIC. A.M. LABS: BUN-86, CREATININE-10.1 PHOS.-10.1 PT IS SUPPOSED TO HAVE NEXT HD @ 7 A.M.
--- NOTE | 2020-12-31 07:00 | NUR ---
RN NOTES RECEIVED PT ON BED, INTUBATED , EYES OPEN, DOES NOT FOLLOW COMMAND, ON VENT , TOLERATING VENT SETTING WELL, VSS STABLE, OFF LEVO AND SEDATION, ON TELE SR HR IN 90'S , TF RESTARTED AT 10CC/HR , R FEMORAL TLC AND R UPPER CHEST HD CATH SITES CLEAN, DRY AND INTACT, SR UP x3, CALL LIGHT WITHIN EASY REACH, BED LOCKED AND IN LOWEST POSITION, CONTINUE TO MONITOR .
[2020-12-31] MEDS: FAMOTIDINE/PF INJ 20 MG/2 ML VIAL IV SCH ×2 (08:17→20:43)
[2020-12-31] MEDS: CALCIUM ACETATE 667 MG CAP/TAB GT SCH ×3 (08:17→17:15)
[2020-12-31] MEDS: SEVELAMER CARBONATE 800 MG POWD.PACK GT SCH ×3 (08:17→17:15)
[2020-12-31] MEDS: ASPIRIN 81 MG TAB.CHEW GT SCH (08:17)
[2020-12-31] MEDS: METOPROLOL TARTRATE 50 MG TABLET GT SCH ×2 (08:18→20:39)
[2020-12-31] MEDS: HEPARIN SODIUM, PORCINE 5000 UNITS/1 ML VIAL SQ SCH ×2 (08:18→17:14)
[2020-12-31] MEDS: LISINOPRIL (20MG) 20 MG TABLET GT SCH (08:19)
--- NOTE | 2020-12-31 13:00 | NUR ---
RN NOTES PT RECEIVING HD , LOW BP NOTED, LEVO RESTARTED .
--- NOTE | 2020-12-31 15:00 | NUR ---
RN NOTES ET SUCTION DONE, PT STILL ON LEVO , TOLERATING VENT SETTING WELL, OPENS EYES TO PAINFUL STIMULI, PT NOT FOLLOWING COMMAND, CONTINUE TO MONITOR .
[2020-12-31] MEDS: NEPRO 1,000 ML BOTTLE GT PRN (17:41)
--- NOTE | 2020-12-31 18:00 | NUR ---
RN NOTES PT REMAINS OFF SEDATION , STILL INTUBATED, LEVO OFF AT THIS TIME, BP STABLE, PT NOT FOLLOWING COMMAND, TF AT 30CC/HR RUNNING , NO RESIDUAL NOTED, WILL ENDORSE TO MALT SPECIFICATIONS CONTROL ASSISTANT NURSE FOR CONTINUITY OF CARE.
--- NOTE | 2020-12-31 19:47 | NUR ---
RT NOTE LATE ENTRY: Pt rec'd orally intubated via ETT sz #8.0 secured at 20cm at the lipline. Pt on [facility] vent on AC mode settings as charted. ETT is patent and secured. Pt sx'd for thick SMALL amt of CLEAR secretions. Alarms are set and audible. Ambu bag bedside. Vent plugged into red outlet. Will continue to monitor closely. Addendum: 01/01/21 at 0639 by RICHARD ISRAEL RT Amended: Links added.
--- NOTE | 2020-12-31 19:50 | NUR ---
RN OPENING NOTE REC'D PT IN BED. PT OFF SEDATION, DROWSY, UNABLE TO FOLLOW COMMANDS, RESPONSIVE, OPENS EYES SPONTANEOUSLY.PT IS ORALLY INTUBATED ON [facility] VENTILATION. 12/02 AT THE LIP. NO ACUTE DISTRESS NOTED, NO SOB. TOLERATING VENT SETTINGS WELL. AC 12, TIDAL VOL 500 FIO2 40% PEEP 5. ON TELE PRESENTS WITH SINUS RHYTHM, SINUS TACHYCARDIA. INVERTED T WAVE. PT HAS NGT, PLACEMENT VERIFIED. TUBE FEEDING RUNNING, 0 RESIDUAL. IV SITES FLUSHED AND INTACT. PICC LINE NOTED WITH GOOD BLOOD RETURN, FLUSHED. RIGHT CHEST PERMACATH HD ACCESS. NO S/S OF PAIN NOTED AT THIS TIME. SAFETY PRECAUTIONS IN PLACE. HOB ELEVATED. SIDE RAILS UP X2. BED LOCKED IN LOWEST POSITION. CALL LIGHT WITHIN REACH. WILL CONT TO MONITOR CLOSELY FOR SAFETY AND CHANGE OF CONDITION.
[2021-01-01] VITALS (62 sets, daily range): BP systolic 91–122; BP diastolic 59–87
--- NOTE | 2021-01-01 01:14 | NUR ---
RN NOTE: PAIN NOTED PT TO BE HAVING OCCASIONAL FACIAL GRIMACING. PT IS OFF SEDATION AT THIS TIME. NOTIFIED LPN PER DIEM MD AN, ORDERS FOR MORPHINE 2MG IV PUSH, Q4H PRN FOR PAIN. Addendum: 01/01/21 at 0134 by CORINNA AMBRIZ RN MORPHINE ADMINISTERED ORDERED, VSS AT THIS TIME. WILL CONT TO MONITOR CLOSELY.
[2021-01-01] MEDS: MORPHINE SULFATE INJ 2 MG/ML DISP.SYRIN IV PRN (01:30)
[2021-01-01] MEDS: IPRATROPIUM NEB FS 0.5 MG/2.5 ML AMPUL.NEB NEB SCH ×6 (04:18→23:17)
[2021-01-01] MEDS: ALBUTEROL HALF STRENGTH 1.25 MG/3 ML VIAL.NEB NEB SCH ×6 (04:18→23:17)
[2021-01-01 04:34] LABS: HEMATOCRIT 30 % (33-45); LYMPHOCYTES # (AUTO) 0.5 K/uL (0.8-4.8); LYMPHOCYTES % (AUTO) 3.2 % (20.0-44.0); MEAN CORPUSCULAR HGB CONC 33 g/dl (31.0-36.0); MEAN CORPUSCULAR VOLUME 95 fL (82-100); MONOCYTES # (AUTO) 0.8 K/uL (0.1-1.30); MONOCYTES % (AUTO) 5.4 % (2.0-12.0); NEUTROPHILS # (AUTO) 13.5 K/uL (1.8-8.9); NEUTROPHILS % (AUTO) 91.4 % (43.0-81.0); PLATELET COUNT (AUTO) 158 K/uL (150-450); WHITE BLOOD COUNT (AUTO) 14.7 K/uL (4.3-11.0)
[2021-01-01 05:05] LABS: CALCIUM, SERUM 8.9 mg/dL (8.5-10.1); CREATININE 7.2 mg/dL (0.6-1.3); MAGNESIUM 2.5 mg/dL (1.8-2.4)
[2021-01-01 05:12] LABS: PHOSPHORUS 8.5 mg/dL (2.5-4.9)
[2021-01-01] MEDS: methylPREDNISolone SOD SUCC 125 MG/2ML VIAL IV SCH ×3 (05:49→21:45)
--- NOTE | 2021-01-01 07:40 | NUR ---
RN CLOSING NOTE PT REMAINS IN STABLE CONDITION, NO SIGNIFICANT CHANGES NOTED THROUGHOUT SHIFT. PT T/R Q2H. SAFETY MEASURES IN PLACE. ENDORSED CONTINUATION OF CARE TO GASTON ZELAYA.
--- NOTE | 2021-01-01 07:53 | NUR ---
DIAMOND ASSORTER NOTE PATIENT IN BED WITH ETT TO VENT SETTINGS. PATIENT HAVE MONITOR RESPONSE TO TACTILE AND PAINFUL STIMULI. ON TELE MONITOR SR HR 96. R NGT IN PLACE, CHECKED FOR PLACEMENT BY AUSCULTATION. PATIENT ON TUBE FEEDING, NO RESIDUAL. HOB ELEVATED. R FEM IN PLACE. SOFT WRIST RESTRAIN, WRIST CHECK, SKIN WARM AND RED. BED IN LOCKED POSITION, CALL LIGHT WITHIN REACH. WILL CONTINUE TO MONITOR.
[2021-01-01 08:26] LABS: ABG BASE EXCESS -1.3 mmol/L; ABG OXYGEN SATURATION 93.4 % (92.0-98.5); ABG PCO2 38.3 mmHg (35.0-45.0); ABG PO2 72.2 mmHg (75.0-100.0); COHb 0.3 % (0.5-1.5); MetHb 0.1 % (0.0-1.5); SITE, ABG Left Radial; VENT MODE, BG ac12 50040% +5
[2021-01-01] MEDS: ASPIRIN 81 MG TAB.CHEW GT SCH (08:50)
[2021-01-01] MEDS: SEVELAMER CARBONATE 800 MG POWD.PACK GT SCH ×3 (08:51→17:15)
[2021-01-01] MEDS: CALCIUM ACETATE 667 MG CAP/TAB GT SCH ×3 (08:51→17:14)
[2021-01-01] MEDS: METOPROLOL TARTRATE 50 MG TABLET GT SCH ×2 (08:52→21:45)
[2021-01-01] MEDS: FAMOTIDINE/PF INJ 20 MG/2 ML VIAL IV SCH ×2 (08:52→21:45)
[2021-01-01 08:53] LABS: BILIRUBIN,URINE NEGATIVE (NEGATIVE); LEUKOCYTE ESTERASE ,URINE NEGATIVE (NEGATIVE); NITRITE, URINE NEGATIVE (NEGATIVE); PH,URINE 7.5 (5.0-8.0); PROTEIN,URINE 100 mg/dl (NEGATIVE); UGLUCOSE 250 MG/DL mg/dL (NEGATIVE); UROBILINOGEN,URINE 0.2 EU/dL (0.2)
[2021-01-01 08:54] LABS: COLOR,URINE STRAW (YELLOW)
[2021-01-01] MEDS: HEPARIN SODIUM, PORCINE 5000 UNITS/1 ML VIAL SQ SCH ×2 (08:55→16:02)
[2021-01-01] MEDS: LISINOPRIL (20MG) 20 MG TABLET GT SCH (09:00)
[2021-01-01] MEDS ORDERED: DC PROPOFOL WHEN EXTUBATED XX PRN (09:00)
--- NOTE | 2021-01-01 09:29 | NUR ---
ESCAPEMENT MATCHER NOTE DOCTOR PELEG AT BEDSIDE, UPDATED OF CONDITION OF PATIENT. AWARE PATIENT IS RESPONSIVE TO VERBAL AND TACTILE STIMULI BUT DOES NOT TRACKING EYES. WILL FOLLOW UP.
--- NOTE | 2021-01-01 10:35 | NUR ---
RT PATIENT EXTUBATED AND PLACED ON 5L N/C PER DR SCHMITT. NO SOB AT THIS TIME
--- NOTE | 2021-01-01 10:38 | NUR ---
SOFTWARE QUALITY SPECIALIST NOTE PATIENT EXTUBATED PER DOCTOR PELEG ORDER, PLACED ON 5L O2 NC, SATURATION 97%, RT AT BEDSIDE. WILL MONITOR FOR PATIENT CONDITION. DOCTOR DUARTE ORDERED KAYEXALATE FOR 6.0 POTASSIUM. WILL FOLLOW UP.
[2021-01-01] MEDS ORDERED: SODIUM POLYSTYRENE SULFONATE 15 G/60 ML BOTTLE PO ONE (11:00)
[2021-01-01 11:41] LABS: BACTERIA,URINE Few /HPF (None Seen); RBC,URINE 0-2 /HPF (0-2); SQUAMOUS EPITHELIAL CELL,UR Few /HPF (None Seen); WBC,URINE 0-2 /HPF (0-3)
--- NOTE | 2021-01-01 12:34 | NUR ---
GUEST HISTORY CLERK NOTE RT AT BEDSIDE BREATHING TX DOING ,ALL NEEDS ATTENDED
--- NOTE | 2021-01-01 14:00 | NUR ---
ANIMAL BEHAVIOURIST NOTE ROUNDS MADE, PATIENT HAD A BOWEL MOVEMENT. CLEAN AND DRY OPEN WOUND NOTED ON RIGHT AND LEFT BUTTOCKS. WOUND CARE CONSULTS ORDERED. PATIENT TURNED AND REPOSITIONED. ON ISOFLEX BED IN PLACE. WILL CONTINUE TO MONITOR.
--- NOTE | 2021-01-01 15:52 | NUR ---
RT POST TX DOCUMENTATION. HR 94, PO2 95% RR18. DIM B/S
--- NOTE | 2021-01-01 15:56 | NUR ---
AUTO CLAIM REPRESENTATIVE NOTE UNABLE TO REMOVE RESTRAINS, PATIENT IS STILL AT RISK OF REMOVING LINES. WILL CONTINUE TO MONITOR.
--- NOTE | 2021-01-01 18:12 | NUR ---
icu specialist note rounds made , made a bm keep ,clean dry , all needs attended ,on g tube feeding as ordered not in distress, will monitor
--- NOTE | 2021-01-01 18:35 | NUR ---
ROLLED SEAT TRIMMER NOTE PATIENT IN BED, BECAME MORE AWAKE, EYES OPEN AND ABLE TO FOLLOW SIMPLE COMMANDS. RESPOND TO TACTILE AND VERBAL STIMULI, PATIENT STILL FRAGILE. ON TELEMETRY, S[place]US [place] 102. RT AND LT BUTTOCKS WOUND, KEPT CLEAN AND DRY. RT FEMORAL TLC FLUSH WELL. RIGHT SUBCLAVIAN PERMA CATH IN PLACE, CONTINUED NG TUBE FEEDING. TOLERATING WELL, NO RESIDUAL, PLACEMENT CHECK BY AUSCULTATION OF AIR. HOB ELEVATED, NO SOB NOTED. CALL LIGHT WITHIN REACH. WILL CONTINUE TO MONITOR.
--- NOTE | 2021-01-01 18:53 | NUR ---
VEST TAILOR NOTE FACE TO FACE ASSESSMENT, DONE PER DR VU LUKE OK TO RENEW SOFT RESTRAIN STILL AT RISK TP REMOVE ALL LINES
--- NOTE | 2021-01-01 19:47 | NUR ---
OPERATIONS RESEARCH MANAGER OPENING NOTE RECEIVED PATIENT IN BED, AWAKE AND POSITIVE MOTOR RESPONSE TO VERBAL STIMULI BUT NO VERBAL COMMUNICATION NOTED. PT. VERY DROWSY AT THIS MOMENT, MD AWARE AND THIS HAS BEEN HER BASELINE FROM TODAY. ON BEDSIDE MONITOR SR/ST. (R) NGT NOTED, FLUSHED AND ASSESSED FOR POSITIVE PLACEMENT BY AUSCULTATION. PATIENT ON NEPRO TUBE FEEDING RUNNING 30 ML/HR, 5ML RESIDUAL NOTED. HOB ELEVATED FOR ASPIRATION PRECAUTIONS. (R) FEMORAL TRIPLE LUMEN CENTRAL CATH IN PLACE; FLUSHED AND PATENT. DRESSING SOILED AND CHANGED WITH STERILE TECHNIQUE. SOFT BILATERAL WRIST RESTRAINTS IN PLACE, SEE NURSING FLOWSHEET FOR CIRCULATION AND SKIN ASSESSMENT BY UNIT PROTOCOL. SAFETY MEASURES IMPLEMENTED: BED LOCKED IN LOWEST POSITION, CALL LIGHT WITHIN REACH. SIDE RAILS UP X3, BED ALARM ON. NO ACUTE DISTRESS NOTED AT THIS TIME.
[2021-01-01] MEDS: NEPRO 1,000 ML BOTTLE GT PRN (22:02)
[2021-01-02] VITALS (24 sets, daily range): BP systolic 90–125; BP diastolic 60–89
--- NOTE | 2021-01-02 02:36 | NUR ---
VICE PRINCIPAL NOTE PRN DOSE OF MORPHINE 2MG IVP GIVEN FOR FLACC PAIN SCALE 7/10. VSS, NO RESP. DISTRESS NOTED. NO OTHER DISTRESS APPARENT AT THIS TIME.
[2021-01-02] MEDS: ALBUTEROL HALF STRENGTH 1.25 MG/3 ML VIAL.NEB NEB SCH ×6 (03:59→23:25)
[2021-01-02] MEDS: IPRATROPIUM NEB FS 0.5 MG/2.5 ML AMPUL.NEB NEB SCH ×6 (03:59→23:25)
[2021-01-02 04:52] LABS: BASOPHILS % (AUTO) 0.1 % (0.0-2.0); HEMATOCRIT 31 % (33-45); HEMOGLOBIN 9.9 g/dL (11.5-14.8); LYMPHOCYTES # (AUTO) 0.5 K/uL (0.8-4.8); LYMPHOCYTES % (AUTO) 2.9 % (20.0-44.0); MEAN CORPUSCULAR HGB CONC 32 g/dl (31.0-36.0); MEAN CORPUSCULAR VOLUME 96 fL (82-100); NEUTROPHILS # (AUTO) 14.6 K/uL (1.8-8.9); PLATELET COUNT (AUTO) 186 K/uL (150-450); RED BLOOD CELL COUNT(AUTO) 3.19 MIL/uL (4.0-5.2)
[2021-01-02] MEDS: methylPREDNISolone SOD SUCC 125 MG/2ML VIAL IV SCH (04:59)
[2021-01-02 05:18] LABS: CALCIUM, SERUM 8.8 mg/dL (8.5-10.1); MAGNESIUM 2.7 mg/dL (1.8-2.4); POTASSIUM 5.8 mmol/L (3.5-5.1)
[2021-01-02 05:34] LABS: CREATININE 8.9 mg/dL (0.6-1.3); PHOSPHORUS 8.8 mg/dL (2.5-4.9)
--- NOTE | 2021-01-02 05:50 | NUR ---
POULTRY HATCHERY MANAGER NOTE CRITICAL LAB VALUES RECEIVED FROM BRITTANI VICTOR IN LABORATORY. BUN 85, CR 8.86, PHOS 8.8, POTASSIUM 5.8. THOMAS PADILLA CONTACTED OF RESULTS. PT. IS ESRD ON HD. PER DR. THOMAS PADILLA,AWAIT HD SCHEDULED FOR TODAY
--- NOTE | 2021-01-02 06:19 | NUR ---
CERTIFICATION OFFICER CLOSING NOTE PATIENT SLEEPING IN BED, POSITIVE MOTOR RESPONSE TO VERBAL STIMULI BUT NO VERBAL COMMUNICATION NOTED. PT. REMAINS DROWSY AT THIS MOMENT, MD AWARE AND THIS HAS BEEN HER BASELINE FROM TODAY. ON BEDSIDE MONITOR SR/ST. (R) NGT NOTED, FLUSHED AND ASSESSED FOR POSITIVE PLACEMENT BY AUSCULTATION. PATIENT ON NEPRO TUBE FEEDING RUNNING 30 ML/HR, 0 ML RESIDUAL NOTED; TOLERATING FEEDS WELL. HOB ELEVATED FOR ASPIRATION PRECAUTIONS. (R) FEMORAL TRIPLE LUMEN CENTRAL CATH IN PLACE; FLUSHED AND PATENT. DRESSING SOILED AND CHANGED WITH STERILE TECHNIQUE. SOFT BILATERAL WRIST RESTRAINTS IN PLACE, SEE NURSING FLOWSHEET FOR CIRCULATION AND SKIN ASSESSMENT BY UNIT PROTOCOL. ALL NEEDS AND ORDERS MET THROUGHOUT SHIFT. PT. KEPT CLEAN AND DRY. SAFETY MEASURES IMPLEMENTED: BED LOCKED IN LOWEST POSITION, CALL LIGHT WITHIN REACH. SIDE RAILS UP X3, BED ALARM ON. NO ACUTE DISTRESS NOTED AT THIS TIME. WILL ENDORSE CONTINUITY OF CARE TO MORNING SHIFT RN
--- NOTE | 2021-01-02 07:27 | NUR ---
WOUND CARE CONSULT: PT PRESENTS WITH INCONTINENCE ASSOCIATED SKIN DAMAGE TO BUTTOCKS AND POSTERIOR THIGHS, NOT ON BONY AREAS. PER NURSING STAFF, PT HAS RECENTLY HAD LOOSE STOOLS. RECOMMENDATIONS MADE FOR SKIN PROTECTION. DISCUSSED WITH NURSING STAFF. PT [facility] ON [facility] B[facility]. IN AGREEMENT WITH PLAN OF CARE. Addendum: 01/02/21 at 5323 by AFSHAN CHANEY WNDNU Amended: Links added.
--- NOTE | 2021-01-02 07:30 | NUR ---
RN NOTE Refer to RT notes for administration of albuterol and atrovent.
--- NOTE | 2021-01-02 07:33 | NUR ---
WIG STYLIST OPENING NOTE Pt is awake, alert to stimuli, non-verbal, not oriented, follows directions with eyes, Respirations even and unlabored, no respiratory distress, no SOB. On 3 L 02 via NC, Enteral feeding running 30cc/hr. HOB elevated on semi-fowlers position, safety precautions implemented, bed locked in lowest position, call light within reach.
[2021-01-02] MEDS: SEVELAMER CARBONATE 800 MG POWD.PACK GT SCH ×3 (08:46→17:37)
[2021-01-02] MEDS: ASPIRIN 81 MG TAB.CHEW GT SCH (08:46)
[2021-01-02] MEDS: CALCIUM ACETATE 667 MG CAP/TAB GT SCH ×3 (08:47→17:39)
[2021-01-02] MEDS: FAMOTIDINE/PF INJ 20 MG/2 ML VIAL IV SCH ×2 (08:48→21:00)
[2021-01-02] MEDS: METOPROLOL TARTRATE 50 MG TABLET GT SCH ×2 (08:48→21:00)
[2021-01-02] MEDS: HEPARIN SODIUM, PORCINE 5000 UNITS/1 ML VIAL SQ SCH ×2 (08:53→16:18)
--- NOTE | 2021-01-02 19:00 | NUR ---
FUEL STORAGE TECHNICIAN CLOSING NOTE Pt is awake, Alert and oriented x 2 (name and location), verbally responsive to simple questions in tamazight. She is able to move upper extremities with difficulty. On 2 L via NC, satting 93-95%. Denies any pain or distress. Tele reading sinus rhythm. Enteral feeding ongoing 30cc/hr via NGtube, no residual noted, placement checked via auscultation, patent. Hemodialysis done today output 2 liters. Right upper chest permacath dressing clean and intact. All due meds given, Right femoral TLC clean with no s/sx of infiltration. Had episodes of pulling NG/NC while asleep, redirected ineffective, renewed restraints until she can follow directions fully. Wound care rendered, AM/PM care rendered, reposiitoned Q2H and PRN. Safety precautions implemented, bed locked in lowest position, call light within reach. Mother Amy visited today, updated of status in tamazight.
--- NOTE | 2021-01-02 19:45 | NUR ---
GENERATION MANAGER OPENING NOTE RECEIVED PATIENT IN BED, AWAKE AND POSITIVE MOTOR RESPONSE TO VERBAL STIMULI AND VERBAL RESPONSE TO NAME. PT. VERY DROWSY AT THIS MOMENT, MD AWARE AND THIS HAS BEEN HER BASELINE FROM TODAY. ON 2L O2 VIA NC WITH SATURATIONS ABOVE 97%, NO SOB OR RESP. DISTRESS NOTED. ON BEDSIDE MONITOR SR/ST. (R) NGT NOTED, FLUSHED AND ASSESSED FOR POSITIVE PLACEMENT BY AUSCULTATION. PATIENT ON NEPRO TUBE FEEDING RUNNING 30 ML/HR, 0 ML RESIDUAL NOTED. HOB ELEVATED FOR ASPIRATION PRECAUTIONS. (R) FEMORAL TRIPLE LUMEN CENTRAL CATH IN PLACE; FLUSHED AND PATENT. DRESSING CLEAN DRY AND INTACT. SOFT BILATERAL WRIST RESTRAINTS REMOVED. SAFETY MEASURES IMPLEMENTED: BED LOCKED IN LOWEST POSITION, CALL LIGHT WITHIN REACH. SIDE RAILS UP X3, BED ALARM ON. NO ACUTE DISTRESS NOTED AT THIS TIME.
[2021-01-02] MEDS: MORPHINE SULFATE INJ 2 MG/ML DISP.SYRIN IV PRN (21:14)
[2021-01-02] MEDS: NEPRO 1,000 ML BOTTLE GT PRN (22:02)
[2021-01-03] VITALS (19 sets, daily range): BP systolic 107–134; BP diastolic 48–96
[2021-01-03] MEDS: ALBUTEROL HALF STRENGTH 1.25 MG/3 ML VIAL.NEB NEB SCH ×5 (03:25→19:51)
[2021-01-03] MEDS: IPRATROPIUM NEB FS 0.5 MG/2.5 ML AMPUL.NEB NEB SCH ×5 (03:25→19:51)
[2021-01-03 04:21] LABS: EOSINOPHILS % (AUTO) 1.3 % (0.0-6.0); HEMATOCRIT 34 % (33-45); HEMOGLOBIN 11.3 g/dL (11.5-14.8); LYMPHOCYTES # (AUTO) 0.9 K/uL (0.8-4.8); LYMPHOCYTES % (AUTO) 7.1 % (20.0-44.0); MEAN CORPUSCULAR HGB CONC 33 g/dl (31.0-36.0); MEAN CORPUSCULAR VOLUME 95 fL (82-100); MONOCYTES # (AUTO) 1.2 K/uL (0.1-1.30); MONOCYTES % (AUTO) 9.6 % (2.0-12.0); NEUTROPHILS # (AUTO) 10.3 K/uL (1.8-8.9); PLATELET COUNT (AUTO) 202 K/uL (150-450); RED BLOOD CELL COUNT(AUTO) 3.64 MIL/uL (4.0-5.2); WHITE BLOOD COUNT (AUTO) 12.5 K/uL (4.3-11.0)
[2021-01-03 04:41] LABS: CALCIUM, SERUM 8.9 mg/dL (8.5-10.1); CREATININE 6.9 mg/dL (0.6-1.3); MAGNESIUM 2.4 mg/dL (1.8-2.4); PHOSPHORUS 5.8 mg/dL (2.5-4.9); POTASSIUM 3.9 mmol/L (3.5-5.1)
--- NOTE | 2021-01-03 06:20 | NUR ---
REGIONAL FLATBED TRUCK DRIVER CLOSING NOTE PATIENT AWAKE IN BED, DROWSY POSITIVE MOTOR RESPONSE AND VERBAL COMMUNICATION NOTED WHEN SPOKEN TO IN SLOVENIAN. PT. ON BEDSIDE MONITOR SR/ST. (R) NGT NOTED, FLUSHED AND ASSESSED FOR POSITIVE PLACEMENT BY AUSCULTATION. PATIENT ON NEPRO TUBE FEEDING RUNNING 30 ML/HR, 0 ML RESIDUAL NOTED; TOLERATING FEEDS WELL. HOB ELEVATED FOR ASPIRATION PRECAUTIONS. (R) FEMORAL TRIPLE LUMEN CENTRAL CATH IN PLACE; FLUSHED AND PATENT. DRESSING CLEAN DRY AND INTACT. ALL NEEDS AND ORDERS MET THROUGHOUT SHIFT. PT. KEPT CLEAN AND DRY. WOUND CARE COMPLETED ORDERED. NO BOWEL MOVEMENT THROUGHOUT SHIFT. SAFETY MEASURES IMPLEMENTED: BED LOCKED IN LOWEST POSITION, CALL LIGHT WITHIN REACH. SIDE RAILS UP X3, BED ALARM ON. NO ACUTE DISTRESS NOTED AT THIS TIME. WILL ENDORSE CONTINUITY OF CARE TO MORNING SHIFT RN
--- NOTE | 2021-01-03 08:00 | NUR ---
PATIENT AWAKE , WEAK IN APPEARANCE, ABLE TO STATE NAME SOFTLY, MAINTAINS EYE CONTACT WITH SPEAKER. MOVES ALL EXTREMITIES SPONTANEOSLY. SR 90-100"S ON MONITOR. BP STABLE. AFEBRILE. O2 AT 2L N/C -SPO2 94%. RESPIRATIONS UNLABORED. NGT FEEDING NEPRO AT 30 ML/HR WITHOUT RESIDUALS. PLACEMENT VERIFIED BY AUSCULTATION.
--- NOTE | 2021-01-03 08:00 | NUR ---
PATIENT SEEN AND EXAMINED BY DR. SCHMITT-DOWNGRADE TO [facility] STATUS.
[2021-01-03] MEDS: SEVELAMER CARBONATE 800 MG POWD.PACK GT SCH ×3 (08:38→17:13)
[2021-01-03] MEDS: ASPIRIN 81 MG TAB.CHEW GT SCH (08:38)
[2021-01-03] MEDS: CALCIUM ACETATE 667 MG CAP/TAB GT SCH ×3 (08:39→17:12)
[2021-01-03] MEDS: FAMOTIDINE/PF INJ 20 MG/2 ML VIAL IV SCH ×2 (08:39→20:32)
[2021-01-03] MEDS: METOPROLOL TARTRATE 50 MG TABLET GT SCH ×2 (08:39→20:34)
--- NOTE | 2021-01-03 10:00 | NUR ---
RIGHT FEMORAL TLC NOTED AT LEAST 10 CM OUT THIS AM, NO BLOOD DRAW ON ALL PORTS. DR. LUIS CRUZ TO DISCONTINUE.
--- NOTE | 2021-01-03 12:00 | NUR ---
RIGHT FEMORAL TLC DISCONTINUED INTACT. NO BLEEDING NOTED. KO PERIPHERAL IV #20 INSERTED.
[2021-01-03] MEDS: OLANZAPINE 2.5 MG TABLET PO SCH ×2 (12:44→16:48)
[2021-01-03] MEDS: PROSOURCE / PROSTAT (PYXIS) 30 ML UDC NG SCH ×2 (12:44→16:48)
--- NOTE | 2021-01-03 16:00 | NUR ---
NO SIGNIFICANT CHANGE IN STATUS. STABLE. AWAITING FOR [facility] BED.
--- NOTE | 2021-01-03 17:50 | NUR ---
REPORT GIVEN TO GASTON ZELAYA
--- NOTE | 2021-01-03 18:34 | NUR ---
[facility] RN NOTE RECEIVED PATIENT FROM ICU , ALERT AWAKE BUT STILL LETHARGIC AND DROWSY ABLE TO FOLLOW SIMPLE COMMAND , ON TELE MONITOR ST 117 , VS TAKEN , WITH RT NARE N G TUBE IN PLACE ON N G TU BE FEEDING ORDERED, KEEP HOB ELEVATED ALL TIME ,WILL CONT TO MONITOR CLOSELY
[2021-01-03] MEDS: ACETAMINOPHEN 650 MG/20.3 ML UDC GT PRN (20:32)
[2021-01-04] VITALS: BP 109/70
[2021-01-04] MEDS: ALBUTEROL HALF STRENGTH 1.25 MG/3 ML VIAL.NEB NEB SCH ×7 (00:30→23:23)
[2021-01-04] MEDS: IPRATROPIUM NEB FS 0.5 MG/2.5 ML AMPUL.NEB NEB SCH ×7 (00:30→23:23)
[2021-01-04 04:00] VITALS: BP 103/68
[2021-01-04] MEDS: NEPRO 1,000 ML BOTTLE GT PRN (04:21)
[2021-01-04 06:58] LABS: BASOPHILS % (AUTO) 0.1 % (0.0-2.0); HEMATOCRIT 34 % (33-45); HEMOGLOBIN 11.1 g/dL (11.5-14.8); LYMPHOCYTES # (AUTO) 0.8 K/uL (0.8-4.8); LYMPHOCYTES % (AUTO) 5.5 % (20.0-44.0); MEAN CORPUSCULAR HGB CONC 32 g/dl (31.0-36.0); MEAN CORPUSCULAR VOLUME 95 fL (82-100); MONOCYTES % (AUTO) 7.1 % (2.0-12.0); NEUTROPHILS # (AUTO) 11.8 K/uL (1.8-8.9); NEUTROPHILS % (AUTO) 85.3 % (43.0-81.0); PLATELET COUNT (AUTO) 206 K/uL (150-450); RED BLOOD CELL COUNT(AUTO) 3.61 MIL/uL (4.0-5.2); WHITE BLOOD COUNT (AUTO) 13.8 K/uL (4.3-11.0)
[2021-01-04 07:24] LABS: CALCIUM, SERUM 8.4 mg/dL (8.5-10.1); MAGNESIUM 2.6 mg/dL (1.8-2.4); PHOSPHORUS 5.5 mg/dL (2.5-4.9); POTASSIUM 4.2 mmol/L (3.5-5.1)
[2021-01-04 07:25] LABS: CREATININE 9.2 mg/dL (0.6-1.3)
--- NOTE | 2021-01-04 07:46 | NUR ---
LESVIA RN NOTE PATIENT IN BED AWAKE BUT STILL SLOWLY FOLLOW SIMPLE COMMAND, ON 2L NC NOTE WITH SLIGHT SOB AND RT AT BESIDE ,BREATHING TX DOING, ,CHECKED RT NARE N G TUBE FOR PLACEMENT BY AUSCULTATION OF AIR , KEEP HOB ELEVATED AT HIS TIME, ON TELE MONITORS HR ST 110, ON NG TUBE FEEDING ORDERED NO RESUDUAL NOTED, RT UA HL INTACT , BED IN LOWEST AND LOCKED POSITION , CALL LIGHT WITHIN REACH
--- NOTE | 2021-01-04 07:49 | NUR ---
RT NOTE PT DIFFERED TX AT THIS TIME. NO SOB NOTED. RN KIRT GOVEA.
--- NOTE | 2021-01-04 07:54 | NUR ---
LESVIA RN NOTE DR JONES AT BEDSIDE NOTIFIED THAT PATIENT HAS SLIGHT SOB AND CHEST CONGESTION ,HOLD N GTUBE FEEDING STATED THAT WILL ORDER CHEST X RAY AND NEED HD ,WILL F\U
[2021-01-04 08:00] VITALS: BP 103/68
[2021-01-04] MEDS: PROSOURCE / PROSTAT (PYXIS) 30 ML UDC NG SCH ×2 (08:41→16:31)
[2021-01-04] MEDS: OLANZAPINE 2.5 MG TABLET PO SCH ×2 (08:44→16:31)
[2021-01-04] MEDS: CALCIUM ACETATE 667 MG CAP/TAB GT SCH ×3 (08:44→17:20)
[2021-01-04] MEDS: ASPIRIN 81 MG TAB.CHEW GT SCH (08:44)
[2021-01-04] MEDS: FAMOTIDINE/PF INJ 20 MG/2 ML VIAL IV SCH ×2 (08:44→22:24)
[2021-01-04] MEDS: METOPROLOL TARTRATE 50 MG TABLET GT SCH ×2 (08:45→22:19)
[2021-01-04] MEDS: SEVELAMER CARBONATE 800 MG POWD.PACK GT SCH ×3 (08:47→17:20)
[2021-01-04] MEDS: ACETAMINOPHEN 650 MG/20.3 ML UDC GT PRN (08:57)
--- NOTE | 2021-01-04 11:00 | NUR ---
neema rn note rt at bedside ,breathing tx done as ordered ,keep clean dry , all needs attended, less distress since Tylenol via n g tube given , will monitor
[2021-01-04 12:00] VITALS: BP 113/60
--- NOTE | 2021-01-04 12:11 | NUR ---
neema rn note hd started made a bm keep clean dry , dr gil co pilot at bedside aware that chest congestion ,updated patient condition
--- NOTE | 2021-01-04 14:30 | NUR ---
LESVIA RN NOTE HD COMPLETED,1.5 L OF FLUID REMOVED, BP 130/87
[2021-01-04] MEDS: ACETYLCYSTEINE 10% SOLN 400 MG/4 ML VIAL NEB SCH ×2 (15:39→23:23)
[2021-01-04 16:00] VITALS: BP 110/84
--- NOTE | 2021-01-04 16:33 | NUR ---
telegraphic typewriter operator note still with chest congestion rt at bedside oral oral suction done
--- NOTE | 2021-01-04 18:59 | NUR ---
HEEL SEAT POUNDER NOTE RESTING COMFORTABLY IN BED , ALL NEEDS ATTENDED, ON G TUBE FEEDING ORDERED ,NOT IN DISTRESS
[2021-01-04 20:00] VITALS: BP 123/84
--- NOTE | 2021-01-04 23:41 | NUR ---
RN notes Received patient awake in bed, alert to self. Speech incomprehensible. On 2lpm via nasal cannula tolerating well. No distress noted. Breathing even and unlabored. Noted with congestion, suctioned orally large amount of secretion. Noted with elevated temp, gave tylenol with relief. Transferred to [facility] room 311 and endorsed to GASTON crowley in stable condition.
[2021-01-05] VITALS (8 sets, daily range): BP systolic 97–120; BP diastolic 63–84
--- NOTE | 2021-01-05 00:30 | NUR ---
MANAGEMENT PSYCHOLOGIST NOTES; RECEIVED PATIENT FROM [facility] VIA RNEY ON STABLE CONDITION AT 0010, PLACE IN BED COMFORTABLY, SKIN ASSESSMENT DONE, PICTURE TAKEN, INVENTORY DONE, PATIENT ON NGT, G TUBE FEEDING OF NEPHRO AT 30ML PER HR INFUSING WELL, HOB AT 45 DEGREE, IV LINE AT KO# 20 SL, PATIENT ON TELE WITH SR/SR READING ON NC AT 2LPM NO SOB NOTED, KPET CLEAN AND DRY, WILL CONTINUE TO MONITOR.
[2021-01-05] MEDS: ALBUTEROL HALF STRENGTH 1.25 MG/3 ML VIAL.NEB NEB SCH ×5 (02:59→19:49)
[2021-01-05] MEDS: IPRATROPIUM NEB FS 0.5 MG/2.5 ML AMPUL.NEB NEB SCH ×5 (02:59→19:50)
[2021-01-05 06:59] LABS: BASOPHILS # (AUTO) 0.1 K/uL (0.0-0.2); BASOPHILS % (AUTO) 0.4 % (0.0-2.0); EOSINOPHILS % (AUTO) 0.8 % (0.0-6.0); HEMATOCRIT 35 % (33-45); HEMOGLOBIN 11.4 g/dL (11.5-14.8); LYMPHOCYTES # (AUTO) 0.8 K/uL (0.8-4.8); LYMPHOCYTES % (AUTO) 5.2 % (20.0-44.0); MEAN CORPUSCULAR HGB CONC 32 g/dl (31.0-36.0); MEAN CORPUSCULAR VOLUME 97 fL (82-100); MONOCYTES # (AUTO) 1.1 K/uL (0.1-1.30); MONOCYTES % (AUTO) 7.2 % (2.0-12.0); NEUTROPHILS # (AUTO) 13.1 K/uL (1.8-8.9); NEUTROPHILS % (AUTO) 86.4 % (43.0-81.0); PLATELET COUNT (AUTO) 179 K/uL (150-450); RED BLOOD CELL COUNT(AUTO) 3.65 MIL/uL (4.0-5.2); WHITE BLOOD COUNT (AUTO) 15.1 K/uL (4.3-11.0)
[2021-01-05 07:21] LABS: CALCIUM, SERUM 8.6 mg/dL (8.5-10.1); MAGNESIUM 2.9 mg/dL (1.8-2.4); POTASSIUM 4.8 mmol/L (3.5-5.1)
[2021-01-05 07:25] LABS: CREATININE 8.9 mg/dL (0.6-1.3)
--- NOTE | 2021-01-05 07:30 | NUR ---
CHEF PASSENGER VESSEL CLOSING NOTES: PATIENT AWAKE IN BED, BED IN LOW POSITION, CALL LIGHTS WITHIN REACH, NO COMPLAIN OF PAIN AND DISCOMFORT AT THIS TIME, PATIENT ON G TUBE FEEDING THRU NGT OF NEPHRO @30ML PER HOUR INFUSING WELL WITH HOB AT 45 DEGREE , WITH IV LINE AT KO #20 SL, PATIENT KEPT CLEAN AND DRY ALL NEEDS MET, ENDORSE TO INCOMING SHIFT.
[2021-01-05] MEDS: ACETYLCYSTEINE 10% SOLN 400 MG/4 ML VIAL NEB SCH ×2 (08:01→16:11)
--- NOTE | 2021-01-05 08:06 | NUR ---
ESTHETICIAN AND MANAGER MEDICAL SPA OPENING NOTES RECEIVED PATIENT IN BED, AWAKE, NON-VERBAL. PATIENT ON ROOM AIR; HOARSE BREATHING, UNLABORED. TELE MONITOR WITH A CURRENT READING OF ST 120. NO S/S OF PAIN SUCH FACIAL GRIMACING. GUARDING OR MOANING NOTED. NGT TO R NARIS RUNNING NEPHRO @ 30 MLS/HR. KO IV ACCESS G # 20 SL PRESENT AND INTACT. R SUBCLAVIAN HD CATH IN PLACE. SAFETY PRECAUTIONS IN PLACE; BED IN LOW POSITION AND LOCKED, RAILS UP X2, CALL LIGHT WITHIN REACH. WILL CONTINUE TO MONITOR PATIENT.
[2021-01-05] MEDS: ASPIRIN 81 MG TAB.CHEW GT SCH (09:24)
[2021-01-05] MEDS: FAMOTIDINE/PF INJ 20 MG/2 ML VIAL IV SCH ×2 (09:24→21:06)
[2021-01-05] MEDS: CALCIUM ACETATE 667 MG CAP/TAB GT SCH ×3 (09:24→17:58)
[2021-01-05] MEDS: OLANZAPINE 2.5 MG TABLET PO SCH ×2 (09:24→16:11)
[2021-01-05] MEDS: METOPROLOL TARTRATE 50 MG TABLET GT SCH ×2 (09:25→21:05)
[2021-01-05] MEDS: SEVELAMER CARBONATE 800 MG POWD.PACK GT SCH ×3 (09:26→17:59)
[2021-01-05] MEDS: PROSOURCE / PROSTAT (PYXIS) 30 ML UDC NG SCH ×2 (09:26→16:11)
--- NOTE | 2021-01-05 18:39 | NUR ---
COMPUTER SYSTEMS SOFTWARE ENGINEER CLOSING NOTES PATIENT REMAINS IN BED, AWAKE, MORE ALERT, NON-VERBAL. PATIENT ON ROOM AIR; HOARSE BREATHING, UNLABORED. TELE MONITOR WITH A CURRENT READING OF ST 106. NO S/S OF PAIN SUCH FACIAL GRIMACING, GUARDING OR MOANING NOTED DURING THE DAY. NGT TO R NARIS RUNNING NEPHRO @ 30 MLS/HR. KO IV ACCESS G # 20 SL PRESENT AND INTACT. R SUBCLAVIAN HD CATH IN PLACE. ALL NEEDS ATTENDED DURING THE DAY. SAFETY PRECAUTIONS IN PLACE; BED IN LOW POSITION AND LOCKED, RAILS UP X2, CALL LIGHT WITHIN REACH. WILL ENDORSE TO IMPLEMENTATION MANAGER NURSE FOR LISSETH..
--- NOTE | 2021-01-05 19:00 | NUR ---
MS RN OPENING NOTE RECEIVED PT IN BED, RESTING A/OX1, PT STABLE ON 2 L OXYGEN VIA NC. NO S/S OF RESPIRATORY DISTRESS. PT IS ON EXTERNAL PAPER CONTROL CLERK READING ST 106. NO C/O PAIN AT THIS TIME. IV ACCESS IN RIGHT UPPER ARM # 2O SL, IV IS INTACT, PATENT, AND FLUSHING WELL. R SUBCLAVIAN HD NOTED. NGT PRESENT, NEPHRO @ 30ML/HR. SAFETY MEASURES MAINTAINED AT ALL TIMES. BED IN LOWEST LOCKED POSITION, HOB ELEVATED, SIDE RAILS UP X2. CALL LIGHT AND TABLE WITHIN REACH. WILL CONTINUE WITH PLAN OF CARE
[2021-01-06] VITALS: BP 93/59
[2021-01-06] MEDS: ALBUTEROL HALF STRENGTH 1.25 MG/3 ML VIAL.NEB NEB SCH ×7 (00:29→22:57)
[2021-01-06] MEDS: IPRATROPIUM NEB FS 0.5 MG/2.5 ML AMPUL.NEB NEB SCH ×7 (00:29→22:57)
[2021-01-06] MEDS: ACETYLCYSTEINE 10% SOLN 400 MG/4 ML VIAL NEB SCH ×4 (00:29→22:57)
[2021-01-06 04:00] VITALS: BP 108/73
--- NOTE | 2021-01-06 06:30 | NUR ---
RN CLOSING NOTE PT AWAKE IN BED. STABLE THROUGHOUT SHIFT. WILL ENDORSE TO ONCOMING NURSE
[2021-01-06 06:58] LABS: BASOPHILS % (AUTO) 0.1 % (0.0-2.0); EOSINOPHILS % (AUTO) 1.3 % (0.0-6.0); HEMATOCRIT 31 % (33-45); LYMPHOCYTES # (AUTO) 0.8 K/uL (0.8-4.8); LYMPHOCYTES % (AUTO) 5.6 % (20.0-44.0); MEAN CORPUSCULAR HGB CONC 32 g/dl (31.0-36.0); MEAN CORPUSCULAR VOLUME 97 fL (82-100); MONOCYTES # (AUTO) 0.9 K/uL (0.1-1.30); NEUTROPHILS # (AUTO) 12.6 K/uL (1.8-8.9); PLATELET COUNT (AUTO) 220 K/uL (150-450); RED BLOOD CELL COUNT(AUTO) 3.22 MIL/uL (4.0-5.2); WHITE BLOOD COUNT (AUTO) 14.4 K/uL (4.3-11.0)
--- NOTE | 2021-01-06 07:30 | NUR ---
RESIDENTIAL NURSE OPENING NOTES RECEIVED PATIENT IN BED, AWAKE, NON-VERBAL. PATIENT ON 4 LPM VIA NC, TOLERATING WELL; HOARSE BREATHING, UNLABORED. ON TELE MONITOR SHOWING ST HR 100'S. NO S/S OF PAIN SUCH FACIAL GRIMACING. GUARDING OR MOANING NOTED. NGT TO R NARE RUNNING NEPHRO @ 30 MLS/HR, TOLERATING WELL, NO RESIDUAL NOTED. KO IV ACCESS G # 20 PATENT AND INTACT. R SUBCLAVIAN HD CATH IN PLACE. SAFETY PRECAUTIONS IN PLACE; BED IN LOWEST POSITION AND LOCKED, SIDE RAILS UP X2, CALL LIGHT WITHIN REACH. WILL CONTINUE TO MONITOR ACCORDINGLY.
[2021-01-06 07:53] LABS: CALCIUM, SERUM 9.2 mg/dL (8.5-10.1); MAGNESIUM 3.1 mg/dL (1.8-2.4); PHOSPHORUS 5.6 mg/dL (2.5-4.9); POTASSIUM 5.1 mmol/L (3.5-5.1)
[2021-01-06 08:00] VITALS: BP 148/72
[2021-01-06] MEDS ORDERED: EPOETIN ALFA (10,000 UNIT) 10,000 UNIT/ML VIAL IV ONE (08:00)
[2021-01-06 08:21] LABS: CREATININE 10.7 mg/dL (0.6-1.3)
[2021-01-06] MEDS: SEVELAMER CARBONATE 800 MG POWD.PACK GT SCH ×3 (08:33→17:20)
[2021-01-06] MEDS: CALCIUM ACETATE 667 MG CAP/TAB GT SCH ×3 (08:33→17:20)
[2021-01-06] MEDS: OLANZAPINE 2.5 MG TABLET PO SCH ×2 (08:33→16:30)
[2021-01-06] MEDS: ASPIRIN 81 MG TAB.CHEW GT SCH (08:33)
[2021-01-06] MEDS: FAMOTIDINE/PF INJ 20 MG/2 ML VIAL IV SCH ×2 (08:33→20:41)
[2021-01-06] MEDS: METOPROLOL TARTRATE 50 MG TABLET GT SCH ×2 (08:34→20:41)
[2021-01-06] MEDS: PROSOURCE / PROSTAT (PYXIS) 30 ML UDC NG SCH ×2 (09:36→16:41)
[2021-01-06] MEDS: ACETAMINOPHEN 650 MG/20.3 ML UDC GT PRN (13:01)
--- NOTE | 2021-01-06 13:48 | NUR ---
RN NOTES S/P HD, PATIENT ABLE TO TOLERATE PROCEDURE WELL WITH 2L OUT. WILL CONTINUE TO MONITOR ACCORDINGLY.
[2021-01-06] MEDS ORDERED: EPOETIN ALFA-EPBX 10,000 UNIT/ML VIAL IV ONE (15:00)
[2021-01-06 16:00] VITALS: BP 106/70
--- NOTE | 2021-01-06 18:38 | NUR ---
GROUNDS KEEPER CLOSING NOTES PATIENT IN BED, AWAKE, NON-VERBAL. PATIENT ON 4 LPM VIA NC, TOLERATING WELL; BREATHING UNLABORED. ON TELE MONITOR SHOWING ST HR 100'S. NO S/S OF PAIN SUCH FACIAL GRIMACING. GUARDING OR MOANING NOTED. NGT TO R NARE RUNNING NEPHRO @ 30 MLS/HR, TOLERATING WELL, NO RESIDUAL NOTED. OK IV ACCESS G#20 PATENT AND INTACT. R SUBCLAVIAN HD CATH IN PLACE. SAFETY PRECAUTIONS IN PLACE; BED IN LOWEST POSITION AND LOCKED, SIDE RAILS UP X2, CALL LIGHT WITHIN REACH. ALL NEEDS ATTENDED AND MET, DUE MEDS GIVEN ORDERED. WILL ENDORSE TO ONCOMING SHIFT FOR LISSETH.
--- NOTE | 2021-01-06 19:00 | NUR ---
HEAD OF MARKETING ANALYTICS OPENING NOTE RECEIVED PT IN BED, RESTING A/OX1, NON VERBAL. PT STABLE ON 4 L OXYGEN VIA NC. NO S/S OF RESPIRATORY DISTRESS. PT IS ON EXTERNAL BLEACH RANGE OPERATOR READING ST 116. NO C/O PAIN AT THIS TIME. IV ACCESS IN RIGHT UPPER ARM # 2O SL, IV IS INTACT, PATENT, AND FLUSHING WELL. R SUBCLAVIAN HD NOTED. NGT PRESENT, NEPHRO @ 30ML/HR. SAFETY MEASURES MAINTAINED AT ALL TIMES. BED IN LOWEST LOCKED POSITION, HOB ELEVATED, SIDE RAILS UP X2. CALL LIGHT AND TABLE WITHIN REACH. WILL CONTINUE WITH PLAN OF CARE.
[2021-01-06 20:00] VITALS: BP 135/90
[2021-01-06] MEDS: MORPHINE SULFATE INJ 2 MG/ML DISP.SYRIN IV PRN (21:06)
--- NOTE | 2021-01-06 21:06 | NUR ---
USING THE FLACC SCALE, ADMINISTERED MORPHINE 2MG/IML IV Q 4H PRN TO PT FOR SEVERE PAIN AT THIS TIME PER ORDER, WILL CONTINUE TO MONITOR.
[2021-01-07] VITALS: BP 114/64
[2021-01-07] MEDS: IPRATROPIUM NEB FS 0.5 MG/2.5 ML AMPUL.NEB NEB SCH ×6 (03:32→23:42)
[2021-01-07] MEDS: ALBUTEROL HALF STRENGTH 1.25 MG/3 ML VIAL.NEB NEB SCH ×6 (03:32→23:42)
[2021-01-07 04:00] VITALS: BP 103/66
[2021-01-07] MEDS: MORPHINE SULFATE INJ 2 MG/ML DISP.SYRIN IV PRN ×2 (06:03→22:49)
--- NOTE | 2021-01-07 06:03 | NUR ---
USING THE FLACC SCALE, ADMINISTERED MORPHINE 2MG/IML IV Q 4H PRN TO PT FOR SEVERE PAIN AT THIS TIME PER ORDER, WILL CONTINUE TO MONITOR.
--- NOTE | 2021-01-07 06:30 | NUR ---
TRACK CAR OPERATOR CLOSING NOTE PT IS AWAKE IN BED AT THIS TIME. A/OX1, NONVERBAL, ABLE TO MAKE NEEDS KNOWN. PT IS BEDREST, STABLE ON 4L OXYGEN VIA NC, NO SOB NOTED, NO S/S OF RESPIRATORY DISTRESS. PT IS ON EXTERNAL LOZENGE DOUGH MIXER READING ST @ 120. WOUND CARE PROVIDED, IV ACCESS IS INTACT AND PATENT, NGT IN PLACE. ALL NEEDS HAVE BEEN MET. PAIN MANAGEMENT ADMINISTERED PER ORDER, SAFETY, SEIZURE, AND ASPIRATION PRECAUTIONS MAINTAINED AT ALL TIMES. BED IN LOWEST, LOCKED POSITION WITH BED ALARM ON, SIDE RAILS UP X2. HOB ELEVATED. CALL LIGHT AND TABLE WITHIN REACH. WILL ENDORSE TO ONCOMING NURSE FOR LISSETH.
[2021-01-07 07:10] LABS: BASOPHILS % (AUTO) 0.2 % (0.0-2.0); EOSINOPHILS % (AUTO) 1.2 % (0.0-6.0); HEMATOCRIT 26 % (33-45); HEMOGLOBIN 8.4 g/dL (11.5-14.8); LYMPHOCYTES # (AUTO) 0.9 K/uL (0.8-4.8); LYMPHOCYTES % (AUTO) 7.3 % (20.0-44.0); MEAN CORPUSCULAR HGB CONC 33 g/dl (31.0-36.0); MEAN CORPUSCULAR VOLUME 95 fL (82-100); MONOCYTES # (AUTO) 1.1 K/uL (0.1-1.30); MONOCYTES % (AUTO) 8.9 % (2.0-12.0); NEUTROPHILS # (AUTO) 10.6 K/uL (1.8-8.9); NEUTROPHILS % (AUTO) 82.4 % (43.0-81.0); PLATELET COUNT (AUTO) 195 K/uL (150-450); RED BLOOD CELL COUNT(AUTO) 2.73 MIL/uL (4.0-5.2); WHITE BLOOD COUNT (AUTO) 12.8 K/uL (4.3-11.0)
--- NOTE | 2021-01-07 07:23 | NUR ---
DISPATCHER RADIOACTIVE WASTE DISPOSAL OPENING NOTES RECEIVED PATIENT IN BED, AWAKE, NON-VERBAL. PATIENT ON 4 LPM VIA NC, TOLERATING WELL; BREATHING UNLABORED. ON TELE MONITOR SHOWING ST HR 100'S. NO S/S OF PAIN SUCH FACIAL GRIMACING. GUARDING OR MOANING NOTED. NGT TO R NARE RUNNING NEPHRO @ 30 MLS/HR, TOLERATING WELL, NO RESIDUAL NOTED. KO IV ACCESS G # 20 PATENT AND INTACT. R SUBCLAVIAN HD CATH IN PLACE. SAFETY PRECAUTIONS IN PLACE; BED IN LOWEST POSITION AND LOCKED, SIDE RAILS UP X2, CALL LIGHT WITHIN REACH. WILL CONTINUE TO MONITOR ACCORDINGLY.
[2021-01-07 08:00] VITALS: BP 98/67
[2021-01-07 08:15] LABS: CALCIUM, SERUM 8.9 mg/dL (8.5-10.1); MAGNESIUM 2.7 mg/dL (1.8-2.4); PHOSPHORUS 4.5 mg/dL (2.5-4.9); POTASSIUM 4.5 mmol/L (3.5-5.1)
[2021-01-07] MEDS: FAMOTIDINE/PF INJ 20 MG/2 ML VIAL IV SCH ×2 (08:15→22:40)
[2021-01-07] MEDS: PROSOURCE / PROSTAT (PYXIS) 30 ML UDC NG SCH ×2 (08:16→17:27)
[2021-01-07] MEDS: SEVELAMER CARBONATE 800 MG POWD.PACK GT SCH ×3 (08:16→17:27)
[2021-01-07] MEDS: OLANZAPINE 2.5 MG TABLET PO SCH ×2 (08:17→17:27)
[2021-01-07] MEDS: ASPIRIN 81 MG TAB.CHEW GT SCH (08:17)
[2021-01-07] MEDS: CALCIUM ACETATE 667 MG CAP/TAB GT SCH ×3 (08:17→17:30)
[2021-01-07] MEDS: ACETYLCYSTEINE 10% SOLN 400 MG/4 ML VIAL NEB SCH ×3 (08:27→23:42)
[2021-01-07] MEDS: METOPROLOL TARTRATE 50 MG TABLET GT SCH ×2 (09:00→21:00)
--- NOTE | 2021-01-07 09:08 | NUR ---
RN NOTES BP 98/54, HELD METOPROLOL. PATIENT ON HD AT THIS TIME.
[2021-01-07] MEDS: ACETAMINOPHEN 650 MG/20.3 ML UDC GT PRN (09:24)
[2021-01-07 12:00] VITALS: BP 85/63
[2021-01-07] MEDS: NEPRO 1,000 ML BOTTLE GT PRN (12:31)
--- NOTE | 2021-01-07 13:49 | NUR ---
RN NOTES PATIENT HAD DIALYSIS TODAY. 1L OUT. PATIENT ABLE TO TOLERATE DIALYSIS, WILL CONTINUE TO MONITOR ACCORDINGLY.
[2021-01-07 16:00] VITALS: BP 93/65
--- NOTE | 2021-01-07 18:27 | NUR ---
SCHOOL BASED THERAPIST CLOSING NOTES PATIENT IN BED, AWAKE, NON-VERBAL. PATIENT ON 4 LPM VIA NC, TOLERATING WELL; BREATHING UNLABORED. ON TELE MONITOR SHOWING ST HR 122. NO S/S OF PAIN SUCH FACIAL GRIMACING. GUARDING OR MOANING NOTED. NGT TO R NARE RUNNING NEPHRO @ 30 MLS/HR, TOLERATING WELL, NO RESIDUAL NOTED. KO IV ACCESS G # 20 PATENT AND INTACT. R SUBCLAVIAN HD CATH IN PLACE. SAFETY PRECAUTIONS IN PLACE; BED IN LOWEST POSITION AND LOCKED, SIDE RAILS UP X2, CALL LIGHT WITHIN REACH. DUE MEDS GIVEN ORDERED, ALL NEEDS ATTENDED AND MET. WILL ENDORSE TO ONCOMING SHIFT FOR LISSETH. .
[2021-01-07 20:00] VITALS: BP 88/45
--- NOTE | 2021-01-07 20:00 | NUR ---
MANAGEMENT TRAINEE OPENING NOTES: RECEIVED PATIENT SLEEP IN BED COMFORTABLY AROUSABLE TO STIMULI, BED IN LOW POSITION, CALL LIGHTS WITHIN REACH, NO COMPLAIN OF PAIN AND DISCOMFORT AT THIS TIME, PATIENT ON NPO ON NGT G TUBE FEEDING OF NEPRHO 30CC ML INFUSING WELL, NGT PATENT UPON AUSCULTATION,. ON 02 INHALATION AT 3LPM HOB AT 45 DEGREE, NO SOB WAS OBSERVED, PATIENT KEPT CLEANA NDD RY, ALL NEEDS MET, WILL CONTINUE TO MONITOR.
[2021-01-08] VITALS: BP 93/53
[2021-01-08 04:00] VITALS: BP 103/69
[2021-01-08] MEDS: IPRATROPIUM NEB FS 0.5 MG/2.5 ML AMPUL.NEB NEB SCH ×6 (04:25→23:43)
[2021-01-08] MEDS: ALBUTEROL HALF STRENGTH 1.25 MG/3 ML VIAL.NEB NEB SCH ×6 (04:25→23:43)
--- NOTE | 2021-01-08 06:12 | NUR ---
RN NOTES: PATIENT PULL OUT HER NG TUBE, PATIENT ON SCHEDULE SWALLOW EVAL, PER CHARGED NO NEED TO REPLACE ENDORSED SWALLOW EVALUATION SCHEDULE IN AM SHIFT.
[2021-01-08 06:37] LABS: BASOPHILS % (AUTO) 0.3 % (0.0-2.0); HEMATOCRIT 26 % (33-45); HEMOGLOBIN 8.3 g/dL (11.5-14.8); LYMPHOCYTES # (AUTO) 0.9 K/uL (0.8-4.8); MEAN CORPUSCULAR HGB CONC 32 g/dl (31.0-36.0); MEAN CORPUSCULAR VOLUME 97 fL (82-100); MONOCYTES # (AUTO) 1.3 K/uL (0.1-1.30); MONOCYTES % (AUTO) 8.8 % (2.0-12.0); NEUTROPHILS % (AUTO) 83.9 % (43.0-81.0); PLATELET COUNT (AUTO) 193 K/uL (150-450); RED BLOOD CELL COUNT(AUTO) 2.69 MIL/uL (4.0-5.2); WHITE BLOOD COUNT (AUTO) 14.4 K/uL (4.3-11.0)
[2021-01-08 07:11] LABS: CALCIUM, SERUM 8.8 mg/dL (8.5-10.1); CREATININE 6.3 mg/dL (0.6-1.3); MAGNESIUM 2.8 mg/dL (1.8-2.4); PHOSPHORUS 3.2 mg/dL (2.5-4.9); POTASSIUM 4.4 mmol/L (3.5-5.1)
--- NOTE | 2021-01-08 07:42 | NUR ---
TASSEL MAKING MACHINE OPERATOR CLOSING NOTES: PATIENT AWAKE IN BED, NO COMPLAIN OF PAIN AND DISCOMFORT AT THIS TIME, BED IN LOW POSITION, CALL LIGHTS WITHIN REACH, PATIENT ACCIDENTALLY PULL OUT HER NGT AT 0615 ENDORSE TO AM NURSE FOR SWALLOW EVAL TODAY, STILL NPO PRIOR TO SWALLOW EVALUATION, ON TELE MONITORING ST-111 . KEPT CLEAN AND DRY ALL NEEDS MET, ENDORSE TO INCOMING SHIFT.,
[2021-01-08 08:00] VITALS: BP 120/72
--- NOTE | 2021-01-08 08:09 | NUR ---
RN OPENING NOTE- PATIENT AWAKE IN BED, NO PAIN OR DISCOMFORT NOTED AT THIS TIME, BED IN LOW POSITION, CALL LIGHT WITHIN REACH, PATIENT PULLED OUT HER NGT AT 0615- AWAITING SWALLOW EVAL TODAY, STILL NPO PRIOR TO SWALLOW EVALUATION, ON TELE MONITORING ST-109. KEPT CLEAN AND DRY ALL NEEDS MET. MONITORING
[2021-01-08] MEDS: ACETYLCYSTEINE 10% SOLN 400 MG/4 ML VIAL NEB SCH ×3 (08:17→23:43)
--- NOTE | 2021-01-08 09:34 | NUR ---
RN NOTE- PT NPO AWAITING SWALLOW STUDY. ST CAME TO UNIT. PT FAILED SWALLOW STUDY.
--- NOTE | 2021-01-08 09:50 | NUR ---
RN NOTE- NGT 16 FR INSERTED. XR ORDERED FOR PLACEMENT. DR DUONG AT BEDSIDE,. ORDERED MEDICAL WRIST RESTRAINTS. / APPLIED AT THIS TIME
--- NOTE | 2021-01-08 09:52 | NUR ---
RN NOTE- NG TUBE CHECKED FOR PLACEMENT W NURSING MEASURES. NG TUBE PRESENTS IN PROPER PLACE. AWAITING XR CONFIRMATION
--- NOTE | 2021-01-08 10:50 | NUR ---
RN NOTE- XR PLACEMENT OF NG TUBE APPROPRIATE/STOMACH POSITION. BEGIN RX AND TF
[2021-01-08] MEDS: ASPIRIN 81 MG TAB.CHEW GT SCH (11:52)
[2021-01-08] MEDS: METOPROLOL TARTRATE 50 MG TABLET GT SCH ×2 (11:52→21:25)
[2021-01-08] MEDS: OLANZAPINE 2.5 MG TABLET PO SCH ×2 (11:52→17:49)
[2021-01-08] MEDS: FAMOTIDINE/PF INJ 20 MG/2 ML VIAL IV SCH ×2 (11:53→21:27)
[2021-01-08] MEDS: CALCIUM ACETATE 667 MG CAP/TAB GT SCH ×3 (11:53→18:18)
[2021-01-08] MEDS: SEVELAMER CARBONATE 800 MG POWD.PACK GT SCH ×3 (11:53→18:18)
[2021-01-08 12:00] VITALS: BP 102/48
[2021-01-08] MEDS: MORPHINE SULFATE INJ 2 MG/ML DISP.SYRIN IV PRN ×2 (12:16→17:49)
[2021-01-08] MEDS: PROSOURCE / PROSTAT (PYXIS) 30 ML UDC NG SCH ×2 (12:19→18:04)
--- NOTE | 2021-01-08 13:30 | NUR ---
RN NOTE- REPOSITIONED, CLEANED PT AND APPLIED DSG TO SACRUM.
[2021-01-08 16:00] VITALS: BP 109/61
--- NOTE | 2021-01-08 18:00 | NUR ---
RN NOTE- MEDICATED W MS04 FOR PAIN AND DSG CHANGE TO SACRAL / INNER THIGH WOUNDS . PT W BM, CLEANED AND LINENS CHANGED. NGTUBE FEEDING RESTARTED AT 30/HR.
--- NOTE | 2021-01-08 19:30 | NUR ---
RN CLOSING NOTE- PT HOB RAISED, NGT RUNNING AT 30/HR, PT COMFORTABLE. REPORT GIVEN TO NOC SHIFT. BED LOCKED, SIDE RAILS UP, MEDICAL RESTRAINTS IN USE.
--- NOTE | 2021-01-08 19:45 | NUR ---
MS RN OPENING NOTES: RECEIVED PATIENT SLEEP IN BED COMFORTABLY, BED IN LOW POSITION, CALL LIGHTS WITHIN REACH, NO COMPLAIN OF PAIN AND DISCOMFORT AT THIS TIME. NPO ON GTUBE FEEDING NEPHRO AT 30CC INFUSING WELL, HOB AT 45DEGREE, PATIENT IV LINE AT KO #20 SL INFUSING WELL, WITH RIGHT SUBCLAVIAN PERMACATH ON WRIST RESTRAIN, RELEASE Q2H AND MONITOR SKIN, PATEINT KEPT CLEAN AND DRY, ALL NEEDS MET, WILL CONTINUE TO MONITOR.
[2021-01-08 20:00] VITALS: BP 93/42
--- NOTE | 2021-01-08 23:43 | NUR ---
RT NOTE NASOTRACHEAL SUCTION DONE, SMALL THICK DOAN SECRETIONS NOTED. PT TOLERATED WELL. B/S IMPROVED POST SUCTION. WILL CONTINUE TO MONITOR.
[2021-01-09] VITALS: BP 92/43
[2021-01-09] MEDS: ALBUTEROL HALF STRENGTH 1.25 MG/3 ML VIAL.NEB NEB SCH ×6 (03:45→23:24)
[2021-01-09] MEDS: IPRATROPIUM NEB FS 0.5 MG/2.5 ML AMPUL.NEB NEB SCH ×6 (03:45→23:24)
[2021-01-09 04:00] VITALS: BP 94/40
[2021-01-09 04:07] VITALS: BP 94/40
--- NOTE | 2021-01-09 06:40 | NUR ---
MS AIRBRUSH ARTIST PHOTOGRAPHY CLOSING NOTES: PATIENT WAS PLACE DIN BED COMFORTABLY, BED IN LOW POSITION, CALL LIGHTS WITHIN REACH, NO COMPLAIN OF PAIN AND DISCOMFORT AT THIS TIME, ON GT TUBE FEEDING ON NEPHRO AT 30CC ML /HR INFUSING WELL, WITH HOB AT 45 DEGREE, PATIENT ON RESTRAINT, TO MONITOR SKIN Q2H, PATIENT KEPT CLEAN AND DRY, ALL NEEDS MET, SKIN ISSUES WERE CLEAN AND DRESSING CHANGE, ENDORSE TO INCOMING NURSE.
[2021-01-09 07:05] LABS: BASOPHILS % (AUTO) 0.3 % (0.0-2.0); EOSINOPHILS % (AUTO) 1.5 % (0.0-6.0); HEMATOCRIT 27 % (33-45); HEMOGLOBIN 8.4 g/dL (11.5-14.8); LYMPHOCYTES # (AUTO) 0.9 K/uL (0.8-4.8); LYMPHOCYTES % (AUTO) 7.1 % (20.0-44.0); MEAN CORPUSCULAR HGB CONC 31 g/dl (31.0-36.0); MEAN CORPUSCULAR VOLUME 96 fL (82-100); MONOCYTES # (AUTO) 0.8 K/uL (0.1-1.30); MONOCYTES % (AUTO) 6.4 % (2.0-12.0); NEUTROPHILS # (AUTO) 11.1 K/uL (1.8-8.9); NEUTROPHILS % (AUTO) 84.7 % (43.0-81.0); PLATELET COUNT (AUTO) 215 K/uL (150-450); RED BLOOD CELL COUNT(AUTO) 2.78 MIL/uL (4.0-5.2); WHITE BLOOD COUNT (AUTO) 13.1 K/uL (4.3-11.0)
[2021-01-09 07:14] LABS: CALCIUM, SERUM 8.7 mg/dL (8.5-10.1); PHOSPHORUS 4.6 mg/dL (2.5-4.9)
[2021-01-09 07:15] LABS: CREATININE 8.8 mg/dL (0.6-1.3)
[2021-01-09 08:00] VITALS: BP 99/63
--- NOTE | 2021-01-09 08:10 | NUR ---
WOUND CARE CONSULT: PT SEEN FOR INCONTINENCE ASSOCIATED SKIN DAMAGE TO BUTTOCKS AND MEDIAL/POSTERIOR THIGHS, NOT ON BONY AREAS. RECOMMENDATIONS MADE FOR SKIN PROTECTION. WOUND/SKIN ORDERS UPDATED. DISCUSSED WITH NURSING STAFF. [facility]. IN AGREEMENT WITH PLAN OF CARE. Addendum: 01/09/21 at 0811 by AFSHAN CHANEY WNDNU Amended: Links added.
[2021-01-09] MEDS: ACETYLCYSTEINE 10% SOLN 400 MG/4 ML VIAL NEB SCH ×3 (08:25→23:24)
[2021-01-09] MEDS: METOPROLOL TARTRATE 50 MG TABLET GT SCH ×2 (09:00→21:00)
[2021-01-09] MEDS: ASPIRIN 81 MG TAB.CHEW GT SCH (10:03)
[2021-01-09] MEDS: FAMOTIDINE/PF INJ 20 MG/2 ML VIAL IV SCH ×2 (10:03→21:37)
[2021-01-09] MEDS: CALCIUM ACETATE 667 MG CAP/TAB GT SCH ×3 (10:03→17:51)
[2021-01-09] MEDS: SEVELAMER CARBONATE 800 MG POWD.PACK GT SCH ×3 (10:06→17:49)
--- NOTE | 2021-01-09 10:07 | NUR ---
RN NOTE PT NO GIVEN METOPROLOL DUE TO DIALYSIS AND PT 99/63. CHARGE NOTIFIED. WILL GIVE MED AFTER DIALYSIS
[2021-01-09] MEDS: OLANZAPINE 2.5 MG TABLET GT SCH ×2 (10:10→17:49)
[2021-01-09] MEDS: ALBUMIN 25% 25 GM in PREMIX 1 EA IV PRN (11:32)
--- NOTE | 2021-01-09 12:15 | NUR ---
RT PT RECEIVING DIALYSIS. UNABLE TO REACH O2 FLOWMETER. TX DIFFERED. NO SOB NOTED. RN NOTIFIED AND AWARE.
--- NOTE | 2021-01-09 13:00 | NUR ---
RN MS NOTES NPO EXCEPT MEDS, MEDS NEEDS TO BE WITH MEALS.
[2021-01-09] MEDS: PROSOURCE / PROSTAT (PYXIS) 30 ML UDC NG SCH ×2 (14:02→17:50)
[2021-01-09 16:00] VITALS: BP 109/72
--- NOTE | 2021-01-09 19:30 | NUR ---
RN OPENING NOTE PATIENT IN BED, EYES OPEN, PATIENT IS A/O X 1, NON VERBAL, MAKES SOUNDS. PATIENT HAS BILATERAL SOFT WRIST RESTRAINTS ON. KO G 20 SALINE LOCKED, PATENT AND INTACT. BREATHING EVEN AND UNLABORED. NGT PRESENT, IN PLACE AND PATENT. SAFETY MEASURES INITIATED: BED LOCKED AND IN LOWEST POSITION, CALL LIGHT WITHIN REACH, SIDE RAILS UP, WILL CONTINUE TO MONITOR BEHAVIOR Q2H. WILL MONITOR PATIENT CLOSELY.
[2021-01-09 20:00] VITALS: BP 109/76
--- NOTE | 2021-01-09 22:00 | NUR ---
RN NOTE NOTICED PATIENT'S NGT OUT OF IT'S PLACE. MARKER NOT ON TIP OF THE NOSE. REINFORCED NGT WITH NEW TAPE, AND VERIFIED PLACEMENT BY AUSCULTATION AND ASPIRATION. CHARGE NURSE ANGY VERIFIED PLACEMENT WELL. WILL MAINTAIN PATIENT'S NPO STATUS EXCEPT MEDS.
[2021-01-10] MEDS: IPRATROPIUM NEB FS 0.5 MG/2.5 ML AMPUL.NEB NEB SCH ×6 (03:28→23:16)
[2021-01-10] MEDS: ALBUTEROL HALF STRENGTH 1.25 MG/3 ML VIAL.NEB NEB SCH ×6 (03:28→23:16)
[2021-01-10 07:00] LABS: BASOPHILS # (AUTO) 0.1 K/uL (0.0-0.2); BASOPHILS % (AUTO) 0.5 % (0.0-2.0); EOSINOPHILS % (AUTO) 1.8 % (0.0-6.0); HEMATOCRIT 22 % (33-45); HEMOGLOBIN 7.1 g/dL (11.5-14.8); LYMPHOCYTES # (AUTO) 1.1 K/uL (0.8-4.8); LYMPHOCYTES % (AUTO) 9.5 % (20.0-44.0); MEAN CORPUSCULAR HGB CONC 32 g/dl (31.0-36.0); MEAN CORPUSCULAR VOLUME 98 fL (82-100); MONOCYTES # (AUTO) 0.8 K/uL (0.1-1.30); MONOCYTES % (AUTO) 7.4 % (2.0-12.0); NEUTROPHILS % (AUTO) 80.8 % (43.0-81.0); PLATELET COUNT (AUTO) 196 K/uL (150-450); RED BLOOD CELL COUNT(AUTO) 2.27 MIL/uL (4.0-5.2); WHITE BLOOD COUNT (AUTO) 11.1 K/uL (4.3-11.0)
--- NOTE | 2021-01-10 07:25 | NUR ---
RN CLOSING NOTE PATIENT IN BED, NOT IN ANY APPARENT DISTRESS. NGT STILL IN PLACE. SAFETY MEASURES MAINTAINED. ENDORSED TO DAY SHIFT RN.
[2021-01-10] MEDS: ACETYLCYSTEINE 10% SOLN 400 MG/4 ML VIAL NEB SCH ×3 (07:35→23:16)
--- NOTE | 2021-01-10 07:40 | NUR ---
MS RN OPENING NOTE RECEIVED PATIENT IN BED, AWAKE. ALERT AND ORIENTED X 1, NON-VERBAL BUT ABLE TO MAKE NOISE AND SOUNDS. NO S/S OF DISTRESS NOTED. NO SOB.PT NOTED WITH BILATERAL SOFT WRIST RESTRAINTS. SAFETY MEASURES IN PLACE WITH BED LOCKED AND LOW POSITION, SIDE RAILS UP X 2. CALL LIGHT WITHIN REACH. WILL CONTINUE TO MONITOR THROUGHOUT SHIFT.
[2021-01-10 07:55] LABS: CALCIUM, SERUM 8.6 mg/dL (8.5-10.1); MAGNESIUM 2.9 mg/dL (1.8-2.4); PHOSPHORUS 4.4 mg/dL (2.5-4.9); POTASSIUM 5.2 mmol/L (3.5-5.1)
[2021-01-10 07:56] LABS: CREATININE 7.9 mg/dL (0.6-1.3)
[2021-01-10] MEDS: ASPIRIN 81 MG TAB.CHEW GT SCH (08:53)
[2021-01-10] MEDS: SEVELAMER CARBONATE 800 MG POWD.PACK GT SCH ×3 (08:53→17:09)
[2021-01-10] MEDS: METOPROLOL TARTRATE 50 MG TABLET GT SCH ×2 (08:54→21:07)
[2021-01-10] MEDS: OLANZAPINE 2.5 MG TABLET GT SCH ×2 (08:54→16:51)
[2021-01-10] MEDS: CALCIUM ACETATE 667 MG CAP/TAB GT SCH ×3 (08:54→17:09)
[2021-01-10] MEDS: FAMOTIDINE/PF INJ 20 MG/2 ML VIAL IV SCH ×2 (08:54→21:07)
[2021-01-10] MEDS: PROSOURCE / PROSTAT (PYXIS) 30 ML UDC NG SCH ×2 (08:55→16:51)
[2021-01-10 09:05] VITALS: BP 111/71
--- NOTE | 2021-01-10 09:05 | NUR ---
RT TX DIFFERED AT THIS TIME. RT BUSY IN THE ER. PT IS AWAKE, NO SOB NOTED.
--- NOTE | 2021-01-10 12:28 | NUR ---
MS RN NOTE PATIENT LEFT UNIT AT THIS TIME FOR PROCEDURE IN OR;ACCOMPANIED BY OR STAFF WITH STABLE VITAL SIGNS.
--- NOTE | 2021-01-10 13:00 | NUR ---
MS RN NOTE PT RETURNED FROM OR. PEG PLACEMENT NOT COMPLETED PER DR. DUONG.
[2021-01-10 13:11] VITALS: BP 111/75
--- NOTE | 2021-01-10 13:55 | NUR ---
SS Note: BRANDON received visit from pt.'s mother, Amy [phone] requesting for pt. to be discharged to [facility] for "mental health Tx". Pr mother, the mother, the pt. has been neglecting her hygiene and refusing to go to . BRANDON validated Amy's concerns and provided emotional support. BRANDON educated mother that pt. must consent to going voluntarily to a psychiatric facility or be on a 5150 hold to go to a psychiatric facility. BRANDON told Amy that SS needs to check pt.'s chart and possibly assess pt. to see if pt. meets 5150 criteria. Amy expressed understanding. Amy stated she is not the DPOA or conservator of this pt. SS will follow up.
[2021-01-10 18:03] VITALS: BP 119/71
--- NOTE | 2021-01-10 18:49 | NUR ---
MS RN CLOSING NOTE PT IS RESTING COMFORTABLY IN BED. NO S/S OF DISTRESS NOTED. BREATHING IS EVEN AND UNLABORED. PT ON 2L O2 VIA NC WITH SATURATION 98%. PT WITH SOFT RESTRAINTS RENEW @0310. SAFETY MEASURES MAINTAINED. CALL LIGHT IS WITHIN REACH. WILL ENDORSE CONTINUITY OF CARE TO ONCOMING SHIFT.
--- NOTE | 2021-01-10 19:30 | NUR ---
MS RN NOTES RECEIVED LAYING COMFORTABLY ON BED,A/O X1,CONFUSED,ON BILATERAL WRIST SOFT RESTRAINTS FOR SAFETY,TRYING TO PULL OUT TUBINGS,WITH NGT IN PLACE,CLAMP, FOR MEDS.NPO EXCEPT MEDS..WITH SALINE LOCK RIGHT AC INTACT AND PATENT,RIGHT SUBCLAVIAN PERMA CATH HD ACCESS,WITH SCHEDULE FOR TOMORROW.WILL CONTINUE TO MONITOR STATUS.
[2021-01-10 20:00] VITALS: BP 146/96
[2021-01-10 20:40] VITALS: BP 146/96
--- NOTE | 2021-01-10 22:00 | NUR ---
MS RN NOTES HAD LOOSE BOWEL MOVEMENT,CLEANED AND APPLY REMEDY ON PERINEAL AREA EXCORIATED SKIN,COVERED WITH MEPILEX,REPOSITION
[2021-01-10] MEDS: MORPHINE SULFATE INJ 2 MG/ML DISP.SYRIN IV PRN (23:43)
--- NOTE | 2021-01-10 23:43 | NUR ---
MS RN NOTES MOANING WITH FACIAL GRIMACE NOTED,MORPHINE 2MG IV GIVEN ORDERED.
[2021-01-11] MEDS: ALBUTEROL HALF STRENGTH 1.25 MG/3 ML VIAL.NEB NEB SCH ×6 (03:27→23:38)
[2021-01-11] MEDS: IPRATROPIUM NEB FS 0.5 MG/2.5 ML AMPUL.NEB NEB SCH ×6 (03:27→23:38)
--- NOTE | 2021-01-11 06:19 | NUR ---
MS RN NOTES SLEPT WITH INTERVAL,SCREAMS AT TIMES,TALKING TO SELF,DRESSING CHANGE DONE ON INNER UPPER THIGH WITH EMOLLIENT DRESSING.RESTRAINTS IN USED FOR SAFETY.AWAITNG FOR PSYCH EVALUATION.NGT IN PLACE.KEPT NPO EXCEPT MEDS.IN NO ACUTE DISTRESS.
[2021-01-11 07:01] LABS: BASOPHILS % (AUTO) 0.6 % (0.0-2.0); EOSINOPHILS % (AUTO) 1.6 % (0.0-6.0); HEMATOCRIT 25 % (33-45); HEMOGLOBIN 8.1 g/dL (11.5-14.8); LYMPHOCYTES # (AUTO) 0.7 K/uL (0.8-4.8); LYMPHOCYTES % (AUTO) 8.6 % (20.0-44.0); MEAN CORPUSCULAR HGB CONC 32 g/dl (31.0-36.0); MEAN CORPUSCULAR VOLUME 96 fL (82-100); MONOCYTES # (AUTO) 0.5 K/uL (0.1-1.30); MONOCYTES % (AUTO) 5.6 % (2.0-12.0); NEUTROPHILS # (AUTO) 6.8 K/uL (1.8-8.9); NEUTROPHILS % (AUTO) 83.6 % (43.0-81.0); PLATELET COUNT (AUTO) 240 K/uL (150-450); RED BLOOD CELL COUNT(AUTO) 2.63 MIL/uL (4.0-5.2); WHITE BLOOD COUNT (AUTO) 8.1 K/uL (4.3-11.0)
[2021-01-11] MEDS: ACETYLCYSTEINE 10% SOLN 400 MG/4 ML VIAL NEB SCH ×3 (07:08→23:39)
--- NOTE | 2021-01-11 07:30 | NUR ---
MS RN OPENING NOTES RECEIVED PATIENT ON BED, AWAKE AND A/O X1, CONFUSED. ON BILATERAL WRIST SOFT RESTRAINTS FOR SAFETY FROM TRYING TO PULL OUT TUBINGS. WITH NGT IN PLACED FOR MEDS. ON NPO EXCEPT MEDS. WITH IV ACCESS AT RIGHT HAND G20, INTACT AND PATENT. WITH RIGHT SUBCLAVIAN PERMA CATH HD ACCESS. SAFETY MEASURES IN PLACED. CALL LIGHT WITHIN REACH. BED ON LOWEST AND LOCKED POSITION, SIDE RAILS UP X2. WILL CONTINUE TO MONITOR STATUS.
[2021-01-11 08:00] VITALS: BP 132/72
[2021-01-11] MEDS: CALCIUM ACETATE 667 MG CAP/TAB GT SCH ×3 (08:00→18:59)
[2021-01-11] MEDS: SEVELAMER CARBONATE 800 MG POWD.PACK GT SCH ×3 (08:00→18:59)
[2021-01-11] MEDS: FAMOTIDINE/PF INJ 20 MG/2 ML VIAL IV SCH ×2 (09:00→20:20)
[2021-01-11] MEDS: METOPROLOL TARTRATE 50 MG TABLET GT SCH ×2 (09:00→20:21)
[2021-01-11] MEDS: ACETAMINOPHEN 650 MG/20.3 ML UDC GT PRN (09:54)
[2021-01-11] MEDS: PROSOURCE / PROSTAT (PYXIS) 30 ML UDC NG SCH ×2 (10:27→18:58)
--- NOTE | 2021-01-11 14:25 | NUR ---
RN NOTES HEMODIALYSIS DONE-TOLERATED WELL. VITAL SIGNS CHECKED: BP-101/81, KY-102, TEMP-98.4, RR-19 AND O2 SAT-97%.
[2021-01-11] MEDS: ASPIRIN 81 MG TAB.CHEW GT SCH (14:34)
[2021-01-11] MEDS: OLANZAPINE 2.5 MG TABLET GT SCH (14:35)
[2021-01-11] MEDS ORDERED: HALOPERIDOL LACTATE INJ 5 MG/ML VIAL IM PRN (15:30)
[2021-01-11] MEDS: MORPHINE SULFATE INJ 2 MG/ML DISP.SYRIN IV PRN ×2 (15:42→21:52)
[2021-01-11 16:00] VITALS: BP 134/91
--- NOTE | 2021-01-11 16:36 | NUR ---
SS Note: BRANDON called and spoke to the pt.'s mother, Amy [phone] and updated her that considering the pt.'s current condition, the pt. needs to physically rehabilitate before we can take care of pt.'s mental health. Sheila OLIVARES has already spoken to Amy and pt.'s sister to explain the pending procedures and level of care pt. needs. BRANDON notified Amy, to call [employer] department and come on Thursday 8-9 am to sign document and provide information needed. Amy is agreeable. Amy stated the family has questions for the doctor and would lik the MD to call her other daughter. Noted. BRANDON spoke with pt.'s nurse, Becki who stated she spoke to pt.'s sister already and has notified Dr. Carranza that family would like to speak with .Dr. Carranza will follow up.
[2021-01-11] MEDS ORDERED: HALOPERIDOL LACTATE 10 MG/5 ML UDC PO SCH (17:00)
[2021-01-11] MEDS: HALOPERIDOL 1 MG TABLET NG SCH (18:59)
--- NOTE | 2021-01-11 19:37 | NUR ---
MS RN CLOSING NOTES PATIENT ON BED, AWAKE AND A/O X1, CONFUSED. ON BILATERAL WRIST SOFT RESTRAINTS FOR SAFETY FROM TRYING TO PULL OUT TUBINGS. WITH NGT IN PLACED FOR MEDS. ON NPO EXCEPT MEDS. DUE MEDS GIVEN. WITH IV ACCESS AT RIGHT HAND G20, INTACT AND PATENT. WITH RIGHT SUBCLAVIAN PERMA CATH HD ACCESS. SAFETY MEASURES IN PLACED. CALL LIGHT WITHIN REACH. BED ON LOWEST AND LOCKED POSITION, SIDE RAILS UP X2. WILL ENDORSE TO NEXT SHIFT FOR LISSETH.
--- NOTE | 2021-01-11 19:50 | NUR ---
MS RN OPENING NOTE PATIENT SLEEPING IN BED, PER DAY SHIFT NURSE KIRT PT IS ALERT/ORIENTED X 1, CONFUSED AT TIMES. PATIENT EASILY AWAKENED, OPENED EYES AND NODDED HEAD WHEN ASKED YES/NO QUESTIONS. PATIENT NGT INTACT, PT NPO EXCEPT MEDS. PATIENT SUCTIONED. RIGHT HAND IV ACCESS INTACT AND FLUSHING WELL, SALINE LOCKED. RIGHT SUBCLAVIAN HD CATH INTACT. SAFETY MEASURES IN PLACE: CALL LIGHT WITHIN REACH, BED LOCKED IN LOW POSITION, SIDE RAILS UP X 3, PATIENT IN SOFT RESTRAINTS D/T PULLING AT LINES, BED ALARM ON. WILL CONTINUE TO MONITOR THROUGHOUT SHIFT.
[2021-01-11 20:00] VITALS: BP 104/61
[2021-01-11 21:45] VITALS: BP 119/84
--- NOTE | 2021-01-11 21:55 | NUR ---
MS RN NOTE PATIENT MOANING, RESTLESS AND FACIAL GRIMACING, ASKED PATIENT IF SHE WAS IN PAIN AND SHE NODDED HER HEAD YES. MORPHINE IV GIVEN ORDERED, PT VITAL SIGNS WNL. WILL CONTINUE TO MONITOR PATIENT
[2021-01-12] MEDS: ALBUTEROL HALF STRENGTH 1.25 MG/3 ML VIAL.NEB NEB SCH ×5 (03:51→20:34)
[2021-01-12] MEDS: IPRATROPIUM NEB FS 0.5 MG/2.5 ML AMPUL.NEB NEB SCH ×5 (03:51→20:34)
[2021-01-12 04:35] VITALS: BP 115/83
[2021-01-12] MEDS: MORPHINE SULFATE INJ 2 MG/ML DISP.SYRIN IV PRN (04:37)
--- NOTE | 2021-01-12 07:21 | NUR ---
MS RN CLOSING NOTES PATIENT SLEEPING IN BED, APPEARS COMFORTABLE. PT STABLE ON 3L VIA NC, NO S/S OF DISTRESS OR SOB NOTED, BREATHING EVEN AND UNLABORED. PATIENT NGT INTACT, PT NPO EXCEPT MEDS. RIGHT HAND IV ACCESS INTACT AND SALINE LOCKED. RIGHT SUBCLAVIAN HD CATH INTACT. MEDICATIONS GIVEN ORDERED, PT NEEDS MET THROUGHOUT SHIFT. SAFETY MEASURES IN PLACE: CALL LIGHT WITHIN REACH, BED LOCKED IN LOW POSITION, SIDE RAILS UP X 3, PATIENT IN SOFT RESTRAINTS D/T PULLING AT LINES, BED ALARM ON. SISTER RENA CALLED REQUESTING TO SPEAK TO DR. HYDE TO DAY SHIFT NURSE FOR CONTINUITY OF CARE
--- NOTE | 2021-01-12 07:30 | NUR ---
MS RN OPENING NOTES RECEIVED PATIENT ON BED, AWAKE AND A/O X4. ON O2 AT 3LPM VIA NASAL CANNULA, TOLERATING WELL. NO SOB NOTED. NOT IN DISTRESS. WITH NGT INTACT. ON NPO EXCEPT MEDS. WITH IV ACCESS AT RIGHT HAND G20, SALINE LOCKED, PATENT AND INTACT. SAFETY MEASURES IN PLACED. CALL LIGHT WITHIN REACH. BED ON LOWEST AND LOCKED POSITION, SIDE RAILS UP X3. BED ALARM ON. ON BILATERAL SOFT WRIST RESTRAINTS DUE TO PULLING OUT TUBINGS AND IV LINES. WILL CONTINUE TO MONITOR.
[2021-01-12] MEDS: ACETYLCYSTEINE 10% SOLN 400 MG/4 ML VIAL NEB SCH ×2 (07:53→15:12)
[2021-01-12 08:00] VITALS: BP 103/65
[2021-01-12 08:42] LABS: BASOPHILS # (AUTO) 0.1 K/uL (0.0-0.2); BASOPHILS % (AUTO) 0.7 % (0.0-2.0); EOSINOPHILS % (AUTO) 1.5 % (0.0-6.0); HEMATOCRIT 27 % (33-45); HEMOGLOBIN 8.6 g/dL (11.5-14.8); LYMPHOCYTES # (AUTO) 0.8 K/uL (0.8-4.8); MEAN CORPUSCULAR HGB CONC 32 g/dl (31.0-36.0); MEAN CORPUSCULAR VOLUME 97 fL (82-100); MONOCYTES # (AUTO) 0.9 K/uL (0.1-1.30); MONOCYTES % (AUTO) 9.2 % (2.0-12.0); NEUTROPHILS # (AUTO) 7.5 K/uL (1.8-8.9); NEUTROPHILS % (AUTO) 79.6 % (43.0-81.0); PLATELET COUNT (AUTO) 237 K/uL (150-450); WHITE BLOOD COUNT (AUTO) 9.4 K/uL (4.3-11.0)
[2021-01-12 08:55] LABS: CALCIUM, SERUM 9.1 mg/dL (8.5-10.1); MAGNESIUM 2.9 mg/dL (1.8-2.4); PHOSPHORUS 5.8 mg/dL (2.5-4.9)
[2021-01-12 08:56] LABS: CREATININE 8.4 mg/dL (0.6-1.3)
[2021-01-12] MEDS: METOPROLOL TARTRATE 50 MG TABLET GT SCH ×2 (09:00→21:08)
[2021-01-12] MEDS: FAMOTIDINE/PF INJ 20 MG/2 ML VIAL IV SCH ×2 (09:38→21:08)
[2021-01-12] MEDS: ASPIRIN 81 MG TAB.CHEW GT SCH (09:39)
[2021-01-12] MEDS: CALCIUM ACETATE 667 MG CAP/TAB GT SCH ×3 (09:39→17:03)
[2021-01-12] MEDS: HALOPERIDOL 1 MG TABLET NG SCH ×3 (09:39→17:03)
[2021-01-12] MEDS: SEVELAMER CARBONATE 800 MG POWD.PACK GT SCH ×3 (09:45→17:04)
[2021-01-12] MEDS: PROSOURCE / PROSTAT (PYXIS) 30 ML UDC NG SCH ×2 (09:49→17:04)
[2021-01-12 16:00] VITALS: BP 118/95
--- NOTE | 2021-01-12 19:30 | NUR ---
MS RN NOTES RECEIVED ON BED A/O X2,ABLE TO SAY 'HI" THRU HAND WAVE,,WITH NGT CLAMPED IN PLACE FOR MEDS.BILATERAL SOFT WRIST RESTRAINTS IN USED FOR SAFETY,DRESSING UPPER INNER THIGH INTACT AND DRY.WITH RIGHT SUBCLAVIAN PERMA CATH FOR HD ACCESS,SALINE LOCK RIGHT HAND FOR MEDS.REMAINS NPO EXCEPT MEDS.WILL CONTINUE TO MONITOR STATUS.
--- NOTE | 2021-01-12 19:30 | NUR ---
MS RN CLOSING NOTES PATIENT ON BED, RESTING AND A/O X1. ON O2 AT 3LPM VIA NASAL CANNULA, TOLERATING WELL. NO SOB NOTED. NOT IN DISTRESS. WITH NGT INTACT. ON NPO EXCEPT MEDS. WITH IV ACCESS AT RIGHT HAND G20, SALINE LOCKED, PATENT AND INTACT. SAFETY MEASURES IN PLACED. CALL LIGHT WITHIN REACH. BED ON LOWEST AND LOCKED POSITION, SIDE RAILS UP X3. BED ALARM ON. ON BILATERAL SOFT WRIST RESTRAINTS DUE TO PULLING OUT TUBINGS AND IV LINES. WILL ENDORSE TO NEXT SHIFT FOR LISSETH.
[2021-01-12 20:00] VITALS: BP 100/68
[2021-01-13] MEDS: ACETYLCYSTEINE 10% SOLN 400 MG/4 ML VIAL NEB SCH ×4 (00:16→23:40)
[2021-01-13] MEDS: IPRATROPIUM NEB FS 0.5 MG/2.5 ML AMPUL.NEB NEB SCH ×7 (00:16→23:40)
[2021-01-13] MEDS: ALBUTEROL HALF STRENGTH 1.25 MG/3 ML VIAL.NEB NEB SCH ×7 (00:17→23:40)
--- NOTE | 2021-01-13 06:19 | NUR ---
MS RN NOTES NO SIGNIFICANT CHANGE IN STATUS,REMAINS CONFUSED.NGT IN PLACE,DUE MEDS ADMINISTERED THRU NGT,DRESSING CHANGE DONE ON BILATERAL INNER THIGH WITH IMOLLIENT DRESSING.POSSIBLE PEG PLACEMENT,AWAITING TO BE SEEN BY DR KEE.IN NO ACUTE DISTRESS.WILL ENDORSE TO DAY NURSE FOR LISSETH.
[2021-01-13 06:58] LABS: BASOPHILS % (AUTO) 0.6 % (0.0-2.0); EOSINOPHILS % (AUTO) 1.1 % (0.0-6.0); HEMATOCRIT 23 % (33-45); HEMOGLOBIN 7.2 g/dL (11.5-14.8); LYMPHOCYTES # (AUTO) 0.8 K/uL (0.8-4.8); LYMPHOCYTES % (AUTO) 9.3 % (20.0-44.0); MEAN CORPUSCULAR HGB CONC 32 g/dl (31.0-36.0); MEAN CORPUSCULAR VOLUME 96 fL (82-100); MONOCYTES # (AUTO) 0.6 K/uL (0.1-1.30); MONOCYTES % (AUTO) 7.8 % (2.0-12.0); NEUTROPHILS # (AUTO) 6.6 K/uL (1.8-8.9); NEUTROPHILS % (AUTO) 81.2 % (43.0-81.0); PLATELET COUNT (AUTO) 246 K/uL (150-450); RED BLOOD CELL COUNT(AUTO) 2.36 MIL/uL (4.0-5.2); WHITE BLOOD COUNT (AUTO) 8.2 K/uL (4.3-11.0)
[2021-01-13 07:54] LABS: CALCIUM, SERUM 8.5 mg/dL (8.5-10.1); CREATININE 7.4 mg/dL (0.6-1.3); MAGNESIUM 2.7 mg/dL (1.8-2.4); PHOSPHORUS 5.6 mg/dL (2.5-4.9); POTASSIUM 4.9 mmol/L (3.5-5.1)
[2021-01-13 08:00] VITALS: BP 112/71
[2021-01-13] MEDS: CALCIUM ACETATE 667 MG CAP/TAB GT SCH ×3 (08:22→17:13)
[2021-01-13] MEDS: SEVELAMER CARBONATE 800 MG POWD.PACK GT SCH ×3 (08:22→17:13)
[2021-01-13] MEDS: PROSOURCE / PROSTAT (PYXIS) 30 ML UDC NG SCH ×2 (08:23→16:06)
[2021-01-13] MEDS: HALOPERIDOL 1 MG TABLET NG SCH ×3 (08:50→16:05)
[2021-01-13] MEDS: FAMOTIDINE/PF INJ 20 MG/2 ML VIAL IV SCH ×2 (08:50→21:09)
[2021-01-13] MEDS: ASPIRIN 81 MG TAB.CHEW GT SCH (08:51)
[2021-01-13] MEDS: METOPROLOL TARTRATE 50 MG TABLET GT SCH ×2 (08:52→21:00)
[2021-01-13 16:00] VITALS: BP 119/79
[2021-01-13] MEDS ORDERED: NEPRO 1,000 ML BOTTLE NG PRN (16:30)
[2021-01-13] MEDS: MORPHINE SULFATE INJ 2 MG/ML DISP.SYRIN IV PRN ×2 (17:42→22:16)
[2021-01-13] MEDS: NEPRO 1,000 ML BOTTLE GT PRN (17:45)
--- NOTE | 2021-01-13 18:53 | NUR ---
MS RN CLOSING NOTE PATIENT IN BED, AWAKE. ALERT AND ORIENTED X 1, NON-VERBAL BUT ABLE TO MAKE NOISE AND SOUNDS. NO S/S OF DISTRESS NOTED. NO SOB. BILATERAL SOFT WRIST RESTRAINTS IN PLACE. NGT INTACT WITH NEPRO RUNNING @30MLS/HR. ALL NEEDS MET THROUGHOUT SHIFT. SAFETY MEASURES IN PLACE. CALL LIGHT WITHIN REACH. WILL ENDORSE CONTINUITY OF CARE TO ONCOMING SHIFT.
[2021-01-13 20:00] VITALS: BP 106/85
--- NOTE | 2021-01-13 20:00 | NUR ---
MS RN OPENING NOTE PATIENT AWAKE IN BED, ALERT/ORIENTED X 1, PT ABLE TO NOD YES/NO TO QUESTIONS. PATIENT NGT INTACT AND RUNNING NEPRO @ 30 ML/HR. PATIENT STABLE ON 3 L OF OXYGEN VIA NC, NO S/S OF DISTRESS OR SOB NOTED, BREATHING EVEN AND UNLABORED. RIGHT HAND IV ACCESS INTACT AND FLUSHING WELL, SALINE LOCKED. RIGHT SUBCLAVIAN HD CATH INTACT. SAFETY MEASURES IN PLACE: CALL LIGHT WITHIN REACH, BED LOCKED IN LOW POSITION, SIDE RAILS UP X 3, PATIENT IN SOFT RESTRAINTS D/T PULLING AT LINES, BED ALARM ON. WILL CONTINUE TO MONITOR THROUGHOUT SHIFT.
[2021-01-14] MEDS: ALBUTEROL HALF STRENGTH 1.25 MG/3 ML VIAL.NEB NEB SCH ×6 (04:32→22:59)
[2021-01-14] MEDS: IPRATROPIUM NEB FS 0.5 MG/2.5 ML AMPUL.NEB NEB SCH ×6 (04:32→22:59)
[2021-01-14 06:10] VITALS: BP 112/79
[2021-01-14] MEDS: MORPHINE SULFATE INJ 2 MG/ML DISP.SYRIN IV PRN ×2 (06:15→12:10)
[2021-01-14 06:36] LABS: BASOPHILS % (AUTO) 0.2 % (0.0-2.0); EOSINOPHILS % (AUTO) 1.4 % (0.0-6.0); HEMATOCRIT 27 % (33-45); HEMOGLOBIN 8.7 g/dL (11.5-14.8); LYMPHOCYTES # (AUTO) 0.7 K/uL (0.8-4.8); LYMPHOCYTES % (AUTO) 8.4 % (20.0-44.0); MEAN CORPUSCULAR HGB CONC 32 g/dl (31.0-36.0); MEAN CORPUSCULAR VOLUME 96 fL (82-100); MONOCYTES # (AUTO) 0.6 K/uL (0.1-1.30); MONOCYTES % (AUTO) 7.4 % (2.0-12.0); NEUTROPHILS % (AUTO) 82.6 % (43.0-81.0); PLATELET COUNT (AUTO) 302 K/uL (150-450); RED BLOOD CELL COUNT(AUTO) 2.84 MIL/uL (4.0-5.2); WHITE BLOOD COUNT (AUTO) 8.5 K/uL (4.3-11.0)
--- NOTE | 2021-01-14 06:45 | NUR ---
MS RN CLOSING NOTES PATIENT AWAKE IN BED, APPEARS COMFORTABLE. PT STABLE ON 3L VIA NC, NO S/S OF DISTRESS OR SOB NOTED, BREATHING EVEN AND UNLABORED. PATIENT NGT INTACT, RUNNING NS @ 75 ML/HR. RIGHT HAND IV ACCESS INTACT AND SALINE LOCKED. RIGHT SUBCLAVIAN HD CATH INTACT. MEDICATIONS GIVEN ORDERED, PT NEEDS MET THROUGHOUT SHIFT, WOUND TREATMENT DONE. SAFETY MEASURES IN PLACE: CALL LIGHT WITHIN REACH, BED LOCKED IN LOW POSITION, SIDE RAILS UP X 3, PATIENT IN SOFT RESTRAINTS D/T PULLING AT LINES, BED ALARM ON. WILL ENDORSE TO DAY SHIFT NURSE FOR CONTINUITY OF CARE
[2021-01-14 07:05] LABS: CALCIUM, SERUM 9.4 mg/dL (8.5-10.1); MAGNESIUM 2.9 mg/dL (1.8-2.4); PHOSPHORUS 5.9 mg/dL (2.5-4.9); POTASSIUM 5.2 mmol/L (3.5-5.1)
--- NOTE | 2021-01-14 07:40 | NUR ---
MS RN OPENING NOTE RECEIVED PATIENT IN BED, AWAKE. ALERT AND ORIENTED X 1, NON-VERBAL BUT ABLE TO NOD YES AND NO AND FOLLOW SOME COMMANDS. PT UNDERSTANDS MALIAN ONLY. NO S/S OF DISTRESS NOTED. NO SOB.PT NOTED WITH BILATERAL SOFT WRIST RESTRAINTS. SAFETY MEASURES IN PLACE WITH BED LOCKED AND LOW POSITION, SIDE RAILS UP X 2. CALL LIGHT WITHIN REACH. WILL CONTINUE TO MONITOR THROUGHOUT SHIFT.
[2021-01-14 07:42] LABS: CREATININE 9.4 mg/dL (0.6-1.3)
[2021-01-14 08:00] VITALS: BP 113/83
[2021-01-14] MEDS: ACETYLCYSTEINE 10% SOLN 400 MG/4 ML VIAL NEB SCH ×3 (08:25→22:59)
[2021-01-14] MEDS: CALCIUM ACETATE 667 MG CAP/TAB GT SCH ×3 (08:40→17:33)
[2021-01-14] MEDS: SEVELAMER CARBONATE 800 MG POWD.PACK GT SCH ×3 (08:40→17:36)
[2021-01-14] MEDS: FAMOTIDINE/PF INJ 20 MG/2 ML VIAL IV SCH ×2 (08:40→23:52)
[2021-01-14] MEDS: ASPIRIN 81 MG TAB.CHEW GT SCH (08:40)
[2021-01-14] MEDS: HALOPERIDOL 1 MG TABLET NG SCH ×3 (08:40→17:33)
[2021-01-14] MEDS: ACETAMINOPHEN 650 MG/20.3 ML UDC GT PRN ×2 (08:41→20:26)
[2021-01-14] MEDS: METOPROLOL TARTRATE 50 MG TABLET GT SCH ×2 (08:42→20:26)
--- NOTE | 2021-01-14 08:42 | NUR ---
MS RN NOTE PT IS HAVING DIALYSIS AT THIS TIME. METOPROLOL HELD.
[2021-01-14] MEDS: PROSOURCE / PROSTAT (PYXIS) 30 ML UDC NG SCH ×2 (08:43→17:22)
--- NOTE | 2021-01-14 10:50 | NUR ---
WOUND CARE FOLLOW UP: PT CONTINUES TO HAVE INCONTINENCE ASSOCIATED OPEN SKIN TO INNER THIGHS AND LOWER BUTTOCKS/BUTTOCK FOLDS. PT HAVING LIQUID STOOL. DISCUSSED WITH MD AND NEW ORDERS RECEIVED FOR FLEXISEAL BY RN. DISCUSSED SKIN PROTECTION WITH NURSING STAFF. PT IS ON BASILIO ISOFLEX LOW AIRLOSS BED. MD IN AGREEMENT WITH PLAN OF CARE.
--- NOTE | 2021-01-14 11:13 | NUR ---
MS RN NOTE PT CONTINUES TO HAVE LIQUID BOWEL MOVEMENTS. RECEIVED NEW ORDERS FOR FLEXISEAL PER DR. DUONG;ORDERS READ BACK AND CARRIED OUT.
--- NOTE | 2021-01-14 15:00 | NUR ---
MS RN NOTE PT PULLED OUT FLEXISEAL AND IV STUDENTS AND MYSELF WERE DOING LINEN CHANGE. ATTEMPTED TO REINSERT FLEXISEAL X2 AND UNSUCCESSFUL. MADE AWARE.
[2021-01-14 16:00] VITALS: BP 98/54
--- NOTE | 2021-01-14 18:26 | NUR ---
MS RN CLOSING NOTE PATIENT IN BED, AWAKE. ALERT AND ORIENTED X 1,ABLE TO FOLLOW SOME COMMANDS AND SPEAK AT TIMES. NO S/S OF DISTRESS NOTED. NO SOB. BILATERAL SOFT WRIST RESTRAINTS IN PLACE. NGT INTACT WITH NEPRO RUNNING @30MLS/HR. ALL NEEDS MET THROUGHOUT SHIFT. SAFETY MEASURES IN PLACE. CALL LIGHT WITHIN REACH. WILL ENDORSE CONTINUITY OF CARE TO ONCOMING SHIFT.
--- NOTE | 2021-01-14 19:41 | NUR ---
STUD SETTER OPENING RECEIVED PATIENT IN BED WITH EYES OPEN, CONFUSED.NO S/S OF APPARENT DISTRESS. NOT EXHIBITING PAIN VIA FLACC. NO IV ACCESS-- IT WAS ENDORSED TO ME THAT PATIENT PULLS OUT LINES, CURRENTLY ON SOFT BILATERAL WRIST RESTRAINTS. SAFETY IN PLACE. NO NEEDS AT THE MOMENT. WILL CONTINUE TO MONITOR.
[2021-01-14 20:00] VITALS: BP 124/77
--- NOTE | 2021-01-14 22:10 | NUR ---
MS RN NOTE FLEXISEAL INSERTED AT THIS TIME. PATIENT STILL TRYING TO REMOVE LINES/TUBINGS. WILL CONTINUE TO MONITOR.
--- NOTE | 2021-01-15 00:15 | NUR ---
MS RN NOTE COURTNEY, CENTRAL LINE RN, IN THE ROOM AT THIS TIME TO INSERT MIDLINE.
[2021-01-15] MEDS: ALBUTEROL HALF STRENGTH 1.25 MG/3 ML VIAL.NEB NEB SCH ×6 (03:11→23:37)
[2021-01-15] MEDS: IPRATROPIUM NEB FS 0.5 MG/2.5 ML AMPUL.NEB NEB SCH ×6 (03:11→23:37)
[2021-01-15 06:27] LABS: BASOPHILS % (AUTO) 0.7 % (0.0-2.0); EOSINOPHILS % (AUTO) 1.6 % (0.0-6.0); HEMATOCRIT 26 % (33-45); HEMOGLOBIN 8.4 g/dL (11.5-14.8); LYMPHOCYTES % (AUTO) 14.9 % (20.0-44.0); MEAN CORPUSCULAR HGB CONC 32 g/dl (31.0-36.0); MEAN CORPUSCULAR VOLUME 95 fL (82-100); MONOCYTES # (AUTO) 0.8 K/uL (0.1-1.30); NEUTROPHILS # (AUTO) 4.9 K/uL (1.8-8.9); NEUTROPHILS % (AUTO) 71.8 % (43.0-81.0); PLATELET COUNT (AUTO) 339 K/uL (150-450); RED BLOOD CELL COUNT(AUTO) 2.74 MIL/uL (4.0-5.2); WHITE BLOOD COUNT (AUTO) 6.9 K/uL (4.3-11.0)
--- NOTE | 2021-01-15 07:01 | NUR ---
GENERAL FOREMAN CLOSING NOTE. PATIENT IN BED, WITH EYES CLOSED. EASY TO AROUSE. A/OX1, TAJIK SPEAKING, CONFUSED. NO S/S OF APPARENT DISTRESS. NOT EXHIBITING PAIN VIA FLACC. NO IV FLUIDS RUNNING AT THIS TIME. G-TUBE FEEDING RUNNING AT 30ML/HR. ALL NEEDS ATTENDED. ALL SCHEDULED MEDS ADMINISTERED. SAFETY KEPT IN PLACE THE WHOLE SHIFT. NO SIGNIFICANT CHANGE SINCE LAST SHIFT. WILL ENDORSE CARE TO MORNING SHIFT RN FOR CONTINUITY OF CARE.
[2021-01-15 07:21] LABS: CALCIUM, SERUM 9.1 mg/dL (8.5-10.1); PHOSPHORUS 4.8 mg/dL (2.5-4.9); POTASSIUM 4.9 mmol/L (3.5-5.1)
--- NOTE | 2021-01-15 07:30 | NUR ---
MS RN OPENING NOTES RECEIVED PATIENT OB BED, RESTING AND A/O X1, ENGLISH SPEAKING, CONFUSED. ON O2 AT 2LPM TOLERATING WELL. NO APPARENT DISTRESS NOTED. WITH NO SIGNS OF PAIN OR DISCOMFORT NOTED VIA FLACC. WITH IV ACCESS AT RIGHT UPPER ARM MIDLINE, SALINE LOCKED, PATENT AND INTACT. WITH RIGHT SUBCLAVIAN PERMACATH FOR HD. ON NEPRO FEEDING AT 30ML/HR VIA NGT. SAFETY MEASURES IN PLACE. CALL LIGHT WITHIN REACH. BED ON LOWEST AND LOCKED POSITION, SIDE RAILS UP X2. WILL CONTINUE TO MONITOR.
[2021-01-15 07:33] LABS: CREATININE 7.8 mg/dL (0.6-1.3)
[2021-01-15 08:00] VITALS: BP 114/70
[2021-01-15] MEDS: ACETYLCYSTEINE 10% SOLN 400 MG/4 ML VIAL NEB SCH ×3 (08:15→23:37)
[2021-01-15] MEDS: METOPROLOL TARTRATE 50 MG TABLET GT SCH ×2 (08:37→21:00)
[2021-01-15] MEDS: FAMOTIDINE/PF INJ 20 MG/2 ML VIAL IV SCH ×2 (08:37→23:26)
[2021-01-15] MEDS: CALCIUM ACETATE 667 MG CAP/TAB GT SCH ×3 (08:38→17:38)
[2021-01-15] MEDS: HALOPERIDOL 1 MG TABLET NG SCH ×3 (08:38→17:38)
[2021-01-15] MEDS: ASPIRIN 81 MG TAB.CHEW GT SCH (08:38)
[2021-01-15] MEDS: SEVELAMER CARBONATE 800 MG POWD.PACK GT SCH ×3 (08:38→17:38)
[2021-01-15] MEDS: PROSOURCE / PROSTAT (PYXIS) 30 ML UDC NG SCH ×2 (08:45→17:39)
--- NOTE | 2021-01-15 11:45 | NUR ---
SS Note: SS consult requested for patient's family interested in making pt. DNR code status. SW attempted to meet with pt.'s family at bedside but family has already departed. BRANDON met with pt. bedside. Pt is A&OX2 (NAME & LOCATION). Pt. able to communicate by nodding and mouthing. SW spoke to pt. in Luxembourgish as she is Luxembourgish Speaking mostly per family. BRANDON asked pt. that in the event that her heart were to stop would she want to be resuscitated with chest compressions. Pt. nodded yes. BRANDON notified charge nurse. BRANDON also called pt.'s sister, Pamela [phone] and informed her that pt. was able to express wish to remain Full Code. Pamela expressed understanding and is agreeable to pt. remaining Full Code if she is able to express her wishes. Noted. SW will remain available as needed.
--- NOTE | 2021-01-15 14:00 | NUR ---
MS RN NOTES NGT REMOVED PER DOCTOR'S ORDER.
[2021-01-15 16:00] VITALS: BP 94/72
--- NOTE | 2021-01-15 18:50 | NUR ---
MS RN CLOSING NOTES PATIENT OB BED, RESTING AND A/O X2, VATICAN CITIZEN SPEAKING. ON O2 AT 2LPM TOLERATING WELL. NO APPARENT DISTRESS NOTED. WITH NO SIGNS OF PAIN OR DISCOMFORT NOTED VIA FLACC. WITH IV ACCESS AT RIGHT UPPER ARM MIDLINE, SALINE LOCKED, PATENT AND INTACT. WITH RIGHT SUBCLAVIAN PERMACATH FOR HD. ON ONGOING HEMODIALYSIS. SAFETY MEASURES IN PLACE. CALL LIGHT WITHIN REACH. BED ON LOWEST AND LOCKED POSITION, SIDE RAILS UP X2. WILL ENDORSE TO NEXT SHIFT FOR LISSETH.
--- NOTE | 2021-01-15 19:15 | NUR ---
MS RN OPENING NOTES: RECEIVED PATIENT IN BED, SLEEP, EASILY AROUSABLE. NO S/S OF DISTRESS NOTED. CALL LIGHT WITHIN REACH. BED ALARM ON. BED IN LOWEST AND LOCKED POSITION. ON HD GOING ON. WITH BILATERAL SOFT WRISTS RESTRAINTS ON, WITH GOOD CMS. WITH O2 AT 2L/MIN NASAL CANNULA ON. HOB ELEVATED. WITH RECTAL TUBE INTACT.
[2021-01-15 20:00] VITALS: BP 106/80
[2021-01-15] MEDS: ALBUMIN 25% 25 GM in PREMIX 1 EA IV PRN (21:04)
--- NOTE | 2021-01-15 23:43 | NUR ---
spoke to MARLEE Logan, RE: to verify if it's okay to hold the metoprolol scheduled tonight, since BP IS 104/70, HR =111. He said to hold it for tonight.
[2021-01-15 23:47] VITALS: BP 104/70
[2021-01-16] MEDS: ALBUTEROL HALF STRENGTH 1.25 MG/3 ML VIAL.NEB NEB SCH ×6 (03:57→23:34)
[2021-01-16] MEDS: IPRATROPIUM NEB FS 0.5 MG/2.5 ML AMPUL.NEB NEB SCH ×6 (03:57→23:34)
[2021-01-16 06:36] LABS: BASOPHILS % (AUTO) 0.3 % (0.0-2.0); HEMATOCRIT 22 % (33-45); HEMOGLOBIN 7.1 g/dL (11.5-14.8); LYMPHOCYTES # (AUTO) 0.9 K/uL (0.8-4.8); LYMPHOCYTES % (AUTO) 14.3 % (20.0-44.0); MEAN CORPUSCULAR HGB CONC 32 g/dl (31.0-36.0); MEAN CORPUSCULAR VOLUME 94 fL (82-100); MONOCYTES # (AUTO) 0.6 K/uL (0.1-1.30); NEUTROPHILS # (AUTO) 4.9 K/uL (1.8-8.9); NEUTROPHILS % (AUTO) 75.4 % (43.0-81.0); PLATELET COUNT (AUTO) 287 K/uL (150-450); RED BLOOD CELL COUNT(AUTO) 2.37 MIL/uL (4.0-5.2); WHITE BLOOD COUNT (AUTO) 6.5 K/uL (4.3-11.0)
[2021-01-16] MEDS: ACETYLCYSTEINE 10% SOLN 400 MG/4 ML VIAL NEB SCH ×3 (07:49→23:34)
[2021-01-16 07:55] LABS: CALCIUM, SERUM 9.4 mg/dL (8.5-10.1); CREATININE 5.6 mg/dL (0.6-1.3); POTASSIUM 4.4 mmol/L (3.5-5.1)
[2021-01-16 08:00] VITALS: BP 104/67
[2021-01-16] MEDS ORDERED: EPOETIN ALFA (10,000 UNIT) 10,000 UNIT/ML VIAL IV ONE (08:00)
[2021-01-16] MEDS: METOPROLOL TARTRATE 50 MG TABLET GT SCH ×2 (09:00→21:50)
[2021-01-16] MEDS: ASPIRIN 81 MG TAB.CHEW GT SCH (09:14)
[2021-01-16] MEDS: HALOPERIDOL 1 MG TABLET NG SCH ×3 (09:15→17:30)
[2021-01-16] MEDS: FAMOTIDINE/PF INJ 20 MG/2 ML VIAL IV SCH ×2 (09:16→21:40)
[2021-01-16] MEDS: SEVELAMER CARBONATE 800 MG POWD.PACK GT SCH ×3 (09:16→17:29)
[2021-01-16] MEDS: CALCIUM ACETATE 667 MG CAP/TAB GT SCH ×3 (09:16→17:29)
[2021-01-16] MEDS: PROSOURCE / PROSTAT (PYXIS) 30 ML UDC NG SCH (09:28)
--- NOTE | 2021-01-16 10:05 | NUR ---
RN MS NOTES RECEIVED PATIENT AWAKE ON BED A/OX1. IN NO APPARENT RESPIRATORY DISTRESS NOTED. BREATHING EVEN AND UNLABORED. NO SIGNS & SX OF PAIN AND DISCOMFORT AT THIS TIME. NO FACIAL GRIMACE, NO FACIAL MOANING AND NO GUARDING BX NOTED. PT. WITH IV ACCESS AT KO MIDLINE, INTACT AND PATENT. PT. WITH R SUBCLAVIAN PERMACATH FOR HD WITH DRY DRESSING IN PLACE. FREQUENT VISUAL CHECKS RENDERED FOR COMFORT AND SAFETY. CALL LIGHT WITHIN EASY REACH.BED ON LOWEST POSITION. SIDE RAILS UP X 2. WILL CONTINUE TO MONITOR PATIENT
--- NOTE | 2021-01-16 11:07 | NUR ---
RN MS NOTES DR. OLSON INFORMED OF PT'S LATEST H/H OF 7.05/04, NO NEW ORDER.
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
[2021-01-16] MEDS ORDERED: EPOETIN ALFA-EPBX 10,000 UNIT/ML VIAL IV ONE (15:00)
[2021-01-16 16:00] VITALS: BP 115/73
[2021-01-16] MEDS: NEPRO VAN 237 ML CAN PO SCH (16:00)
[2021-01-16] MEDS: PROSOURCE / PROSTAT (PYXIS) 30 ML UDC PO SCH (17:00)
--- NOTE | 2021-01-16 18:15 | NUR ---
RN MS NOTES PATIENT ON BED, AWAKE , A/O X1 WITH PERIODS OF CONFUSION. IN NO APPARENT DISTRESS NOTED, BREATHING EVEN AND UNLABORED. NO S&SX OF PAIN. NO FACIAL GRIMACE,NO MOANING AND NO GUARDING BX NOTED AT THIS TIME. PATIENT WITH R SUBCLAVIAN PERMACATH, WITH CLEAN AND DRY DRESSING IN PLACE, WITH KO MIDLINE, INTACT AND PATENT. WITH RECTAL TUBE IN PLACE. FREQUENT VISUAL CHECKS RENDERED TO ENSURE SAFETY AND COMFORT. CALL LIGHT WITHIN EASY REACH. SAFETY PRECAUTION IN PLACE, SIDE RAILS UP X 2. WILL CONTINUE TO MONITOR PATIENT
--- NOTE | 2021-01-16 19:15 | NUR ---
MS RN OPENING NOTES: RECEIVED PATIENT IN BED, AWAKE, CONFUSED, NO S/S OF DISTRESS NOTED. HOB ELEVATED. CALL LIGHT WITHIN REACH. BED IN LOWEST AND LOCKED POSITION. BED ALARM ON. WITH BILATERAL SOFT WRISTS RESTRAINTS ON, WITH CMS AND GOOD CIRCULATIONS. WITH RECTAL TUBE INTACT DRAINING WATERY BROWNISH COLOR STOOL.
[2021-01-16 20:00] VITALS: BP 95/66
--- NOTE | 2021-01-16 20:54 | NUR ---
INFORMED TRUCK SUPERVISOR MARY RE: BP 95/66, HR 128. IF IT'S OKAY TO HOLD THE LOPRESSOR 100MG.
[2021-01-16 21:35] VITALS: BP 95/78
[2021-01-17] MEDS: IPRATROPIUM NEB FS 0.5 MG/2.5 ML AMPUL.NEB NEB SCH ×6 (03:40→23:11)
[2021-01-17] MEDS: ALBUTEROL HALF STRENGTH 1.25 MG/3 ML VIAL.NEB NEB SCH ×6 (03:40→23:11)
--- NOTE | 2021-01-17 07:52 | NUR ---
RN NOTE PT RESTING IN BED ASLEEP. AROUSES TO LIGHT TOUCH. ON 2L NC WITH SOB PRESENT. NO RESPIRATORY DISTRESS. A/O X2 AND SERBIAN SPEAKING. NO COMPLAINT OF PAIN OR NAUSEA. NO STEMMER MACHINE PRESENT. NO EDEMA PRESENT. RECTAL TUBE PRESENT. ANURIC. ON BED REST. SKIN ISSUES PRESENT, WOUND CARE ORDERED, PICTURES IN CHART. KO MIDLINE PRESENT AND FLUSHES WELL. R SUBCLAVIAN HD CATH PRESENT. LABS AND ORDERS REVIEWED. SAFETY MEASURES IN PLACE. SIDE RAILS RAISED. BED LOWERED. CALL LIGHT WITHIN REACH. WILL CONTINUE TO MONITOR.
[2021-01-17] MEDS: ACETYLCYSTEINE 10% SOLN 400 MG/4 ML VIAL NEB SCH ×3 (07:59→23:11)
[2021-01-17 08:00] VITALS: BP 87/66
[2021-01-17] MEDS: CALCIUM ACETATE 667 MG CAP/TAB GT SCH ×3 (08:13→17:24)
[2021-01-17] MEDS: SEVELAMER CARBONATE 800 MG POWD.PACK GT SCH ×3 (08:13→17:24)
[2021-01-17] MEDS: NEPRO VAN 237 ML CAN PO SCH (08:14)
[2021-01-17] MEDS: HALOPERIDOL 1 MG TABLET NG SCH ×3 (08:14→17:24)
[2021-01-17] MEDS: PROSOURCE / PROSTAT (PYXIS) 30 ML UDC PO SCH ×2 (08:14→17:00)
[2021-01-17] MEDS: FAMOTIDINE/PF INJ 20 MG/2 ML VIAL IV SCH ×2 (08:14→20:30)
[2021-01-17] MEDS: ASPIRIN 81 MG TAB.CHEW GT SCH (08:14)
[2021-01-17] MEDS: METOPROLOL TARTRATE 50 MG TABLET GT SCH ×2 (09:00→20:31)
[2021-01-17 10:37] LABS: CALCIUM, SERUM 9.6 mg/dL (8.5-10.1); CREATININE 6.3 mg/dL (0.6-1.3); MAGNESIUM 2.5 mg/dL (1.8-2.4); PHOSPHORUS 4.3 mg/dL (2.5-4.9); POTASSIUM 4.9 mmol/L (3.5-5.1)
[2021-01-17 11:23] LABS: HEMOGLOBIN 7.8 g/dL (11.5-14.8); RED BLOOD CELL COUNT(AUTO) 2.59 MIL/uL (4.0-5.2); WHITE BLOOD COUNT (AUTO) 8.1 K/uL (4.3-11.0)
[2021-01-17 11:24] LABS: BASOPHILS % (AUTO) 0.6 % (0.0-2.0); EOSINOPHILS % (AUTO) 0.5 % (0.0-6.0); HEMATOCRIT 25 % (33-45); LYMPHOCYTES % (AUTO) 14.1 % (20.0-44.0); MEAN CORPUSCULAR HGB CONC 32 g/dl (31.0-36.0); MEAN CORPUSCULAR VOLUME 95 fL (82-100); MONOCYTES % (AUTO) 11.4 % (2.0-12.0); NEUTROPHILS % (AUTO) 73.4 % (43.0-81.0); PLATELET COUNT (AUTO) 432 K/uL (150-450)
[2021-01-17 11:25] LABS: LYMPHOCYTES # (AUTO) 1.1 K/uL (0.8-4.8); MONOCYTES # (AUTO) 0.9 K/uL (0.1-1.30); NEUTROPHILS # (AUTO) 5.9 K/uL (1.8-8.9)
--- NOTE | 2021-01-17 12:00 | NUR ---
RN NOTE PT REFUSING TO TAKE PO MEDS. PT NOT OPENING MOUTH FOR INTAKE AND REPEATEDLY SHAKES HEAD. WILL CONTINUE TO MONITOR.
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
[2021-01-17 16:00] VITALS: BP 102/57
--- NOTE | 2021-01-17 16:56 | NUR ---
RN NOTE PT PULLED OUT RECTAL TUBE. RECTAL TUBE REINSERTED. WILL CONTINUE TO MONITOR.
--- NOTE | 2021-01-17 17:00 | NUR ---
RN NOTE PT INTAKE <25% THROUGHOUT DAY. PT REFUSING TO OPEN MOUTH FOR PO MEDS. CN AWARE. WILL CONTINUE TO MONITOR.
--- NOTE | 2021-01-17 18:11 | NUR ---
RN NOTE PT RESTING IN BED ASLEEP. AROUSES TO LIGHT TOUCH. ON 2L NC WITH SOB PRESENT. NO RESPIRATORY DISTRESS. A/O X2. NO COMPLAINT OF PAIN OR NAUSEA. NO HALL COORDINATOR PRESENT. NO EDEMA PRESENT. RECTAL TUBE PRESENT. ANURIC. ON BED REST. SKIN ISSUES PRESENT, WOUND CARE ORDERED, PICTURES IN CHART. KO MIDLINE PRESENT AND FLUSHES WELL. R SUBCLAVIAN HD CATH PRESENT. LABS AND ORDERS REVIEWED. SAFETY MEASURES IN PLACE. SIDE RAILS RAISED. BED LOWERED. CALL LIGHT WITHIN REACH. WILL GIVE REPORT TO NIGHT NURSE FOR LISSETH
--- NOTE | 2021-01-17 19:15 | NUR ---
MS/RN OPENING NOTE RECEIVED PATIENT SLEEPING IN BED. ALERT AND ORIENTED X 1-2. DENIES PAIN AT THIS TIME. CONTINUES ON 2L O2 VIA NC WITH NO S/SX OF RESPIRATORY DISTRESS NOTED. CONTINUES ON BILATERAL SOFT WRIST RESTRAINTS WITH POSITIVE CIRCULATION NOTED. IV ACCESS TO RIGHT UPPER ARM MIDLINE #18G INTACT, PATENT AND SALINE LOCKED. RIGHT SUBCLAVIAN PERMACATH INTACT. CONTINUES WITH RECTAL TUBE. CALL LIGHT WITHIN REACH. ASPIRATION, FALL AND SAFETY PRECAUTIONS MAINTAINED. WILL CONTINUE TO MONITOR.
[2021-01-17 20:00] VITALS: BP 98/65
--- NOTE | 2021-01-17 23:30 | NUR ---
MS/RN NOTE PATIENT DISLODGED RECTAL TUBE. NEW RECTAL TUBE INSERTED WITH PATIENT TOLERATING WELL. WILL CONTINUE TO MONITOR.
[2021-01-18] MEDS: IPRATROPIUM NEB FS 0.5 MG/2.5 ML AMPUL.NEB NEB SCH ×6 (03:45→23:55)
[2021-01-18] MEDS: ALBUTEROL HALF STRENGTH 1.25 MG/3 ML VIAL.NEB NEB SCH ×6 (03:45→23:55)
--- NOTE | 2021-01-18 06:20 | NUR ---
MS/RN CLOSING NOTE PATIENT CURRENTLY SLEEPING IN BED. ALERT AND ORIENTED X 1-2. DENIES PAIN AT THIS TIME. CONTINUES ON 2L O2 VIA NC WITH NO S/SX OF RESPIRATORY DISTRESS NOTED. CONTINUES ON BILATERAL SOFT WRIST RESTRAINTS WITH POSITIVE CIRCULATION NOTED. IV ACCESS TO RIGHT UPPER ARM MIDLINE #18G INTACT, PATENT AND SALINE LOCKED. RIGHT SUBCLAVIAN PERMACATH INTACT. CONTINUES ON PUREED DIET WITH NO S/SX OF ASPIRATION NOTED THIS SHIFT. CALL LIGHT WITHIN REACH. ASPIRATION, FALL AND SAFETY PRECAUTIONS MAINTAINED. WILL ENDORSE PLAN OF CARE TO ONCOMING SHIFT.
[2021-01-18 06:36] LABS: BASOPHILS % (AUTO) 0.5 % (0.0-2.0); EOSINOPHILS % (AUTO) 0.2 % (0.0-6.0); HEMATOCRIT 24 % (33-45); HEMOGLOBIN 7.8 g/dL (11.5-14.8); LYMPHOCYTES # (AUTO) 1.1 K/uL (0.8-4.8); LYMPHOCYTES % (AUTO) 13.2 % (20.0-44.0); MEAN CORPUSCULAR HGB CONC 33 g/dl (31.0-36.0); MEAN CORPUSCULAR VOLUME 93 fL (82-100); MONOCYTES % (AUTO) 11.6 % (2.0-12.0); NEUTROPHILS # (AUTO) 6.4 K/uL (1.8-8.9); NEUTROPHILS % (AUTO) 74.5 % (43.0-81.0); PLATELET COUNT (AUTO) 429 K/uL (150-450); RED BLOOD CELL COUNT(AUTO) 2.56 MIL/uL (4.0-5.2); WHITE BLOOD COUNT (AUTO) 8.6 K/uL (4.3-11.0)
[2021-01-18 07:07] LABS: CALCIUM, SERUM 9.3 mg/dL (8.5-10.1)
[2021-01-18 07:09] LABS: CREATININE 8.5 mg/dL (0.6-1.3)
--- NOTE | 2021-01-18 07:15 | NUR ---
RN OPENING NOTE PT RESTING IN BED ASLEEP. AROUSES TO LIGHT TOUCH. ON 2L NC WITH SOB PRESENT. NO RESPIRATORY DISTRESS. A/O X2 AND PUERTO RICAN SPEAKING. NO COMPLAINT OF PAIN OR NAUSEA. NO LENS GRINDER AND POLISHER PRESENT. NO EDEMA PRESENT. PT PULLED RECTAL TUBE, CN AWARE. ANURIC. ON BED REST. SKIN ISSUES PRESENT, WOUND CARE ORDERED, PICTURES IN CHART. KO MIDLINE PRESENT AND FLUSHES WELL. R SUBCLAVIAN HD CATH PRESENT. LABS AND ORDERS REVIEWED. SAFETY MEASURES IN PLACE. SIDE RAILS RAISED. BED LOWERED. CALL LIGHT WITHIN REACH. WILL CONTINUE TO MONITOR.
[2021-01-18] MEDS: ACETYLCYSTEINE 10% SOLN 400 MG/4 ML VIAL NEB SCH ×3 (07:57→23:55)
[2021-01-18] MEDS: CALCIUM ACETATE 667 MG CAP/TAB GT SCH ×3 (08:00→17:16)
[2021-01-18] MEDS: SEVELAMER CARBONATE 800 MG POWD.PACK GT SCH ×3 (08:00→17:17)
[2021-01-18] MEDS: PROSOURCE / PROSTAT (PYXIS) 30 ML UDC PO SCH ×2 (08:11→17:00)
[2021-01-18] MEDS: NEPRO VAN 237 ML CAN PO SCH (08:11)
[2021-01-18] MEDS: ASPIRIN 81 MG TAB.CHEW GT SCH (08:11)
[2021-01-18] MEDS: METOPROLOL TARTRATE 50 MG TABLET GT SCH ×2 (08:11→21:05)
[2021-01-18] MEDS: FAMOTIDINE/PF INJ 20 MG/2 ML VIAL IV SCH ×2 (08:23→21:05)
[2021-01-18] MEDS: HALOPERIDOL 1 MG TABLET NG SCH ×3 (08:24→17:00)
--- NOTE | 2021-01-18 08:24 | NUR ---
RN NOTE ATTEMPTED TO ADMINISTER MEDS TO PT. PT ABLE TO TAKE HALDOL CRUSHED IN PUDDING. PT REFUSED FURTHER ATTEMPTS TO FEED. CN AWARE. WILL CONTINUE TO MONITOR.
--- NOTE | 2021-01-18 09:05 | NUR ---
RN NOTE ST VISIT TODAY. PT INTAKE 75% OF BREAKFAST. WILL CONTINUE TO MONITOR.
[2021-01-18] MEDS ORDERED: HEPARIN SODIUM, PORCINE 1,000 UNIT/ML VIAL IV PRN (12:00)
[2021-01-18] MEDS ORDERED: EPOETIN ALFA (10,000 UNIT) 10,000 UNIT/ML VIAL IV ONE (15:00)
--- NOTE | 2021-01-18 18:41 | NUR ---
RN CLOSING NOTE PT RESTING IN BED AWAKE. ON 2L NC WITH SOB PRESENT. NO RESPIRATORY DISTRESS. A/O X2 AND INDONESIAN SPEAKING. NO COMPLAINT OF PAIN OR NAUSEA. NO SERVICE OR WORK DISPATCHER PRESENT. NO EDEMA PRESENT. ANURIC. ON BED REST. SKIN ISSUES PRESENT, WOUND CARE ORDERED, PICTURES IN CHART. KO MIDLINE PRESENT AND FLUSHES WELL. R SUBCLAVIAN HD CATH PRESENT. HD TODAY WITH 1750 OUTPUT. LABS AND ORDERS REVIEWED. SAFETY MEASURES IN PLACE. SIDE RAILS RAISED. BED LOWERED. CALL LIGHT WITHIN REACH. WILL GIVE REPORT TO NIGHT NURSE FOR LISSETH.
--- NOTE | 2021-01-18 19:35 | NUR ---
RN OPENING NOTES: RECEIVED PATIENT AWAKE IN BED, BED IN LOW POSITION, CALL LIGHTS WITHIN REACH, NO COMPLAIN OF PAIN AND DISCOMFORT AT THIS TIME, , ON NC @2LPM NO SOB WAS OBSERVED, PATIENT IS A/0X1 TURKISH SPEAKING WITH KO MIDLINE, RT SUBCLAVIAN PERMCATH DONE DIALYSIS 01/18 1730CC, PATIENT ON BILATERAL SOFT RESTRAINT, PATIENT KEPT COMFORTABLE, REMIND TO USE THE CALL LIGHTS WHEN NEEDED ASSISTANCE, WILL CONTINUE TO MONITOR.
[2021-01-18 20:00] VITALS: BP 106/67
--- NOTE | 2021-01-18 20:06 | NUR ---
RT albuteral tx not given at this time. pt tachycardic. notified kenny rn
[2021-01-19] MEDS: IPRATROPIUM NEB FS 0.5 MG/2.5 ML AMPUL.NEB NEB SCH ×6 (03:22→23:53)
[2021-01-19] MEDS: ALBUTEROL HALF STRENGTH 1.25 MG/3 ML VIAL.NEB NEB SCH ×6 (03:28→23:53)
--- NOTE | 2021-01-19 06:24 | NUR ---
RN CLOSING NOTES: RECEIVED PATIENT AWAKE IN BED, BED IN LOW POSITION, CALL LIGHTS WITHIN REACH, NO COMPLAIN OF PAIN AND DISCOMFORT AT THIS TIME, WITH KO MIDLINE SL, RT SUBCLAVIAN PERMCATH HD DONE YESTERDAY 1730CC OUTPUT, PATIENT ON BILATERAL WRIST SOFT RESTRAINT RELEASE AND MONITOR FOR SKIN INTEGRITY, SKIN ISSUES ON BUTTOCKS, CLEANS WITH WATER PAT AND DRY AND APPLY ZGUARD, ALL NEEDS MET, KEPT CLEAN AND DRY, ENDORSE TO INCOMING SHIFT.
[2021-01-19] MEDS: ACETYLCYSTEINE 10% SOLN 400 MG/4 ML VIAL NEB SCH ×3 (07:48→23:53)
[2021-01-19 08:00] VITALS: BP 121/70
--- NOTE | 2021-01-19 08:17 | NUR ---
RN MS OPENING NOTES PATIENT ON BED, AWAKE, A/0X1. ON O2 AT 2LPM/NC- GEORGE. WELL.IN NO APPARENT RESPIRATORY DISTRESS NOTED. BREATHING EVEN AND UNLABORED. NO S/SX OF PAIN AND DISCOMFORT. PT. WITH KO MIDLINE, INTACT AND PATENT. PT. W/ RT. SUBCLAVIAN PERMACATH, INTACT WITH DRY DRESSING IN PLACE.SAFETY PRECAUTION IN PLACE. FREQUENT VISUAL CHECKS RENDERED TO ENSURE SAFETY AND COMFORT. CALL LIGHT W/IN EASY REACH.WILL CONTINUE TO MONITOR.
[2021-01-19] MEDS: METOPROLOL TARTRATE 50 MG TABLET GT SCH ×2 (09:00→20:35)
[2021-01-19] MEDS: ASPIRIN 81 MG TAB.CHEW GT SCH (09:26)
[2021-01-19] MEDS: SEVELAMER CARBONATE 800 MG POWD.PACK GT SCH ×3 (09:29→17:25)
[2021-01-19] MEDS: CALCIUM ACETATE 667 MG CAP/TAB GT SCH ×3 (09:29→17:25)
[2021-01-19] MEDS: FAMOTIDINE/PF INJ 20 MG/2 ML VIAL IV SCH ×2 (09:30→20:36)
[2021-01-19] MEDS: HALOPERIDOL 1 MG TABLET NG SCH ×3 (09:30→16:36)
[2021-01-19] MEDS: PROSOURCE / PROSTAT (PYXIS) 30 ML UDC PO SCH ×2 (09:55→16:36)
[2021-01-19] MEDS: NEPRO VAN 237 ML CAN PO SCH (09:55)
[2021-01-19] MEDS ORDERED: HEPARIN-LOCK FLUSH PORCINE PF 100 UNITS/1 ML (10 ML)DISP.SYRIN IVF ONE (10:30)
[2021-01-19] MEDS: ALBUMIN 25% 25 GM in PREMIX 1 EA IV PRN (12:04)
[2021-01-19 13:15] VITALS: BP 114/61
[2021-01-19 14:31] LABS: HEMOGLOBIN 7.8 g/dL (11.5-14.8)
[2021-01-19] MEDS ORDERED: EPOETIN ALFA-EPBX 10,000 UNIT/ML VIAL IV ONE (15:00)
[2021-01-19 16:00] VITALS: BP 133/74
--- NOTE | 2021-01-19 18:15 | NUR ---
RN CLOSING NOTES PATIENT ON BED, AWAKE, A/OX1. IN NO APPARENT RESPIRATORY DISTRESS NOTED. BREATHING EVEN AND UNLABORED.PT. WITH KO MIDLINE AND RT. SUBCLAVIAN PERMCATH FOR HD, INTACT AND WITH CLEAN DRY DRESSING IN PLACE. PT. NOT COMPLETED THE DIALYSIS FOR TODAY D/T DECREASED BLOOD PRESSURE. PT. WAS SEEN BY PT STAFF, AND PT. UNABLE TO AMBULATE AT THIS TIME ,STILL WEAK. TREATMENT DONE AT BILATERAL INNER BUTTOCK- GEORGE.WELL. FREQUENT VISUAL CHECKS RENDERED TO ENSURE SAFETY AND COMFORT. ALL NEEDS ATTENDED. SIDE RAILS X2 UP. CALL LIGHT WITHIN EASY REACH.WILL CONTINUE TO MONITOR PT. AND ENDORSED CARE TO GYMNASIUM TEACHER
--- NOTE | 2021-01-19 19:25 | NUR ---
RN OPENING NOTE PATIENT IN BED, AWAKE, A/O X 1, CONFUSED. PATIENT STILL HAS BILATERAL SOFT WRIST RESTRAINTS ON, WILL MONITOR BEHAVIOR Q2H. PATIENT ON 2 L O2 CANNULA, TOLERATING WELL NO SOB NOTED. PATIENT HAS A KO MIDLINE SALINE LOCKED, PATENT AND INTACT AND R SUBCLAVIAN PERMACATH PRESENT. SAFETY MEASURES IN PLACE: BED LOCKED AND IN LOWEST POSITION, CALL LIGHT WITHIN REACH, SIDE RAILS UP. WILL MONITOR PATIENT CLOSELY.
[2021-01-19 20:00] VITALS: BP 93/59
--- NOTE | 2021-01-20 01:30 | NUR ---
RN NOTE PATIENT CONTINUES TO REMOVE RESTRAINTS, REMOVES OXYGEN AND BREATHING TREATMENT. WILL CONTINUE TO REORIENT PATIENT AND MAINTAIN RESTRAINS ON.
[2021-01-20] MEDS: ALBUTEROL HALF STRENGTH 1.25 MG/3 ML VIAL.NEB NEB SCH ×6 (03:51→23:22)
[2021-01-20] MEDS: IPRATROPIUM NEB FS 0.5 MG/2.5 ML AMPUL.NEB NEB SCH ×6 (03:51→23:22)
--- NOTE | 2021-01-20 07:11 | NUR ---
RN CLOSING NOTE PATIENT IN BED, AWAKE. BREATHING EVEN AND UNLABORED, ON 2L. IV ACCESS PATENT AND INTACT. NO SIGNIFICANT CHANGES IN PATIENT'S CONDITION. BILATERAL SOFT WRIST RESTRAINTS ON. SAFETY MEASURES MAINTAINED. ALL NEEDS MET AND ATTENDED, ALL ORDERS CARRIED OUT. WILL ENDORSE TO DAY SHIFT NURSE FOR LISSETH.
--- NOTE | 2021-01-20 07:55 | NUR ---
MS/RN OPENING NOTE RECEIVED PATIENT IN BED, AWAKE, ALERT AND ORIENTED X1-2. ON 2 LPM OF OXYGEN VIA NASAL CANNULA. BREATHING EVEN AND UNLABORED, BILATERAL SOFT WRIST RESTRAINTS ON. IV ACCESS ON RIGHT UPPER ARM MIDLINE IS INTACT AND PATENT ON SALINE LOCK. SAFETY MEASURES IN PLACED: BED LOCKED ON LOWEST POSITION, SIDE RAILS UP X3, CALL LIGHT WITHIN REACH WILL CONTINUE TO MONITOR.
[2021-01-20] MEDS: ACETYLCYSTEINE 10% SOLN 400 MG/4 ML VIAL NEB SCH ×3 (08:02→23:22)
[2021-01-20] MEDS: METOPROLOL TARTRATE 50 MG TABLET GT SCH ×3 (09:00→21:00)
[2021-01-20] MEDS: HALOPERIDOL 1 MG TABLET NG SCH ×3 (09:17→17:10)
[2021-01-20] MEDS: FAMOTIDINE/PF INJ 20 MG/2 ML VIAL IV SCH ×2 (09:17→21:12)
[2021-01-20] MEDS: ASPIRIN 81 MG TAB.CHEW GT SCH (09:17)
[2021-01-20] MEDS: SEVELAMER CARBONATE 800 MG POWD.PACK GT SCH ×3 (09:23→17:10)
[2021-01-20] MEDS: CALCIUM ACETATE 667 MG CAP/TAB GT SCH ×3 (09:23→17:10)
[2021-01-20] MEDS: PROSOURCE / PROSTAT (PYXIS) 30 ML UDC PO SCH ×2 (09:24→17:00)
[2021-01-20] MEDS: NEPRO VAN 237 ML CAN PO SCH (09:25)
--- NOTE | 2021-01-20 13:09 | NUR ---
MS/RN NOTES PATIENT IS ALERT AND ORIENTED X3 NOW, ABLE TO MAKE NEEDS KNOWN. BILATERAL RESTRAINTS TAKEN OFF FOR NOW. ASKED THE SHEETMETAL TRADES WORKER TO ASSIST HER TO THE TOILET, ABLE TO AMBULATE WITH ASSISTANCE AND A WALKER. COOPERATIVE AT THIS TIME. WILL CONTINUE TO MONITOR.
--- NOTE | 2021-01-20 17:16 | NUR ---
no restraints at this time, resting in bed and watching tv, served with dinner, will encourage to increase po intake, continue to monitor.
--- NOTE | 2021-01-20 19:02 | NUR ---
MS/RN CLOSING NOTE PATIENT IN BED, AWAKE, ALERT AND ORIENTED X3. STABLE ON ROOM AIR SATURATING WELL AT 96%. BILATERAL SOFT WRIST RESTRAINTS OFF FOR NOW. IV ACCESS ON RIGHT UPPER ARM MIDLINE IS INTACT AND PATENT ON SALINE LOCK. KEPT PATIENT COMFORTABLE. ALL NEEDS MET. SAFETY MEASURES IN PLACED: BED LOCKED ON LOWEST POSITION, SIDE RAILS UP X3, CALL LIGHT WITHIN REACH. WILL ENDORSE TO THE NEXT SHIFT FOR LISSETH.
--- NOTE | 2021-01-20 19:57 | NUR ---
MS RN OPENING NOTES PATIENT LAST SEEN AWAKE IN BED RESTING. PATIENT'S ALERT AND ORIENTED X3. PATIENT'S STABLE ON ROOM AIR. KO MIDLINE NOTED WHICH IS INTACT, PATIENT, AND FLUSHING WELL. PATIENT'S IN NO ACUTE DISTRESS AT THIS TIME. SAFETY PRECAUTIONS IN PLACE: BED LOCKED, BED ALARM ON, SR UP X3, AND CALL LIGHT WITHIN REACH OF THE PATIENT. WILL CONTINUE TO MONITOR THE PATIENT.
[2021-01-20 20:26] VITALS: BP 95/53
[2021-01-21] MEDS: IPRATROPIUM NEB FS 0.5 MG/2.5 ML AMPUL.NEB NEB SCH ×6 (03:54→23:33)
[2021-01-21] MEDS: ALBUTEROL HALF STRENGTH 1.25 MG/3 ML VIAL.NEB NEB SCH ×6 (03:54→23:33)
--- NOTE | 2021-01-21 06:30 | NUR ---
MS RN CLOSING NOTES PATIENT LAST SEEN SLEEPING IN BED. PATIENT'S ALERT AND ORIENTED X2-3. PATIENT'S STABLE ON ROOM AIR. KO MIDLINE NOTED WHICH IS INTACT, PATIENT, AND FLUSHING WELL. PATIENT'S IN NO ACUTE DISTRESS AT THIS TIME. SAFETY PRECAUTIONS IN PLACE: BED LOCKED, BED ALARM ON, SR UP X3, AND CALL LIGHT WITHIN REACH OF THE PATIENT. PATIENT HAS HD TODAY AND WILL ENDORSE DAY SHIFT NURSE TO TELL HD NURSE TO COLLECTED BLOOD FOR AM LABS. WOUND CARE WAS PERFORMED IN THE PM SHIFT & WOUND PICTURES WERE TAKEN WELL. WILL ENDORSE CARE TO THE DAY SHIFT NURSE.
--- NOTE | 2021-01-21 07:32 | NUR ---
MS RN OPENING NOTE RECEIVED ASLEEP, EASY TO AROUSE. ALERT AND ORIENTED X 2. NO S/S OF DISTRESS NOTED. NO SOB. BREATHING IS EVEN AND UNLABORED. IV ACCESS MIDLINE PATENT, INTACT AND FLUSHING WELL. SAFETY MEASURES IN PLACE WITH BED LOCKED AND LOW POSITION, SIDE RAILS UP X 2. CALL LIGHT WITHIN REACH. WILL CONTINUE TO MONITOR THROUGHOUT SHIFT.
[2021-01-21] MEDS: PROSOURCE / PROSTAT (PYXIS) 30 ML UDC PO SCH ×2 (08:03→16:03)
[2021-01-21] MEDS: NEPRO VAN 237 ML CAN PO SCH (08:04)
[2021-01-21] MEDS: ACETYLCYSTEINE 10% SOLN 400 MG/4 ML VIAL NEB SCH ×3 (08:27→23:33)
[2021-01-21 08:29] VITALS: BP 86/59
[2021-01-21] MEDS: METOPROLOL TARTRATE 50 MG TABLET GT SCH ×2 (08:35→20:25)
[2021-01-21] MEDS: HALOPERIDOL 1 MG TABLET NG SCH ×3 (08:35→16:24)
[2021-01-21] MEDS: FAMOTIDINE/PF INJ 20 MG/2 ML VIAL IV SCH ×2 (08:35→20:27)
[2021-01-21] MEDS: SEVELAMER CARBONATE 800 MG POWD.PACK GT SCH ×3 (08:36→17:01)
[2021-01-21] MEDS: ASPIRIN 81 MG TAB.CHEW GT SCH (08:36)
[2021-01-21] MEDS: CALCIUM ACETATE 667 MG CAP/TAB GT SCH ×3 (08:38→17:01)
--- NOTE | 2021-01-21 11:30 | NUR ---
MS RN NOTE PT IS CURRENTLY IN IN BED WATCHING TV AT THIS TIME. ALERT AND ORIENTED X3. PT WITHOUT SOFT WRIST RESTRAINTS. ABLE TO VOICE NEEDS. WILL CONTINUE TO MONITOR THROUGHOUT SHIFT.
[2021-01-21] MEDS ORDERED: HEPARIN SODIUM, PORCINE 1000 UNIT/1 ML VIAL IV ONE (14:00)
[2021-01-21] MEDS ORDERED: ALTEPLASE CATHFLO 2 MG/VIAL XX ONE ×2 (14:30→15:30)
[2021-01-21 15:51] LABS: BASOPHILS # (AUTO) 0.1 K/uL (0.0-0.2); BASOPHILS % (AUTO) 0.5 % (0.0-2.0); EOSINOPHILS % (AUTO) 0.7 % (0.0-6.0); HEMATOCRIT 24 % (33-45); HEMOGLOBIN 7.9 g/dL (11.5-14.8); LYMPHOCYTES # (AUTO) 1.4 K/uL (0.8-4.8); LYMPHOCYTES % (AUTO) 13.1 % (20.0-44.0); MEAN CORPUSCULAR HGB CONC 33 g/dl (31.0-36.0); MEAN CORPUSCULAR VOLUME 95 fL (82-100); MONOCYTES # (AUTO) 0.7 K/uL (0.1-1.30); MONOCYTES % (AUTO) 6.3 % (2.0-12.0); NEUTROPHILS # (AUTO) 8.2 K/uL (1.8-8.9); NEUTROPHILS % (AUTO) 79.4 % (43.0-81.0); PLATELET COUNT (AUTO) 373 K/uL (150-450); RED BLOOD CELL COUNT(AUTO) 2.57 MIL/uL (4.0-5.2); WHITE BLOOD COUNT (AUTO) 10.4 K/uL (4.3-11.0)
[2021-01-21 16:11] LABS: CALCIUM, SERUM 8.4 mg/dL (8.5-10.1); MAGNESIUM 2.6 mg/dL (1.8-2.4); PHOSPHORUS 3.9 mg/dL (2.5-4.9); POTASSIUM 4.7 mmol/L (3.5-5.1)
[2021-01-21 16:13] VITALS: BP 93/60
[2021-01-21 16:15] LABS: CREATININE 10.9 mg/dL (0.6-1.3)
[2021-01-21 17:07] LABS: EOSINOPHILS % (MANUAL) 1 % (0-4); LYMPHOCYTES % (MANUAL) 12 % (16-48); MONOCYTES % (MANUAL) 7 % (0-11.0); NEUTROPHILS % (MANUAL) 80 (42-76)
--- NOTE | 2021-01-21 17:10 | NUR ---
MS RN NOTES HEMODIALYSIS PAUSED AT THIS TIME DUE TO OCCLUSION/PRESSURE IN PERMACATH. WILL ATTEMPT TOMORROW PER DIALYSIS NURSE. DR. DUARTE AND CHARGE NURSE (SENIOR EXECUTIVE ASSISTANT) MADE AWARE.
--- NOTE | 2021-01-21 19:02 | NUR ---
MS RN CLOSING NOTE PATIENT IN BED, ASLEEP. ALERT AND ORIENTED X 3. NO S/S OF DISTRESS NOTED. NO SOB. ALL NEEDS MET THROUGHOUT SHIFT. SAFETY MEASURES IN PLACE. CALL LIGHT WITHIN REACH. WILL ENDORSE CONTINUITY OF CARE TO ONCOMING SHIFT.
[2021-01-21 20:00] VITALS: BP 96/67
--- NOTE | 2021-01-21 20:36 | NUR ---
RECEIVED IN BED ALERT AND ORIENTATED X3 GOOD EYE CONTACT BED ALARM ON REMINDED HER HOW TO USE THE CALL LIGHT AND CALL FOR ASSIST
--- NOTE | 2021-01-21 22:00 | NUR ---
left pleural pigtail opened as ordered to drainage bag activated the suction patient made comfortable using pillows Addendum: 01/22/21 at 0506 by JESSICA CUEVAS RN charted on the wrong patient WRONG PATIENT
[2021-01-22] MEDS: IPRATROPIUM NEB FS 0.5 MG/2.5 ML AMPUL.NEB NEB SCH ×6 (04:15→23:45)
[2021-01-22] MEDS: ALBUTEROL HALF STRENGTH 1.25 MG/3 ML VIAL.NEB NEB SCH ×6 (04:15→23:45)
--- NOTE | 2021-01-22 05:17 | NUR ---
ALERT AND ORIENTATED XWILL FOLLOW DIRECTIONS WHEN INIATED BY THE NURSE COOPERATIVE MOVES ABOUT IN THE BED INDEPENDENTLY USED THE BEDSIDE COMMODE WITH MINIMAL ASSIST Addendum: 01/22/21 at 0522 by JESSICA CUEVAS RN NOT NEEDING THE SOFT WRIST RESTRAINTS THIS 12 HOURS, DIDN'T NEED THEM DAY SHIFT WELL NOR THE 01/20 ULTRASOUND SUPERVISOR DID NOT RENEW THE ORDER SINCE NOT NEEDING THEM FOR 36 HOURS AND NOTING PATIENT COOPERATIVE AND FOLLOW DIRECTIONS NOT SEEMING TO NEED THEM AT THIS TIME.
--- NOTE | 2021-01-22 07:49 | NUR ---
WOUND CARE FOLLOW UP: PT SEEN FOR RE-EVALUATION OF SKIN ON BUTTOCKS AND INNER THIGHS WHICH HAS RASH WITH INCONTINENCE ASSOCIATED SKIN DAMAGE. PT IS UNCOOPERATIVE AT TIMES. RECOMMENDATIONS MADE FOR SKIN PROTECTION AND SKIN CARE. DISCUSSED WITH NURSING STAFF. TREATMENT ORDERS UPDATED. MD IN AGREEMENT WITH PLAN OF CARE. PT IS ON BASILIO ISOFLEX LOW AIRLOSS BED. PT ABLE TO REPOSITION IN BED. PT IS AMBULATORY PER STAFF. Addendum: 01/22/21 at 0751 by AFSHAN CHANEY WNDNU Amended: Links added.
[2021-01-22 08:00] VITALS: BP 100/58
[2021-01-22] MEDS: ACETYLCYSTEINE 10% SOLN 400 MG/4 ML VIAL NEB SCH ×3 (08:40→23:45)
[2021-01-22] MEDS: METOPROLOL TARTRATE 50 MG TABLET GT SCH ×2 (09:00→21:00)
[2021-01-22] MEDS: NEPRO VAN 237 ML CAN PO SCH (09:00)
--- NOTE | 2021-01-22 10:30 | NUR ---
wound care done by ene wound nurse.
[2021-01-22] MEDS: FAMOTIDINE/PF INJ 20 MG/2 ML VIAL IV SCH ×2 (10:58→21:12)
[2021-01-22] MEDS: PROSOURCE / PROSTAT (PYXIS) 30 ML UDC PO SCH ×2 (10:58→18:23)
[2021-01-22] MEDS: HALOPERIDOL 1 MG TABLET NG SCH ×3 (10:59→18:23)
[2021-01-22] MEDS: ASPIRIN 81 MG TAB.CHEW GT SCH (10:59)
[2021-01-22] MEDS: CALCIUM ACETATE 667 MG CAP/TAB GT SCH ×3 (10:59→18:24)
[2021-01-22] MEDS: SEVELAMER CARBONATE 800 MG POWD.PACK GT SCH ×3 (11:09→18:23)
[2021-01-22] MEDS: CLOTRIMAZOLE 1% 15 GM TUBE TP SCH ×2 (11:10→17:51)
[2021-01-22 16:00] VITALS: BP 90/54
--- NOTE | 2021-01-22 18:00 | NUR ---
no chg. in status.
--- NOTE | 2021-01-22 19:50 | NUR ---
MS RN NOTE RECEIVED PATIENT IN BED. A/OX2. NO S/S OF APPARENT DISTRESS. DENIES PAIN. NO FLUIDS RUNNING AT THIS TIME. SAFETY IN PLACE. WILL CONTINUE TO MONITOR.
[2021-01-22 20:00] VITALS: BP 99/60
--- NOTE | 2021-01-22 21:08 | NUR ---
MS RN NOTE LOPRESSOR NON-ADMIN. PATIENT BP 99/60.
[2021-01-23] MEDS: IPRATROPIUM NEB FS 0.5 MG/2.5 ML AMPUL.NEB NEB SCH ×6 (03:12→23:37)
[2021-01-23] MEDS: ALBUTEROL HALF STRENGTH 1.25 MG/3 ML VIAL.NEB NEB SCH ×6 (03:12→23:37)
--- NOTE | 2021-01-23 06:52 | NUR ---
MS RN NOTE PATIENT IN BED. [id number] SPEAKING. NO S/S OF APPARENT DISTRESS. DENIES PAIN. NO FLUIDS RUNNNING AT THIS TIME. PATIENT ADAMANTLY REFUSING DRESSING CHANGE. PER PATIENT THEY JUST CHANGED THE DRESSING YESTERDAYENDORSED TO ME WELL BY NIDA THAT AFSHAN, WOUND CARE NURSE CAME IN AND DID DRESSING CHANGES YESTERDAY. SAFETY KEPT IN PLACE THE WHOLE SHIFT. NO SIGNIFICANT CHANGE SINCE LAST ENDORSEMENT. WILL ENDORSE CARE TO MORNING SHIFT RN FOR CONT. OF CARE.
[2021-01-23 07:09] LABS: CALCIUM, SERUM 9.1 mg/dL (8.5-10.1); POTASSIUM 5.4 mmol/L (3.5-5.1)
[2021-01-23 07:11] LABS: CREATININE 13.5 mg/dL (0.6-1.3)
--- NOTE | 2021-01-23 07:30 | NUR ---
MS RN OPENING NOTES RECEIVED PATIENT ON BED, AWAKE AND A/O X2. ON ROOM AIR TOLERATING WELL. NO SOB NOTED. NOT IN DISTRESS. WITH NO COMPLAINTS OF PAIN AT THIS TIME. WITH IV ACCESS AT RIGHT UPPER ARM MIDLINE, SALINE LOCKED, PATENT AND INTACT. WITH PERMACATH AT RIGHT CHEST WALL FOR HEMODIALYSIS. SAFETY MEASURES IN PLACE. CALL LIGHT WITHIN REACH. BED ON LOWEST AND LOCKED POSITION, SIDE RAILS UP X2. WILL CONTINUE TO MONITOR.
[2021-01-23] MEDS: ACETYLCYSTEINE 10% SOLN 400 MG/4 ML VIAL NEB SCH ×3 (07:35→23:37)
[2021-01-23 08:00] VITALS: BP 94/71
[2021-01-23] MEDS: SEVELAMER CARBONATE 800 MG POWD.PACK GT SCH ×3 (08:01→17:01)
[2021-01-23] MEDS: ASPIRIN 81 MG TAB.CHEW GT SCH (08:03)
[2021-01-23] MEDS: HALOPERIDOL 1 MG TABLET NG SCH ×3 (08:03→17:01)
[2021-01-23] MEDS: CALCIUM ACETATE 667 MG CAP/TAB GT SCH ×3 (08:03→17:01)
[2021-01-23] MEDS: FAMOTIDINE/PF INJ 20 MG/2 ML VIAL IV SCH ×2 (08:03→21:25)
[2021-01-23] MEDS: NEPRO VAN 237 ML CAN PO SCH (08:04)
[2021-01-23] MEDS: METOPROLOL TARTRATE 50 MG TABLET GT SCH ×2 (08:15→21:25)
[2021-01-23] MEDS: CLOTRIMAZOLE 1% 15 GM TUBE TP SCH ×2 (08:26→17:04)
[2021-01-23] MEDS: PROSOURCE / PROSTAT (PYXIS) 30 ML UDC PO SCH ×2 (09:24→18:44)
[2021-01-23] MEDS ORDERED: ALTEPLASE CATHFLO 2 MG/VIAL IV STA (12:56)
--- NOTE | 2021-01-23 15:00 | NUR ---
RN NOTES HEMODIALYSIS NURSE NAMED GONZÁLEZ GARCIA REPORTED THAT HE CANNOT DO HEMODIALYSIS FOR THERE IS NO BACKFLOW OF BLOOD. MADE AWARE. Addendum: 01/23/21 at 1843 by KIRT RAMEY RN PER HEMODIALYSIS NURSE GONZÁLEZ GARCIA REPORTED THAT THE PATIENT NEEDS A NEW CATHETER. DOCTOR MIC DUARTE, DR. MITESH CADENA, MS. DIANA AND THE NURSING COKE INSPECTOR MADE AWARE THAT THE PATIENT'S CATHETER FOR HEMODIALYSIS IS NOT WORKING.
--- NOTE | 2021-01-23 15:38 | NUR ---
APS Worker: BRANDON received call from APS worker, Jorge Luis Burciaga [phone]. SW provided collateral information. Jorge Luis stated case will be transferred to someone else since pt. will not be returning to [facility]. Noted.
[2021-01-23 16:00] VITALS: BP 97/68
--- NOTE | 2021-01-23 18:52 | NUR ---
MS RN CLOSING NOTES PATIENT ON BED, AWAKE AND A/O X2. ON ROOM AIR TOLERATING WELL. NO SOB NOTED. NOT IN DISTRESS. WITH NO COMPLAINTS OF PAIN AT THIS TIME. WITH IV ACCESS AT RIGHT UPPER ARM MIDLINE, SALINE LOCKED, PATENT AND INTACT. WITH PERMACATH AT RIGHT CHEST WALL FOR HEMODIALYSIS. SAFETY MEASURES IN PLACE. CALL LIGHT WITHIN REACH. BED ON LOWEST AND LOCKED POSITION, SIDE RAILS UP X2. WILL ENDORSE TO NEXT SHIFT FOR LISSETH.
--- NOTE | 2021-01-23 19:15 | NUR ---
MS RN NOTES RECEIVED LAYING ON BED A/O X 1-2,RESTRAINTS OFF THIS TIME,ABLE TO MOVE AROUND ON BED,FALL PRECAUTION OBSERVED,BED ALARM ON FOR SAFETY,WITH RIGHT UPPER ARM MIDLINE FOR MEDS,RIGHT CHEST WALL PERMA CATH FOR HD ACCESS BUT ITS NOT WORKING.PER REPORT SUPPOSED TO HAVE HD TREATMENT TODAY BUT ACCESS WAS CLOGGED EVEN THOUGH HD NURSE USED ALTAPASE TO DECLOGGED THE ACCESS BUT UNSUCCESSFUL.MD AWARE.WILL CONTINUE TO MONITOR STATUS.
[2021-01-23 20:00] VITALS: BP 114/66
[2021-01-24] MEDS: ACETAMINOPHEN 650 MG/20.3 ML UDC GT PRN (01:45)
--- NOTE | 2021-01-24 01:45 | NUR ---
MS RN NOTES C/O PAIN ON SACRAL AREA,TYLENOL 650 PO LIQUID FOR MILD PAIN.
[2021-01-24] MEDS: ALBUTEROL HALF STRENGTH 1.25 MG/3 ML VIAL.NEB NEB SCH ×7 (03:32→23:30)
[2021-01-24] MEDS: IPRATROPIUM NEB FS 0.5 MG/2.5 ML AMPUL.NEB NEB SCH ×7 (03:32→23:30)
--- NOTE | 2021-01-24 06:27 | NUR ---
MS RN NOTES CALM AND QUIET THRU OUT SHIFT,RESTRAINTS OFF THRU OUT THE NIGHT.MED COMPLIANT,ANURIC,AWAITING HD TREATMENT SOON HD CATHETER DECLOGGED.NO FALL,NO INJURY.IN NO ACUTE DISTRESS.WILL ENDORSE TO DAY NURSE FOR LISSETH.
--- NOTE | 2021-01-24 07:30 | NUR ---
MS/RN OPENING NOTES RECEIVED PATIENT ON BED AWAKE ALERT AND ORIENTED X 1-2. PATIENT IS ON ROOM AIR. PATIENT IN NO APPARENT RESPIRATORY DISTRESS NOTED. NO COMPLAINED OF PAIN NOTED AT THIS TIME. WILL CONTINUE TO MONITOR.
[2021-01-24] MEDS: ACETYLCYSTEINE 10% SOLN 400 MG/4 ML VIAL NEB SCH ×3 (07:35→23:30)
[2021-01-24 08:00] VITALS: BP 110/79
[2021-01-24] MEDS: CALCIUM ACETATE 667 MG CAP/TAB GT SCH ×4 (08:40→17:13)
[2021-01-24] MEDS: HALOPERIDOL 1 MG TABLET NG SCH ×3 (08:40→17:13)
[2021-01-24] MEDS: FAMOTIDINE/PF INJ 20 MG/2 ML VIAL IV SCH ×2 (08:40→21:09)
[2021-01-24] MEDS: NEPRO VAN 237 ML CAN PO SCH (08:42)
[2021-01-24] MEDS: ASPIRIN 81 MG TAB.CHEW GT SCH (08:42)
[2021-01-24] MEDS: SEVELAMER CARBONATE 800 MG POWD.PACK GT SCH ×3 (08:47→17:13)
[2021-01-24] MEDS: PROSOURCE / PROSTAT (PYXIS) 30 ML UDC PO SCH ×2 (08:48→17:14)
[2021-01-24] MEDS: CLOTRIMAZOLE 1% 15 GM TUBE TP SCH ×2 (08:55→17:37)
[2021-01-24] MEDS: METOPROLOL TARTRATE 50 MG TABLET GT SCH ×2 (09:00→21:09)
[2021-01-24] MEDS: SODIUM POLYSTYRENE SULFONATE 15 G/60 ML BOTTLE PO ONE ×2 (11:00→12:25)
[2021-01-24 16:00] VITALS: BP 108/66
[2021-01-24 16:22] LABS: BASOPHILS % (AUTO) 0.3 % (0.0-2.0); EOSINOPHILS % (AUTO) 0.3 % (0.0-6.0); HEMATOCRIT 26 % (33-45); HEMOGLOBIN 8.3 g/dL (11.5-14.8); LYMPHOCYTES # (AUTO) 1.1 K/uL (0.8-4.8); MEAN CORPUSCULAR HGB CONC 32 g/dl (31.0-36.0); MEAN CORPUSCULAR VOLUME 95 fL (82-100); MONOCYTES # (AUTO) 0.7 K/uL (0.1-1.30); MONOCYTES % (AUTO) 6.9 % (2.0-12.0); NEUTROPHILS # (AUTO) 8.7 K/uL (1.8-8.9); NEUTROPHILS % (AUTO) 82.5 % (43.0-81.0); PLATELET COUNT (AUTO) 260 K/uL (150-450); RED BLOOD CELL COUNT(AUTO) 2.74 MIL/uL (4.0-5.2); WHITE BLOOD COUNT (AUTO) 10.5 K/uL (4.3-11.0)
[2021-01-24 16:30] LABS: CALCIUM, SERUM 9.5 mg/dL (8.5-10.1); CREATININE 7.2 mg/dL (0.6-1.3); POTASSIUM 3.9 mmol/L (3.5-5.1)
--- NOTE | 2021-01-24 18:50 | NUR ---
MS/RN CLOSING NOTES PATIENT IS ON BED ALERT AND ORIENTED X 1-2. PATIENT IS ON ROOM AIR. PATIENT IN NO APPARENT RESPIRATORY DISTRESS NOTED. IV ACCESS AT RIGHT UPPER MIDLINE #18G PATENT AND INTACT. SEEN AND EXAMINED BY MD WITH ORDERS MADE AND CARRIED OUT. ALL DUE MEDICATIONS WAS GIVEN. SAFETY PRECAUTIONS WAS IN PLACED. BED IN LOWEST POSITION AND LOCKED. SIDERAILS UP X2. CALL LIGHT WITHIN REACH. HEMODIALYSIS WAS DONE TODAY 2L OUTPUT. WILL ENDORSED TO TRAVELING BUYER RN FOR LISSETH.
--- NOTE | 2021-01-24 19:30 | NUR ---
MS RN NOTES RECEIVED ON FOWLERS POSITION,ALERT,ORIENTED 1-2,BREATHING NON LABORED,OF ON RESTRAINTS THIS TIME.WITH KO MIDLINE INTACT AND PATENT,RIGHT CHEST WALL PERMA CATH FOR HD ACCESS.FALL PRECAUTION OBSERVED,WILL CONTINUE TO MONITOR STATUS.
[2021-01-24 19:52] VITALS: BP 103/67
[2021-01-24 20:00] VITALS: BP 103/67
[2021-01-25] MEDS: ALBUTEROL HALF STRENGTH 1.25 MG/3 ML VIAL.NEB NEB SCH ×4 (03:28→16:04)
[2021-01-25] MEDS: IPRATROPIUM NEB FS 0.5 MG/2.5 ML AMPUL.NEB NEB SCH ×4 (03:29→16:04)
--- NOTE | 2021-01-25 06:32 | NUR ---
MS RN NOTES REMAINS CONFUSED,MORNING CARE RENDERED BY KAREN TAPIA TOLERATED WELL.,NO OT IN ANY FORM OF RESPIRATORY DISTRESS,FOR D/C PLANNING,CASE MANAGEMENT FOR PLACEMENT.ENDORSE TO DAY NURSE FOR LISSETH.
[2021-01-25 06:36] LABS: BASOPHILS % (AUTO) 0.4 % (0.0-2.0); EOSINOPHILS % (AUTO) 0.6 % (0.0-6.0); HEMATOCRIT 27 % (33-45); HEMOGLOBIN 8.6 g/dL (11.5-14.8); LYMPHOCYTES # (AUTO) 1.5 K/uL (0.8-4.8); LYMPHOCYTES % (AUTO) 15.6 % (20.0-44.0); MEAN CORPUSCULAR HGB CONC 32 g/dl (31.0-36.0); MEAN CORPUSCULAR VOLUME 95 fL (82-100); MONOCYTES # (AUTO) 1.1 K/uL (0.1-1.30); MONOCYTES % (AUTO) 10.9 % (2.0-12.0); NEUTROPHILS # (AUTO) 7.2 K/uL (1.8-8.9); NEUTROPHILS % (AUTO) 72.5 % (43.0-81.0); PLATELET COUNT (AUTO) 254 K/uL (150-450); RED BLOOD CELL COUNT(AUTO) 2.89 MIL/uL (4.0-5.2); WHITE BLOOD COUNT (AUTO) 9.9 K/uL (4.3-11.0)
[2021-01-25] MEDS: CALCIUM ACETATE 667 MG CAP/TAB GT SCH ×3 (07:26→17:04)
[2021-01-25] MEDS: SEVELAMER CARBONATE 800 MG POWD.PACK GT SCH ×3 (07:27→17:05)
--- NOTE | 2021-01-25 07:30 | NUR ---
MS RN OPENING NOTE RECEIVED PT IN BED. A/O X1-2. PT IS STABLE ON ROOM AIR WITH NO SOB OR S/S OF RESPIRATORY DISTRESS NOTED. PT NOTED ON RESTRAINTS AT THIS TIME. NO SIGNS OF PAIN SUCH FACIAL GRIMACING NOTED. IV ACCESS IN KO MIDLINE, INTACT AND PATENT. PT NOTED WITH RIGHT CHEST WALL PERMACATH FOR HD ACCESS. SAFETY PRECAUTIONS MAINTAINED. BED IN LOWEST LOCKED POSITION, HOB ELEVATED, SIDE RAILS UP X3. BED ALARM ON. CALL LIGHT AND TABLE WITHIN REACH. WILL CONTINUE TO MONITOR.
[2021-01-25] MEDS: ACETYLCYSTEINE 10% SOLN 400 MG/4 ML VIAL NEB SCH ×2 (07:47→16:05)
[2021-01-25 08:00] VITALS: BP 94/64
[2021-01-25] MEDS: ASPIRIN 81 MG TAB.CHEW GT SCH (08:53)
[2021-01-25] MEDS: FAMOTIDINE/PF INJ 20 MG/2 ML VIAL IV SCH (08:54)
[2021-01-25] MEDS: HALOPERIDOL 1 MG TABLET NG SCH ×3 (08:54→16:06)
[2021-01-25] MEDS: METOPROLOL TARTRATE 50 MG TABLET GT SCH (08:56)
[2021-01-25] MEDS: PROSOURCE / PROSTAT (PYXIS) 30 ML UDC PO SCH ×2 (09:03→16:06)
[2021-01-25] MEDS: CLOTRIMAZOLE 1% 15 GM TUBE TP SCH ×2 (09:05→16:10)
[2021-01-25] MEDS: NEPRO VAN 237 ML CAN PO SCH (09:06)
[2021-01-25 11:28] LABS: CALCIUM, SERUM 8.6 mg/dL (8.5-10.1); MAGNESIUM 2.4 mg/dL (1.8-2.4); PHOSPHORUS 4.8 mg/dL (2.5-4.9)
[2021-01-25 11:31] LABS: CREATININE 9.1 mg/dL (0.6-1.3)
[2021-01-25 16:00] VITALS: BP 68/53
[2021-01-25] MEDS ORDERED: ASPIRIN 81 MG TAB.CHEW PO SCH (17:39)
[2021-01-25] MEDS ORDERED: hydrALAZINE HCL 50 MG TABLET PO PRN (17:39)
[2021-01-25] MEDS ORDERED: METOPROLOL TARTRATE 50 MG TABLET PO SCH (17:40)
[2021-01-25] MEDS ORDERED: HALOPERIDOL 1 MG TABLET PO SCH (17:40)
[2021-01-25] MEDS ORDERED: ACETAMINOPHEN 650 MG/20.3 ML UDC PO PRN (17:42)
[2021-01-25] MEDS ORDERED: PHARMACY TO CHANGE GT/NG MEDS TO PO XX PRN (18:00)
[2021-01-25] MEDS ORDERED: ASPI-1169 PO (18:19)
[2021-01-25] MEDS ORDERED: METO50TA16 PO (18:19)
[2021-01-25] MEDS ORDERED: SEVE0.8P PO (18:19)
[2021-01-25] MEDS ORDERED: Prosource PO (18:19)
[2021-01-25] MEDS ORDERED: CALC667C6 PO (18:19)
[2021-01-25] MEDS ORDERED: HALO1TAB5 PO (18:19)
--- NOTE | 2021-01-25 19:15 | NUR ---
MS RAW SHELLFISH PREPARER NOTE PT DISCHARGED TO [facility] AT THIS TIME. PT IS MEDICALLY STABLE AND CLEARED FOR DISCHARGE BY WALE CADENA. ALL PT CARE, NEEDS, MEDICATIONS, AND TREATMENT ADMINISTERED PER ORDER. DISCHARGE INSTRUCTIONS PROVIDED TO PT. PT KEPT CLEAN AND DRY. PT REFUSED SKIN PHOTOS AT THIS TIME. EDUCATED PT ON RISKS AND BENEFITS OF SKIN PHOTOS. IV ACCESS REMOVED, PRESSURE APPLIED, AND SECURED WITH GAUZE AND TAPE. NO SIGNS OF BLEEDING NOTED. ID BAND REMOVED. PT TRANSPORTED TO [facility]IA [facility] ACCOMPANIED BY 2 EMT'S. CHARGE NURSE CHRISTELLE AND WALE CADENA AWARE.
[2021-01-26] MEDS ORDERED: CALCIUM ACETATE 667 MG CAP/TAB PO SCH (08:00)
[2021-01-26] MEDS ORDERED: SEVELAMER CARBONATE 800 MG POWD.PACK PO SCH (08:00)
== END 2021-01-25 19:20 | DRG 466 ==
LOC: ER 14:12 → TELE 17:02 → MED 12-21 08:19 → ICU 12-26 12:47 → TELE-TD 01-03 17:41 → TELE1 01-04 17:20 → MED 01-04 22:44 → TELE 01-05 01:06 → MED 01-09 08:19
PROVIDERS: ADMIT Nurse Practitioner Acute Care; ATTEND Nurse Practitioner Acute Care
PROC: 5A1D70Z Performance of Urinary Filtration, Intermittent, Less than 6 Hours Per Day (ICD-10-PCS; principal; 2020-12-20)
PROC: 0J2SXYZ Change Other Device in Head and Neck Subcutaneous Tissue and Fascia, External Approach (ICD-10-PCS; 2020-12-26)
PROC: 06HM33Z Insertion of Infusion Device into Right Femoral Vein, Percutaneous Approach (ICD-10-PCS; 2020-12-26)
PROC: B51BYZA Fluoroscopy of Right Lower Extremity Veins using Other Contrast, Guidance (ICD-10-PCS; 2020-12-26)
PROC: 5A1955Z Respiratory Ventilation, Greater than 96 Consecutive Hours (ICD-10-PCS; 2020-12-27)
PROC: 0BH18EZ Insertion of Endotracheal Airway into Trachea, Via Natural or Artificial Opening Endoscopic (ICD-10-PCS; 2020-12-27)
PROC: 05HB33Z Insertion of Infusion Device into Right Basilic Vein, Percutaneous Approach (ICD-10-PCS; 2021-01-15)
DX: T82.41XA Breakdown (mechanical) of vascular dialysis catheter, initial encounter (principal); N18.6 End stage renal disease; J96.01 Acute respiratory failure with hypoxia; G92.8 Other toxic encephalopathy; I50.33 Acute on chronic diastolic (congestive) heart failure; C79.9 Secondary malignant neoplasm of unspecified site; N17.9 Acute kidney failure, unspecified; D63.1 Anemia in chronic kidney disease; D69.6 Thrombocytopenia, unspecified; J81.1 Chronic pulmonary edema; T78.2XXA Anaphylactic shock, unspecified, initial encounter; I95.9 Hypotension, unspecified; E87.1 Hypo-osmolality and hyponatremia; D63.8 Anemia in other chronic diseases classified elsewhere; E11.22 Type 2 diabetes mellitus with diabetic chronic kidney disease; C50.919 Malignant neoplasm of unspecified site of unspecified female breast; I13.2 Hypertensive heart and chronic kidney disease with heart failure and with stage 5 chronic kidney disease, or end stage renal disease; E87.5 Hyperkalemia; E78.5 Hyperlipidemia, unspecified; K21.9 Gastro-esophageal reflux disease without esophagitis; Y71.2 Prosthetic and other implants, materials and accessory cardiovascular devices associated with adverse incidents; T36.1X5A Adverse effect of cephalosporins and other beta-lactam antibiotics, initial encounter; Z20.822 Contact with and (suspected) exposure to COVID-19; E66.01 Morbid (severe) obesity due to excess calories; Z99.2 Dependence on renal dialysis; Z68.33 Body mass index [BMI] 33.0-33.9, adult; Z98.891 History of uterine scar from previous surgery; Z90.49 Acquired absence of other specified parts of digestive tract; Z86.73 Personal history of transient ischemic attack (TIA), and cerebral infarction without residual deficits; R13.10 Dysphagia, unspecified; N25.0 Renal osteodystrophy; I25.10 Atherosclerotic heart disease of native coronary artery without angina pectoris; D72.829 Elevated white blood cell count, unspecified; F29 Unspecified psychosis not due to a substance or known physiological condition; Z83.3 Family history of diabetes mellitus; Z82.49 Family history of ischemic heart disease and other diseases of the circulatory system; J98.11 Atelectasis; Z98.890 Other specified postprocedural states; F32.A Depression, unspecified; J98.01 Acute bronchospasm; R62.7 Adult failure to thrive; I25.2 Old myocardial infarction
CPT/HCPCS: 31720; 36415; 36600; 71045-TC; 74018; 80048-TC; 80053-TC; 80061-TC; 80076-TC; 81001; 82140-TC; 82533; 82550-TC; 82570-TC; 82728-TC; 82803-TC; 82962-TC; 83520; 83540-TC; 83605-TC; 83735-TC; 83880; 84100-TC; 84155-TC; 84300-TC; 84478-TC; 84484-TC; 84702-TC; 84703-TC; 85025-TC; 85027-TC; 85378-TC; 85610-TC; 85730-TC; 86706; 87040-TC; 87081-TC; 87086-TC; 87340; 90935-TC; 92526; 92611-TC; 93307-TC; 94002-TC; 94003-TC; 94760-TC; 94799-TC; 97112-TC; 97116-TC; 97530-TC; A4216; A4217; A6253; A6403; C1750; C1757; C1769; C1894; C9803; G0378; J0171; J0330; J0360; J0690; J0885; J1100; J1630; J1644; J1815; J2250; J2270; J2370; J2405; J2704; J2930; J2997; J3010; J3490; J7030; J7040; J7050; J7060; P9047; Q9966